=== PATIENT | male | born 1975 | race Caucasian/White ===

== ENCOUNTER → 2019-10-16 05:49 | Outpatient (CLI) | payer OTHER, SELFPAY ==
--- NOTE | 2019-10-16 16:38 | STRESSREP ---
Stress Test Report Date: 10/16/2019 Procedure: Exercise tolerance test/imaging study Indications: [] Chest pain, dyspnea Consent: Per the patient Procedure: The patient exercised on a Germán protocol for 6 minutes and 30 seconds achieving a peak heart rate of 160 bpm (89 % predicted maximal heart rate) with a peak blood pressure 170/70 mmHg and a peak MET capacity of 7.7 METs. The baseline ECG demonstrated normal sinus rhythm. The peak exercise ECG demonstrated no significant ischemic changes. EKG during recovery revealed no significant ischemic changes [There were no cardiac dysrhythmias pretest, during exercise, or recovery]. The functional capacity was considered significantly decreased for age. There was [no complaint of chest discomfort during exercise or recovery]. The examination was discontinued secondary to dyspnea. Impression: 1. Technically adequate (percent predicted maximal heart rate greater than 85%) exercise tolerance test 2. Stress test is negative for exercise-induced EKG changes of ischemia 3. The test test is negative for exercise-induced chest pain 4. Functional capacity is significantly decreased for age 5. Nuclear images pending Myocardial perfusion imaging study: Technique: The patient was injected with 15 mCi of technetium 99m Cardiolite and subsequently rest SPECT Cardiolite nuclear imaging was obtained in the horizontal long, vertical long, and short axis views. The patient exercised on a Germán protocol. Please see above for details. The patient was injected with 45 mCi of technetium 99m Cardiolite and subsequently stress SPECT Cardiolite nuclear imaging was obtained in the horizontal long, vertical long, and short axis views. A gated Cardiolite study at peak stress was obtained. Interpretation: Rest and stress SPECT Cardiolite nuclear imaging status post realignment, normalization, and attenuation correction, demonstrates normal uptake at rest and mildly decreased radioisotope uptake in the apex on stress suggestive of mild apical ischemia. The gated Cardiolite study demonstrates no significant regional wall motion abnormalities. The reported LVEF is 64 %. Impression: 1. There is evidence of mild apical ischemia. 2. The gated Cardiolite study reports an LVEF of 64 %. This note was generated with [employer] software. It may contain incorrect words, spelling, and punctuation that were not noted in checking the note before signing.
== END ==
PROVIDERS: Family Provider Family Medicine; PCP Family Medicine; Referring Provider Family Medicine; Visit Provider Family Medicine
DX: R07.9 Chest pain, unspecified (principal)
CPT/HCPCS: 78452; 93017; A9500; A4216

== ENCOUNTER 2023-01-30 16:11 | Emergency (ER) | payer OTHER, SELFPAY ==
[2023-01-30 16:12] VITALS: BP 134/96; PULSE 97; RESP 18; TEMP 36.7; O2SAT 98; BMI 44.1
--- NOTE | 2023-01-30 16:42 | CT_ITS ---
INDICATION: headaches EXAMINATION: CT BRAIN - CT Head or Brain W/O Contrast Injection TECHNIQUE: Multiple axial images were obtained of the head without intravenous contrast. A radiation dose optimization technique was used for this scan. IV Contrast dosage and agent: None. COMPARISON: None FINDINGS: BRAIN PARENCHYMA: No intra- or extra-axial hemorrhage. No evidence of acute infarct. No intracranial mass or mass effect. There is preservation of the raymundo/white matter interface. Posterior fossa structures are unremarkable. CSF SPACES: Appropriate for age. No hydrocephalus. Basal cisterns are patent. CALVARIUM, SKULL BASE, PARANASAL SINUSES AND MASTOID AIR CELLS: Clear. No discrete lytic or blastic abnormalities. ORBITS: Both globes, extraocular muscles, optic nerves and retrobulbar fat appear unremarkable. ASPECTS Score for Acute Strokes: 10 CT/Brain/Head without Contrast IMPRESSION: Negative Brain CT without contrast. Electronically Signed: Brandin Olmos MD at 17:24 EDT ,
--- NOTE | 2023-01-30 16:44 | EDS_ITS ---
HPI History of Present Illness Chief Complaint: Chest Pain Informant: patient and spouse/S.O. Narrative Narrative: Patient has multiple complaints today. Patient's been having intermittent chest pain for months now. Its not worsening. It primarily occurs when he is stressed or angry. But not always. He points to 1 small area under the left breast. It is sharp. It is sometimes associated with dyspnea but he has dyspnea at other times without chest pain. It is not there currently. It does not radiate. Patient does have a history of blood pressure. But no diabetes, cholesterol, smoking or first-degree relative history of heart disease. Patient also complains of having episodes. He states people talk to him and he will have to shake his head in the to say his name multiple times before he can respond. But he does hear them. These have also been going on for 1 to 3 months. There is no reported actual seizure activity. Patient also complains of intermittent headaches. The headaches do not necessarily align with any of the other specific complaints. Patient also has a history of alcoholism. He drinks a pint of 80 proof liquor a day. He has been doing this for over 10 years. [facility] Medical History GERD (gastroesophageal reflux disease) HTN (hypertension) Home Medications albuterol sulfate 90 mcg/actuation aerosol inhaler (Ventolin HFA) 2 puff inhalation Q4H PRN PRN Wheezing ##1 01/30/23 [Rx Last Taken Unknown] omeprazole 40 mg capsule,delayed release 40 mg PO DAILY 01/30/23 [History Last Taken Unknown] valsartan 320 mg-hydrochlorothiazide 25 mg tablet 1 tab PO DAILY 01/30/23 [History Last Taken Unknown] Allergy/AdvReac Type Severity Reaction Status Date / Time Food Allergies: Uncoded Allergy Anaphylaxis Verified 01/30/23 16:14 cyclobenzaprine AdvReac Other Verified 01/30/23 16:14 [From Flexeril] Social History Smoking Status: Never smoker ROS ROS ED Constitutional Constitutional ED: Denies chills, fever(s) or subjective Eyes Eyes: Denies change in vision ENT ENT ED: Denies rhinorrhea or sore throat Cardiovascular Cardiovascular: Reports chest pain; Denies palpitations Respiratory/Chest Respiratory/Chest: Denies cough Gastrointestinal Gastrointestinal: Denies nausea or vomiting Musculoskeletal Musculoskeletal: Denies myalgias Integumentary Denies rash Neurologic Neurologic: Reports headache(s); Denies paresthesias or weakness Psychiatric Psychiatric: Reports anxiety Endocrine Endocrinology: Denies polydipsia or polyuria Hematologic/Lymphatic Hematologic/Lymphatic: Denies lymphadenopathy Allergic/Immunologic Allergic/Immunologic ED: Denies urticaria EXAM Physical Exam Narrative Exam Narrative: Patient awake alert no acute distress. He evidently had one of his episodes that the nurse witness. She said his name and then he opened his eyes wide. There is no shaking. No postictal or confused episode. This came and went quickly. HEENT: No sign of trauma. Mucous membranes moist Neck is supple Lungs are clear bilaterally and his saturations are normal at 98% on room air. Heart is regular with a rate about 100. No murmur gallop or rub heard. Abdomen is obese but overall soft normal bowel sounds completely nontender Neurologically he is awake alert appropriate with no focal deficit. Extremity shows some large ankles but really not pitting. His states they have been like this for a long time. Const Vital Signs: 01/30/23 16:12 01/30/23 16:36 01/30/23 17:22 Temperature 98.1 F Temperature Source Temporal Pulse Rate 97 Respiratory Rate 18 14 Respiratory Effort Normal Non-Labored Blood Pressure 134/96 H 132/78 H Blood Pressure Mean 108 96 Pulse Ox 98 Oxygen Delivery Method Room Air MDM MDM MDM Narrative Medical decision making narrative: My independent interpretation of the patient's single view AP chest x-ray shows no acute process. Final reading was no radiographic evidence of acute pulmonary disease. My independent interpretation the patient's CT of the head without contrast is also negative as was the final reading. Patient's blood work showed mild anemia which is not the source of his symptomatology. Electrolytes were overall relatively normal other than he did have a mild glucose elevation of 139. Liver function test were normal despite his heavy drinking history. Troponin was negative. Alcohol was elevated at 103. I talk with the . She is heard him wheezing when he gets this. Although he does not smoke now he used to smoke. He quit about 6 years ago. I will write for an albuterol inhaler because if he is getting intermittent wheezing this might be causing some of his symptoms. He evidently has an appointment set with his primary physician coming soon because he was due for refill of his antihypertensives. He still has his valsartan available though. We discussed reasons to return. I think with a negative troponin and negative work-up with months of symptoms he is safe and appropriate for discharge and follow-up. Lab Data Attestation: I reviewed the patient's lab results. Labs: Laboratory Results - last 24 hr 01/30/23 01/30/23 01/30/23 16:46 16:46 16:46 WBC 9.7 RBC 5.24 Hgb 12.1 L Hct 41.3 MCV 78.8 L MCH 23.1 L MCHC 29.3 L RDW Std Deviation 45.7 H RDW Coeff of Zen 16.0 H Plt Count 296 MPV 10.2 Immature Gran % (Auto) 0.300 Neut % (Auto) 57.0 Lymph % (Auto) 30.5 [place] % (Auto) 6.0 Eos % (Auto) 5.7 H Baso % (Auto) 0.5 Absolute Neuts (auto) 5.5 Absolute Lymphs (auto) 2.96 Nucleated RBC % 0 Sodium 140 Potassium 4.2 Chloride 106 Carbon Dioxide 29.0 Anion Gap 5 BUN 14 Creatinine 0.94 Estim Creat Clear Calc 112.15 Est GFR (MDRD) Af Amer 111 Est GFR (MDRD) Non-Af 92 BUN/Creatinine Ratio 14.9 Glucose 139 H Calcium 8.7 Total Bilirubin 0.40 AST 31 ALT 47 Alkaline Phosphatase 97 Troponin I High Sens 5 Total Protein 7.4 Albumin 3.5 Globulin 3.9 Albumin/Globulin Ratio 0.9 Ethyl Alcohol 103.0 Radiography Diagnostic Testing: Clinical Impression(s) from Imaging Studies Brain CT 01/30/23 16:42 IMPRESSION: Negative Brain CT without contrast. Electronically Signed: Brandin Olmos MD at 17:24 EDT , Chest X-Ray 01/30/23 16:55 IMPRESSION: No radiographic evidence of acute cardiopulmonary disease. Electronically Signed: Brandin Olmos MD at 17:12 EDT , EKG Initial EKG: Comments: My independent interpretation of the patient's EKG done for history of chest pain shows a normal sinus rhythm with overall rate of 91. Mild baseline variation. No ventricular ectopy. No acute ST elevation or depression. NV interval, QRS duration and QTc are normal. Discharge Plan Triage Chief Complaint: Chest Pain ED Provider: Christian Lazcano Dx/Rx/DC Orders Clinical Impression: Chest pain, History of acute bronchitis with bronchospasm, Alcohol abuse Instructions: ED Bronchitis with Wheezing (Adult), ED Chest Pain, Uncertain Cause Prescriptions: New albuterol sulfate [Ventolin HFA] 90 mcg/actuation HFA aerosol inhaler 2 puff inhalation Q4H PRN PRN (Reason: Wheezing) Qty: 1 0RF No Action omeprazole 40 mg capsule,delayed release(DR/EC) 40 mg PO DAILY Label Comments: TAKE 1 CAPSULE BY MOUTH EVERY DAY valsartan-hydrochlorothiazide 320-25 mg tablet 1 tab PO DAILY Label Comments: TAKE 1 TABLET BY MOUTH EVERY DAY Primary Care Provider: Mya Sánchez Referrals: Jeferson Reinoso MD [Non-Staff] - As soon as possible Disposition Disposition: Home, Self Care
--- NOTE | 2023-01-30 16:55 | RAD_ITS ---
INDICATION: CP EXAMINATION/TECHNIQUE: X-RAY - XR Chest 1 View COMPARISON: None. FINDINGS: LUNGS: No consolidation, edema or effusion. No pneumothorax. MEDIASTINUM AND CARDIOVASCULAR STRUCTURES: Cardiac silhouette not enlarged. Central airways and mediastinal contour are unremarkable. RAD/Chest 1 View (Portable) IMPRESSION: No radiographic evidence of acute cardiopulmonary disease. Electronically Signed: Brandin Olmos MD at 17:12 EDT ,
[2023-01-30 17:08] LABS: Absolute Lymphocyte Count 2.96 X10^3/uL (0.83-4.51); Absolute Neutrophil Count 5.5 X10^3/uL (2.0-7.7); Basophil# 0.05 X10^3/uL; Basophil% 0.5 % (0-1); Eosinophil# 0.55 X10^3/uL; Eosinophils% 5.7 % (0-5); Hematocrit 41.3 % (40-54); Hemoglobin 12.1 g/dL (13.0-16.5); Lymphocyte # 2.96 X10^3/ul (0.83-4.51); Lymphocyte % 30.5 % (19-41); Mean Corp Hgb Conc 29.3 g/dL (32-36); Mean Corpuscular Hgb 23.1 pg (27.0-32.0); Mean Corpuscular Volume 78.8 fL (80-94); Mean Platelet Vol. 10.2 fl (6.2-12.0); Monocyte# 0.58 X10^3/uL; NRBC Flagged by Analyzer 0 % (0-5); Neutrophil # 5.53 X10^3/uL (2.7-7.7); Platelet Count 296 K/mm3 (150-450); RBC Distribution Width SD 45.7 fl (35.1-43.9); Red Blood Count 5.24 M/mm3 (4.6-6.2); White Blood Count 9.7 K/mm3 (4.4-11.0)
[2023-01-30 17:19] LABS: ALB/GLOB Ratio 0.9 RATIO (0.9-2.4); AST(SGOT) 31 U/L (15-37); Alanine Aminotransfer ALT/SGPT 47 U/L (16-61); Albumin, Serum 3.5 g/dL (3.2-5.0); Alkaline Phosphatase 97 U/L (45-117); Anion Gap 5 (5-15); BUN 14 mg/dL (7-18); BUN/Creat Ratio 14.9 RATIO (10-20); Calcium,Total 8.7 mg/dL (8.5-10.1); Chloride 106 mmol/L (98-107); Creatinine, Serum 0.94 mg/dL (0.70-1.30); EST Glomerular Filtration Rate 92 mL/min (>60); Est Glom Filt Rate - Afr Amer 111 mL/min (>60); Estimated Creatinine Clearance 112.15 ml/min; Globulin 3.9 g/dL (2.2-4.2); Glucose 139 mg/dL (74-106); Potassium 4.2 mmol/L (3.5-5.1); Protein, Total 7.4 g/dL (6.4-8.2); Sodium Level 140 mmol/L (136-145); Troponin-I HS 5 pg/mL (3.0-78.0)
[2023-01-30] MEDS: Acetaminophen 500 MG Tablet 1000 MG PO (17:21)
[2023-01-30 17:22] VITALS: BP 132/78; RESP 14
[2023-01-30] MEDS: Albuterol Sulfate 8 gm Inhaler (60 puffs) 2 PUFF INHALATION (19:15)
[2023-01-30 19:16] VITALS: BP 142/90; RESP 18
[2023-01-30 19:17] VITALS: BP 142/90; RESP 18
== END 2023-01-30 19:21 | disposition home or self-care (01) ==
PROVIDERS: Emergency Provider Emergency Medicine; PCP Family Medicine; Visit Provider Emergency Medicine
DX: R07.9 Chest pain, unspecified (principal); R51.9 Headache, unspecified; Z87.891 Personal history of nicotine dependence; I10 Essential (primary) hypertension; R06.00 Dyspnea, unspecified; K21.9 Gastro-esophageal reflux disease without esophagitis; Z79.899 Other long term (current) drug therapy; F10.10 Alcohol abuse, uncomplicated; Z87.09 Personal history of other diseases of the respiratory system
CPT/HCPCS: 70450; 71045; 80053; 82077; 84484; 85025; 93005; 99284; A4216

== ENCOUNTER → 2023-01-31 | Outpatient (CLI) | payer OTHER, SELFPAY ==
[2023-01-31 16:13] LABS: Vitamin B12 756 pg/mL (211-911)
[2023-01-31 16:15] LABS: Hemoglobin A1c 6.2 % (3.8-5.6)
[2023-01-31 16:22] LABS: BNP,B-Type NATRIURETIC PEPTIDE 8.2 pg/mL (0-100)
[2023-01-31 16:37] LABS: Thyroid Stim Hormone (TSH) 0.96 uIU/mL (0.358-3.74)
== END | disposition home or self-care (01) ==
LOC: BFHLAB 11:27
PROVIDERS: PCP Family Medicine; Referring Provider Family Medicine; Visit Provider Family Medicine
DX: R73.9 Hyperglycemia, unspecified (principal); R07.9 Chest pain, unspecified; R53.83 Other fatigue; F10.90 Alcohol use, unspecified, uncomplicated
CPT/HCPCS: 36415; 82607; 82746; 83036; 83880; 84443

== ENCOUNTER → 2023-02-19 | Outpatient (CLI) | payer OTHER, SELFPAY | END | disposition home or self-care (01) | LOC: SL 19:42 | PROVIDERS: PCP Family Medicine; Visit Provider Family Medicine | DX: G47.10 Hypersomnia, unspecified (principal); E66.01 Morbid (severe) obesity due to excess calories; R06.83 Snoring | CPT/HCPCS: 95811 ==

== ENCOUNTER 2023-07-03 08:22 | Emergency (ER) | payer OTHER, SELFPAY ==
[2023-07-03 08:23] VITALS: BP 186/92; PULSE 95; RESP 18; TEMP 36.1; O2SAT 96; BMI 45.9
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
== END 2023-07-03 09:31 | disposition home or self-care (01) ==
LOC: ED 08:51
PROVIDERS: Emergency Provider Emergency Medicine; PCP Family Medicine; Visit Provider Emergency Medicine
DX: T24.231A Burn of second degree of right lower leg, initial encounter (principal); I10 Essential (primary) hypertension; X19.XXXA Contact with other heat and hot substances, initial encounter
CPT/HCPCS: 99282

== ENCOUNTER → 2023-09-12 | Outpatient (CLI) | payer OTHER, SELFPAY ==
--- NOTE | 2023-09-12 06:35 | MRI_ITS ---
STUDY: MRI ORBITS WITH AND WITHOUT CONTRAST REASON FOR EXAM: Male, 47 years old. VISION LOSS RIGHT EYE,ATTN ORBITS TECHNIQUE: Standardized fat and water weighted pulse sequences were obtained in all 3 orthogonal planes, pre-and post contrast administration. IV 30 Clariscan was administered for the contrast portion of the examination. COMPARISON: None. FINDINGS: Normal bilateral globes. Normal bilateral optic nerve sheath complexes and optic nerves. Normal bilateral intraconal and extraconal spaces. Normal bilateral extraocular muscles. Normal optic chiasm and post-chiasmatic tracts. Normal sella turcica, pituitary gland, infundibular stalk, and hypothalamus. Normal bilateral cavernous sinuses. Normal tectal plate and pineal gland. Normal flow voids within the major intracranial circulation suggesting patency by spin echo criteria. Normal size of the ventricles and extra-axial spaces for the patient''s age. Normal white matter tracts of the supratentorial brain. Normal bilateral basal ganglia. Normal thalami. There is no extra-axial fluid accumulation. Normal midbrain, fahad and medulla. Normal cerebellum. Normal basal cisterns. MRI/Brain W/WO Contrast IMPRESSION: 1. Normal enhanced and unenhanced MRI of the orbits. 2. Mild mucosal edema in the ethmoid sinuses. The right frontal sinus is not pneumatized. Normal remaining paranasal sinuses. Electronically Signed: Aaron Moeller MD at 8:58 EDT ,
[2023-09-12 07:01] LABS: CREATININE FINGERSTICK 1.5 mg/dL (0.70-1.30)
== END | disposition home or self-care (01) ==
LOC: MRI 06:26
PROVIDERS: PCP Family Medicine; Visit Provider Family Medicine
DX: H54.61 Unqualified visual loss, right eye, normal vision left eye (principal); H46.9 Unspecified optic neuritis
CPT/HCPCS: 70553; A9575

== ENCOUNTER 2024-03-25 12:59 | Emergency (ER) | payer OTHER, SELFPAY ==
[2024-03-25 12:59] VITALS: BP 153/94; PULSE 85; RESP 16; TEMP 36.8; O2SAT 95; BMI 46.7
--- NOTE | 2024-03-25 13:24 | RAD_ITS ---
INDICATION: SOB EXAMINATION/TECHNIQUE: X-RAY - XR Chest 1 View COMPARISON: No relevant prior comparison study available FINDINGS: LINES/DEVICES: None. LUNGS: No consolidation, edema or effusion. No pneumothorax. MEDIASTINUM AND CARDIOVASCULAR STRUCTURES: Cardiac silhouette not enlarged. Central airways and mediastinal contour are unremarkable. BONES AND SOFT TISSUES: Unremarkable. RAD/Chest 1 View (Portable) IMPRESSION: No radiographic evidence of acute cardiopulmonary disease. Electronically Signed: Alessandro Reis MD at 14:12 EDT ,
[2024-03-25 13:28] LABS: Absolute Neutrophil Count 4.3 X10^3/uL (2.0-7.7); Basophil# 0.04 X10^3/uL; Basophil% 0.6 % (0-1); Eosinophil# 0.59 X10^3/uL; Eosinophils% 8.2 % (0-5); Hematocrit 35.9 % (40-54); Hemoglobin 10.3 g/dL (13.0-16.5); Lymphocyte % 26.5 % (19-41); Mean Corp Hgb Conc 28.7 g/dL (32-36); Mean Corpuscular Hgb 21.2 pg (27.0-32.0); Mean Platelet Vol. 9.7 fl (6.2-12.0); Monocyte# 0.33 X10^3/uL; Monocyte% 4.6 % (0-10); NRBC Flagged by Analyzer 0 % (0-5); Neutrophil # 4.28 X10^3/uL (2.7-7.7); Neutrophil % 59.7 % (47-70); Platelet Count 258 K/mm3 (150-450); RBC Distribution Width CV 17.2 % (11.6-14.6); RBC Distribution Width SD 45.5 fl (35.1-43.9); Red Blood Count 4.85 M/mm3 (4.6-6.2); White Blood Count 7.2 K/mm3 (4.4-11.0)
[2024-03-25 13:44] LABS: Anion Gap 3 (5-15); BUN 12 mg/dL (7-18); BUN/Creat Ratio 12.7 RATIO (10-20); Calcium,Total 8.5 mg/dL (8.5-10.1); Chloride 109 mmol/L (98-107); Creatinine, Serum 0.94 mg/dL (0.70-1.30); EST Glomerular Filtration Rate 91 mL/min (>60); Est Glom Filt Rate - Afr Amer 110 mL/min (>60); Estimated Creatinine Clearance 155.85 ml/min; Glucose 145 mg/dL (74-106); Potassium 3.9 mmol/L (3.5-5.1); Sodium Level 139 mmol/L (136-145); Troponin-I HS 6 pg/mL (3.0-78.0)
[2024-03-25 14:02] VITALS: O2SAT 99
--- NOTE | 2024-03-25 14:04 | ED.RN ---
I don't want to wait anymore RN explained benefits of staying to be seen but pt still wanted to leave. LWBS [id number]
== END 2024-03-25 14:01 | disposition left against medical advice (07) ==
LOC: ED 14:15
PROVIDERS: PCP Family Medicine
DX: Z53.21 Procedure and treatment not carried out due to patient leaving prior to being seen by health care provider (principal)
CPT/HCPCS: 71045; 80048; 84484; 85025; 93005; 99282

== ENCOUNTER 2024-10-20 15:03 | Inpatient (IN) | payer OTHER, SELFPAY ==
[2024-10-20 15:05] VITALS: BP 146/108; PULSE 122; RESP 18; TEMP 36.6; O2SAT 99; BMI 44.9
--- NOTE | 2024-10-20 15:20 | EDS_ITS ---
HPI History of Present Illness Chief Complaint: Substance Abuse Informant: patient Onset/Context/Timing Onset: Today Timing: Continuous Worsened by: Nothing Relieved by: Nothing Associated Symptoms Associated Symptoms: Positive for diarrhea* and palpatations; Negative for vomiting*, fever*, rash*, seizure, tremor, change in mental status, trauma, suicidal ideation or homicidal ideation Narrative Narrative: Patient presents requesting detox from alcohol. Patient states he drinks 1/5 of vodka per day. Patient states on the weekends he drinks up to a gallon of vodka. Patient states his last drink was approximately 30 minutes prior to arrival. Patient states he has never been to detox in the past. Patient admits to some palpitations where he feels like his heart is racing. Patient admits to some diarrhea. Patient denies any nausea or vomiting. Patient denies any seizures or tremors. Patient denies any suicidal or homicidal ideations. [facility] Medical History HTN (hypertension) GERD (gastroesophageal reflux disease) Home Medications ?Medication ?Instructions ?Recorded ?Last Taken ?Type albuterol sulfate 90 mcg/actuation 2 puff inhalation Q4H PRN PRN 01/30/23 Unknown Rx aerosol inhaler (Ventolin HFA) Wheezing ##1 omeprazole 40 mg capsule,delayed 40 mg PO DAILY 01/30/23 Unknown History release valsartan 320 1 tab PO DAILY 01/30/23 Unknown History mg-hydrochlorothiazide 25 mg tablet hydrocodone-acetaminophen 5-325mg 1 tab PO Q6H PRN PRN Pain 3 days 07/03/23 Unknown Rx 5mg-325mg #10 TABLETS Allergy/AdvReac Type Severity Reaction Status Date / Time shellfish derived (seafood Allergy Anaphylaxis Verified 10/20/24 15:05 - shellfish) Surgical History History of herniorrhaphy History of tonsillectomy and adenoidectomy Hx of hand surgery Social History (Updated 10/20/24 @ 15:36 by Dana Mcgee) household members: spouse and children current occupational status: employed Smoking Status: Never smoker ROS ROS ED Constitutional Constitutional ED: Denies chills or fever(s) Eyes Eyes: Denies blurry vision or change in vision ENT ENT ED: Denies rhinorrhea or sore throat Cardiovascular Cardiovascular: Reports palpitations; Denies chest pain Respiratory/Chest Respiratory/Chest: Denies cough or dyspnea Gastrointestinal Gastrointestinal: Reports diarrhea; Denies nausea or vomiting Genitourinary Genitourinary ED: Denies dysuria or hematuria Musculoskeletal Musculoskeletal: Reports back pain and neck pain Integumentary Denies abscess or rash Neurologic Neurologic: Reports headache(s); Denies weakness Psychiatric Psychiatric: Denies suicidal ideation or suicidal thoughts Allergic/Immunologic Allergic/Immunologic ED: Denies mouth swelling or urticaria EXAM Physical Exam Const Vital Signs: 10/20/24 15:05 Temperature 97.8 F Temperature Source Oral Pulse Rate 122 H Respiratory Rate 18 Blood Pressure 146/108 H Blood Pressure Mean 120 Pulse Ox 99 Oxygen Delivery Method Room Air Positive well nourished and well developed General Appearance ED: well developed and NAD HEENT Reports moist mucous membranes Neck supple and no JVD Resp normal respiratory effort and clear to auscultation bilaterally Cardio regular rhythm Rate: tachycardic GI soft to palpation, non-tender and non-distended Palpation: tender LLQ; Negative for guarding Neuro oriented x3, CN's II-XII intact bilaterally and no sensory deficits noted Gabby Coma Scale: document GCS findings Spontaneous Obeys Commands Oriented 15 Sensorium / Orientation: alert Speech: speech normal Motor Exam: strength 5/5 throughout Psych mental status grossly normal and thought process normal MDM MDM MDM Narrative Medical decision making narrative: Medical screening labs will be obtained. CBC will be obtained to assess for leukocytosis and anemia. Comprehensive metabolic profile will be obtained to assess for hepatic function, renal function, and electrolyte abnormality. Lipase will be obtained to assess for pancreatitis. Urinalysis will be obtained to assess for urinary tract infection and hematuria. Urine tox screen will be obtained to assess for substance abuse. Serum alcohol level will be obtained to assess for alcohol intoxication. Lab Data Attestation: I reviewed the patient's lab results. Lab results narrative: CBC was reviewed and was within normal limits. Comprehensive metabolic profile was reviewed. AST was slightly elevated at 63 and ALT was slightly elevated at 73. The remainder was essentially within normal limits. Lipase was reviewed and was normal at 31. Serum alcohol level was reviewed and was elevated at 116. Urine tox screen was reviewed and was positive for amphetamines, cocaine, and cannabinoids. Labs: Laboratory Results - last 24 hr 10/20/24 15:30 WBC 9.6 RBC 4.90 Hgb 14.3 Hct 44.4 MCV 90.6 MCH 29.2 MCHC 32.2 RDW Std Deviation 44.6 H RDW Coeff of Zen 13.4 Plt Count 246 MPV 10.1 Immature Gran % (Auto) 0.400 Neut % (Auto) 63.1 Lymph % (Auto) 24.2 [place] % (Auto) 5.5 Eos % (Auto) 6.3 H Baso % (Auto) 0.5 Absolute Neuts (auto) 6.0 Absolute Lymphs (auto) 2.31 Nucleated RBC % 0 Sodium 141 Potassium 3.4 L Chloride 107 Carbon Dioxide 28.0 Anion Gap 6 BUN 11 Creatinine 0.92 Estim Creat Clear Calc 153.92 Est GFR (MDRD) Af Amer 114 Est GFR (MDRD) Non-Af 94 BUN/Creatinine Ratio 12.0 Glucose 123 H Calcium 9.3 Total Bilirubin 0.40 AST 63 H ALT 73 H Alkaline Phosphatase 101 Total Protein 7.8 Albumin 3.6 Globulin 4.2 Albumin/Globulin Ratio 0.9 Lipase 31 Urine Opiates Screen NEGATIVE Urine Methadone Screen NEGATIVE Ur Barbiturates Screen NEGATIVE Ur Phencyclidine Scrn NEGATIVE Ur Amphetamines Screen POSITIVE H MDMA (Ecstasy) Screen NEGATIVE U Benzodiazepines Scrn NEGATIVE Urine Cocaine Screen POSITIVE H U Cannabinoids Screen POSITIVE H Ur Drug Screen Comment Ethyl Alcohol 116.0 Treatment and Re-Evaluation Narrative: Patient was given a dose of phenobarbital here. Patient was advised of his findings. Patient is agreeable for admission for detox. Case was discussed with the hospitalist. He will admit the patient to his service. Patient understands and is agreeable with plan. All questions were answered. Discharge Plan Triage Chief Complaint: Substance Abuse ED Provider: Jesus Manuel Jenkins Dx/Rx/DC Orders Clinical Impression: Alcohol withdrawal, Alcohol dependence, Tachycardia Prescriptions: No Action omeprazole 40 mg capsule,delayed release(DR/EC) 40 mg PO DAILY Patient Comments: TAKE 1 CAPSULE BY MOUTH EVERY DAY valsartan-hydrochlorothiazide 320-25 mg tablet 1 tab PO DAILY Patient Comments: TAKE 1 TABLET BY MOUTH EVERY DAY albuterol sulfate [Ventolin HFA] 90 mcg/actuation HFA aerosol inhaler 2 puff inhalation Q4H PRN PRN (Reason: Wheezing) Qty: 1 0RF hydrocodone-acetaminophen 5-325 mg tablet 1 tab PO Q6H PRN PRN (Reason: Pain) 3 Days Qty: 10 0RF Primary Care Provider: Mya Sánchez Referrals: Mya Sánchez MD [Primary Care Provider] - Print Language: Kinyarwanda Disposition Disposition: Acute Care Hospital [facility]
[2024-10-20 15:40] LABS: Absolute Lymphocyte Count 2.31 X10^3/uL (0.83-4.51); Basophil# 0.05 X10^3/uL; Basophil% 0.5 % (0-1); Eosinophils% 6.3 % (0-5); Hematocrit 44.4 % (40-54); Hemoglobin 14.3 g/dL (13.0-16.5); Lymphocyte # 2.31 X10^3/ul (0.83-4.51); Lymphocyte % 24.2 % (19-41); Mean Corp Hgb Conc 32.2 g/dL (32-36); Mean Corpuscular Hgb 29.2 pg (27.0-32.0); Mean Corpuscular Volume 90.6 fL (80-94); Mean Platelet Vol. 10.1 fl (6.2-12.0); Monocyte# 0.53 X10^3/uL; Monocyte% 5.5 % (0-10); NRBC Flagged by Analyzer 0 % (0-5); Neutrophil # 6.02 X10^3/uL (2.7-7.7); Neutrophil % 63.1 % (47-70); Platelet Count 246 K/mm3 (150-450); RBC Distribution Width CV 13.4 % (11.6-14.6); RBC Distribution Width SD 44.6 fl (35.1-43.9); White Blood Count 9.6 K/mm3 (4.4-11.0)
[2024-10-20 15:58] LABS: Amphetamine Urine VISTA POSITIVE (<1000 ng/mL); Barbiturate Urine VISTA NEGATIVE (< 200 ng/mL); Benzodiazepine Urine VISTA NEGATIVE (< 200 ng/mL); Cocaine Urine VISTA POSITIVE (< 300 ng/mL); Ecstacy Urine VISTA NEGATIVE (< 500 ng/mL); Methadone Urine VISTA NEGATIVE (< 300 ng/mL); PCP Urine VISTA NEGATIVE (< 25 ng/mL); THC Urine VISTA POSITIVE (< 50 ng/mL); Vista UDS pH Range 5
[2024-10-20 15:59] LABS: ALB/GLOB Ratio 0.9 RATIO (0.9-2.4); AST(SGOT) 63 U/L (15-37); Alanine Aminotransfer ALT/SGPT 73 U/L (16-61); Albumin, Serum 3.6 g/dL (3.2-5.0); Alkaline Phosphatase 101 U/L (45-117); Anion Gap 6 (5-15); BUN 11 mg/dL (7-18); Calcium,Total 9.3 mg/dL (8.5-10.1); Chloride 107 mmol/L (98-107); Creatinine, Serum 0.92 mg/dL (0.70-1.30); EST Glomerular Filtration Rate 94 mL/min (>60); Est Glom Filt Rate - Afr Amer 114 mL/min (>60); Estimated Creatinine Clearance 153.92 ml/min; Globulin 4.2 g/dL (2.2-4.2); Glucose 123 mg/dL (74-106); Lipase 31 U/L (13-75); Potassium 3.4 mmol/L (3.5-5.1); Protein, Total 7.8 g/dL (6.4-8.2); Sodium Level 141 mmol/L (136-145)
[2024-10-20] MEDS: Phenobarbital 32.4 MG Tablet 64.8 MG PO ×3 (16:16→22:28)
--- NOTE | 2024-10-20 16:18 | HP.PCM.HOS_ITS ---
HPI - General General Date of Admission: 10/20/24 Date of Service: 10/20/24 Chief Complaint: Alcohol detox HPI Narrative SOULEYMANE ESPINOZA, is a 49 M who presented to [facility] ED on 10/20/2024 requesting alcohol detox. Patient has never gone through alcohol detox before. Drinks 1/5 of vodka daily on weekdays and up to a gallon of vodka on weekends. Last drink was about 30 minutes prior to arrival to the ED. Alcohol level 116 in the ED. Vitals on arrival notable for hypertension to the 150s/100s and sinus tachycardia to the low 100s. CBC and BMP fairly benign. LFTs with mildly elevated AST and ALT, otherwise unremarkable. Given request for alcohol detox, hospitalist was contacted for admission. I saw the patient at bedside in the ED. Patient was flushed appearing on exam and appeared anxious. Currently having some withdrawal symptoms including tremors, nausea, anxiety and flushing. Was given a dose of p.o. phenobarbital in the ED about 15 minutes before I saw him, does not feel like this has taken any effect yet. Patient states that he has a steady job and family and is concerned that his worsening drinking habits could put these in serious jeopardy, and this is why he wants to go through detox. Notably his UDS was positive for amphetamines, cocaine and cannabinoids. Patient states that he smokes marijuana on about a daily basis. He will go to parties on the weekends with his brother and take Adderall and use cocaine occasionally, does not do these things on a daily basis. He also chews snuff on a daily basis. Patient otherwise has minimal medical history, takes medication for high blood pressure and acid reflux. Denies any other symptoms currently. Will be admitted for further management. [facility] Medical History (Updated 10/20/24 @ 19:[address] Que Arita, DO) Anxiety Depression Smoker Former smoker CPAP (continuous positive airway pressure) dependence Seizures HTN (hypertension) GERD (gastroesophageal reflux disease) Home Medications ?Medication ?Instructions ?Recorded ?Last Taken ?Type omeprazole 40 mg capsule,delayed 40 mg PO DAILY 01/30/23 10/20/24 History release valsartan 320 1 tab PO DAILY 01/30/23 10/20/24 History mg-hydrochlorothiazide 25 mg tablet aspirin 81 mg PO DAILY 10/20/24 Unknown History folic acid 1 mg tablet 1 mg PO DAILY 10/20/24 Unknown History Allergy/AdvReac Type Severity Reaction Status Date / Time shellfish derived (seafood Allergy Anaphylaxis Verified 10/20/24 15:05 - shellfish) Surgical History History of herniorrhaphy History of tonsillectomy and adenoidectomy Hx of hand surgery Social History (Updated 10/20/24 @ 15:36 by Dana Mcgee) household members: spouse and children current occupational status: employed Smoking Status: Never smoker ROS Constitutional Constitutional: Denies chills, fatigue, fever(s) or weakness Eyes Eyes: Denies change in vision Cardiovascular Cardiovascular: Denies chest pain or palpitations Respiratory/Chest Respiratory/Chest: Denies cough or shortness of breath at rest Gastrointestinal Gastrointestinal: Reports nausea; Denies abdominal pain or vomiting Musculoskeletal Musculoskeletal: Denies arthralgias or myalgias Neurologic Neurologic: Denies dizziness or headache(s) Psychiatric Psychiatric: Reports anxiety Vital Signs Vital Signs Vital Signs: 10/20/24 15:05 Temperature 97.8 F Temperature Source Oral Pulse Rate 122 H Respiratory Rate 18 Blood Pressure 146/108 H Blood Pressure Mean 120 Pulse Ox 99 Oxygen Delivery Method Room Air Weight Weight: 154.221 kg Body Mass Index (BMI) 44.9 Physical Exam Const alert and oriented x3 Constitutional Narrative: Middle-age male, class III obesity, flushed appearing and somewhat anxious, otherwise sitting up in bed and answering questions appropriately. General Appearance: cooperative HEENT normocephalic, head/scalp atraumatic, hearing grossly normal bilaterally, nasal mucous membranes and turbinates normal and moist oral mucous membranes Eyes PERRL, EOMs intact bilaterally and conjunctivae normal Neck full ROM Chest inspection of chest normal Resp normal respiratory effort, normal air movement, no use of accessory muscles and clear to auscultation bilaterally Cardio no murmurs and peripheral pulses 2+ throughout Cardio Narrative: Tachycardic, regular rhythm. GI normal to inspection, nondistended, normoactive bowel sounds, soft to palpation, non-tender and non-distended Back/Spine normal ROM Extremity normal to inspection, full ROM and no pedal edema Skin no rashes or lesions noted Psych mental status grossly normal Mood & Affect: anxious Results Lab / Micro Data 10/20/24 15:30 10/20/24 15:30 Labs: Laboratory Results - last 24 hr 10/20/24 15:30: WBC 9.6, RBC 4.90, Hgb 14.3, Hct 44.4, MCV 90.6, MCH 29.2, MCHC 32.2, RDW Std Deviation 44.6 H, RDW Coeff of Zen 13.4, Plt Count 246, MPV 10.1, Immature Gran % (Auto) 0.400, Neut % (Auto) 63.1, Lymph % (Auto) 24.2, Lane % (Auto) 5.5, Eos % (Auto) 6.3 H, Baso % (Auto) 0.5, Absolute Neuts (auto) 6.0, Absolute Lymphs (auto) 2.31, Nucleated RBC % 0, Sodium 141, Potassium 3.4 L, Chloride 107, Carbon Dioxide 28.0, Anion Gap 6, BUN 11, Creatinine 0.92, Estim Creat Clear Calc 153.92, Est GFR (MDRD) Af Amer 114, Est GFR (MDRD) Non-Af 94, BUN/Creatinine Ratio 12.0, Glucose 123 H, Calcium 9.3, Total Bilirubin 0.40, AST 63 H, ALT 73 H, Alkaline Phosphatase 101, Total Protein 7.8, Albumin 3.6, Globulin 4.2, Albumin/Globulin Ratio 0.9, Lipase 31, Urine Opiates Screen NEGATIVE, Urine Methadone Screen NEGATIVE, Ur Barbiturates Screen NEGATIVE, Ur Phencyclidine Scrn NEGATIVE, Ur Amphetamines Screen POSITIVE H, MDMA (Ecstasy) Screen NEGATIVE, U Benzodiazepines Scrn NEGATIVE, Urine Cocaine Screen POSITIVE H, U Cannabinoids Screen POSITIVE H, Ur Drug Screen Comment , Ethyl Alcohol 116.0 Assessment & Plan Assessment/Plan (1) Alcohol dependence: (2) Desire for detoxification: PLAN: Plan Patient is a 49-year-old male who presented [facility] ED on 10/20/2024 requesting alcohol detox. 1. Alcohol abuse with desire for detoxification ? Admit under inpatient status to [facility]. Case management/addiction medicine consulted. Will treat with phenobarbital taper and other as needed medications per alcohol withdrawal order set. 2. Polysubstance abuse ? UDS positive for amphetamines, cocaine and marijuana. Smokes marijuana on a regular basis. Reports using Adderall and cocaine only occasionally at parties. Addiction medicine consulted as above. 3. Tobacco abuse ? Chews snuff on a daily basis. Nicotine patch and nicotine gum as needed ordered per patient request. 4. Mildly elevated LFTs ? AST 63, ALT 73 on admit. LFTs otherwise benign. Suspect due to fatty liver disease versus mild inflammation from heavy alcohol use. No need for imaging at this time. No need to trend further at this time. 5. Hypertension ? Hypertensive to the 150s to 170s in the ED, suspect mainly due to alcohol withdrawal. Reports compliance with home medication. Continue home ARB and hydrochlorothiazide. 6. Class III obesity ? BMI 46 on admit. Encouraged lifestyle modifications. Complicates hospital course, care and prognosis. 7. GERD ? Continue home PPI. DVT prophylaxis: Lovenox twice daily CODE STATUS: Full code, unverified Expected disposition: Home, TBD Total clinical time spent by myself addressing the patient's medical issues, reviewing all the data, and collaborating with patient's care team: 55 minutes. Charges/Coding Visit Charges Inpatient E&M: 32490 Init Hosp L2
[2024-10-20 16:52] VITALS: BP 187/101; PULSE 90; RESP 16; TEMP 36.7; O2SAT 100
[2024-10-20] MEDS: hydrALAZINE 20 MG/ML Vial 10 MG IV (17:05)
--- NOTE | 2024-10-20 17:08 | ED.RN ---
Per pharmacy, we are currently out of LR. Dr Sidhu aware.
[2024-10-20 17:19] VITALS: RESP 18; BMI 46.8
[2024-10-20 17:32] VITALS: BP 150/106; PULSE 102; RESP 18; TEMP 36.8; O2SAT 98
[2024-10-20 17:35] VITALS: BP 150/102; PULSE 102; RESP 18; TEMP 36.9; O2SAT 96
[2024-10-20] MEDS: 0.9% Normal Saline (1000mL) 1,000 ML 999 ML IV (17:55)
[2024-10-20 18:14] LABS: Magnesium 2.1 mg/dL (1.6-2.6)
[2024-10-20 22:18] VITALS: BP 137/88; PULSE 90; RESP 17; TEMP 36.6; O2SAT 97
[2024-10-20] MEDS: Enoxaparin 40 MG/0.4 ML Syringe SC (22:29)
[2024-10-21] VITALS (7 sets, daily range): BP systolic 145–154; BP diastolic 95–100; PULSE 76–92; RESP 16–20; TEMP 36.6–37.1; O2SAT 95–99
[2024-10-21] MEDS: Phenobarbital 32.4 MG Tablet 64.8 MG PO ×6 (02:13→22:04)
[2024-10-21] MEDS: hydrOXYzine PAM 25 MG Capsule 50 MG PO ×3 (02:17→18:11)
[2024-10-21] MEDS: Dicyclomine 10 MG Capsule 20 MG PO ×2 (02:18→09:48)
[2024-10-21] MEDS: 0.9% Saline Lock 10 ML Syringe IV (06:08)
[2024-10-21 07:32] LABS: Hematocrit 40.8 % (40-54); Mean Corp Hgb Conc 31.9 g/dL (32-36); Mean Corpuscular Hgb 29.2 pg (27.0-32.0); Mean Corpuscular Volume 91.7 fL (80-94); Mean Platelet Vol. 10.7 fl (6.2-12.0); Platelet Count 194 K/mm3 (150-450); RBC Distribution Width CV 13.3 % (11.6-14.6); RBC Distribution Width SD 44.8 fl (35.1-43.9); Red Blood Count 4.45 M/mm3 (4.6-6.2)
[2024-10-21 08:01] LABS: Anion Gap 6 (5-15); BUN 15 mg/dL (7-18); BUN/Creat Ratio 18.2 RATIO (10-20); Calcium,Total 8.8 mg/dL (8.5-10.1); Chloride 107 mmol/L (98-107); Creatinine, Serum 0.82 mg/dL (0.70-1.30); EST Glomerular Filtration Rate 107 mL/min (>60); Est Glom Filt Rate - Afr Amer 129 mL/min (>60); Estimated Creatinine Clearance 182.01 ml/min; Glucose 108 mg/dL (74-106); Potassium 3.7 mmol/L (3.5-5.1); Sodium Level 140 mmol/L (136-145)
--- NOTE | 2024-10-21 09:22 | PN.HOSP_ITS ---
Subjective Subjective No issues overnight, CIWA score of 5 Objective Data Objective Data Vital Signs: Vital Signs Temp Pulse Resp BP Pulse Ox O2 Del Method O2 Flow Rate 98.1 F 82 16 145/97 H 97 Room Air 2 10/21/24 06:04 10/21/24 06:04 10/21/24 06:04 10/21/24 06:04 10/21/24 06:04 10/21/24 06:10 10/21/24 02:29 Oxygen Flow Rate (L/min) 2 Oxygen Delivery Method Room Air Weight: 365 lb Body Mass Index (BMI) 46.8 Intake & Output: Intake and Output for Last 24 Hours 10/20/24 10/21/24 10/22/24 03:59 03:59 03:59 Intake Total 2300 / 2300 400 / 400 Balance 2300 / 2300 400 / 400 Lab / Micro Data 10/21/24 06:28 10/21/24 06:28 Labs: Laboratory Results - last 24 hr 10/20/24 15:30: WBC 9.6, RBC 4.90, Hgb 14.3, Hct 44.4, MCV 90.6, MCH 29.2, MCHC 32.2, RDW Std Deviation 44.6 H, RDW Coeff of Zen 13.4, Plt Count 246, MPV 10.1, Immature Gran % (Auto) 0.400, Neut % (Auto) 63.1, Lymph % (Auto) 24.2, [place] % (Auto) 5.5, Eos % (Auto) 6.3 H, Baso % (Auto) 0.5, Absolute Neuts (auto) 6.0, Absolute Lymphs (auto) 2.31, Nucleated RBC % 0, Sodium 141, Potassium 3.4 L, Chloride 107, Carbon Dioxide 28.0, Anion Gap 6, BUN 11, Creatinine 0.92, Estim Creat Clear Calc 153.92, Est GFR (MDRD) Af Amer 114, Est GFR (MDRD) Non-Af 94, BUN/Creatinine Ratio 12.0, Glucose 123 H, Hemoglobin A1c 6.0 H, Calcium 9.3, Magnesium 2.1, Total Bilirubin 0.40, AST 63 H, ALT 73 H, Alkaline Phosphatase 101, Total Protein 7.8, Albumin 3.6, Globulin 4.2, Albumin/Globulin Ratio 0.9, Lipase 31, Urine Opiates Screen NEGATIVE, Urine Methadone Screen NEGATIVE, Ur Barbiturates Screen NEGATIVE, Ur Phencyclidine Scrn NEGATIVE, Ur Amphetamines Screen POSITIVE H, MDMA (Ecstasy) Screen NEGATIVE, U Benzodiazepines Scrn NEGATIVE, Urine Cocaine Screen POSITIVE H, U Cannabinoids Screen POSITIVE H, Ur Drug Screen Comment , Ethyl Alcohol 116.0 10/21/24 06:28: WBC 8.0, RBC 4.45 L, Hgb 13.0, Hct 40.8, MCV 91.7, MCH 29.2, M CHC 31.9 L, RDW Std Deviation 44.8 H, RDW Coeff of Zen 13.3, Plt Count 194, MPV 10.7, Sodium 140, Potassium 3.7, Chloride 107, Carbon Dioxide 27.0, Anion Gap 6, BUN 15, Creatinine 0.82, Estim Creat Clear Calc 182.01, Est GFR (MDRD) Af Amer 129, Est GFR (MDRD) Non-Af 107, BUN/Creatinine Ratio 18.2, Glucose 108 H, Calcium 8.8 Physical Exam Narrative General: Alert, Oriented x3, Cooperative, No apparent distress, resting comfortably HEENT: Atraumatic, PERRLA, EOMI, Normocephalic Oral: Moist Mucosa Neck: Supple, No JVD Lungs: Clear to auscultation, Normal air movement, No rhonchi, No wheeze, No rales Cardiovascular: Regular rate, Regular Rhythm, Normal S1, Normal S2, No murmurs Abdomen: Soft, Non Tender, Non-Distended, No Hepato-splenomegaly Extremities: No edema, Capillary Refill Less than 3 Seconds Skin: No rashes, No breakdown Musculoskeletal: No Tenderness to Palpation of Joints or Extremities Neurological: No focal neurological deficits, Motor Exam 5/5 strength throughout, Sensory exam intact to light touch and pain Psych/Mental Status: Normal Affect, Appropriate Assessment & Plan Assessment/Plan (1) Alcohol dependence: (2) Desire for detoxification: PLAN: Plan 1. Alcohol abuse with a desire for detox/polysubstance abuse/tobacco abuse/mildly elevated LFTs ? Continue with the alcohol withdrawal protocol ? Will have 180 help set up outpatient follow-up ? Discussed tobacco and polysubstance abuse cessation ? Continue with nicotine patch as needed ? LFTs are likely related to his alcohol, will need outpatient follow-up 2. Essential HTN ? Stable ? Continue with his home blood pressure medications ? Will monitor make adjustments as necessary 3. GERD ? Stable ? Continue with PPI DVT: Karon Charges/Coding Visit Charges Inpatient E&M: 29619 Subs Hosp L2
[2024-10-21] MEDS: Folic Acid 1 MG Tablet PO (09:47)
[2024-10-21] MEDS: Pantoprazole Sodium 40 MG Tablet PO (09:47)
[2024-10-21] MEDS: Thiamine Hydrochloride 100 MG Tablet PO (09:47)
[2024-10-21] MEDS: Aspirin 81 MG TAB.CHEW PO (09:48)
[2024-10-21] MEDS: Enoxaparin 40 MG/0.4 ML Syringe SC (09:48)
[2024-10-21] MEDS: Losartan Potassium 100 MG Tablet PO (09:48)
[2024-10-21] MEDS: Acetaminophen 325 MG Tablet 650 MG PO (09:48)
[2024-10-21] MEDS: hydroCHLOROthiazide 25 MG Tablet PO (09:48)
--- NOTE | 2024-10-21 11:46 | ADDICTION ---
Addendum entered by Marilin Galarza 10/24/24 14:21: Update post D/C: Met with patient prior to discharge. He was not interested in any type of follow up. Spoke with his and she reported she was going to talk with him about IOP at [facility]. Once discharged, client and did follow up with [facility] and scheduled an assessment. Original Note: Met with pt to complete RAMP assessments and discuss d/c panning. Pt had just had a dose of phenobarbital and was reporting he was struggling to stay awake. Will meet with him tomorrow to discuss dc planning.
[2024-10-21] MEDS: Ibuprofen 200 MG Tablet PO (13:43)
[2024-10-21] MEDS: traZODone 100 MG Tablet PO (22:04)
[2024-10-22 03:07] VITALS: BP 138/94; PULSE 70; RESP 18; TEMP 36.3; O2SAT 95
[2024-10-22] MEDS: Phenobarbital 32.4 MG Tablet 64.8 MG PO ×6 (03:09→22:21)
[2024-10-22 09:00] VITALS: BP 172/111; PULSE 86; RESP 18; TEMP 36.4; O2SAT 96
[2024-10-22] MEDS: Folic Acid 1 MG Tablet PO (09:03)
[2024-10-22] MEDS: Pantoprazole Sodium 40 MG Tablet PO (09:03)
[2024-10-22] MEDS: Acetaminophen 325 MG Tablet 650 MG PO ×2 (09:03→22:22)
[2024-10-22] MEDS: Aspirin 81 MG TAB.CHEW PO (09:03)
[2024-10-22] MEDS: Losartan Potassium 100 MG Tablet PO (09:03)
[2024-10-22] MEDS: hydroCHLOROthiazide 25 MG Tablet PO (09:03)
[2024-10-22] MEDS: Thiamine Hydrochloride 100 MG Tablet PO (09:03)
--- NOTE | 2024-10-22 10:08 | PCM.PN.HOSP ---
Subjective Subjective CIWA score of 9 Objective Data Objective Data Vital Signs: Vital Signs Temp Pulse Resp BP Pulse Ox O2 Del Method O2 Flow Rate 97.5 F L 86 18 172/111 H 96 Room Air 2 10/22/24 09:00 10/22/24 09:00 10/22/24 09:00 10/22/24 09:00 10/22/24 09:00 10/22/24 09:00 10/21/24 02:29 Oxygen Flow Rate (L/min) 2 Oxygen Delivery Method Room Air Weight: 365 lb 1.368 oz Body Mass Index (BMI) 46.8 Intake & Output: Intake and Output for Last 24 Hours 10/21/24 10/22/24 10/23/24 03:59 03:59 03:59 Intake Total 2300 / 2300 1040 / 1040 240 / 240 Balance 2300 / 2300 1040 / 1040 240 / 240 Lab / Micro Data 10/21/24 06:28 10/21/24 06:28 Physical Exam Narrative General: Alert, Oriented x3, Cooperative, No apparent distress, resting comfortably HEENT: Atraumatic, PERRLA, EOMI, Normocephalic Oral: Moist Mucosa Neck: Supple, No JVD Lungs: Clear to auscultation, Normal air movement, No rhonchi, No wheeze, No rales Cardiovascular: Regular rate, Regular Rhythm, Normal S1, Normal S2, No murmurs Abdomen: Soft, Non Tender, Non-Distended, No Hepato-splenomegaly Extremities: No edema, Capillary Refill Less than 3 Seconds Skin: No rashes, No breakdown Musculoskeletal: No Tenderness to Palpation of Joints or Extremities Neurological: No focal neurological deficits, Motor Exam 5/5 strength throughout, Sensory exam intact to light touch and pain Psych/Mental Status: Normal Affect, Appropriate Assessment & Plan Assessment/Plan (1) Alcohol dependence: (2) Desire for detoxification: PLAN: Plan 1. Alcohol abuse with a desire for detox/polysubstance abuse/tobacco abuse/mildly elevated LFTs ? Continue with the alcohol withdrawal protocol ? Will have 180 help set up outpatient follow-up ? Discussed tobacco and polysubstance abuse cessation ? Continue with nicotine patch as needed ? LFTs are likely related to his alcohol, will need outpatient follow-up 2. Essential HTN ? Stable ? Continue with his home blood pressure medications ? Will monitor make adjustments as necessary 3. GERD ? Stable ? Continue with PPI DVT: Lovenox Charges/Coding Visit Charges Inpatient E&M: 11090 Subs Hosp L2
[2024-10-22 10:30] VITALS: BP 142/80; PULSE 80; RESP 18; TEMP 36.6; O2SAT 93
[2024-10-22] MEDS: hydrOXYzine PAM 25 MG Capsule 50 MG PO ×2 (13:49→22:22)
[2024-10-22 14:45] VITALS: BP 142/91; PULSE 86; RESP 18; TEMP 36.7; O2SAT 95
[2024-10-22 18:00] VITALS: BP 132/75; PULSE 91; RESP 18; TEMP 36.6; O2SAT 96
[2024-10-22 22:00] VITALS: BP 151/89; PULSE 98; RESP 18; TEMP 36.6; O2SAT 96
[2024-10-22] MEDS: traZODone 100 MG Tablet PO (22:22)
[2024-10-23 02:31] VITALS: BP 150/79; PULSE 88; RESP 18; TEMP 36.7; O2SAT 93
[2024-10-23] MEDS: Phenobarbital 32.4 MG Tablet 64.8 MG PO ×2 (02:34→10:37)
[2024-10-23 06:45] VITALS: O2SAT 94
[2024-10-23 08:30] VITALS: BP 148/93; PULSE 97; RESP 16; TEMP 36.9; O2SAT 98
[2024-10-23] MEDS: Folic Acid 1 MG Tablet PO (09:34)
[2024-10-23] MEDS: Aspirin 81 MG TAB.CHEW PO (09:34)
[2024-10-23] MEDS: Thiamine Hydrochloride 100 MG Tablet PO (09:34)
--- NOTE | 2024-10-23 10:33 | DCINST_ITS ---
Discharge Instructions Diet Discharge Diet: Low fat / Low cholesterol DC O2, CPAP, BIPAP needs Additional Home O2 Discharge instructions: No Dressing / Incision Discharge Activity: Return to Normal Activity Dressing / Incision Call your doctor if you observe: Fever of 101 or Higher, Shortness of breath, Dizziness, Fainting spells, Swelling in the ankles, Chest pain and Increased palpitations (irregular heartbeat) Follow Up Care Test Results: Test results from this visit will be discussed in further detail at your follow- up appointment, if applicable. Discharge Plan Admission Admit Date/Time: 10/20/24 16:31 Attending Provider: Keny Lee Primary Care Provider: Mya Sánchez Consulting Providers: Que Arita Discharge Orders/Prescriptions Prescriptions: Continued omeprazole 40 mg capsule,delayed release(DR/EC) 40 mg PO DAILY Patient Comments: TAKE 1 CAPSULE BY MOUTH EVERY DAY valsartan-hydrochlorothiazide 320-25 mg tablet 1 tab PO DAILY Patient Comments: TAKE 1 TABLET BY MOUTH EVERY DAY folic acid 1 mg tablet 1 mg PO DAILY aspirin 81 mg PO DAILY Referrals / Follow Up: Mya Sánchez MD [Primary Care Provider] - Within 1 Week Disposition Disposition (needs filled in before D/C Order can be placed): Home, Self Care
[2024-10-23] MEDS: Losartan Potassium 100 MG Tablet PO (10:37)
[2024-10-23] MEDS: Pantoprazole Sodium 40 MG Tablet PO (10:37)
[2024-10-23] MEDS: hydroCHLOROthiazide 25 MG Tablet PO (10:37)
--- NOTE | 2024-10-23 14:14 | DS.PCM_ITS ---
Providers Date of Admission: 10/20/24 Primary Care Physician: Dr. Mya Sánchez MD Reason For Visit: ALCOHOL DETOX Diagnosis Discharge Diagnosis (1) Alcohol dependence: Status: Acute Code(s): F10.20 - Alcohol dependence, uncomplicated (2) Desire for detoxification: Status: Acute Medications at Discharge Home Medications omeprazole 40 mg capsule,delayed release 40 mg PO DAILY 01/30/23 valsartan 320 mg-hydrochlorothiazide 25 mg tablet 1 tab PO DAILY 01/30/23 aspirin 81 mg PO DAILY 10/20/24 folic acid 1 mg tablet 1 mg PO DAILY 10/20/24 Hospital Course Operations None Procedures None Summary of Care Provided Minutes Spent on Discharge: 34 Hospital Course: Per HPI: SOULEYMANE ESPINOZA, is a 49 M who presented to [facility] ED on 10/20/2024 requesting alcohol detox. Patient has never gone through alcohol detox before. Drinks 1/5 of vodka daily on weekdays and up to a gallon of vodka on weekends. Last drink was about 30 minutes prior to arrival to the ED. Alcohol level 116 in the ED. Vitals on arrival notable for hypertension to the 150s/100s and sinus tachycardia to the low 100s. CBC and BMP fairly benign. LFTs with mildly elevated AST and ALT, otherwise unremarkable. Given request for alcohol detox, hospitalist was contacted for admission. I saw the patient at bedside in the ED. Patient was flushed appearing on exam and appeared anxious. Currently having some withdrawal symptoms including tremors, nausea, anxiety and flushing. Was given a dose of p.o. phenobarbital in the ED about 15 minutes before I saw him, does not feel like this has taken any effect yet. Patient states that he has a steady job and family and is concerned that his worsening drinking habits could put these in serious jeopardy, and this is why he wants to go through detox. Notably his UDS was positive for amphetamines, cocaine and cannabinoids. Patient states that he smokes marijuana on about a daily basis. He will go to parties on the weekends with his brother and take Adderall and use cocaine occasionally, does not do these things on a daily basis. He also chews snuff on a daily basis. Patient otherwise has minimal medical history, takes medication for high blood pressure and acid reflux. Denies any other symptoms currently. Will be admitted for further management. Hospital Course: 1. Alcohol abuse with desire for detox/polysubstance abuse/tobacco abuse/mildly elevated LFTs?49-year-old male presented to the hospital requesting detox from alcohol. He did not seem very keen to pursue outpatient therapy on discharge that we did continue to provide encouragement to proceed with therapy as an outpatient for his alcoholism. I do recommend a follow-up with his PCP in 3 to 5 days to monitor his elevated LFTs as these are likely due to his drinking. On the day of discharge his CIWA score was 1. I discussed with him the plan for discharge today he expressed understanding there is benefits of going home and would like to go home today. 2. Essential hypertension, GERD are all chronic medical conditions which he does care. His home medications were continued where appropriate Physical Exam Narrative General: Alert, Oriented x3, Cooperative, No apparent distress, resting comfortably HEENT: Atraumatic, PERRLA, EOMI, Normocephalic Oral: Moist Mucosa Neck: Supple, No JVD Lungs: Clear to auscultation, Normal air movement, No rhonchi, No wheeze, No rales Cardiovascular: Regular rate, Regular Rhythm, Normal S1, Normal S2, No murmurs Abdomen: Soft, Non Tender, Non-Distended, No Hepato-splenomegaly Extremities: No edema, Capillary Refill Less than 3 Seconds Skin: No rashes, No breakdown Musculoskeletal: No Tenderness to Palpation of Joints or Extremities Neurological: No focal neurological deficits, Motor Exam 5/5 strength throughout, Sensory exam intact to light touch and pain Psych/Mental Status: Normal Affect, Appropriate Weight / BMI Weight Weight: 365 lb 1.368 oz Body Mass Index (BMI) 46.8 ABG / Lab / Microbiology Data 10/21/24 06:28 10/21/24 06:28 D/C Instructions Discharge Diet: Low fat / Low cholesterol Call your doctor if you observe: Fever of 101 or Higher, Shortness of breath, Dizziness, Fainting spells, Swelling in the ankles, Chest pain and Increased palpitations (irregular heartbeat) DC O2, CPAP, BIPAP Needs Additional Home O2 Discharge instructions: No DC home with Oxygen: No Meaningful Use Info Meaningful Use Meaningful Use Diagnoses (Choose all that apply): None applicable Ischemic Stroke Statin Dosing Therapy Reference: STATIN DOSE THERAPY REFERENCE: * Patients > 75 years receive moderate or high dose statin therapy. * Patients 75 years or YOUNGER should receive HIGH intensity statin dose unless contraindicated. You will be required to document reason for non-treatment if statin daily dose does not meet guidelines. HIGH DOSE STATIN THERAPY DAILY Atorvastatin > than or = to 40 mg Rosuvastatin > than or = to 20 mg Amlodipine + Atorvastatin > than or = to 2.5/40 mg Ezetimibe + Simvastatin 10/80 mg Simvastatin 80mg Discharge Plan Admission Admit Date/Time: 10/20/24 16:31 Attending Provider: Keny Lee Primary Care Provider: Mya Sánchez Consulting Providers: Que Arita Discharge Orders/Prescriptions Prescriptions: Continued omeprazole 40 mg capsule,delayed release(DR/EC) 40 mg PO DAILY Patient Comments: TAKE 1 CAPSULE BY MOUTH EVERY DAY valsartan-hydrochlorothiazide 320-25 mg tablet 1 tab PO DAILY Patient Comments: TAKE 1 TABLET BY MOUTH EVERY DAY folic acid 1 mg tablet 1 mg PO DAILY aspirin 81 mg PO DAILY Referrals / Follow Up: Mya Sánchez MD [Primary Care Provider] - Within 1 Week Disposition Disposition (needs filled in before D/C Order can be placed): Acute Care Hospital Charges/Coding Visit Charges Inpatient E&M: 24100 Disch Hosp >30min
== END 2024-10-23 11:34 | disposition short-term general hospital (02) | DRG 897 ==
LOC: ED 16:22 → MS3 16:40
PROVIDERS: Admitting Provider Hospitalist; Emergency Provider Emergency Medicine; PCP Family Medicine; Visit Provider Family Medicine
DX: F10.239 Alcohol dependence with withdrawal, unspecified (principal); Z68.42 Body mass index [BMI] 45.0-49.9, adult; E66.01 Morbid (severe) obesity due to excess calories; F19.10 Other psychoactive substance abuse, uncomplicated; I10 Essential (primary) hypertension; F17.220 Nicotine dependence, chewing tobacco, uncomplicated; K21.9 Gastro-esophageal reflux disease without esophagitis; Z79.899 Other long term (current) drug therapy; R74.8 Abnormal levels of other serum enzymes; R74.01 Elevation of levels of liver transaminase levels
CPT/HCPCS: 36415; 80048; 80053; 80307; 82077; 83036; 83690; 83735; 85025; 85027; 99284; J7030; A4216

== ENCOUNTER → 2024-10-24 | Outpatient (CLI) | payer OTHER, SELFPAY ==
[2024-10-24 15:14] LABS: Absolute Lymphocyte Count 2.06 X10^3/uL (0.83-4.51); Absolute Neutrophil Count 5.7 X10^3/uL (2.0-7.7); Basophil# 0.07 X10^3/uL; Basophil% 0.8 % (0-1); Eosinophil# 0.71 X10^3/uL; Eosinophils% 7.8 % (0-5); Hematocrit 48.1 % (40-54); Hemoglobin 15.9 g/dL (13.0-16.5); Lymphocyte # 2.06 X10^3/ul (0.83-4.51); Lymphocyte % 22.7 % (19-41); Mean Corp Hgb Conc 33.1 g/dL (32-36); Mean Corpuscular Hgb 29.1 pg (27.0-32.0); Mean Corpuscular Volume 87.9 fL (80-94); Monocyte% 5.5 % (0-10); NRBC Flagged by Analyzer 0 % (0-5); Neutrophil # 5.69 X10^3/uL (2.7-7.7); Neutrophil % 62.8 % (47-70); Platelet Count 254 K/mm3 (150-450); RBC Distribution Width CV 12.9 % (11.6-14.6); RBC Distribution Width SD 41.5 fl (35.1-43.9); Red Blood Count 5.47 M/mm3 (4.6-6.2); White Blood Count 9.1 K/mm3 (4.4-11.0)
[2024-10-24 15:52] LABS: ALB/GLOB Ratio 0.8 RATIO (0.9-2.4); AST(SGOT) 109 U/L (15-37); Alanine Aminotransfer ALT/SGPT 94 U/L (16-61); Albumin, Serum 3.5 g/dL (3.2-5.0); Alkaline Phosphatase 91 U/L (45-117); Anion Gap 6 (5-15); BUN 14 mg/dL (7-18); BUN/Creat Ratio 12.6 RATIO (10-20); Bilirubin, Direct 0.13 mg/dL (0.00-0.30); Calcium,Total 9.1 mg/dL (8.5-10.1); Chloride 102 mmol/L (98-107); Creatinine, Serum 1.11 mg/dL (0.70-1.30); EST Glomerular Filtration Rate 76 mL/min (>60); Est Glom Filt Rate - Afr Amer 91 mL/min (>60); Ferritin 114 ng/mL (26-388); Globulin 4.4 g/dL (2.2-4.2); Glucose 145 mg/dL (74-106); Iron 55 ug/dL (65-175); Potassium 3.7 mmol/L (3.5-5.1); Protein, Total 7.9 g/dL (6.4-8.2); Sodium Level 136 mmol/L (136-145); T4 Free Direct 0.83 ng/dL (0.76-1.46)
[2024-10-27 09:06] LABS: Hemoglobin A1c 5.9 % (3.8-5.6)
[2024-10-27 16:11] LABS: Vitamin B12 671 pg/mL (211-911); Vitamin D,25 Hydroxy 17.5 ng/mL
== END | disposition home or self-care (01) ==
LOC: MTLAB 12:39
PROVIDERS: PCP Family Medicine; Referring Provider Nurse Practitioner Family; Visit Provider Nurse Practitioner Family
DX: R74.8 Abnormal levels of other serum enzymes (principal); R73.01 Impaired fasting glucose
CPT/HCPCS: 36415; 80053; 82248; 82306; 82607; 82728; 83036; 83540; 84439; 84443; 85025

== ENCOUNTER → 2024-11-15 | Outpatient (CLI) | payer OTHER, SELFPAY ==
--- NOTE | 2024-11-15 07:49 | US_ITS ---
INDICATION: ALCOHOL USE/ASSESS FOR ABNORMALITIES EXAMINATION: Ultrasound US Abdomen Limited (quadrant) TECHNIQUE: Morales scale and color doppler imaging was performed of the right upper quadrant. COMPARISON: FINDINGS: LIVER: There is fatty echotexture measuring 24.3 cm. No focal hepatic lesion. There is no free fluid. GALLBLADDER AND BILIARY TREE: No shadowing gallstone, pericholecystic fluid or gallbladder wall thickening is demonstrated. The proximal common bile duct measures 3, which is within normal limits for the patient''s age. Songraphic Casas''s sign: Negative. PANCREAS: No focal abnormality is demonstrated in the pancreas. No pancreatic ductal dilatation. RIGHT KIDNEY: 13.1 x 6.1 x 5.1 cm. The cortex is 17 mm. No hydronephrosis. No calculi. US/Abdomen Limited IMPRESSION: Enlarged fatty liver. Electronically Signed: Flaco Churchill DO at 16:08 EST ,
== END | disposition home or self-care (01) ==
LOC: US 07:48
PROVIDERS: PCP Family Medicine; Referring Provider Nurse Practitioner Family; Visit Provider Nurse Practitioner Family
DX: F10.90 Alcohol use, unspecified, uncomplicated (principal); R79.89 Other specified abnormal findings of blood chemistry
CPT/HCPCS: 76705

== ENCOUNTER 2024-12-08 14:23 | Emergency (ER) | payer OTHER, SELFPAY ==
[2024-12-08 14:24] VITALS: BP 129/99; PULSE 90; RESP 16; TEMP 36.8; O2SAT 99
--- NOTE | 2024-12-08 14:38 | RAD_ITS ---
STUDY: X-RAY - LEFT FOOT CLINICAL: Male, 49 years old. Foot pain. No known injury. TECHNIQUE: 3 view(s) of the foot. COMPARISON: None. FINDINGS: Tiny plantar spur. Normal visualized subtalar, talonavicular, calcaneocuboid, tarsal and tarsometatarsal articulations. Normal metatarsi. There is degenerative arthrosis of the metatarsophalangeal joint of the hallux . Normal tibial and fibular sesamoid bones. Normal interphalangeal joint of the great toe. Normal phalanges of the great toe. Normal second through fifth metatarsophalangeal joints. Normal interphalangeal joints and phalanges of the lesser toes. The soft tissue structures are unremarkable. RAD/Foot min 3 Views IMPRESSION: Degenerative changes at the first metatarsal phalangeal joint. Tiny plantar spur. Electronically Signed: Jesus Dillard MD at 14:56 EST ,
--- NOTE | 2024-12-08 17:05 | EX.ED.DYSGE1 ---
HPI History of Present Illness Chief Complaint: Lower Extremity Injury [facility] Medical History Alcohol dependence Alcohol withdrawal Anxiety Depression Smoker Former smoker CPAP (continuous positive airway pressure) dependence Seizures HTN (hypertension) GERD (gastroesophageal reflux disease) Home Medications ?Medication ?Instructions ?Recorded ?Last Taken ?Type omeprazole 40 mg capsule,delayed 40 mg PO DAILY 01/30/23 10/20/24 History release valsartan 320 1 tab PO DAILY 01/30/23 10/20/24 History mg-hydrochlorothiazide 25 mg tablet aspirin 81 mg PO DAILY 10/20/24 Unknown History folic acid 1 mg tablet 1 mg PO DAILY 10/20/24 Unknown History celecoxib 100 mg capsule (Celebrex) 100 mg PO BID #60 caps 11/24/24 Unknown Rx cholecalciferol (vitamin D3) 25 25 mcg PO QDAY 11/24/24 Unknown History mcg (1,000 unit) capsule ferrous sulfate 325 mg (65 mg 325 mg PO QDAY 11/24/24 Unknown History iron) tablet (Feosol) Allergy/AdvReac Type Severity Reaction Status Date / Time shellfish derived (seafood Allergy Anaphylaxis Verified 12/08/24 14:26 - shellfish) Family History Daughter Asthma Father Asthma Hypertension CAD (coronary artery disease) Ulcer Mother Hypertension Grandfather Heart disease Hypertension Grandmother Diabetes Hypertension Surgical History History of herniorrhaphy History of tonsillectomy and adenoidectomy Hx of hand surgery Social History household members: spouse and children current occupational status: employed Smoking Status: Former smoker Smokeless tobacco user: snuff alcohol intake: former details: quit drinking about a month ago EXAM Physical Exam Const Vital Signs: 12/08/24 14:24 Temperature 98.2 F Temperature Source Oral Pulse Rate 90 Respiratory Rate 16 Blood Pressure 129/99 H Blood Pressure Mean 109 Pulse Ox 99 Oxygen Delivery Method Room Air MDM MDM MDM Narrative Medical decision making narrative: HISTORY OF PRESENT ILLNESS: 49-year-old male presents with left foot pain. He denies injury. He further states he had 1 week of left great toe pain. Endorse severe pain. Worse with touch or put on a sock. Denies fever. Denies history of gouty arthritis. Denies history of diabetes. Denies heavy drinking. Does note he was eating deer this weekend. REVIEW OF SYSTEMS: Pertinent positives: Left toe pain Pertinent negatives: Fever, vomiting PHYSICAL EXAM: Nursing triage notes reviewed, Vital signs reviewed Constitutional: please see mdm Lungs: Clear to auscultation, No wheezing or rales. No increased work of breathing, no conversational dyspnea, no accessory muscle use, no nasal flaring. No respiratory distress noted Heart: Regular rate and rhythm, No murmurs, No rubs and No gallops, 2+ distal pulses (radial, femoral, posterior tibial) in all extremities Extremities: Slight edema noted the patient's toes, compartments are soft Neuro: Intact sensation L1-S1 dermatomal distributions. Intact 5/5 strength in hip flexion (T12-L3). Knee extension (L2-L4). Ankle dorsiflexion (L4-L5). Ankle plantar flexion (S1). Great toe extension (L5). 2+ patellar and Achilles DTRs. Skin: Erythema noted just over the first MTP joint of the left foot MEDICAL DECISION MAKING: Chief Complaint: Left toe pain External records reviewed reviewed prior imaging Factors affecting care: History of alcohol abuse Social determinants of health: Alcohol abuse History obtained from others: none Consults: none [facility] Narrative: The patient was initially hemodynamically stable, afebrile and nontoxic-appearing. Exam without warmth, erythema crepitus or bullae. No sign of obvious trauma. There is overlying erythema surrounding the first MTP joint. I considered the following differential diagnosis: Fracture, dislocation, septic arthritis, gouty arthritis X-rays obtained in triage via protocol orders secondary to poor department of dynamics including high volume and high acuity ALL IMAGES (IF OBTAINED) HAVE BEEN PERSONALLY REVIEWED AND INTERPRETED BY MYSELF. X-ray of the involved extremity showed no obvious bony injury. No obvious osteolysis by my read. Radiologist agreed my interpretation. He also added that there are degenerative changes about the first metatarsal phalangeal joint While I considered obtaining joint fluid via arthrocentesis for definitive diagnosis I thought this was not indicated given overlying erythema and risk of introducing infection do not suspect the patient is having septic arthritis as he has no fever no infection risk factors including diabetes. Clinical exam most consistent with gouty arthritis. Will treat accordingly steroids, anti-inflammatories and short course of narcotic pain medicine The patient and/or family, caregivers express understanding. The patient and/or family, caregivers agrees with the plan. Shared decision making: I will have a discussion with the patient and or visitors regarding risk/benefits of further testing or admission. They will be made aware of of the risk/benefits inherent in this decision they will be given the opportunity to voice understanding. Total critical care time today provided was at least 0 minutes. This excludes separately billable procedures. Critical care time (if documented) is secondary to the patient having high probability of clinically significant/life threatening deterioration in the patient's condition which required my urgent intervention. Impression: 1. Acute left foot pain 2. Gouty arthritis Dispo: Discharge home This note was generated with mLED dictation software. It may contain incorrect words, spelling, and punctuation that were not noted in review of the chart prior to signing. Radiography Diagnostic Testing: Clinical Impression(s) from Imaging Studies Foot X-Ray 12/08/24 14:38 IMPRESSION: Degenerative changes at the first metatarsal phalangeal joint. Tiny plantar spur. Electronically Signed: Jesus Dillard MD at 14:56 EST , Discharge Plan Triage Chief Complaint: Lower Extremity Injury ED Provider: Adam Cantrell Dx/Rx/DC Orders Prescriptions: No Action ferrous sulfate [Feosol] 325 mg (65 mg iron) tablet 325 mg PO QDAY cholecalciferol (vitamin D3) 25 mcg (1,000 unit) capsule 25 mcg PO QDAY celecoxib [Celebrex] 100 mg capsule 100 mg PO BID Qty: 60 0RF omeprazole 40 mg capsule,delayed release(DR/EC) 40 mg PO DAILY Patient Comments: TAKE 1 CAPSULE BY MOUTH EVERY DAY valsartan-hydrochlorothiazide 320-25 mg tablet 1 tab PO DAILY Patient Comments: TAKE 1 TABLET BY MOUTH EVERY DAY folic acid 1 mg tablet 1 mg PO DAILY aspirin 81 mg PO DAILY Primary Care Provider: Mya Sánchez Referrals: Mya Sánchez MD [Primary Care Provider] - Print Language: Guyanese
[2024-12-08] MEDS: oxyCODONE 5 MG Tablet PO (17:27)
[2024-12-08] MEDS: dexAMETHasone 4 MG Tablet 6 MG PO (17:27)
[2024-12-08] MEDS: Ibuprofen 200 MG Tablet 400 MG PO (17:27)
== END 2024-12-08 17:38 | disposition home or self-care (01) ==
PROVIDERS: Emergency Provider Emergency Medicine; PCP Family Medicine; Referring Provider Emergency Medicine; Visit Provider Emergency Medicine
DX: M19.072 Primary osteoarthritis, left ankle and foot (principal); Z87.891 Personal history of nicotine dependence
CPT/HCPCS: 73630; 99283

== ENCOUNTER → 2025-01-14 | Outpatient (CLI) | payer OTHER, SELFPAY ==
[2025-01-14 12:38] LABS: Absolute Lymphocyte Count 2.03 X10^3/uL (0.83-4.51); Absolute Neutrophil Count 5.8 X10^3/uL (2.0-7.7); Basophil# 0.07 X10^3/uL; Basophil% 0.8 % (0-1); Eosinophil# 0.65 X10^3/uL; Eosinophils% 7.1 % (0-5); Hematocrit 48.5 % (40-54); Hemoglobin 16.1 g/dL (13.0-16.5); Lymphocyte # 2.03 X10^3/ul (0.83-4.51); Lymphocyte % 22.3 % (19-41); Mean Corp Hgb Conc 33.2 g/dL (32-36); Mean Corpuscular Hgb 28.5 pg (27.0-32.0); Mean Platelet Vol. 11.2 fl (6.2-12.0); Monocyte# 0.57 X10^3/uL; Monocyte% 6.3 % (0-10); NRBC Flagged by Analyzer 0 % (0-5); Neutrophil # 5.76 X10^3/uL (2.7-7.7); Neutrophil % 63.1 % (47-70); Platelet Count 198 K/mm3 (150-450); RBC Distribution Width CV 12.8 % (11.6-14.6); RBC Distribution Width SD 39.9 fl (35.1-43.9); Red Blood Count 5.64 M/mm3 (4.6-6.2); White Blood Count 9.1 K/mm3 (4.4-11.0)
[2025-01-14 12:58] LABS: Anion Gap 16 (5-15); BUN 14 mg/dL (4-19); BUN/Creat Ratio 14.8 RATIO (10-20); Calcium,Total 9.3 mg/dL (7.6-11.0); Carbon Dioxide 20.6 mmol/L (21.0-32.0); Chloride 100 mmol/L (98-108); Creatinine, Serum 0.94 mg/dL (0.70-1.20); EST Glomerular Filtration Rate 101 (>60); Glucose 129 mg/dL (70-99); Potassium 4.2 mmol/L (3.3-5.1); Sodium Level 137 mmol/L (133-145); Uric Acid 8.4 mg/dL (3.5-7.2)
== END | disposition home or self-care (01) ==
LOC: MTLAB 09:21
PROVIDERS: PCP Family Medicine; Referring Provider Podiatrist; Visit Provider Podiatrist
DX: M79.671 Pain in right foot (principal)
CPT/HCPCS: 36415; 80048; 84550; 85025

== ENCOUNTER 2025-10-06 06:11 | Emergency (ER) | payer MEDICAID, SELFPAY ==
[2025-10-06 06:13] VITALS: BP 155/98; PULSE 83; RESP 16; TEMP 36.4; O2SAT 98; BMI 49.5
--- NOTE | 2025-10-06 06:31 | EDS_ITS ---
HPI History of Present Illness Chief Complaint: Upper Extremity Injury [facility] Medical History Alcohol dependence Alcohol withdrawal Anxiety Depression Smoker Former smoker CPAP (continuous positive airway pressure) dependence Seizures HTN (hypertension) GERD (gastroesophageal reflux disease) Home Medications Medication Instructions Recorded Last Taken Type omeprazole 40 mg capsule,delayed 40 mg PO DAILY 10/20/24 History release valsartan 320 1 tab PO DAILY 01/30/2308/05 History mg-hydrochlorothiazide 25 mg tablet aspirin 81 mg PO DAILY 10/20/24 Unkn own History cholecalciferol (vitamin D3) 25 25 mcg PO QDAY 5 Unknown History mcg (1,000 unit) capsule ferrous sulfate 325 mg (65 mg 325 mg PO QDAY 11/24/24 Unknown History iron) tablet (Feosol) oxycodone-acetaminophen 5 mg-325 1 tab PO Q6H PRN pain 3 days #12 10/06/25 Unknown Rx mg tablet (Percocet) tabs prednisone 10 mg tablet See Rx Instructions .Route 1 12/06/24 Unknown Rx .COMPLEX #28 tabs Allergy/AdvReac Type Severity Reaction Status Date / Time shellfish derived (seafood Allergy Anaphylaxis Verified 10/06/25 06:19 - shellfish) Family History Daughter Asthma Father Asthma Hypertension CAD (coronary artery disease) Ulcer Mother Hypertension Grandfather Heart disease Hypertension Grandmother Diabetes Hypertension Surgical History History of herniorrhaphy History of tonsillectomy and adenoidectomy
--- NOTE | 2025-10-06 06:31 | EX.ED.UPPERE ---
HPI History of Present Illness Chief Complaint: Upper Extremity Injury Informant: patient Narrative Narrative: Patient is a 50-year-old male with past medical history of hypertension gout and GERD. He reports he is [id number]. He states that he noticed he was having some right hand/thumb pain yesterday without trauma or excessive activity. He states today when he awoke he noticed the right thumb was swollen and warm compared to the left. 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 He states this feels similar nature to his previous gout attack. He denies any history of immunosuppression such as lupus MS diabetes or chemotherapy/radiation. He states that he did drink multiple sodas on Sunday which he does not typically do which could have triggered the attack. As he is having increasing pain and swelling he presents for evaluation. [facility] Medical History Alcohol dependence Alcohol withdrawal Anxiety Depression Smoker Former smoker CPAP (continuous positive airway pressure) dependence Seizures HTN (hypertension) GERD (gastroesophageal reflux disease) Home Medications Medication Instructions Recorded Last Taken Type omeprazole 40 mg capsule,delayed 40 mg PO DAILY 01/30/23 10/20/24 History release valsartan 320 1 tab PO DAILY 01/30/23 10/20/24 History mg-hydrochlorothiazide 25 mg tablet aspirin 81 mg PO DAILY 10/20/24 Unknown History cholecalciferol (vitamin D3) 25 25 mcg PO QDAY 11/24/24 Unknown History mcg (1,000 unit) capsule ferrous sulfate 325 mg (65 mg 325 mg PO QDAY 11/24/24 Unknown History iron) tablet (Feosol) oxycodone-acetaminophen 5 mg-325 1 tab PO Q6H PRN pain 3 days #12 10/06/25 Unknown Rx mg tablet (Percocet) tabs prednisone 10 mg tablet See Rx Instructions .Route 10/06/25 Unknown Rx .COMPLEX #28 tabs Allergy/AdvReac Type Severity Reaction Status Date / Time shellfish derived (seafood Allergy Anaphylaxis Verified 10/06/25 06:19 - shellfish) Family History Daughter Asthma Father Asthma Hypertension CAD (coronary artery disease) Ulcer Mother Hypertension Grandfather Heart disease Hypertension Grandmother Diabetes Hypertension Surgical History History of herniorrhaphy History of tonsillectomy and adenoidectomy Hx of hand surgery Social History household members: spouse and children current occupational status: employed Smoking Status: Current some day smoker tobacco type: cigarettes and smokeless tobacco Smokeless tobacco user: snuff alcohol intake: former details: quit drinking about a month ago ROS ROS ED Constitutional Constitutional ED: Denies chills or fever(s) Cardiovascular Cardiovascular: Denies chest pain Respiratory/Chest Respiratory/Chest: Denies cough or dyspnea Gastrointestinal Gastrointestinal: Denies abdominal pain, diarrhea, nausea or vomiting Musculoskeletal Musculoskeletal: Reports other Details: Positive right hand/thumb pain Integumentary Reports other Details: Positive swelling right hand/thumb ; Denies rash Neurologic Neurologic: Denies headache(s) Hematologic/Lymphatic Hematologic/Lymphatic: Denies easy bleeding or easy bruising EXAM Physical Exam Const Vital Signs: 10/06/25 06:13 Temperature 97.6 F L Temperature Source Oral Pulse Rate 83 Respiratory Rate 16 Blood Pressure 155/98 H Blood Pressure Mean 117 Pulse Ox 98 Oxygen Delivery Method Room Air Positive well nourished, well developed and obese General Appearance ED: well developed Nutritional Appearance: obese HEENT HEENT Narrative: Normocephalic atraumatic Eyes PERRL and EOMs intact bilaterally Neck full ROM and supple Resp normal respiratory effort and clear to auscultation bilaterally Cardio regular rate and regular rhythm Extremity Extremity Narrative: Right upper extremity is neurovascularly intact. There is asymmetric swelling with faint erythema and asymmetric warmth located along the first MCP with slight extension into the thenar eminence. There is no lymphangitic streaking. No crepitance. No overlying soft tissue changes to suggest cellulitis or abscess. Active and passive range of motion is limited secondary to pain All compartments are soft and compressible going against compartment syndrome Remainder of the exam is normal Neuro oriented x3 and CN's II-XII intact bilaterally Sensorium / Orientation: alert Psych mental status grossly normal Skin Skin Narrative: Soft tissue swelling of the right hand at the first MCP region as documented above Capillary refill is less than 3 seconds MDM MDM MDM Narrative Medical decision making narrative: Patient arrived to the ER hypertensive but has a past medical history of this and otherwise with stable vitals. He has no history of immunosuppression or trauma and therefore my concern for potential infection such as cellulitis abscess or septic joint as well. Without report or signs of trauma concern for fracture or dislocation is low. There is no sign of ligamentous or tendon injury. He also denies any recent injections or procedures. Therefore at this time with the report of him drinking multiple sodas on Sunday which he does not normally do the gradual onset of symptoms and gradual increasing of symptoms this would correlate with gout at the first MCP region. Therefore he will be treated with prednisone which he states helped him roughly 1 year ago as well as Percocet for pain control. As I have low concern this is septic joint or developing osteomyelitis I do not feel the need for x-rays or laboratory studies. The patient was informed however if he develops a fever or lymphangitic streaking or is not having improvement of symptoms over the next few days that he will need to be reevaluated to ensure there is no source of infection. The patient states he is comfortable with and understands this plan. Therefore as history and exam indicates this is most likely gout flare he will be given symptomatic medication is otherwise safe for discharge History & Record Review Discussion w/independent historian: Patient Discharge Plan Triage Chief Complaint: Upper Extremity Injury ED Provider: Reed Mendoza Dx/Rx/DC Orders Clinical Impression: Gout attack, Hypertension, GERD (gastroesophageal reflux disease) Instructions: ED Gout, ED Gout Diet Prescriptions: New prednisone 10 mg tablet See Rx Instructions .ROUTE .COMPLEX Qty: 28 0RF Rx Instructions: 7 pills p.o. day 1, 6 pills p.o. day 2, 5 pills p.o. day 3, 4 pills p.o. day 4, 3 pills p.o. day 5, 2 pills p.o. day 6, 1 pill p.o. day 7 oxycodone-acetaminophen [Percocet] 5-325 mg tablet 1 tab PO Q6H PRN (Reason: pain) 3 Days Qty: 12 0RF No Action ferrous sulfate [Feosol] 325 mg (65 mg iron) tablet 325 mg PO QDAY cholecalciferol (vitamin D3) 25 mcg (1,000 unit) capsule 25 mcg PO QDAY omeprazole 40 mg capsule,delayed release(DR/EC) 40 mg PO DAILY Patient Comments: TAKE 1 CAPSULE BY MOUTH EVERY DAY valsartan-hydrochlorothiazide 320-25 mg tablet 1 tab PO DAILY Patient Comments: TAKE 1 TABLET BY MOUTH EVERY DAY aspirin 81 mg PO DAILY Primary Care Provider: Mya Sánchez Referrals: Mya Sánchez MD [Primary Care Provider, Family Practice] Activity Restrictions/Additional Instructions: Your history and exam is most consistent with an acute gout flare occurring in your right thumb. Take the prednisone as directed as this will help dissolve the gout crystals and resolve your pain and swelling. This will typically take 2 to 3 days to occur. If you develop a fever of 100.4 or higher or notice a red streaking line up the arm or you are not having any improvement with the provided medication then please return to the ER for repeat evaluation. Print Language: Sinhala Disposition Disposition: Home, Self Care
[2025-10-06 06:43] VITALS: BP 150/98; PULSE 90; RESP 16; TEMP 36.2; O2SAT 98
--- OUTSIDE RECORDS SUMMARY | 2025-10-06 06:55 | XMS RPT_ITS | CCD ---
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 500.2500, L100.0100, L501.1400 #### [facility] [address] [place], [address] RDW SD 39.9 fl Normal 35.1-43.9 [facility] Comment on above: Performed By: #### L 500.2500, L100.0100, L501.1400 #### [facility] [address] [place], [address] WBC (Bld) [#/Vol] 9.1 10*3/uL Normal 4.4-11.0 [facility] Comment on above: Performed By: #### L 500.2500, L100.0100, L501.1400 #### [facility] [address] [place], [address] Carbon dioxide, total [Moles /volume] in Central venous bloodOrdered By: Jaylen Hadley on 01-14-2025 CO2 [Moles/Vol] 20.6 mmol/L Low 21.0-32.0 [facility] Chloride assayOrdered By: Chris Hadley on 01-14-2025 Chloride [Moles/Vol] 100 mmol/L 98-108 [facility] Eosinophil percentageOrdered By: Jaylen Hadley on 01-14-2025 Eosinophils/100 WBC (Bld) 7.1 % High 0-5 [facility] Erythrocyte distribution wid th ratioOrdered By: Jaylen Hadley on 01-14-2025 Erythrocyte distribution width (RBC) [Ratio] 12.8 % 11.6-14.6 [facility] Erythrocyte distribution wid th standard deviationOrdered By: Jaylen Hadley on 01-14-2025 Erythrocyte distribution width (RBC) [Entitic vol] 39.9 fL 35.1-43.9 [facility] GFR/1.73 sq M.predicted jennifer g non-blacks MDRD (S/P/Bld) [Vol rate/Area]Ordered By: Jaylen Hadley on 01-14-2025 Estimated GFR (MDRD) Non-Af Amer 101 >60 [facility] Comment on above: mL/min/1.73m2 CKD-EP I Creatinine Equation (2020) Hematocrit Auto (Bld) [Volum e fraction]Ordered By: Jaylen Hadley on 01-14-2025 Hematocrit (Bld) [Volume fraction] 48.5 % 40-54 [facility] Hemoglobin measurementOrdere d By: Jaylen Hadley on 01-14-2025 Hemoglobin (Bld) [Mass/Vol] 16.1 g/dL 13.0-16.5 [facility] Immature granulocytes/100 WB C Auto (Bld)Ordered By: Jaylen Hadley on 01-14-2025 Immature granulocytes/100 WBC (Bld) 0.400 % 0.0-0.9 [facility] Comment on above: IG% - Immature Granu locytes (promyelocytes, myelocytes and metamyelocytes) > 1% indicates that a LEFT SHIFT is Present. Lymphocytes Auto (Unsp spec) [#/Vol]Ordered By: Jaylen Hadley on 01-14-2025 Lymphocytes (Bld) [#/Vol] 2.03 10*3/uL 0.83-4.5 1 [facility] Lymphocytes/100 WBC Auto (Un sp spec)Ordered By: Jaylen Hadley on 01-14-2025 Lymphocytes/100 WBC (Bld) 22.3 % 19-41 [facility] MCV (mean corpuscular volume ) determinationOrdered By: Jaylen Hadley on 01-14-2025 MCV (RBC) [Entitic vol] 86.0 fL 80-94 [facility] Mean corpuscular hemoglobin (MCH) determinationOrdered By: Jaylen Hadley on 01-14-2025 MCH (RBC) [Entitic mass] 28.5 pg 27.0-32.0 [facility] Mean corpuscular hemoglobin concentration (MCHC) determinationOrdered By: Jaylen Hadley on 01-14-2025 MCHC (RBC) [Mass/Vol] 33.2 g/dL 32-36 [facility] Mean platelet volume determi nationOrdered By: Jaylen Hadley on 01-14-2025 Platelet mean volume (Bld) [Entitic vol] 11.2 fL 6.2-12.0 [facility] Monocyte percentageOrdered B y: Jaylen Hadley on 01-14-2025 Monocytes/100 WBC (Bld) 6.3 % 0-10 [facility] Neutrophil percentageOrdered By: Jaylen Hadley on 01-14-2025 Neutrophils/100 WBC (Bld) 63.1 % 47-70 [facility] Nucleated red blood cell per centageOrdered By: Jaylen Hadley on 01-14-2025 Nucleated RBC/100 WBC (Bld) [Ratio] 0 % 0-5 [facility] Platelet countOrdered By: Chris Hadley on 01-14-2025 Platelets (Bld) [#/Vol] 198 10*3/uL 150-450 [facility] Potassium (Unsp spec) [Mass/ Vol]Ordered By: Jaylen Hadley on 01-14-2025 Potassium [Moles/Vol] 4.2 mmol/L 3.3-5.1 [facility] RBC Auto (Bld) [#/Vol]Ordere d By: Jaylen Hadley on 01-14-2025 RBC (Bld) [#/Vol] 5.64 10*6/uL 4.6-6.2 [facility] Serum creatinine measurement (mass/volume)Ordered By: Jaylen Hadley on 01-14-2025 Creatinine [Mass/Vol] 0.94 mg/dL 0.70-1.20 [facility] Serum glucose measurement (m ass/volume)Ordered By: Jaylen Hadley on 01-14-2025 Glucose [Mass/Vol] 129 mg/dL High 70-99 [facility] Serum or plasma calcium melba urement (mass/volume)Ordered By: Jaylen Hadley on 01-14-2025 Calcium [Mass/Vol] 9.3 mg/dL 7.6-11.0 [facility] Serum or plasma urea nitroge n measurement (mass/volume)Ordered By: Jaylen Hadley on 01-14-2025 Urea nitrogen [Mass/Vol] 14 mg/dL 4-19 [facility] Serum or plasma uric acid me asurement (mass/volume)Ordered By: Jaylen Hadley on 01-14-2025 Urate [Mass/Vol] 8.4 mg/dL High 3.5-7.2 [facility] Comment on above: The drugs N-Acetylcy steine and Metamizole may falsely depress this assay. Sodium levelOrdered By: Rd Hadley on 01-14-2025 Sodium [Moles/Vol] 137 mmol/L 133-145 [facility] Uric Acidon 01-14-2025 URIC 8.4 mg/dL High 3.5-7.2 [facility] Comment on above: Result Comment: The drugs N-Acetylcysteine and Metamizole may falsely depress this assay. Performed By: #### L 500.2500, L100.0100, L501.1400 #### [facility] [address] [place], [address] White blood cell (WBC) count Ordered By: Jaylen Hadley on 01-14-2025 WBC (Bld) [#/Vol] 9.1 10*3/uL 4.4-11.0 [facility] Emergency Department Summary on 12-08-2024 Emergency Department Summary [facility] Medical Records Department [address] [place] [address] Emergency Department Summary 12/08/24 MR#: [id number] Acct: [id number] Name: ARON ESPINOZA Rep #: [id number] : 1975 49 From: Adam Cantrell DO PCP: Dr. Mya Sánchez MD Status:REG ER Location: ED HPI History of Present Illness Chief Complaint: Lower Extremity Injury [facility] Medical History Alcohol dependence Alcohol withdrawal Anxiety Depression Smoker Former smoker CPAP (continuous positive airway pressure) dependence Seizures HTN (hypertension) GERD (gastroesophageal reflux disease) Home Medications ???Medication ???Instructions ???Recorded ???Last Taken ???Type omeprazole 40 mg capsule,delayed 40 mg PO DAILY 01/30/23 10/20/24 History release valsartan 320 1 tab PO DAILY 01/30/23 10/20/24 History mg-hydrochlorothiazide 25 mg tablet aspirin 81 mg PO DAILY 10/20/24 Unknown History folic acid 1 mg tablet 1 mg PO DAILY 10/20/24 Unknown History celecoxib 100 mg capsule (Celebrex) 100 mg PO BID #60 caps 11/24/24 Unknown Rx cholecalciferol (vitamin D3) 25 25 mcg PO QDAY 11/24/24 Unknown History mcg (1,000 unit) capsule ferrous sulfate 325 mg (65 mg 325 mg PO QDAY 11/24/24 Unknown History iron) tablet (Feosol) Allergy/AdvReac Type Severity Reaction Status Date / Time shellfish derived (seafood Allergy Anaphylaxis Verified 12/08/24 14:26 - shellfish) Family History Daughter Asthma Father Asthma Hypertension CAD (coronary artery disease) Ulcer Mother Hypertension Grandfather Heart disease Hypertension Grandmother Diabetes Hypertension Surgical History History of herniorrhaphy History of tonsillectomy and adenoidectomy Hx of hand surgery Social History household members: spouse and children current occupational status: employed Smoking Status: Former smoker Smokeless tobacco user: snuff alcohol intake: former details: quit drinking about a month ago EXAM Physical Exam Const Vital Signs: 12/08/24 14:24 Temperature 98.2 F Temperature Source Oral Pulse Rate 90 Respiratory Rate 16 Blood Pressure 129/99 H Blood Pressure Mean 109 Pulse Ox 99 Oxygen Delivery Method Room Air [facility] Narrative Medical decision making narrative: HISTORY OF PRESENT ILLNESS: 49-year-old male presents with left foot pain. He denies injury. He further states he had 1 week of left great toe pain. Endorse severe pain. Worse with touch or put on a sock. Denies fever. Denies history of gouty arthritis. Denies history of diabetes. Denies heavy drinking. Does note he was eating deer this weekend. REVIEW OF SYSTEMS: Pertinent positives: Left toe pain Pertinent negatives: Fever, vomiting PHYSICAL EXAM: Nursing triage notes reviewed, Vital signs reviewed Constitutional: please see [facility] Lungs: Clear to auscultation, No wheezing or rales. No increased work of breathing, no conversational dyspnea, no accessory muscle use, no nasal flaring. No respiratory distress noted Heart: Regular rate and rhythm, No murmurs, No rubs and No gallops, 2+ distal pulses (radial, femoral, posterior tibial) in all extremities Extremities: Slight edema noted the patient's toes, compartments are soft Neuro: Intact sensation L1-S1 dermatomal distributions. Intact 5/5 strength in hip flexion (T12- L3). Knee extension (L2-L4). Ankle dorsiflexion (L4-L5). Ankle plantar flexion (S1). Great toe extension (L5). 2+ patellar and Achilles DTRs. Skin: Erythema noted just over the first MTP joint of the left foot MEDICAL DECISION MAKING: Chief Complaint: Left toe pain External records reviewed reviewed prior imaging Factors affecting care: History of alcohol abuse Social determinants of health: Alcohol abuse History obtained from others: none Consults: none [facility] Narrative: The patient was initially hemodynamically stable, afebrile and nontoxic-appearing. Exam without warmth, erythema crepitus or bullae. No sign of obvious trauma. There is overlying erythema surrounding the first MTP joint. I considered the following differential diagnosis: Fracture, dislocation, septic arthritis, gouty arthritis X-rays obtained in triage via protocol orders secondary to poor department of dynamics including high volume and high acuity ALL IMAGES (IF OBTAINED) HAVE BEEN PERSONALLY REVIEWED AND INTERPRETED BY MYSELF. X-ray of the involved extremity showed no obvious bony injury. No obvious osteolysis by my read. Radiologist agreed my interpretation. He also added that there are degenerative changes about the first metata (more content not included)... Normal [facility] Foot min 3 Viewson 5 Foot min 3 Views [facility] Imaging Services [address] [place] [address] Foot min 3 Views MR#: [id number] Acct: [id number] Name: ARON ESPINOZA Rep #: [id number] : 1975 M 49 From: Jesus blanc MD PCP: Dr. Mya Sánchez MD Status: PRE ER Study: Foot min 3 Views Date of Exam: 12/08/24 Exam# [id number] Ordering Dr: Danie Cooper [id number] STUDY: X-RAY - LEFT FOOT CLINICAL: Male, 49 years old. Foot pain. No known injury. TECHNIQUE: 3 view(s) of the foot. COMPARISON: None. FINDINGS: Tiny plantar spur. Normal visualized subtalar, talonavicular, calcaneocuboid, tarsal and tarsometatarsal articulations. Normal metatarsi. There is degenerative arthrosis of the metatarsophalangeal joint of the hallux . Normal tibial and fibular sesamoid bones. Normal interphalangeal joint of the great toe. Normal phalanges of the great toe. Normal second through fifth metatarsophalangeal joints. Normal interphalangeal joints and phalanges of the lesser toes. The soft tissue structures are unremarkable. RAD/Foot min 3 Views IMPRESSION: Degenerative changes at the first metatarsal phalangeal joint. Tiny plantar spur. Electronically Signed: Jesus Dillard MD at 14:56 EST Reading Location ID and State: [facility] / [place] , Service support , CC: Dr. Mya Sánchez MD; ED PHYSICIAN PROVIDER Geospatial Developer: Signed Normal [facility] Urgent Care Visit Reporton 0 12-08-2024 Urgent Care Visit Report [facility] [address], [address] [place] [address] OFFICE VISIT Date of Service: 12/08/24 MR#: [id number] Acct: [id number] Name: ARON ESPINOZA Rep #: [id number] : 1975 Provider: VERA Ruiz Age/Sex: 49/M Location: [facility] Status: Signed Intake Vital Signs 11/24/24 14:37 12/08/24 14:24 Height 6 ft 1 in 6 ft 1 in Weight: 355 lb 2 oz BMI 46.8 Intake Visit Reasons: GREAT TOE SWELLING/PAIN/UNK INJURY Chief Complaint: scopes Allergies shellfish derived (seafood - shellfish) Allergy (Verified 12/08/24 14:26) Anaphylaxis PFSH Medical History Alcohol dependence Alcohol withdrawal Anxiety Depression Smoker Former smoker CPAP (continuous positive airway pressure) dependence Seizures HTN (hypertension) GERD (gastroesophageal reflux disease) Surgical History History of herniorrhaphy History of tonsillectomy and adenoidectomy Hx of hand surgery Family History Daughter Asthma Father Asthma Hypertension CAD (coronary artery disease) Ulcer Mother Hypertension Grandfather Heart disease Hypertension Grandmother Diabetes Hypertension Social History household members: spouse and children current occupational status: employed Smoking Status: Former smoker Smokeless tobacco user: snuff alcohol intake: former details: quit drinking about a month ago HPI HPI Chief Complaint: scopes Details: ARON ESPINOZA is a 49 M who presents to the office today for NO SHOW Coding Level of Care Code No Charge 12/08/24 1512 Date Randy Ferrara Signature: Date (if applicable) CC: Normal [facility] HIP, UNI W/ Pelvis 2-3 Views on 11-24-2024 HIP, UNI W/ Pelvis 2-3 Views [facility] [address] [place] [address] HIP, UNI W/ Pelvis 2-3 Views MR#: [id number] Acct: [id number] Name: ARON ESPINOZA Rep #: [id number] : 1975 M 49 From: Nicolas Gardner MD PCP: Dr. Mya Sánchez MD Status: DEP AMB Study: HIP, UNI W/ Pelvis 2-3 Views Date of Exam: Exam# [id number] Ordering Dr: Ervin Domínguez DO [id number] INDICATION: Pain, bilateral hips. EXAMINATION/TECHNIQUE: X-RAY - XR Hips Bilateral with Pelvis when performed; 6 Views COMPARISON: FINDINGS: PELVIC BONES: No displaced fracture, destructive or sclerotic lesions. Note that overlapping bowel shadows may however obscure fine detail. Sacroiliac joints are unremarkable. No widening of the pubic symphysis. HIPS: There is minimal degenerative arthrosis of the hip joints bilaterally. No displaced fracture. SOFT TISSUES: No soft tissue swelling or gas. RAD/HIP, UNI W/ Pelvis 2-3 Views IMPRESSION: Minimal degenerative arthrosis of the hip joints bilaterally. No evidence of displaced pelvic or hip fracture. Electronically Signed: Nicolas Gardner MD at 9:49 EST , CC: Dr. Mya Sánchez MD; Dr. Ervin Domínguez DO Geospatial Developer: Signed Normal [facility] Lumbar Spine 2 or 3 Viewson 11-24-2024 Lumbar Spine 2 or 3 Views [facility] [address] [place] [address] Lumbar Spine 2 or 3 Views MR#: [id number] Acct: [id number] Name: ARON ESPINOZA Rep #: [id number] : 1975 M 49 From: Alli Hsu MD PCP: Dr. Mya Sánchez MD Status: DEP AMB Study: Lumbar Spine 2 or 3 Views Date of Exam: Exam# [id number] Ordering Dr: Ervin Domínguez DO [id number] EXAM: XR LUMBOSACRAL SPINE, 2 OR 3 VIEWS CLINICAL INDICATION: low back/tailbone pain TECHNIQUE: Frontal and lateral views of the lumbar spine and sacrum. COMPARISON: No relevant prior studies available. FINDINGS: VERTEBRAE: Bilateral L5 spondylolysis noted with grade1 spondylolisthesis. DISC SPACES: Narrowing of the L5-S1 disc space. RAD/Lumbar Spine 2 or 3 Views IMPRESSION: 1. Bilateral L5 spondylolysis noted with grade1 spondylolisthesis. 2. Narrowing of the L5-S1 disc space. Electronically Signed: Alli Hsu MD at 16:51 EST , CC: Dr. Mya Sánchez MD; Dr. Ervin Domínguez DO Geospatial Developer: Signed Normal [facility] Orthopedic Visit Reporton Orthopedic Visit Report [facility] [address] [place] [address] [address] [place] [address] OFFICE VISIT Date of Service: 11/24/24 MR#: [id number] Acct: [id number] Name: ARON ESPINOZA Rep #: [id number] : 1975 Provider: Dr. Ervin Cantrell so, DO Age/Sex: 49/M Location: [facility] Status: Signed Intake Vital Signs 11/07/24 08:44 11/24/24 14:37 Height 6 ft 1 in 6 ft 1 in Weight: 355 lb 355 lb 2 oz BMI 46.8 46.8 BP 130/82 H Blood Pressure Location Rt brachial Position Sitting Respiration 16 Intake Visit Reasons: BILATERAL HIPS Allergies shellfish derived (seafood - shellfish) Allergy (Verified 11/24/24 14:38) Anaphylaxis Medications ???Medication ???Instructions ???Recorded ???Confirmed ???Type omeprazole 40 mg capsule,delayed 40 mg PO DAILY 01/30/23 11/24/24 History release valsartan 320 1 tab PO DAILY 01/30/23 11/24/24 History mg-hydrochlorothiazide 25 mg tablet aspirin 81 mg PO DAILY 10/20/24 11/24/24 History folic acid 1 mg tablet 1 mg PO DAILY 10/20/24 11/24/24 History celecoxib 100 mg capsule (Celebrex) 100 mg PO BID #60 caps 11/24/24 11/24/24 Rx cholecalciferol (vitamin D3) 25 25 mcg PO QDAY 11/24/24 11/24/24 History mcg (1,000 unit) capsule ferrous sulfate 325 mg (65 mg 325 mg PO QDAY 11/24/24 11/24/24 History iron) tablet (Feosol) PFSH Medical History Alcohol dependence Alcohol withdrawal Anxiety Depression Smoker Former smoker CPAP (continuous positive airway pressure) dependence Seizures HTN (hypertension) GERD (gastroesophageal reflux disease) Surgical History History of herniorrhaphy History of tonsillectomy and adenoidectomy Hx of hand surgery Family History Daughter Asthma Father Asthma Hypertension CAD (coronary artery disease) Ulcer Mother Hypertension Grandfather Heart disease Hypertension Grandmother Diabetes Hypertension Social History household members: spouse and children current occupational status: employed Smoking Status: Former smoker Smokeless tobacco user: snuff alcohol intake: former details: quit drinking about a month ago HPI BILATERAL HIPS Details: This documentation accurately reflects the service provided and the decisions made by me, Dr. Ervin Domínguez, DO 11/24/24 0904. Part of today???s visit was documented by Jerri JOHNS, acting as scribe. ARON ESPINOZA is a 49 year old M recently admitted for polysubstance abuse 10/20/2024; alcohol, amphetamines, cocaine, marijuana, tobacco morbid obesity. Patient states that this past summer he had a fall and landed on his tailbone after he slipped backwards on a boat. He did have some bruising after the fall he points to more the upper sacrum area. He is having pain over the low back and across the glutes. He was having pain in the hips before the fall. He has been told by previous doctors that it was his hips or low back. He does have low back pain that he thinks is from the way he walks. He does get radiating pain down his right leg that stops at the knee. He has had an injection in his back before by Dr. Pond 2 years ago. He denies injection and PT for the hips. He takes Ibuprofen and Tylenol for pain. He denies any IV drug use history and states he has been clean since his admission in October. Ortho Exam General General: Yes no acute distress Neurologic: Yes alert and Yes oriented x3 Psychologic: Yes reasonable and appropriate Right Hip Skin: No Ecchymosis, No soft tissue swelling and No Erythema internal rotation @90 degree flexion: 15 degrees external rotation @90 degree extension: 65 degrees HIP: No groin pain with hip range of motion although there is some stiffness good hip flexion abduction strength Left Hip Skin/Wound: No Ecchymosis, No soft tissue swelling and No Erythema Hip: Absent eccymosis, soft tissue swelling or erythema internal rotation @90 degree flexion: 15 degrees external rotation @90 degree extension: 65 degrees HIP: No groin pain with hip range of motion although there is some stiffness good hip flexion abduction strength He does have tenderness over the sacrum and right and left sacroiliac joints he is morbidly obese. Supplemental Info 11/24/2024 x-ray lumbar spine grade 1 spondylolisthesis L5 on S1 degenerative disc disease most severe L5-S1 lower lumbar facet arthrosis. 11/24/2024 x-ray of bilateral hips preserved joint space no acute findings; of note there is bilateral sacroiliac joint arthrosis Coding Level of Care Code Off vis,new,level 3 Diagnoses Lumbar spondylolysis M43.06 Degeneration of intervertebral disc of lumbosacr (more content not included)... Normal [facility] Abdomen Limitedon 11-15-2024 Abdomen Limited [facility] Imaging Services [address] [place], [place] [address] Abdomen Limited MR#: [id number] Acct: [id number] Name: ARON ESPINOZA Rep #: [id number] : 1975 M 49 From: Flaco Churchill DO PCP: Dr. Mya Sánchez MD Status: [facility] Study: Abdomen Limited Date of Exam: 11/15/24 Exam# [id number] Ordering Dr: Krissy King SOLID PROPELLANT PROCESSOR-C [id number] INDICATION: ALCOHOL USE/ASSESS FOR ABNORMALITIES EXAMINATION: Ultrasound US Abdomen Limited (quadrant) TECHNIQUE: Morales scale and color doppler imaging was performed of the right upper quadrant. COMPARISON: FINDINGS: LIVER: There is fatty echotexture measuring 24.3 cm. No focal hepatic lesion. There is no free fluid. GALLBLADDER AND BILIARY TREE: No shadowing gallstone, pericholecystic fluid or gallbladder wall thickening is demonstrated. The proximal common bile duct measures 3, which is within normal limits for the patient''s age. Songraphic Casas''s sign: Negative. PANCREAS: No focal abnormality is demonstrated in the pancreas. No pancreatic ductal dilatation. RIGHT KIDNEY: 13.1 x 6.1 x 5.1 cm. The cortex is 17 mm. No hydronephrosis. No calculi. US/Abdomen Limited IMPRESSION: Enlarged fatty liver. Electronically Signed: Flaco Churchill DO at 16:08 EST , CC: JEANIE King; Dr. Mya Sánchez MD Geospatial Developer: Signed Normal [facility] Surgery Visit Reporton 11-07 Surgery Visit Report [facility] [address] [place] [address] OFFICE VISIT Date of Service: 11/07/24 MR#: [id number] Acct: [id number] Name: ARON ESPINOZA Rep #: [id number] : 1975 Provider: Dr. Juan frances MD Age/Sex: 49/M Location: [facility] Status: Signed Intake Vital Signs 10/21/24 14:10 11/07/24 08:44 Height 6 ft 2 in 6 ft 1 in Weight: 355 lb BMI 46.8 BP 130/82 H Blood Pressure Location Rt brachial Position Sitting Respiration 16 Intake Visit Reasons: EGD, COLONOSCOPY Chief Complaint: scopes Tamping Machine Operator Required: No Is patient in pain?: No Allergies shellfish derived (seafood - shellfish) Allergy (Verified 11/07/24 08:44) Anaphylaxis Medications ???Medication ???Instructions ???Recorded ???Confirmed ???Type omeprazole 40 mg capsule,delayed 40 mg PO DAILY 01/30/23 11/07/24 History release valsartan 320 1 tab PO DAILY 01/30/23 11/07/24 History mg-hydrochlorothiazide 25 mg tablet aspirin 81 mg PO DAILY 10/20/24 11/07/24 History folic acid 1 mg tablet 1 mg PO DAILY 10/20/24 11/07/24 History Have you fallen in the past year?: No PFSH Medical History Alcohol dependence Alcohol withdrawal Anxiety Depression Smoker Former smoker CPAP (continuous positive airway pressure) dependence Seizures HTN (hypertension) GERD (gastroesophageal reflux disease) Surgical History History of herniorrhaphy History of tonsillectomy and adenoidectomy Hx of hand surgery Family History (Updated 11/07/24 @ 08:43 by Natalie King) Daughter Asthma Father Asthma Hypertension CAD (coronary artery disease) Ulcer Mother Hypertension Grandfather Heart disease Hypertension Grandmother Diabetes Hypertension Social History (Updated 11/07/24 @ 08:43 by Natalie King) household members: spouse and children current occupational status: employed Smoking Status: Former smoker Smokeless tobacco user: snuff alcohol intake: former details: quit drinking about a month ago HPI HPI HPI: Patient is a 49-year-old male who presents for consideration of EGD and colonoscopy. They are referred for surgical consultation from Dr. Zambrano. Patient is the of a past patient, Ro Espinoza. She accompanies him to today's visit. He shares he is recently quit very heavy drinking (he estimates that he has been 3 weeks sober). He has multiple complaints today including upper abdominal pain, throat pain, and reports of bright red blood per rectum. Concerning patient's complaint of upper abdominal pain. He notes that it occurs first thing in the morning. He confirms to that there is some associated nausea and previously had been some vomiting but nothing of late. He specifically denies any experience of hematemesis. He also denies any associated bloating. Mrs. Espinoza reports that a ultrasound is pending for workup of this abdominal discomfort. Describing his throat pain complaints he shares that it simply "hurts" in his neck when swallowing but he insist that it is not a matter of difficulty swallowing. He finds that this pain arises with ingestion of food only and drinks go down uneventfully. Mr. Espinoza does have a history of gastroesophageal reflux disease and regularly takes omeprazole. He shares that with the use of this PPI medication (which he confirms he takes faithfully) he does not have any symptoms of reflux or heartburn). Concerning Mr. Espinoza's reports of bright red blood with bowel movements; he characterizes the frequency of these bloody bowel movements occurring approximately 3 times per week. He estimates his overall bowel movement frequency at 2 times per day. He does experience some straining but comments that at least one of his 2 bowel movements a day is actually diarrhea which he seems to experience as a response to taking his omeprazole. He denies any fiber supplementation. Mr. Bradshaw has a history of prior colonoscopy she estimates took place in [address] Mayfield. At that time he does recall a finding of hemorrhoids. Presently he denies any sensation of tissue protruding. He does confirm some itching of that area but denies any pain.. Patient has no family history of colon cancer, inflammatory bowel disease, or diverticulitis. The patient's weight is stable. The patient is not prescribed anticoagulants/blood thinners. Relevant prior abdominal surgical history includes: Umbilical hernia repair In addition to a history of alcohol abuse, Mr. Espinoza had a recent UDS that showed positivity with amphetamines (which she states today and previously stated was due to his use of Adderall), cocaine, and cannabis. There is a history of seizures per EMR, however, M (more content not included)... Normal [facility] Hemoglobin A1con 10-27-2024 HbA1c (Bld) [Mass fraction] 5.9 % High 3.8-5.6 [facility] Comment on above: Result Comment: Norm al < 5.7 % Prediabetic 5.7 - 6.4 % Diabetic >or= 6.5 % Please note range changes. Performed By: #### L 501.9921 ####[facility] [address] [facility] [place], [address] Vitamin B12on 10-27-2024 Cobalamin (Vitamin B12) [Mass/Vol] 671 pg/mL Normal 211-911 [facility] Comment on above: Performed By: #### L 506.0400, L503.6550, L503.6150, L501.9520, L500.4050, L506.1000, L501.4700, L100.0100, L503.0105 ####[facility] [address] [facility] [place], [address] Vitamin D,25 Hydroxyon 10-27 Vitamin D 25-OH 17.5 ng/mL Normal [facility] Comment on above: Result Comment: [place] min D 25(OH) Status Range Deficiency <20 ng/mL (50nmol/L) Insufficiency 20 - 30 ng/mL (50 - 75 nmol/L) Sufficiency 30 - 100 ng/mL (75 - 250 nmol/L) Toxicity >100 ng/mL (>250 nmol/L) Performed By: #### L 506.0400, L503.6550, L503.6150, L501.9520, L500.4050, L506.1000, L501.4700, L100.0100, L503.0105 ####[facility] [address] [place], [address] 34-YO-Umy[place]de DOrdered By: Lynn King on 10-24-2024 Vitamin D 25-Hydroxy 17.5 ng/mL [facility] Comment on above: Vitamin D 25(OH) Sta tus Range Deficiency <20 ng/mL (50nmol/L) Insufficiency 20 - 30 ng/mL (50 - 75 nmol/L) Sufficiency 30 - 100 ng/mL (75 - 250 nmol/L) Toxicity >100 ng/mL (>250 nmol/L) Absolute neutrophil countOrd ered By: Krissy King on 10-24-2024 Neutrophils (Bld) [#/Vol] 5.7 10*3/uL 2.0-7.7 [facility] Albumin to globulin ratioOrd ered By: Krissyryan King on 10-24-2024 Albumin/Globulin [Mass ratio] 0.8 {ratio} Low 0.9-2.4 [facility] Basophil percentageOrdered B y: Krissy King on 10-24-2024 Basophils/100 WBC (Bld) 0.8 % 0-1 [facility] Bilirubin directOrdered By: Krissy King on 10-24-2024 Bilirubin.direct [Mass/Vol] 0.13 mg/dL 0.00-0.30 [facility] Bilirubin, Directon 10-24-20 24 Bilirubin.direct [Mass/Vol] 0.13 mg/dL Normal 0.00-0.30 [facility] Comment on above: Performed By: #### L 506.0400, L503.6550, L503.6150, L501.9520, L500.4050, L506.1000, L501.4700, L100.0100, L503.0105 ####[facility] [address] [place], [address] Bilirubin, totalOrdered By: Krissy King on 10-24-2024 Bilirubin [Mass/Vol] 0.40 mg/dL 0.20-1.00 [facility] Comment on above: For patients on eltr ombopag therapy, use of Dimension [place] TBIL is not recommended. Blood urea nitrogen (BUN)/cr eatinine ratioOrdered By: Krissy King on 10-24-2024 Urea nitrogen/Creatinine [Mass ratio] 12.6 mg/mg 10- [facility] CBC W/Diff, Automatedon 10-12 Absolute Lymph 2.06 X10 3/uL Normal 0.83-4.51 [facility] Comment on above: Performed By: #### L 506.0400, L503.6550, L503.6150, L501.9520, L500.4050, L506.1000, L501.4700, L100.0100, L503.0105 ####[facility] [address] [place], [address] Absolute Neut 5.7 X10 3/uL Normal 2.0-7.7 [facility] Comment on above: Performed By: #### L 506.0400, L503.6550, L503.6150, L501.9520, L500.4050, L506.1000, L501.4700, L100.0100, L503.0105 ####[facility] [address] [place], [address] Basophils/100 WBC (Bld) 0.8 % Normal 0-1 [facility] Comment on above: Performed By: #### L 506.0400, L503.6550, L503.6150, L501.9520, L500.4050, L506.1000, L501.4700, L100.0100, L503.0105 ####[facility] [address] [place], [address] Eosinophils/100 WBC (Bld) 7.8 % High 0-5 [facility] Comment on above: Performed By: #### L 506.0400, L503.6550, L503.6150, L501.9520, L500.4050, L506.1000, L501.4700, L100.0100, L503.0105 ####[facility] [address] [place], [address] Erythrocyte distribution width (RBC) [Ratio] 12.9 % Normal 11.6-14.6 [facility] Comment on above: Performed By: #### L 506.0400, L503.6550, L503.6150, L501.9520, L500.4050, L506.1000, L501.4700, L100.0100, L503.0105 ####[facility] [address] [facility] [place], [address] Hematocrit (Bld) [Volume fraction] 48.1 % Normal 40-54 [facility] Comment on above: Performed By: #### L 506.0400, L503.6550, L503.6150, L501.9520, L500.4050, L506.1000, L501.4700, L100.0100, L503.0105 ####[facility] [address] [facility] [place], [address] Hemoglobin (Bld) [Mass/Vol] 15.9 g/dL Normal 13.0-16.5 [facility] Comment on above: Performed By: #### L 506.0400, L503.6550, L503.6150, L501.9520, L500.4050, L506.1000, L501.4700, L100.0100, L503.0105 ####[facility] [address] [facility] [place], [address] IG% 0.400 Normal 0.0-0.9 [facility] Comment on above: Result Comment: IG% - Immature Granulocytes (promyelocytes, myelocytes and metamyelocytes) > 1% indicates that a LEFT SHIFT is Present. Performed By: #### L 506.0400, L503.6550, L503.6150, L501.9520, L500.4050, L506.1000, L501.4700, L100.0100, L503.0105 ####[facility] [address] [place], [address] Lymphocytes/100 WBC (Bld) 22.7 % Normal 19-41 [facility] Comment on above: Performed By: #### L 506.0400, L503.6550, L503.6150, L501.9520, L500.4050, L506.1000, L501.4700, L100.0100, L503.0105 ####[facility] [address] [place], [address] MCH (RBC) [Entitic mass] 29.1 pg Normal 27.0-32.0 [facility] Comment on above: Performed By: #### L 506.0400, L503.6550, L503.6150, L501.9520, L500.4050, L506.1000, L501.4700, L100.0100, L503.0105 ####[facility] [address] [place], [address] MCHC (RBC) [Mass/Vol] 33.1 g/dL Normal 32-36 [facility] Comment on above: Performed By: #### L 506.0400, L503.6550, L503.6150, L501.9520, L500.4050, L506.1000, L501.4700, L100.0100, L503.0105 ####[facility] [address] [place], [address] MCV (RBC) [Entitic vol] 87.9 fL Normal 80-94 [facility] Comment on above: Performed By: #### L 506.0400, L503.6550, L503.6150, L501.9520, L500.4050, L506.1000, L501.4700, L100.0100, L503.0105 ####[facility] [address] [place], [address] Monocytes/100 WBC (Bld) 5.5 % Normal 0-10 [facility] Comment on above: Performed By: #### L 506.0400, L503.6550, L503.6150, L501.9520, L500.4050, L506.1000, L501.4700, L100.0100, L503.0105 ####[facility] [address] [place], [address] Neutrophils/100 WBC (Bld) 62.8 % Normal 47-70 [facility] Comment on above: Performed By: #### L 506.0400, L503.6550, L503.6150, L501.9520, L500.4050, L506.1000, L501.4700, L100.0100, L503.0105 ####[facility] [address] [place], [address] Nucleated RBC (Bld) [#/Vol] 0 10*3/uL Normal 0-5 [facility] Comment on above: Performed By: #### L 506.0400, L503.6550, L503.6150, L501.9520, L500.4050, L506.1000, L501.4700, L100.0100, L503.0105 ####[facility] [address] [place], [address] Platelet mean volume (Bld) [Entitic vol] 11.0 fL Normal 6.2-12.0 [facility] Comment on above: Performed By: #### L 506.0400, L503.6550, L503.6150, L501.9520, L500.4050, L506.1000, L501.4700, L100.0100, L503.0105 ####[facility] [address] [place], [address] Platelets (Bld) [#/Vol] 254 10*3/uL Normal 150-450 [facility] Comment on above: Performed By: #### L 506.0400, L503.6550, L503.6150, L501.9520, L500.4050, L506.1000, L501.4700, L100.0100, L503.0105 ####[facility] [address] [place], [address] RBC (Bld) [#/Vol] 5.47 10*6/uL Normal 4.6-6.2 [facility] Comment on above: Performed By: #### L 506.0400, L503.6550, L503.6150, L501.9520, L500.4050, L506.1000, L501.4700, L100.0100, L503.0105 ####[facility] [address] [place], [address] RDW SD 41.5 fl Normal 35.1-43.9 [facility] Comment on above: Performed By: #### L 506.0400, L503.6550, L503.6150, L501.9520, L500.4050, L506.1000, L501.4700, L100.0100, L503.0105 ####[facility] [address] [place], [address] WBC (Bld) [#/Vol] 9.1 10*3/uL Normal 4.4-11.0 [facility] Comment on above: Performed By: #### L 506.0400, L503.6550, L503.6150, L501.9520, L500.4050, L506.1000, L501.4700, L100.0100, L503.0105 ####[facility] [address] [place], [address] Carbon dioxide measurementOr dered By: Krissy King on 10-24-2024 CO2 [Moles/Vol] 27.0 mmol/L 21.0-32.0 [facility] Chloride measurementOrdered By: Krissy King on 10-24-2024 Chloride [Moles/Vol] 102 mmol/L 98-107 [facility] Comprehensive Metabolic Prof ilon 10-24-2024 Albumin [Mass/Vol] 3.5 g/dL Normal 3.2-5.0 [facility] Comment on above: Performed By: #### L 506.0400, L503.6550, L503.6150, L501.9520, L500.4050, L506.1000, L501.4700, L100.0100, L503.0105 ####[facility] [address] [place], [address] Albumin/Globulin [Mass ratio] 0.8 {ratio} Low 0.9-2.4 [facility] Comment on above: Performed By: #### L 506.0400, L503.6550, L503.6150, L501.9520, L500.4050, L506.1000, L501.4700, L100.0100, L503.0105 ####[facility] [address] [place], [address] ALK P 91 U/L Normal 45-117 [facility] Comment on above: Performed By: #### L 506.0400, L503.6550, L503.6150, L501.9520, L500.4050, L506.1000, L501.4700, L100.0100, L503.0105 ####[facility] [address] [place], [address] ALT [Catalytic activity/Vol] 94 U/L High 16-61 [facility] Comment on above: Performed By: #### L 506.0400, L503.6550, L503.6150, L501.9520, L500.4050, L506.1000, L501.4700, L100.0100, L503.0105 ####[facility] [address] [place], [address] AST [Catalytic activity/Vol] 109 U/L High 15-37 [facility] Comment on above: Performed By: #### L 506.0400, L503.6550, L503.6150, L501.9520, L500.4050, L506.1000, L501.4700, L100.0100, L503.0105 ####[facility] [address] [place], [address] Bilirubin [Mass/Vol] 0.40 mg/dL Normal 0.20-1.00 [facility] Comment on above: Result Comment: For patients on eltrombopag therapy, use of Dimension [place] TBIL is not recommended. Performed By: #### L 506.0400, L503.6550, L503.6150, L501.9520, L500.4050, L506.1000, L501.4700, L100.0100, L503.0105 ####[facility] [address] [place], [address] BUN/CRE 12.6 RATIO Normal 10-20 [facility] Comment on above: Performed By: #### L 506.0400, L503.6550, L503.6150, L501.9520, L500.4050, L506.1000, L501.4700, L100.0100, L503.0105 ####[facility] [address] [place], [address] CA,Total 9.1 mg/dL Normal 8.5-10.1 [facility] Comment on above: Performed By: #### L 506.0400, L503.6550, L503.6150, L501.9520, L500.4050, L506.1000, L501.4700, L100.0100, L503.0105 ####[facility] [address] [place], [address] Chloride [Moles/Vol] 102 mmol/L Normal 98-107 [facility] Comment on above: Performed By: #### L 506.0400, L503.6550, L503.6150, L501.9520, L500.4050, L506.1000, L501.4700, L100.0100, L503.0105 ####[facility] [address] [place], [address] CO2 [Moles/Vol] 27.0 mmol/L Normal 21.0-32.0 [facility] Comment on above: Performed By: #### L 506.0400, L503.6550, L503.6150, L501.9520, L500.4050, L506.1000, L501.4700, L100.0100, L503.0105 ####[facility] [address] [place], [address] Creatinine [Mass/Vol] 1.11 mg/dL Normal 0.70-1.30 [facility] Comment on above: Result Comment: The validity of the calculated GFR GFRAA in patients over 70 years has not been determined. Clinical correlation is essential. Performed By: #### L 506.0400, L503.6550, L503.6150, L501.9520, L500.4050, L506.1000, L501.4700, L100.0100, L503.0105 ####[facility] [address] [place], [address] EST GFR - AA 91 mL/min Normal >60 [facility] Comment on above: Result Comment: Afri can Mal[place]ian GFR Calc Performed By: #### L 506.0400, L503.6550, L503.6150, L501.9520, L500.4050, L506.1000, L501.4700, L100.0100, L503.0105 ####[facility] [address] [place], [address] GAP 6 Normal 5-15 [facility] Comment on above: Performed By: #### L 506.0400, L503.6550, L503.6150, L501.9520, L500.4050, L506.1000, L501.4700, L100.0100, L503.0105 ####[facility] [address] [place], [address] GFR/1.73 sq M.predicted among non-blacks MDRD (S/P/Bld) [Vol rate/Area] 76 mL/min/{1.73_m2} Normal >60 [facility] Comment on above: Result Comment: Non- GFR Calc Performed By: #### L 506.0400, L503.6550, L503.6150, L501.9520, L500.4050, L506.1000, L501.4700, L100.0100, L503.0105 ####[facility] [address] [place], [address] Globulin (S) [Mass/Vol] 4.4 g/dL High 2.2-4.2 [facility] Comment on above: Performed By: #### L 506.0400, L503.6550, L503.6150, L501.9520, L500.4050, L506.1000, L501.4700, L100.0100, L503.0105 ####[facility] [address] [place], [address] Glucose [Mass/Vol] 145 mg/dL High 74-106 [facility] Comment on above: Result Comment: Fast ing Glucose result greater than or equal to 126 mg/dL suggests DIABETES MELLITUS per A.D.A. criteria. Performed By: #### L 506.0400, L503.6550, L503.6150, L501.9520, L500.4050, L506.1000, L501.4700, L100.0100, L503.0105 ####[facility] [address] [place], [address] Potassium [Moles/Vol] 3.7 mmol/L Normal 3.5-5.1 [facility] Comment on above: Performed By: #### L 506.0400, L503.6550, L503.6150, L501.9520, L500.4050, L506.1000, L501.4700, L100.0100, L503.0105 ####[facility] [address] [place], [address] Sodium [Moles/Vol] 136 mmol/L Normal 136-145 [facility] Comment on above: Performed By: #### L 506.0400, L503.6550, L503.6150, L501.9520, L500.4050, L506.1000, L501.4700, L100.0100, L503.0105 ####[facility] [address] [place], [address] T PROT 7.9 g/dL Normal 6.4-8.2 [facility] Comment on above: Performed By: #### L 506.0400, L503.6550, L503.6150, L501.9520, L500.4050, L506.1000, L501.4700, L100.0100, L503.0105 ####[facility] [address] [place], [address] Urea nitrogen [Mass/Vol] 14 mg/dL Normal 7-18 [facility] Comment on above: Performed By: #### L 506.0400, L503.6550, L503.6150, L501.9520, L500.4050, L506.1000, L501.4700, L100.0100, L503.0105 ####[facility] [address] [place], [address] Direct serum free thyroxine (FT4) measurementOrdered By: Krissyryan King on 10-24-2024 Free T4 [Mass/Vol] 0.83 ng/dL 0.76-1.46 [facility] Eosinophil percentageOrdered By: Krissyryan King on 10-24-2024 Eosinophils/100 WBC (Bld) 7.8 % High 0-5 [facility] Erythrocyte distribution wid th ratioOrdered By: Krissy Fernando on 10-24-2024 Erythrocyte distribution width (RBC) [Ratio] 12.9 % 11.6-14.6 [facility] Erythrocyte distribution wid th standard deviationOrdered By: [facility] on 10-24-2024 Erythrocyte distribution width (RBC) [Entitic vol] 41.5 fL 35.1-43.9 [facility] Estimated glomerular filtrat ion rate (GFR) AmericanOrdered By: Krissyryan King on 10-24-2024 Estimated GFR (MDRD) Amer 91 mL/min >60 [facility] Comment on above: GFR Calc Ferritinon 10-24-2024 Ferritin [Mass/Vol] 114 ng/mL Normal 26-388 [facility] Comment on above: Performed By: #### L 506.0400, L503.6550, L503.6150, L501.9520, L500.4050, L506.1000, L501.4700, L100.0100, L503.0105 ####[facility] [address] [place], [address] Ferritin measurementOrdered By: Krissyryan King on 10-24-2024 Ferritin [Mass/Vol] 114 ng/mL 26-388 [facility] Glomerular filtration rate ( GFR) estimationOrdered By: Krissyryan King on 10-24-2024 Estimated GFR (MDRD) Non-Af Amer 76 mL/min >60 [facility] Comment on above: Non- GFR Calc Glucose measurementOrdered B y: Krissy King on 10-24-2024 Glucose [Mass/Vol] 145 mg/dL High 74-106 [facility] Comment on above: Fasting Glucose resu lt greater than or equal to 126 mg/dL suggests DIABETES MELLITUS per A.D.A. criteria. Hematocrit Auto (Bld) [Volum e fraction]Ordered By: Krissy King on 10-24-2024 Hematocrit (Bld) [Volume fraction] 48.1 % 40-54 [facility] Hemoglobin A1c percentageOrd ered By: Krissy King on 10-24-2024 HbA1c (Bld) [Mass fraction] 5.9 % High 3.8-5.6 [facility] Comment on above: Normal < 5.7 % Predi abetic 5.7 - 6.4 % Diabetic >or= 6.5 % Please note range changes. Hemoglobin measurementOrdere d By: Krissy King on 10-24-2024 Hemoglobin (Bld) [Mass/Vol] 15.9 g/dL 13.0-16.5 [facility] Immature granulocytes/100 WB C Auto (Bld)Ordered By: Krissy King on 10-24-2024 Immature granulocytes/100 WBC (Bld) 0.400 % 0.0-0.9 [facility] Comment on above: IG% - Immature Granu locytes (promyelocytes, myelocytes and metamyelocytes) > 1% indicates that a LEFT SHIFT is Present. Ironon 10-24-2024 Iron [Mass/Vol] 55 ug/dL Low 65-175 [facility] Comment on above: Performed By: #### L 506.0400, L503.6550, L503.6150, L501.9520, L500.4050, L506.1000, L501.4700, L100.0100, L503.0105 ####[facility] [address] [place], [place], [address] Iron (Unsp spec) [Mass/Mass] Ordered By: Krissyryan King on 10-24-2024 Iron [Mass/Vol] 55 ug/dL Low 65-175 [facility] Laboratory - Chemistry and C hemistry - challengeOrdered By: Krissy King on 10-24-2024 AST [Catalytic activity/Vol] 109 U/L High 15-37 [facility] Lymphocytes Auto (Unsp spec) [#/Vol]Ordered By: Krissy King on 10-24-2024 Lymphocytes (Bld) [#/Vol] 2.06 10*3/uL 0.83-4.5 1 [facility] Lymphocytes/100 WBC Auto (Un sp spec)Ordered By: Krissy King on 10-24-2024 Lymphocytes/100 WBC (Bld) 22.7 % 19-41 [facility] MCV (mean corpuscular volume ) determinationOrdered By: Krissy King on 10-24-2024 MCV (RBC) [Entitic vol] 87.9 fL 80-94 [facility] Mean corpuscular hemoglobin (MCH) determinationOrdered By: Krissy King on 10-24-2024 MCH (RBC) [Entitic mass] 29.1 pg 27.0-32.0 [facility] Mean corpuscular hemoglobin concentration (MCHC) determinationOrdered By: Krissy King on 10-24-2024 MCHC (RBC) [Mass/Vol] 33.1 g/dL 32-36 [facility] Mean platelet volume determi nationOrdered By: Krissy King on 10-24-2024 Platelet mean volume (Bld) [Entitic vol] 11.0 fL 6.2-12.0 [facility] Monocyte percentageOrdered B y: Krissy King on 10-24-2024 Monocytes/100 WBC (Bld) 5.5 % 0-10 [facility] Neutrophil percentageOrdered By: Krissy King on 10-24-2024 Neutrophils/100 WBC (Bld) 62.8 % 47-70 [facility] Nucleated red blood cell per centageOrdered By: Krissy King on 10-24-2024 Nucleated RBC/100 WBC (Bld) [Ratio] 0 % 0-5 [facility] Platelet countOrdered By: Ra puma King on 10-24-2024 Platelets (Bld) [#/Vol] 254 10*3/uL 150-450 [facility] Potassium measurementOrdered By: Krissy King on 10-24-2024 Potassium [Moles/Vol] 3.7 mmol/L 3.5-5.1 [facility] RBC Auto (Bld) [#/Vol]Ordere d By: Krissy King on 10-24-2024 RBC (Bld) [#/Vol] 5.47 10*6/uL 4.6-6.2 [facility] Serum anion gap measurementO rdered By: Krissy King on 10-24-2024 Anion gap [Moles/Vol] 6 mmol/L 5-15 [facility] Serum globulin measurementOr dered By: Krissy King on 10-24-2024 Globulin (S) [Mass/Vol] 4.4 g/dL High 2.2-4.2 [facility] Serum or plasma alanine armendariz otransferase (ALT) measurementOrdered By: Krissy King on 10-24-2024 ALT [Catalytic activity/Vol] 94 U/L High 16-61 [facility] Serum or plasma albumin melba urement (mass/volume)Ordered By: Krissy King on 10-24-2024 Albumin [Mass/Vol] 3.5 g/dL 3.2-5.0 [facility] Serum or plasma alkaline trevor sphatase measurementOrdered By: Krissy King on 10-24-2024 ALP [Catalytic activity/Vol] 91 U/L 45-117 [facility] Serum or plasma calcium melba urement (mass/volume)Ordered By: Krissy King on 10-24-2024 Calcium [Mass/Vol] 9.1 mg/dL 8.5-10.1 [facility] Serum or plasma creatinine m easurement (mass/volume)Ordered By: Krissy King on 10-24-2024 Creatinine [Mass/Vol] 1.11 mg/dL 0.70-1.30 [facility] Comment on above: The validity of the calculated GFR & GFRAA in patients over 70 years has not been determined. Clinical correlation is essential. Serum or plasma urea nitroge n measurement (mass/volume)Ordered By: Krissy King on 10-24-2024 Urea nitrogen [Mass/Vol] 14 mg/dL 7-18 [facility] Sodium levelOrdered By: Sinai King on 10-24-2024 Sodium [Moles/Vol] 136 mmol/L 136-145 [facility] T4 Free Directon 10-24-2024 T4 FREE DIRECT 0.83 ng/dL Normal 0.76-1.46 [facility] Comment on above: Performed By: #### L 506.0400, L503.6550, L503.6150, L501.9520, L500.4050, L506.1000, L501.4700, L100.0100, L503.0105 ####[facility] [address] [facility] [place], [address] TSH QnOrdered By: Krissy Roldan ar on 10-24-2024 Thyroid Stimulating Hormone (TSH) 2.080 uIU/mL 0.358-3.74 0 [facility] Thyroid Stim Hormone (TSH)on 10-24-2024 TSH 2.080 uIU/mL Normal 0.358-3.74 0 [facility] Comment on above: Performed By: #### L 506.0400, L503.6550, L503.6150, L501.9520, L500.4050, L506.1000, L501.4700, L100.0100, L503.0105 ####[facility] [address] [place], [address] Total proteinOrdered By: Amisha King on 10-24-2024 Protein [Mass/Vol] 7.9 g/dL 6.4-8.2 [facility] Vitamin B12 measurementOrder ed By: Krissy King on 10-24-2024 Cobalamin (Vitamin B12) [Mass/Vol] 671 pg/mL 211-911 [facility] White blood cell (WBC) count Ordered By: Krissy King on 10-24-2024 WBC (Bld) [#/Vol] 9.1 10*3/uL 4.4-11.0 [facility] Discharge Instructionon 10-12 Discharge Instruction [facility] Medical Records Department [address] [place] [address] Instructions for Home/Discharge Instructions 10/23/24 1033 MR#: [id number] Acct: [id number] Name: ARON ESPINOZA Rep #: [id number] : 1975 49 From: Keny Lee MD PCP: Dr. Mya Sánchez MD Status:ADM IN Discharge Instructions Diet Discharge Diet: Low fat / Low cholesterol DC O2, CPAP, BIPAP needs Additional Home O2 Discharge instructions: No Dressing / Incision Discharge Activity: Return to Normal Activity Dressing / Incision Call your doctor if you observe: Fever of 101 or Higher, Shortness of breath, Dizziness, Fainting spells, Swelling in the ankles, Chest pain and Increased palpitations (irregular heartbeat) Follow Up Care Test Results: Test results from this visit will be discussed in further detail at your follow-up appointment, if applicable. Discharge Plan Admission Admit Date/Time: 10/20/24 16:31 Attending Provider: Keny Lee Primary Care Provider: Mya Sánchez Consulting Providers: Que Arita Discharge Orders/Prescriptions Prescriptions: Continued omeprazole 40 mg capsule,delayed release(DR/EC) 40 mg PO DAILY Patient Comments: TAKE 1 CAPSULE BY MOUTH EVERY DAY valsartan-hydrochlorot hiazide 320-25 mg tablet 1 tab PO DAILY Patient Comments: TAKE 1 TABLET BY MOUTH EVERY DAY folic acid 1 mg tablet 1 mg PO DAILY aspirin 81 mg PO DAILY Referrals / Follow Up: Mya Sánchez MD [Primary Care Provider] - Within 1 Week Disposition Disposition (needs filled in before D/C Order can be placed): Home, Self Care 10/23/24 1035 Keny Lee MD CC: Dr. Que Arita, DO; Dr. Mya Sánchez MD Signed Normal [facility] Basic Metabolic Profile (BMP )on 10-21-2024 BUN/CRE 18.2 RATIO Normal - [facility] Comment on above: Performed By: #### L 100.0500, L500.2500 ####[facility] [address] [place], [address] CA,Total 8.8 mg/dL Normal 8.5-10.1 [facility] Comment on above: Performed By: #### L 100.0500, L500.2500 ####[facility] [address] [place], [address] Chloride [Moles/Vol] 107 mmol/L Normal 98-107 [facility] Comment on above: Performed By: #### L 100.0500, L500.2500 ####[facility] [address] [place], [address] CO2 [Moles/Vol] 27.0 mmol/L Normal 21.0-32.0 [facility] Comment on above: Performed By: #### L 100.0500, L500.2500 ####[facility] [address] [place], [address] Creatinine [Mass/Vol] 0.82 mg/dL Normal 0.70-1.30 [facility] Comment on above: Result Comment: The validity of the calculated GFR GFRAA in patients over 70 years has not been determined. Clinical correlation is essential. Performed By: #### L 100.0500, L500.2500 ####[facility] [address] [place], [address] ECRCL 182.01 ml/min Normal [facility] Comment on above: Performed By: #### L 100.0500, L500.2500 ####[facility] [address] [place], [address] EST GFR - AA 129 mL/min Normal >60 [facility] Comment on above: Result Comment: Afri can Maldivian GFR Calc Performed By: #### L 100.0500, L500.2500 ####[facility] [address] [place], [address] GAP 6 Normal 5-15 [facility] Comment on above: Performed By: #### L 100.0500, L500.2500 ####[facility] [address] [place], [address] GFR/1.73 sq M.predicted among non-blacks MDRD (S/P/Bld) [Vol rate/Area] 107 mL/min/{1.73_m2} Normal >60 [facility] Comment on above: Result Comment: Non- GFR Calc Performed By: #### L 100.0500, L500.2500 ####[facility] [address] [place], [address] Glucose [Mass/Vol] 108 mg/dL High 74-106 [facility] Comment on above: Result Comment: Fast ing Glucose result from 100 to 125 mg/dL suggests IMPAIRED HOMEOSTASIS per A.D.A. criteria. Performed By: #### L 100.0500, L500.2500 ####[facility] [address] [place], [address] Potassium [Moles/Vol] 3.7 mmol/L Normal 3.5-5.1 [facility] Comment on above: Performed By: #### L 100.0500, L500.2500 ####[facility] [address] [place], [address] Sodium [Moles/Vol] 140 mmol/L Normal 136-145 [facility] Comment on above: Performed By: #### L 100.0500, L500.2500 ####[facility] [address] [place], [address] Urea nitrogen [Mass/Vol] 15 mg/dL Normal 7-18 [facility] Comment on above: Performed By: #### L 100.0500, L500.2500 ####[facility] [address] [place], [address] Blood urea nitrogen (BUN)/cr eatinine ratioOrdered By: Que Arita on 10-21-2024 Urea nitrogen/Creatinine [Mass ratio] 18.2 mg/mg 10-20 [facility] CBC-Complete Blood Cnt No Di ffon 10-21-2024 Erythrocyte distribution width (RBC) [Ratio] 13.3 % Normal 11.6-14.6 [facility] Comment on above: Performed By: #### L 100.0500, L500.2500 ####[facility] [address] [place], [address] Hematocrit (Bld) [Volume fraction] 40.8 % Normal 40-54 [facility] Comment on above: Performed By: #### L 100.0500, L500.2500 ####[facility] [address] [place], [address] Hemoglobin (Bld) [Mass/Vol] 13.0 g/dL Normal 13.0-16.5 [facility] Comment on above: Performed By: #### L 100.0500, L500.2500 ####[facility] [address] [place], [address] MCH (RBC) [Entitic mass] 29.2 pg Normal 27.0-32.0 [facility] Comment on above: Performed By: #### L 100.0500, L500.2500 ####[facility] [address] [place], [address] MCHC (RBC) [Mass/Vol] 31.9 g/dL Low 32-36 [facility] Comment on above: Performed By: #### L 100.0500, L500.2500 ####[facility] [address] [place], [address] MCV (RBC) [Entitic vol] 91.7 fL Normal 80-94 [facility] Comment on above: Performed By: #### L 100.0500, L500.2500 ####[facility] [address] [place], [address] Platelet mean volume (Bld) [Entitic vol] 10.7 fL Normal 6.2-12.0 [facility] Comment on above: Performed By: #### L 100.0500, L500.2500 ####[facility] [address] [place], [address] Platelets (Bld) [#/Vol] 194 10*3/uL Normal 150-450 [facility] Comment on above: Performed By: #### L 100.0500, L500.2500 ####[facility] [address] [place], [address] RBC (Bld) [#/Vol] 4.45 10*6/uL Low 4.6-6.2 [facility] Comment on above: Performed By: #### L 100.0500, L500.2500 ####[facility] [address] [place], [address] RDW SD 44.8 fl High 35.1-43.9 [facility] Comment on above: Performed By: #### L 100.0500, L500.2500 ####[facility] [address] [place], [address] WBC (Bld) [#/Vol] 8.0 10*3/uL Normal 4.4-11.0 [facility] Comment on above: Performed By: #### L 100.0500, L500.2500 ####[facility] [address] [place], [address] Carbon dioxide measurementOr dered By: Que Arita on 10-21-2024 CO2 [Moles/Vol] 27.0 mmol/L 21.0-32.0 [facility] Chloride measurementOrdered By: Que Arita on 10-21-2024 Chloride [Moles/Vol] 107 mmol/L 98-107 [facility] Erythrocyte distribution wid th ratioOrdered By: Que Arita on 10-21-2024 Erythrocyte distribution width (RBC) [Ratio] 13.3 % 11.6-14.6 [facility] Erythrocyte distribution wid th standard deviationOrdered By: Que Arita on 10-21-2024 Erythrocyte distribution width (RBC) [Entitic vol] 44.8 fL High 35.1-43.9 [facility] Estimated glomerular filtrat ion rate (GFR) AmericanOrdered By: Que Arita on 10-21-2024 Estimated GFR (MDRD) Amer 129 mL/min >60 [facility] Comment on above: GFR Calc Estimation of creatinine kalin aranceOrdered By: Que Arita on 10-21-2024 Estimated Creatinine Clearance Calc 182.01 ml/min [facility] Glomerular filtration rate ( GFR) estimationOrdered By: Que Arita on 10-21-2024 Estimated GFR (MDRD) Non-Af Amer 107 mL/min >60 [facility] Comment on above: Non- GFR Calc Glucose measurementOrdered B y: Que Arita on 10-21-2024 Glucose [Mass/Vol] 108 mg/dL High 74-106 [facility] Comment on above: Fasting Glucose resu lt from 100 to 125 mg/dL suggests IMPAIRED HOMEOSTASIS per A.D.A. criteria. Hematocrit Auto (Bld) [Volum e fraction]Ordered By: Que Arita on 10-21-2024 Hematocrit (Bld) [Volume fraction] 40.8 % 40-54 [facility] Hemoglobin measurementOrdere d By: Que Arita on 10-21-2024 Hemoglobin (Bld) [Mass/Vol] 13.0 g/dL 13.0-16.5 [facility] MCV (mean corpuscular volume ) determinationOrdered By: Que Arita on 10-21-2024 MCV (RBC) [Entitic vol] 91.7 fL 80-94 [facility] Mean corpuscular hemoglobin (MCH) determinationOrdered By: Que Arita on 10-21-2024 MCH (RBC) [Entitic mass] 29.2 pg 27.0-32.0 [facility] Mean corpuscular hemoglobin concentration (MCHC) determinationOrdered By: Que Arita on 10-21-2024 MCHC (RBC) [Mass/Vol] 31.9 g/dL Low 32-36 [facility] Mean platelet volume determi nationOrdered By: Que Arita on 10-21-2024 Platelet mean volume (Bld) [Entitic vol] 10.7 fL 6.2-12.0 [facility] Platelet countOrdered By: Davon Arita on 10-21-2024 Platelets (Bld) [#/Vol] 194 10*3/uL 150-450 [facility] Potassium measurementOrdered By: uQe Arita on 10-21-2024 Potassium [Moles/Vol] 3.7 mmol/L 3.5-5.1 [facility] RBC Auto (Bld) [#/Vol]Ordere d By: Que Arita on 10-21-2024 RBC (Bld) [#/Vol] 4.45 10*6/uL Low 4.6-6.2 [facility] Serum anion gap measurementO rdered By: Que Arita on 10-21-2024 Anion gap [Moles/Vol] 6 mmol/L 5-15 [facility] Serum or plasma calcium melba urement (mass/volume)Ordered By: Que Arita on 10-21-2024 Calcium [Mass/Vol] 8.8 mg/dL 8.5-10.1 [facility] Serum or plasma creatinine m easurement (mass/volume)Ordered By: Que Arita on 10-21-2024 Creatinine [Mass/Vol] 0.82 mg/dL 0.70-1.30 [facility] Comment on above: The validity of the calculated GFR & GFRAA in patients over 70 years has not been determined. Clinical correlation is essential. Serum or plasma urea nitroge n measurement (mass/volume)Ordered By: Que Arita on 10-21-2024 Urea nitrogen [Mass/Vol] 15 mg/dL 7-18 [facility] Sodium levelOrdered By: Aaron Arita on 10-21-2024 Sodium [Moles/Vol] 140 mmol/L 136-145 [facility] White blood cell (WBC) count Ordered By: Que Arita on 10-21-2024 WBC (Bld) [#/Vol] 8.0 10*3/uL 4.4-11.0 [facility] Absolute neutrophil countOrd ered By: Jesus Manuel Jenkins on 10-20-2024 Neutrophils (Bld) [#/Vol] 6.0 10*3/uL 2.0-7.7 [facility] Albumin to globulin ratioOrd ered By: Jesus Manuel Jenkins on 10-20-2024 Albumin/Globulin [Mass ratio] 0.9 {ratio} 0.9-2.4 [facility] Alcohol, Blood (Medical)-Ser umon 10-20-2024 SERUM ETOH 116.0 mg/dL Normal [facility] Comment on above: Result Comment: The serum:whole blood ethanol ratio is approximately 1.14 and varies slightly with hematocrit. Medical Alcohol reference interval and critical value in non-tolerant individuals; 50 - 100 Impairment 100 Intoxication 100 - 250 Severe Poisoning 250 - 400 Deep/possible fatal coma Performed By: #### L 500.4050, L100.0100, L501.9100, L501.2450 ####[facility] [address] [place], [address] Basophil percentageOrdered B y: Jesus Manuel Jenkins on 10-20-2024 Basophils/100 WBC (Bld) 0.5 % 0-1 [facility] Bilirubin, totalOrdered By: Jesus Manuel Jenkins on 10-20-2024 Bilirubin [Mass/Vol] 0.40 mg/dL 0.20-1.00 [facility] Comment on above: For patients on eltr ombopag therapy, use of Dimension [place] TBIL is not recommended. CBC W/Diff, Automatedon 12-0 Absolute Lymph 2.31 X10 3/uL Normal 0.83-4.51 [facility] Comment on above: Performed By: #### L 500.4050, L100.0100, L501.9100, L501.2450 ####[facility] [address] [place], [address] Absolute Neut 6.0 X10 3/uL Normal 2.0-7.7 [facility] Comment on above: Performed By: #### L 500.4050, L100.0100, L501.9100, L501.2450 ####[facility] [address] [place], [address] Basophils/100 WBC (Bld) 0.5 % Normal 0-1 [facility] Comment on above: Performed By: #### L 500.4050, L100.0100, L501.9100, L501.2450 ####[facility] [address] [place], [address] Eosinophils/100 WBC (Bld) 6.3 % High 0-5 [facility] Comment on above: Performed By: #### L 500.4050, L100.0100, L501.9100, L501.2450 ####[facility] [address] [place], [address] Erythrocyte distribution width (RBC) [Ratio] 13.4 % Normal 11.6-14.6 [facility] Comment on above: Performed By: #### L 500.4050, L100.0100, L501.9100, L501.2450 ####[facility] [address] [place], [address] Hematocrit (Bld) [Volume fraction] 44.4 % Normal 40-54 [facility] Comment on above: Performed By: #### L 500.4050, L100.0100, L501.9100, L501.2450 ####[facility] [address] [place], [address] Hemoglobin (Bld) [Mass/Vol] 14.3 g/dL Normal 13.0-16.5 [facility] Comment on above: Performed By: #### L 500.4050, L100.0100, L501.9100, L501.2450 ####[facility] [address] [place], [address] IG% 0.400 Normal 0.0-0.9 [facility] Comment on above: Result Comment: IG% - Immature Granulocytes (promyelocytes, myelocytes and metamyelocytes) > 1% indicates that a LEFT SHIFT is Present. Performed By: #### L 500.4050, L100.0100, L501.9100, L501.2450 ####[facility] [address] [place], [address] Lymphocytes/100 WBC (Bld) 24.2 % Normal 19-41 [facility] Comment on above: Performed By: #### L 500.4050, L100.0100, L501.9100, L501.2450 ####[facility] [address] [place], [address] MCH (RBC) [Entitic mass] 29.2 pg Normal 27.0-32.0 [facility] Comment on above: Performed By: #### L 500.4050, L100.0100, L501.9100, L501.2450 ####[facility] [address] [place], [address] MCHC (RBC) [Mass/Vol] 32.2 g/dL Normal 32-36 [facility] Comment on above: Performed By: #### L 500.4050, L100.0100, L501.9100, L501.2450 ####[facility] [address] [place], [address] MCV (RBC) [Entitic vol] 90.6 fL Normal 80-94 [facility] Comment on above: Performed By: #### L 500.4050, L100.0100, L501.9100, L501.2450 ####[facility] [address] [place], [address] Monocytes/100 WBC (Bld) 5.5 % Normal 0-10 [facility] Comment on above: Performed By: #### L 500.4050, L100.0100, L501.9100, L501.2450 ####[facility] [address] [place], [address] Neutrophils/100 WBC (Bld) 63.1 % Normal 47-70 [facility] Comment on above: Performed By: #### L 500.4050, L100.0100, L501.9100, L501.2450 ####[facility] [address] [place], [address] Nucleated RBC (Bld) [#/Vol] 0 10*3/uL Normal 0-5 [facility] Comment on above: Performed By: #### L 500.4050, L100.0100, L501.9100, L501.2450 ####[facility] [address] [place], [address] Platelet mean volume (Bld) [Entitic vol] 10.1 fL Normal 6.2-12.0 [facility] Comment on above: Performed By: #### L 500.4050, L100.0100, L501.9100, L501.2450 ####[facility] [address] [place], [address] Platelets (Bld) [#/Vol] 246 10*3/uL Normal 150-450 [facility] Comment on above: Performed By: #### L 500.4050, L100.0100, L501.9100, L501.2450 ####[facility] [address] [place], [address] RBC (Bld) [#/Vol] 4.90 10*6/uL Normal 4.6-6.2 [facility] Comment on above: Performed By: #### L 500.4050, L100.0100, L501.9100, L501.2450 ####[facility] [address] [place], [address] RDW SD 44.6 fl High 35.1-43.9 [facility] Comment on above: Performed By: #### L 500.4050, L100.0100, L501.9100, L501.2450 ####[facility] [address] [place], [address] WBC (Bld) [#/Vol] 9.6 10*3/uL Normal 4.4-11.0 [facility] Comment on above: Performed By: #### L 500.4050, L100.0100, L501.9100, L501.2450 ####[facility] [address] [place], [address] Comprehensive Metabolic Prof ilon 10-20-2024 Albumin [Mass/Vol] 3.6 g/dL Normal 3.2-5.0 [facility] Comment on above: Performed By: #### L 500.4050, L100.0100, L501.9100, L501.2450 ####[facility] [address] [place], [address] Albumin/Globulin [Mass ratio] 0.9 {ratio} Normal 0.9-2.4 [facility] Comment on above: Performed By: #### L 500.4050, L100.0100, L501.9100, L501.2450 ####[facility] [address] [place], [address] ALK P 101 U/L Normal 45-117 [facility] Comment on above: Performed By: #### L 500.4050, L100.0100, L501.9100, L501.2450 ####[facility] [address] [place], [address] ALT [Catalytic activity/Vol] 73 U/L High 16-61 [facility] Comment on above: Performed By: #### L 500.4050, L100.0100, L501.9100, L501.2450 ####[facility] [address] [place], [address] AST [Catalytic activity/Vol] 63 U/L High 15-37 [facility] Comment on above: Performed By: #### L 500.4050, L100.0100, L501.9100, L501.2450 ####[facility] [address] [place], [address] Bilirubin [Mass/Vol] 0.40 mg/dL Normal 0.20-1.00 [facility] Comment on above: Result Comment: For patients on eltrombopag therapy, use of Dimension [place] TBIL is not recommended. Performed By: #### L 500.4050, L100.0100, L501.9100, L501.2450 ####[facility] [address] [place], [address] BUN/CRE 12.0 RATIO Normal 10-20 [facility] Comment on above: Performed By: #### L 500.4050, L100.0100, L501.9100, L501.2450 ####[facility] [address] [place], [address] CA,Total 9.3 mg/dL Normal 8.5-10.1 [facility] Comment on above: Performed By: #### L 500.4050, L100.0100, L501.9100, L501.2450 ####[facility] [address] [place], [address] Chloride [Moles/Vol] 107 mmol/L Normal 98-107 [facility] Comment on above: Performed By: #### L 500.4050, L100.0100, L501.9100, L501.2450 ####[facility] [address] [place], [address] CO2 [Moles/Vol] 28.0 mmol/L Normal 21.0-32.0 [facility] Comment on above: Performed By: #### L 500.4050, L100.0100, L501.9100, L501.2450 ####[facility] [address] [place], [address] Creatinine [Mass/Vol] 0.92 mg/dL Normal 0.70-1.30 [facility] Comment on above: Result Comment: The validity of the calculated GFR GFRAA in patients over 70 years has not been determined. Clinical correlation is essential. Performed By: #### L 500.4050, L100.0100, L501.9100, L501.2450 ####[facility] [address] [place], [address] ECRCL 153.92 ml/min Normal [facility] Comment on above: Performed By: #### L 500.4050, L100.0100, L501.9100, L501.2450 ####[facility] [address] [place], [address] EST GFR - AA 114 mL/min Normal >60 [facility] Comment on above: Result Comment: Afri can Maldivian GFR Calc Performed By: #### L 500.4050, L100.0100, L501.9100, L501.2450 ####[facility] [address] [place], [address] GAP 6 Normal 5-15 [facility] Comment on above: Performed By: #### L 500.4050, L100.0100, L501.9100, L501.2450 ####[facility] [address] [place], [address] GFR/1.73 sq M.predicted among non-blacks MDRD (S/P/Bld) [Vol rate/Area] 94 mL/min/{1.73_m2} Normal >60 [facility] Comment on above: Result Comment: Non- GFR Calc Performed By: #### L 500.4050, L100.0100, L501.9100, L501.2450 ####[facility] [address] [place], [address] Globulin (S) [Mass/Vol] 4.2 g/dL Normal 2.2-4.2 [facility] Comment on above: Performed By: #### L 500.4050, L100.0100, L501.9100, L501.2450 ####[facility] [address] [place], [address] Glucose [Mass/Vol] 123 mg/dL High 74-106 [facility] Comment on above: Result Comment: Fast ing Glucose result from 100 to 125 mg/dL suggests IMPAIRED HOMEOSTASIS per A.D.A. criteria. Performed By: #### L 500.4050, L100.0100, L501.9100, L501.2450 ####[facility] [address] [place], [address] Potassium [Moles/Vol] 3.4 mmol/L Low 3.5-5.1 [facility] Comment on above: Performed By: #### L 500.4050, L100.0100, L501.9100, L501.2450 ####[facility] [address] [place], [address] Sodium [Moles/Vol] 141 mmol/L Normal 136-145 [facility] Comment on above: Performed By: #### L 500.4050, L100.0100, L501.9100, L501.2450 ####[facility] [address] [place], [address] T PROT 7.8 g/dL Normal 6.4-8.2 [facility] Comment on above: Performed By: #### L 500.4050, L100.0100, L501.9100, L501.2450 ####[facility] [address] [place], [address] Urea nitrogen [Mass/Vol] 11 mg/dL Normal 7-18 [facility] Comment on above: Performed By: #### L 500.4050, L100.0100, L501.9100, L501.2450 ####[facility] [address] [place], [address] Emergency Department Summary on 10-20-2024 Emergency Department Summary [facility] Medical Records Department [address] [place] [address] Emergency Department Summary 10/20/24 MR#: [id number] Acct: [id number] Name: ARON ESPINOZA #: [id number] : 1975 49 From: Jesus Manuel Jenkins DO PCP: Dr. Mya Sánchez MD Status:ADM IN [facility] History of Present Illness Chief Complaint: Substance Abuse Informant: patient Onset/Context/Timing Onset: Today Timing: Continuous Worsened by: Nothing Relieved by: Nothing Associated Symptoms Associated Symptoms: Positive for diarrhea* and palpatations; Negative for vomiting*, fever*, rash*, seizure, tremor, change in mental status, trauma, suicidal ideation or homicidal ideation Narrative Narrative: Patient presents requesting detox from alcohol. Patient states he drinks 1/5 of vodka per day. Patient states on the weekends he drinks up to a gallon of vodka. Patient states his last drink was approximately 30 minutes prior to arrival. Patient states he has never been to detox in the past. Patient admits to some palpitations where he feels like his heart is racing. Patient admits to some diarrhea. Patient denies any nausea or vomiting. Patient denies any seizures or tremors. Patient denies any suicidal or homicidal ideations. [facility] Medical History HTN (hypertension) GERD (gastroesophageal reflux disease) Home Medications ???Medication ???Instructions ???Recorded ???Last Taken ???Type albuterol sulfate 90 mcg/actuation 2 puff inhalation Q4H PRN PRN 01/30/23 Unknown Rx aerosol inhaler (Ventolin HFA) Wheezing ##1 omeprazole 40 mg capsule,delayed 40 mg PO DAILY 01/30/23 Unknown History release valsartan 320 1 tab PO DAILY 01/30/23 Unknown History mg-hydrochlorothiazide 25 mg tablet hydrocodone-acetaminop hen 5-325mg 1 tab PO Q6H PRN PRN Pain 3 days 07/03/23 Unknown Rx 5mg-325mg #10 TABLETS Allergy/AdvReac Type Severity Reaction Status Date / Time shellfish derived (seafood Allergy Anaphylaxis Verified 10/20/24 15:05 - shellfish) Surgical History History of herniorrhaphy History of tonsillectomy and adenoidectomy Hx of hand surgery Social History (Updated 10/20/24 @ 15:36 by Dana Mcgee) household members: spouse and children current occupational status: employed Smoking Status: Never smoker ROS ROS ED Constitutional Constitutional ED: Denies chills or fever(s) Eyes Eyes: Denies blurry vision or change in vision ENT ENT ED: Denies rhinorrhea or sore throat Cardiovascular Cardiovascular: Reports palpitations; Denies chest pain Respiratory/Chest Respiratory/Chest: Denies cough or dyspnea Gastrointestinal Gastrointestinal: Reports diarrhea; Denies nausea or vomiting Genitourinary Genitourinary ED: Denies dysuria or hematuria Musculoskeletal Musculoskeletal: Reports back pain and neck pain Integumentary Denies abscess or rash Neurologic Neurologic: Reports headache(s); Denies weakness Psychiatric Psychiatric: Denies suicidal ideation or suicidal thoughts Allergic/Immunologic Allergic/Immunologic ED: Denies mouth swelling or urticaria EXAM Physical Exam Const Vital Signs: 10/20/24 15:05 Temperature 97.8 F Temperature Source Oral Pulse Rate 122 H Respiratory Rate 18 Blood Pressure 146/108 H Blood Pressure Mean 120 Pulse Ox 99 Oxygen Delivery Method Room Air Positive well nourished and well developed General Appearance ED: well developed and NAD HEENT Reports moist mucous membranes Neck supple and no JVD Resp normal respiratory effort and clear to auscultation bilaterally Cardio regular rhythm Rate: tachycardic GI soft to palpation, non-tender and non-distended Palpation: tender LLQ; Negative for guarding Neuro oriented x3, CN's II-XII intact bilaterally and no sensory deficits noted [place] Coma Scale: document GCS findings Spontaneous Obeys Commands Oriented 15 Sensorium / Orientation: alert Speech: speech normal Motor Exam: strength 5/5 throughout Psych mental status grossly normal and thought process normal MDM MDM MDM Narrative Medical decision making narrative: Medical screening labs will be obtained. CBC will be obtained to assess for leukocytosis and anemia. Comprehensive metabolic profile will be obtained to assess for hepatic function, renal function, and electrolyte abnormality. Lipase will be obtained to assess for pancreatitis. Urinalysis will be obtained to assess for urinary tract infection and hematuria. Urine tox screen will be obtained to assess for substance abuse. Serum alcohol level will be obtained to assess for alcohol intoxication. Lab Data Attestation: I reviewed the patient's lab results. Lab results narrative: (more content not included)... Normal [facility] Eosinophil percentageOrdered By: Jesus Manuel Jenkins on 10-20-2024 Eosinophils/100 WBC (Bld) 6.3 % High 0-5 [facility] H AND P Exam - [facility] 10-20-2024 H&P Exam - Hospitalist [facility] Medical Records Department [address] [place] [address] H P Exam - Hospitalist 10/20/24 1618 MR#: [id number] Acct: [id number] Name: ARON ESPINOZA Rep #: [id number] : 1975 49 From: Que Arita DO PCP: Dr. Mya Sánchez MD Status:ADM IN Location: [facility] VA965-5 HPI - General General Date of Admission: 10/20/24 Date of Service: 10/20/24 Chief Complaint: Alcohol detox HPI Narrative ARON ESPINOZA, is a 49 M who presented to [facility] ED on 10/20/2024 requesting alcohol detox. Patient has never gone through alcohol detox before. Drinks 1/5 of vodka daily on weekdays and up to a gallon of vodka on weekends. Last drink was about 30 minutes prior to arrival to the ED. Alcohol level 116 in the ED. Vitals on arrival notable for hypertension to the 150s/100s and sinus tachycardia to the low 100s. CBC and BMP fairly benign. LFTs with mildly elevated AST and ALT, otherwise unremarkable. Given request for alcohol detox, hospitalist was contacted for admission. I saw the patient at bedside in the ED. Patient was flushed appearing on exam and appeared anxious. Currently having some withdrawal symptoms including tremors, nausea, anxiety and flushing. Was given a dose of p.o. phenobarbital in the ED about 15 minutes before I saw him, does not feel like this has taken any effect yet. Patient states that he has a steady job and family and is concerned that his worsening drinking habits could put these in serious jeopardy, and this is why he wants to go through detox. Notably his UDS was positive for amphetamines, cocaine and cannabinoids. Patient states that he smokes marijuana on about a daily basis. He will go to parties on the weekends with his brother and take Adderall and use cocaine occasionally, does not do these things on a daily basis. He also chews snuff on a daily basis. Patient otherwise has minimal medical history, takes medication for high blood pressure and acid reflux. Denies any other symptoms currently. Will be admitted for further management. [facility] Medical History (Updated 10/20/24 @ 19:[address] Que Arita, ) Anxiety Depression Smoker Former smoker CPAP (continuous positive airway pressure) dependence Seizures HTN (hypertension) GERD (gastroesophageal reflux disease) Home Medications ???Medication ???Instructions ???Recorded ???Last Taken ???Type omeprazole 40 mg capsule,delayed 40 mg PO DAILY 01/30/23 10/20/24 History release valsartan 320 1 tab PO DAILY 01/30/23 10/20/24 History mg-hydrochlorothiazide 25 mg tablet aspirin 81 mg PO DAILY 10/20/24 Unknown History folic acid 1 mg tablet 1 mg PO DAILY 10/20/24 Unknown History Allergy/AdvReac Type Severity Reaction Status Date / Time shellfish derived (seafood Allergy Anaphylaxis Verified 10/20/24 15:05 - shellfish) Surgical History History of herniorrhaphy History of tonsillectomy and adenoidectomy Hx of hand surgery Social History (Updated 10/20/24 @ 15:36 by Dana Mcgee) household members: spouse and children current occupational status: employed Smoking Status: Never smoker ROS Constitutional Constitutional: Denies chills, fatigue, fever(s) or weakness Eyes Eyes: Denies change in vision Cardiovascular Cardiovascular: Denies chest pain or palpitations Respiratory/Chest Respiratory/Chest: Denies cough or shortness of breath at rest Gastrointestinal Gastrointestinal: Reports nausea; Denies abdominal pain or vomiting Musculoskeletal Musculoskeletal: Denies arthralgias or myalgias Neurologic Neurologic: Denies dizziness or headache(s) Psychiatric Psychiatric: Reports anxiety Vital Signs Vital Signs Vital Signs: 10/20/24 15:05 Temperature 97.8 F Temperature Source Oral Pulse Rate 122 H Respiratory Rate 18 Blood Pressure 146/108 H Blood Pressure Mean 120 Pulse Ox 99 Oxygen Delivery Method Room Air Weight Weight: 154.221 kg Body Mass Index (BMI) 44.9 Physical Exam Const alert and oriented x3 Constitutional Narrative: Middle-age male, class III obesity, flushed appearing and somewhat anxious, otherwise sitting up in bed and answering questions appropriately. General Appearance: cooperative HEENT normocephalic, head/scalp atraumatic, hearing grossly normal bilaterally, nasal mucous membranes and turbinates normal and moist oral mucous membranes Eyes PERRL, EOMs intact bilaterally and conjunctivae normal Neck full ROM Chest inspection of chest normal Resp normal respiratory effort, normal air movement, no use of accessory muscles and clear to auscultation bilaterally Cardio no murmurs and peripheral pulses 2+ throughout Cardio Narrative: Tachycardic, regular rhythm. GI adam (more content not included)... Normal [facility] Hemoglobin A1con 10-20-2024 HbA1c (Bld) [Mass fraction] 6.0 % High 3.8-5.6 [facility] Comment on above: Result Comment: Norm al < 5.7 % Prediabetic 5.7 - 6.4 % Diabetic >or= 6.5 % Please note range changes. Performed By: #### L 501.5200, L501.9985 ####[facility] [address] [place], [address] Hemoglobin A1c percentageOrd ered By: Que Arita on 10-20-2024 HbA1c (Bld) [Mass fraction] 6.0 % High 3.8-5.6 [facility] Comment on above: Normal < 5.7 % Predi abetic 5.7 - 6.4 % Diabetic >or= 6.5 % Please note range changes. Immature granulocytes/100 WB C Auto (Bld)Ordered By: Jesus Manuel Jenkins on 10-20-2024 Immature granulocytes/100 WBC (Bld) 0.400 % 0.0-0.9 [facility] Comment on above: IG% - Immature Granu locytes (promyelocytes, myelocytes and metamyelocytes) > 1% indicates that a LEFT SHIFT is Present. Laboratory - Chemistry and C hemistry - challengeOrdered By: Jesus Manuel Jenkins on 10-20-2024 AST [Catalytic activity/Vol] 63 U/L High 15-37 [facility] Lipaseon 10-20-2024 Lipase [Catalytic activity/Vol] 31 U/L Normal 13-75 [facility] Comment on above: Result Comment: Plea note: LIPASE revised reference range effective 23. New Lipase methodology. Expected to produce lower values than the previous assay method. NEW Reference Range: 13 - 75 U/L Performed By: #### L 500.4050, L100.0100, L501.9100, L501.2450 ####[facility] [address] [place], [place], [id number] Lipase measurementOrdered By : Jesus Manuel Jenkins on 10-20-2024 Lipase [Catalytic activity/Vol] 31 U/L 13-75 [facility] Comment on above: Please note:LIPASE r evised reference range effective 23. New Lipase methodology. Expected to produce lower values than the previous assay method. NEW Reference Range: 13 - 75 U/L Lymphocytes Auto (Unsp spec) [#/Vol]Ordered By: Jesus Manuel Jenkins on 10-20-2024 Lymphocytes (Bld) [#/Vol] 2.31 10*3/uL 0.83-4.5 1 [facility] Lymphocytes/100 WBC Auto (Un sp spec)Ordered By: Jesus Manuel Jenkins on 10-20-2024 Lymphocytes/100 WBC (Bld) 24.2 % 19-41 [facility] Magnesiumon 10-20-2024 Magnesium [Mass/Vol] 2.1 mg/dL Normal 1.6-2.6 [facility] Comment on above: Performed By: #### L 501.5200, L501.9985 ####[facility] [address] [facility] [place], [place], [id number] Magnesium measurementOrdered By: Que Arita on 10-20-2024 Magnesium [Mass/Vol] 2.1 mg/dL 1.6-2.6 [facility] Methadone, urineOrdered By: Jesus Manuel Jenkins on 10-20-2024 Urine Methadone Screen Negative < 300 ng/mL [facility] Monocyte percentageOrdered B y: Jesus Manuel Jenkins on 10-20-2024 Monocytes/100 WBC (Bld) 5.5 % 0-10 [facility] Neutrophil percentageOrdered By: Jesus Manuel Jenkins on 10-20-2024 Neutrophils/100 WBC (Bld) 63.1 % 47-70 [facility] No Panel InformationOrdered By: Jesus Manuel Jenkins on 10-20-2024 Urine Drug Screen Comment [facility] Comment on above: CONFIRMATORY TESTING FOR ALL POSITIVE URINE DRUG SCREENRESULTS WILL ONLY BE SENT OUT UPON PHYSICIAN ORDER. VISTA Urine Drug Screen methods provide only preliminaryanalytical test results. A more specific alternate chemicalmethod must be used in order to obtain a confirmedanalytical result. Gas chromatography/mass spectrometery(GC/MS) is the preferred confirmatory method. Clinicalconsideration and professional judgement should be appliedto any drug of abuse test result, particularly whenpreliminary positive results are used. URINE TCA TESTING MUST BE ORDERED SEPARATELY. USE TESTMNEMONIC: [facility]CA Nucleated red blood cell per centageOrdered By: Jesus Manuel Jenkins on 10-20-2024 Nucleated RBC/100 WBC (Bld) [Ratio] 0 % 0-5 [facility] Quantitative urine opiates m easurementOrdered By: Jesus Manuel Jenkins on 10-20-2024 Opiates Ql (U) Negative < 300 ng/mL [facility] Serum ethanol measurementOrd ered By: Jesus Manuel Jenkins on 10-20-2024 Ethyl Alcohol Level 116.0 mg/dL [facility] Comment on above: The serum:whole bloo d ethanol ratio is approximately 1.14and varies slightly with hematocrit. Medical Alcohol reference interval and critical value innon-tolerant individuals; 50 - 100 Impairment 100 Intoxication 100 - 250 Severe Poisoning 250 - 400 Deep/possible fatal coma Serum globulin measurementOr dered By: Jesus Manuel Jenkins on 10-20-2024 Globulin (S) [Mass/Vol] 4.2 g/dL 2.2-4.2 [facility] Serum or plasma alanine armendariz otransferase (ALT) measurementOrdered By: Jesus Manuel Jenkins on 10-20-2024 ALT [Catalytic activity/Vol] 73 U/L High 16-61 [facility] Serum or plasma albumin melba urement (mass/volume)Ordered By: Jesus Manuel Jenkins on 10-20-2024 Albumin [Mass/Vol] 3.6 g/dL 3.2-5.0 [facility] Serum or plasma alkaline trevor sphatase measurementOrdered By: Jesus Manuel Jenkins on 10-20-2024 ALP [Catalytic activity/Vol] 101 U/L 45-117 [facility] Total proteinOrdered By: Yessica Jenkins on 10-20-2024 Protein [Mass/Vol] 7.8 g/dL 6.4-8.2 [facility] Urine Drug Screen (VISTA)on 10-20-2024 AMPHETAMINES Positive Abnormal <1000 ng/mL [facility] Comment on above: Performed By: #### L 505.5000 ####[facility] [address] [place] [id number] BARBITIURATES Negative Normal < 200 ng/mL [facility] Comment on above: Performed By: #### L 505.5000 ####[facility] [address] [facility] [address] BENZODIAZIPINE Negative Normal < 200 ng/mL [facility] Comment on above: Performed By: #### L 505.5000 ####[facility] [address] [place] [address] COCAINE Positive Abnormal < 300 ng/mL [facility] Comment on above: Performed By: #### L 505.5000 ####[facility] [address] [facility] [address] ECSTACY Negative Normal < 500 ng/mL [facility] Comment on above: Performed By: #### L 505.5000 ####[facility] [address] [facility] [address] METHADONE Negative Normal < 300 ng/mL [facility] Comment on above: Performed By: #### L 505.5000 ####[facility] [address] [place] [id number] OPIATES Negative Normal < 300 ng/mL [facility] Comment on above: Performed By: #### L 505.5000 ####[facility] [address] [facility] [address] PCP Negative Normal < 25 ng/mL [facility] Comment on above: Performed By: #### L 505.5000 ####[facility] [address] [place], [place], [id number] THC Positive Abnormal < 50 ng/mL [facility] Comment on above: Performed By: #### L 505.5000 ####[facility] [address] [place], [place], [id number] VISTA UDS PH 5 Normal [facility] Comment on above: Performed By: #### L 505.5000 ####[facility] [address] [place], [place], [id number] Urine amphetamine measuremen tOrdered By: Jesus Manuel Jenkins on 10-20-2024 Amphetamines Ql (U) Positive High <1000 ng/mL [facility] Urine barbiturates measureme ntOrdered By: Jesus Manuel Jenkins on 10-20-2024 Urine Barbiturates Screen Negative < 200 ng/mL [facility] Urine benzodiazepine levelOr dered By: Jesus Manuel Jenkins on 10-20-2024 Benzodiazepines Ql (U) Negative < 200 ng/mL [facility] Urine cocaine levelOrdered B y: Jesus Manuel Jenkins on 10-20-2024 Cocaine Ql (U) Positive High < 300 ng/mL [facility] Urine etaxl-2-mfbcarkhrmbjyr abinol (THC) measurementOrdered By: Jesus Manuel Jenkins on 10-20-2024 Cannabinoids Screen Ql (U) Positive High < 50 ng/m L [facility] Urine methylenedioxymethamph etamine (MDMA) measurementOrdered By: Jesus Manuel Jenkins on 10-20-2024 MDMA (Ecstasy) Screen Negative < 500 ng/mL [facility] Urine phencyclidine (PCP) de tectionOrdered By: Jesus Manuel Jenkins on 10-20-2024 Phencyclidine Ql (U) Negative < 25 ng/mL [facility] CNOVon 09-09-2024 CNOV Office Visit (UCWSTR ) ARON ESPINOZA ([id number]) 1975 M Date Time Provider Department 09/09/24 11:30 AM ALEXA GOVEA [facility] During your visit today, we recorded the following information about you: Temperature Pulse Respiration Blood pressure 97.6 degrees 96/minute 18/minute 164/94 Weight 167 kg Alexa Govea APRN.CNP 09/09/2024 12:01 PM Signed This note was created using NoteWriter. Subjective Aron Espinoza is a 48 year old male. 48 year old male with no PMH presents for illness. Acute onset of symptoms was 4 days ago +cough +congestion +sinus pressure +head pressure +headache Denies CP Denies SOB Denies dyspnea The history is provided by the patient. No language arts teacher was used. URI He complains of cough and sputum production. There is no chest tightness, difficulty breathing, frequent throat clearing, hemoptysis, hoarse voice, shortness of breath or wheezing. This is a new problem. The current episode started in the past 7 days. The problem occurs constantly. The problem has been gradually worsening. Cough characteristics: goes between productive and non productive. Associated symptoms include headaches, nasal congestion, rhinorrhea and sneezing. Pertinent negatives include no appetite change, chest pain, dyspnea on exertion, ear congestion, ear pain, fever, heartburn, malaise/fatigue, myalgias, orthopnea, PND, postnasal drip, sore throat, sweats, trouble swallowing or weight loss. His symptoms are aggravated by nothing. He reports no improvement on treatment. There are no known risk factors for lung disease. There is no history of asthma, bronchiectasis, bronchitis, COPD, emphysema or pneumonia. PAST MEDICAL HISTORY Diagnosis Date NONE PAST SURGICAL HISTORY Procedure Laterality Date RCNSTJ TENDON KAYA EACH W/LOCAL TISSUES SPX RECONSTRUCTIVE HAND SURGERY RIGHT HAND RPR UMBILICAL HERNIA < 5 YRS REDUCIBLE Hernia repair, umbilical ALLERGIES Shellfish Containing Products, Codeine, Hydrocodone-Acetaminop hen, and Cyclobenzaprine MEDICATIONS folic acid 1 mg tablet Take 1 tablet by mouth every afternoon. Valsartan-hydroCHLOROt hiazide 320-25 mg per tablet Take 1 tablet by mouth once daily. omeprazole (PRILOSEC) 20 mg capsule Take 20 mg by mouth twice daily. IBUPROFEN 800 MG TAB Take one(1) tablet daily. predniSONE (DELTASONE) 10 mg tablet Take 4 tabs daily for 3 days, then 2 tabs daily for 3 days, then 1 tab daily for 3 days with food. benzonatate (TESSALON PERLES) 100 mg capsule Take 1 capsule by mouth three times daily as needed for cough. (Patient not taking: Reported on 07/01/2023) naproxen (NAPROSYN) 500 mg tablet Take 500 mg by mouth twice daily with meals. ZANTAC 150 MG TAB Take one(1) tablet two(2) times daily. (Patient not taking: Reported on 12/19/2022) DIFLUCAN 200 MG TAB 2 at once (Patient not taking: No sig reported) NEXIUM 40 MG CAP Take one(1) tablet daily. (Patient not taking: No sig reported) DICLOFENAC 75 MG TAB, DELAYED RELEASE Take one(1) tablet two(2) times daily. (Patient not taking: No sig reported) No family history on file. Social History Tobacco Use Smoking status: Former Current packs/day: 0.00 Types: Cigarettes Start date: 2009 Quit date: 2017 Years since quittin.8 Smokeless tobacco: Former Types: Snuff Quit date: 06/12/2018 Substance Use Topics Alcohol use: Yes Alcohol/week: 3.0 standard drinks of alcohol Types: 3 Shots of liquor per week Comment: daily Drug use: No Review of Systems Constitutional: Negative for appetite change, fever, malaise/fatigue and weight loss. HENT: Positive for congestion, rhinorrhea and sneezing. Negative for ear pain, hoarse voice, postnasal drip, sore throat and trouble swallowing. Eyes: Negative for pain, discharge and itching. Respiratory: Positive for cough and sputum production. Negative for apnea, hemoptysis, shortness of breath and wheezing. Cardiovascular: Negative for chest pain, dyspnea on exertion and PND. Gastrointestinal: Negative for abdominal pain, diarrhea, heartburn, nausea and vomiting. Musculoskeletal: Negative for myalgias. Skin: Negative for color change, pallor, rash and wound. Allergic/Immunologic: Positive for immunocompromised state. Negative for environmental allergies and food allergies. Neurological: Positive for headaches. Negative for dizziness, facial asymmetry, light-headedness and numbness. Hematological: Negative for adenopathy. Does not bruise/bleed easily. Psychiatric/Behavioral : Negative for agitation and behavioral problems. Objective BP 164/94 Pulse 96 Temp 36.4 ?C (97.6 ?F) Resp 18 Wt (!) 167 kg (368 lb 2.7 oz) SpO2 95% Physical Exam Vitals and nursing note reviewed. Constitutional: General: He is not in acute distress. Appearance: Normal appearance. He is not ill-appearing, toxic-appearing or (more content not included)... Normal [facility] 07-02-[address] [facility] Telephone (UCTR) ARON ESPINOZA ([id number]) 1975 M Date Time Provider Department 07/02/24 LÓPEZ VILLATORO [facility] During your visit today, we recorded the following information about you: López Villatoro APRN.CNP 07/02/2024 7:27 AM Signed Please inform patient that COVID-19 test was negative. Follow-up with PCP if symptoms or not improving. KELLY Osman Sandra, LPN 07/02/2024 9:37 AM Signed Patient notified.Kimmie Gonzalez LPN Allergies As of Date: 07/02/2024 Noted Allergy Reaction SHELLFISH CONTAINING PRODUCTS 07/23/2019 10 - Anaphylaxis CODEINE 07/01/2024 16 - Unknown HYDROCODONE-ACETAMINOP HEN 07/01/2024 16 - Unknown CYCLOBENZAPRINE 01/30/2023 14 - Other: See Comments Date Reviewed: 07/01/2024 Reviewed by: Nissa Painting MA - Fully Assessed Reason for Visit: Results [95] Prescriptions as of 07/02/2024 - folic acid 1 mg tablet Take 1 tablet by mouth every afternoon. - benzonatate (TESSALON PERLES) 100 mg capsule Take 1 capsule by mouth three times daily as needed for cough. - Valsartan-hydroCHLOROt hiazide 320-25 mg per tablet Take 1 tablet by mouth once daily. - omeprazole (PRILOSEC) 20 mg capsule Take 20 mg by mouth twice daily. - naproxen (NAPROSYN) 500 mg tablet Take 500 mg by mouth twice daily with meals. - ZANTAC 150 MG TAB Take one(1) tablet two(2) times daily. - IBUPROFEN 800 MG TAB Take one(1) tablet daily. - DIFLUCAN 200 MG TAB 2 at once - NEXIUM 40 MG CAP Take one(1) tablet daily. - DICLOFENAC 75 MG TAB, DELAYED RELEASE Take one(1) tablet two(2) times daily. Problem List As Of Date: 07/02/2024 (None) Encounter Status:Closed by KIMMIE GONZALEZ on 07/02/24 [facility] KELSIOVmaribeth 07-01-2024 CNOV Office Visit (UCWSTR ) GEETHA ESPINOZANT Reba ([id number]) 1975 M Date Time Provider Department 07/01/24 2:30 PM STEVE MANJARREZ [facility] During your visit today, we recorded the following information about you: Temperature Pulse Respiration Blood pressure 97.5 degrees 73/minute 20/minute 169/105 Weight 164.8 kg Steve Manjarrez PA 07/01/2024 2:27 PM Signed This note was created using [employer]. Subjective Aron Espinoza is a 48 year old male. HPI 48-year-old male presents for fatigue, sore throat, headache, body aches starting early this morning. Patient states he went to work this morning started feeling sick around 4 AM. He has had sore throat, body aches, headaches, chills and fatigue. No nasal congestion or cough. No fevers, but has felt achy. He has been able to drink fluids, has not had much of an appetite today. No vomiting or diarrhea. No abdominal pain. No chest pain or shortness of breath. He denies any sick contacts or exposure to COVID or strep. Patient's blood pressure is elevated today. States he has not taken his medications today as he is just been sleeping. Normally blood pressure under control with medication per patient. PAST MEDICAL HISTORY No date: NONE PAST SURGICAL HISTORY No date: RCNSTJ TENDON KAYA EACH W/LOCAL TISSUES SPX Comment: RECONSTRUCTIVE HAND SURGERY RIGHT HAND No date: RPR UMBILICAL HERNIA < 5 YRS REDUCIBLE Comment: Hernia repair, umbilical ALLERGIES Shellfish Containing Products, Codeine, Hydrocodone-Acetaminop hen, and Cyclobenzaprine MEDICATIONS folic acid 1 mg tablet Take 1 tablet by mouth every afternoon. Valsartan-hydroCHLOROt hiazide 320-25 mg per tablet Take 1 tablet by mouth once daily. omeprazole (PRILOSEC) 20 mg capsule Take 20 mg by mouth twice daily. IBUPROFEN 800 MG TAB Take one(1) tablet daily. benzonatate (TESSALON PERLES) 100 mg capsule Take 1 capsule by mouth three times daily as needed for cough. (Patient not taking: Reported on 07/01/2023) naproxen (NAPROSYN) 500 mg tablet Take 500 mg by mouth twice daily with meals. ZANTAC 150 MG TAB Take one(1) tablet two(2) times daily. (Patient not taking: Reported on 12/19/2022) DIFLUCAN 200 MG TAB 2 at once (Patient not taking: No sig reported) NEXIUM 40 MG CAP Take one(1) tablet daily. (Patient not taking: No sig reported) DICLOFENAC 75 MG TAB, DELAYED RELEASE Take one(1) tablet two(2) times daily. (Patient not taking: No sig reported) No family history on file. Social History Tobacco Use Smoking status: Former Current packs/day: 0.00 Types: Cigarettes Start date: 2009 Quit date: 2018 Years since quittin.6 Smokeless tobacco: Former Types: Snuff Quit date: 06/12/2018 Substance Use Topics Alcohol use: Yes Alcohol/week: 3.0 standard drinks of alcohol Types: 3 Shots of liquor per week Comment: daily Drug use: No Review of Systems Constitutional: Positive for chills and fatigue. Negative for fever. HENT: Positive for sore throat. Negative for congestion. Respiratory: Negative for cough and shortness of breath. Gastrointestinal: Negative for diarrhea and vomiting. Musculoskeletal: Positive for myalgias. Objective BP 169/105 Pulse 73 Temp 36.4 ?C (97.5 ?F) Resp 20 Wt (!) 164.8 kg (363 lb 5.1 oz) SpO2 95% Physical Exam Vitals and nursing note reviewed. Constitutional: General: He is not in acute distress. Appearance: Normal appearance. He is not toxic-appearing. HENT: Right Ear: Tympanic membrane and ear canal normal. Left Ear: Tympanic membrane and ear canal normal. Nose: Nose normal. Mouth/Throat: Mouth: Mucous membranes are moist. Pharynx: Uvula midline. Posterior oropharyngeal erythema present. Tonsils: No tonsillar exudate or tonsillar abscesses. 1+ on the right. 1+ on the left. Eyes: Conjunctiva/sclera: Conjunctivae normal. Cardiovascular: Rate and Rhythm: Normal rate and regular rhythm. Pulmonary: Effort: Pulmonary effort is normal. Breath sounds: Normal breath sounds. No wheezing, rhonchi or rales. Skin: General: Skin is warm and dry. Neurological: Mental Status: He is alert. Assessment and Plan ASSESSMENT/PLAN: 1. Sore throat - ICD9: 462, ICD10: J02.9 (primary diagnosis) - suspect viral - Group A strep molecular testing negative - Discussed supportive care treatment with fluids, rest and analgesia. - The patient may also use warm salt water gargles, throat lozenges and/or OTC throat spray as needed. - STREP A MOLECULAR (POC) - COVID NAAT, UPPER RESPIRATORY, ROUTINE 2. URI, acute - ICD9: 465.9, ICD10: J06.9 - Discussed viral etiology and rationale for treatment. - Symptomatic treatment with prn analgesia - Supportive care with fluids and rest - COVID NAAT, UPPER RESPIRATORY, ROUTINE - No recent lab testing on patient. Advised patient if COVID-positive and interested in antiviral medication, needs (more content not included)... Normal [facility] SARS-CoV-2 RNA Resp Ql YVONNE+p cyn 07-01-2024 SARS-CoV-2 (COVID-19) RNA YVONNE+probe Ql (Resp) COVID 19 RESULT: Not detected The method used is RT-PCR or an equivalent NAAT method. Reference Range (the expected result in uninfected individuals): Not detected Normal [facility] Comment on above: Performed By: #### [id number] #### [facility] CLIA [id number] [address] [place] [address] [place] STREP A MOLECULAR (POC)on Procedural Control Valid [facility] Strep A (POCT) Negative Negative [facility] Basic Metabolic Profile (BMP )on 03-25-2024 BUN/CRE 12.7 RATIO Normal 08-31 [facility] Comment on above: Order Comment: 'TROP ' Serial specimen #1, #2 or #3: 1 Performed By: #### L 501.4020, L500.2500, L100.0100 #### [facility] [address] [place], [address] CA,Total 8.5 mg/dL Normal 8.5-10.1 [facility] Comment on above: Order Comment: 'TROP ' Serial specimen #1, #2 or #3: 1 Performed By: #### L 501.4020, L500.2500, L100.0100 #### [facility] [address] [place], [address] Chloride [Moles/Vol] 109 mmol/L High 98-107 [facility] Comment on above: Order Comment: 'TROP ' Serial specimen #1, #2 or #3: 1 Performed By: #### L 501.4020, L500.2500, L100.0100 #### [facility] [address] [place], [address] CO2 [Moles/Vol] 27.0 mmol/L Normal 21.0-32.0 [facility] Comment on above: Order Comment: 'TROP ' Serial specimen #1, #2 or #3: 1 Performed By: #### L 501.4020, L500.2500, L100.0100 #### [facility] [address] [place], [address] Creatinine [Mass/Vol] 0.94 mg/dL Normal 0.70-1.30 [facility] Comment on above: Order Comment: 'TROP ' Serial specimen #1, #2 or #3: 1 Result Comment: The validity of the calculated GFR GFRAA in patients over 70 years has not been determined. Clinical correlation is essential. Performed By: #### L 501.4020, L500.2500, L100.0100 #### [facility] [address] [place], [address] ECRCL 155.85 ml/min Normal [facility] Comment on above: Order Comment: 'TROP ' Serial specimen #1, #2 or #3: 1 Performed By: #### L 501.4020, L500.2500, L100.0100 #### [facility] [address] [place], [address] EST GFR - AA 110 mL/min Normal >60 [facility] Comment on above: Order Comment: 'TROP ' Serial specimen #1, #2 or #3: 1 Result Comment: Afri can Mal[place]ian GFR Calc Performed By: #### L 501.4020, L500.2500, L100.0100 #### [facility] [address] [place], [address] GAP 3 Low 5-15 [facility] Comment on above: Order Comment: 'TROP ' Serial specimen #1, #2 or #3: 1 Performed By: #### L 501.4020, L500.2500, L100.0100 #### [facility] [address] [place], [address] GFR/1.73 sq M.predicted among non-blacks MDRD (S/P/Bld) [Vol rate/Area] 91 mL/min/{1.73_m2} Normal >60 [facility] Comment on above: Order Comment: 'TROP ' Serial specimen #1, #2 or #3: 1 Result Comment: Non- GFR Calc Performed By: #### L 501.4020, L500.2500, L100.0100 #### [facility] [address] [place], [address] Glucose [Mass/Vol] 145 mg/dL High 74-106 [facility] Comment on above: Order Comment: 'TROP ' Serial specimen #1, #2 or #3: 1 Result Comment: Fast ing Glucose result greater than or equal to 126 mg/dL suggests DIABETES MELLITUS per A.D.A. criteria. Performed By: #### L 501.4020, L500.2500, L100.0100 #### [facility] [address] [place], [address] Potassium [Moles/Vol] 3.9 mmol/L Normal 3.5-5.1 [facility] Comment on above: Order Comment: 'TROP ' Serial specimen #1, #2 or #3: 1 Performed By: #### L 501.4020, L500.2500, L100.0100 #### [facility] [address] [place], [address] Sodium [Moles/Vol] 139 mmol/L Normal 136-145 [facility] Comment on above: Order Comment: 'TROP ' Serial specimen #1, #2 or #3: 1 Performed By: #### L 501.4020, L500.2500, L100.0100 #### [facility] [address] [place], [address] Urea nitrogen [Mass/Vol] 12 mg/dL Normal 7-18 [facility] Comment on above: Order Comment: 'TROP ' Serial specimen #1, #2 or #3: 1 Performed By: #### L 501.4020, L500.2500, L100.0100 #### [facility] [address] [place], [address] CBC W/Diff, Automatedon 05-1 Absolute Lymph 1.90 X10 3/uL Normal 0.83-4.51 [facility] Comment on above: Performed By: #### L 501.4020, L500.2500, L100.0100 #### [facility] [address] [place], [address] Absolute Neut 4.3 X10 3/uL Normal 2.0-7.7 [facility] Comment on above: Performed By: #### L 501.4020, L500.2500, L100.0100 #### [facility] [address] [place], [address] Basophils/100 WBC (Bld) 0.6 % Normal 0-1 [facility] Comment on above: Performed By: #### L 501.4020, L500.2500, L100.0100 #### [facility] [address] [place], [address] Eosinophils/100 WBC (Bld) 8.2 % High 0-5 [facility] Comment on above: Performed By: #### L 501.4020, L500.2500, L100.0100 #### [facility] [address] [place], [address] Erythrocyte distribution width (RBC) [Ratio] 17.2 % High 11.6-14.6 [facility] Comment on above: Performed By: #### L 501.4020, L500.2500, L100.0100 #### [facility] [address] [place], [address] Hematocrit (Bld) [Volume fraction] 35.9 % Low 40-54 [facility] Comment on above: Performed By: #### L 501.4020, L500.2500, L100.0100 #### [facility] [address] [place], [address] Hemoglobin (Bld) [Mass/Vol] 10.3 g/dL Low 13.0-16.5 [facility] Comment on above: Performed By: #### L 501.4020, L500.2500, L100.0100 #### [facility] [address] [place], [address] IG% 0.400 Normal 0.0-0.9 [facility] Comment on above: Result Comment: IG% - Immature Granulocytes (promyelocytes, myelocytes and metamyelocytes) > 1% indicates that a LEFT SHIFT is Present. Performed By: #### L 501.4020, L500.2500, L100.0100 #### [facility] [address] [place], [address] Lymphocytes/100 WBC (Bld) 26.5 % Normal 19-41 [facility] Comment on above: Performed By: #### L 501.4020, L500.2500, L100.0100 #### [facility] [address] [place], [address] MCH (RBC) [Entitic mass] 21.2 pg Low 27.0-32.0 [facility] Comment on above: Performed By: #### L 501.4020, L500.2500, L100.0100 #### [facility] [address] [place], [address] MCHC (RBC) [Mass/Vol] 28.7 g/dL Low 32-36 [facility] Comment on above: Performed By: #### L 501.4020, L500.2500, L100.0100 #### [facility] [address] [place], [address] MCV (RBC) [Entitic vol] 74.0 fL Low 80-94 [facility] Comment on above: Performed By: #### L 501.4020, L500.2500, L100.0100 #### [facility] [address] [place], [address] Monocytes/100 WBC (Bld) 4.6 % Normal 0-10 [facility] Comment on above: Performed By: #### L 501.4020, L500.2500, L100.0100 #### [facility] [address] [place], [address] Neutrophils/100 WBC (Bld) 59.7 % Normal 47-70 [facility] Comment on above: Performed By: #### L 501.4020, L500.2500, L100.0100 #### [facility] [address] [place], [address] Nucleated RBC (Bld) [#/Vol] 0 10*3/uL Normal 0-5 [facility] Comment on above: Performed By: #### L 501.4020, L500.2500, L100.0100 #### [facility] [address] [place], [address] Platelet mean volume (Bld) [Entitic vol] 9.7 fL Normal 6.2-12.0 [facility] Comment on above: Performed By: #### L 501.4020, L500.2500, L100.0100 #### [facility] [address] [place], [address] Platelets (Bld) [#/Vol] 258 10*3/uL Normal 150-450 [facility] Comment on above: Performed By: #### L 501.4020, L500.2500, L100.0100 #### [facility] [address] [place], [address] RBC (Bld) [#/Vol] 4.85 10*6/uL Normal 4.6-6.2 [facility] Comment on above: Performed By: #### L 501.4020, L500.2500, L100.0100 #### [facility] [address] [place], [address] RDW SD 45.5 fl High 35.1-43.9 [facility] Comment on above: Performed By: #### L 501.4020, L500.2500, L100.0100 #### [facility] [address] [place], [address] WBC (Bld) [#/Vol] 7.2 10*3/uL Normal 4.4-11.0 [facility] Comment on above: Performed By: #### L 501.4020, L500.2500, L100.0100 #### [facility] [address] [place], [address] Chest 1 View (Portable)on Chest 1 View (Portable) [facility] [address] [place] [address] Chest 1 View (Portable) MR#: [id number] Acct: [id number] Name: ARON ESPINOZA Rep #: [id number] : 1975 M 48 From: Alessandro Verdugo PCP: Dr. Mya Sánchez MD Status: PRE ER Study: Chest 1 View (Portable) Date of Exam: 03/25/24 Exam# [id number] Ordering Dr: Danie Cooper [id number] INDICATION: SOB EXAMINATION/TECHNIQUE: X-RAY - XR Chest 1 View COMPARISON: No relevant prior comparison study available FINDINGS: LINES/DEVICES: None. LUNGS: No consolidation, edema or effusion. No pneumothorax. MEDIASTINUM AND CARDIOVASCULAR STRUCTURES: Cardiac silhouette not enlarged. Central airways and mediastinal contour are unremarkable. BONES AND SOFT TISSUES: Unremarkable. RAD/Chest 1 View (Portable) IMPRESSION: No radiographic evidence of acute cardiopulmonary disease. Electronically Signed: Alessandro Reis MD at 14:12 EDT , CC: Dr. Mya Sánchez MD; ED PHYSICIAN PROVIDER Geospatial Developer: Signed Normal [facility] L501.4020on 03-25-2024 TROPONIN-I HS 6 pg/mL Normal 3.0-78.0 [facility] Comment on above: Order Comment: 'TROP ' Serial specimen #1, #2 or #3: 1 Result Comment: Michael barclay Note: New Test Units and Gender Specific Reference Ranges. For more information see Policy Stat Procedure [place] High Sensitivity Troponin (TNIH) and attachments. Performed By: #### L 501.4020, L500.2500, L100.0100 #### [facility] [address] [place], [address] Basophil percentageOrdered B y: Mya Sánchez on 09-12-2023 Creatinine [Mass/Vol] 1.5 mg/dL 0.70-1.30 [facility] - Chemistry and C hemistry - challengeOrdered By: Mya Sánchez on 09-12-2023 GFR/1.73 sq M.predicted among non-blacks MDRD (S/P/Bld) [Vol rate/Area] 55.0000 mL/min/{1.73_m2} >60 [facility] EMERGENCY REPORTon 3 EMERGENCY REPORT [facility] EMERGENCY ROOM REPORT NAME ACCOUNT SEX AGE ADMIT DISCHARGE PT MED. RECORD# NUMBER DATE DATE TYPE ARON ESPINOZA [id number] M 47 02/07/23 2 S 61651 ROOM: 311MO DATE OF : 1975 DICTATING PHYSICIAN: Peirce Martinez CHIEF COMPLAINT: Chest pain. HISTORY OF PRESENT ILLNESS: The patient about two weeks ago had an episode where he passed out and has apparently had several episodes since then. He will have episodes of syncope often when he stands up, but has also had these at other times. He will suddenly fall to the floor, and has no recollection of what happens. He will come to later and have a very bad headache. His states that he seems to be out for a minute or two and does seem to have some twitching-like movements when that happens. He often develops chest pain associated with these episodes. He notices them more afterwards than before, but sometimes has them before. He was seen at [facility] about a week ago and had a workup in the ER there, which was generally unremarkable. He was discharged to get further outpatient testing. He saw a primary care provider, and they ordered a stress test, which he is actually scheduled to get here tomorrow. He worked today and got home at 3. He states that he got home and grabbed a beer to drink, but then suddenly developed chest pain and had another episode where he passed out. These were similar to his previous episodes. He continues to have chest pain and is complaining of a headache and so presents here for evaluation. Pain is much improved at this time. PAST MEDICAL HISTORY: Significant for hypertension. He is on medication for that. He has been told that he is borderline diabetic, has a history of reflux. PAST SURGICAL HISTORY: He has had previous orthopedic surgery, previous tonsillectomy and hernia surgery. SOCIAL HISTORY: He has smoked in the past. He uses oral tobacco. He does drink alcohol regularly and frequently, drinking a pint of whiskey a day with some additional beer occasionally. He does use marijuana daily to treat bipolar disorder. REVIEW OF SYSTEMS: He is obese. His states that he snores loudly at night. No bowel problems, no bleeding disorders. PHYSICAL EXAMINATION: A 47-year-old big built obese male who does appear moderately anxious, at times nearly tearful. Skin: [place], warm, and dry. HEENT: All within normal limits. Neck: Supple without any noticeable masses or JVD. Lungs: Clear bilaterally. Cardiac: Regular, slightly tachy rate without ectopy or murmurs. Abdomen: Page 1 of 2 ARON ESPINOZA Emergency Room Report ARON ESPINOZA : 1975 Obese, but soft, nontender. He moves extremities appropriately, has good peripheral pulses, good capillary refill, no focal weaknesses. Vital signs: Temperature 98.1, pulse 101, respirations 16, blood pressure 131/86. DIAGNOSTIC DATA: EKG showed basically sinus rhythm without any acute findings. Laboratory studies showed a CBC with a white count of 8500, unremarkable differential, H&H 12.8 and 40.6. PT, PT-INR were normal. Sodium 140, potassium 3.3, chloride 102, CO2 of 26.2, BUN and creatinine 14 and 0.94. Glucose is 140. He has minimally elevated AST and ALT of 43 and 65, normal alk-phos and bilirubin. Initial troponin is 8.7. BNP is less than 5. Chest x-ray obtained showed no acute abnormalities. I did get a urinalysis, which was negative. Blood alcohol level was 0.136. Urine drug screen was negative, somewhat surprisingly with his daily cannabis use history. EMERGENCY DEPARTMENT COURSE AND TREATMENT: His oxygen saturation was 93% to 94%. The patient presents with some episodes of chest pain of uncertain cause. He certainly does have some coronary risk factors and as mentioned is scheduled for a stress test tomorrow. Echocardiogram and other testing may be indicated as well. He has a long history of alcohol abuse and obesity, so highly suspect that he has probable sleep apnea as well. He has recently developed syncopal episodes. The cause of these is unclear. They almost sound like they may be seizure activity. Alcohol use may be related, as he as mentioned has a history of fairly heavy regular alcohol use. DIAGNOSIS: Chest pain of uncertain cause. PLAN/DISPOSITION: I discussed management with him and feel that admission is warranted. I mentioned that he will definitely need to pursue lifestyle changes such as weight loss and alcohol and tobacco discontinuation. I discussed with Dr. Munoz, who will admit for further management. Dictated By: Pierce Martinez MD 02/07/23 20:17 JOB #: [id number] Transcribed By: huy 02/07/23 22:54 Electronically signed by: AICHA Martinez M.D. 02/14/23 07:03 Page 2 of 2 ARON ESPINOZA S Emergency Room Report Normal [facility] CORONAVIRUS PCR - [facility] 02-08-2023 SARS-CoV-2 (COVID-19) RNA YVONNE+probe Ql (Unsp spec) Negative Normal NORMAL: NEGATIVE [facility] Comment on above: Performed By: #### 2 [id number] #### [facility],[address] [place] [address] SEND TO IC? NO Normal [facility] Comment on above: Result Comment: RESU LTS FAXED TO INFECTION CONTROL. SARS-CoV-2 THIS TEST IS BEING USED UNDER THE FDA EUA PROCEDURE. THIS ASSAY HAS BEEN VALIDATED IN THE [facility] FOR USE WITH NASOPHARYNGEAL SPECIMENS IN VTM. INTERPRETIVE DATA LABORATORY TEST RESULTS SHOULD ALWAYS BE CONSIDERED IN THE CONTEXT OF CLINICAL OBSERVATIONS AND EPIDEMIOLOGICAL DATA IN MAKING FINAL DIAGNOSIS AND PATIENT MANAGEMENT DECISIONS. PATIENT MANAGEMENT SHOULD FOLLOW CURRENT CDC GUIDELINES. A POSITIVE TEST RESULT FOR COVID-19 INDICATES THAT RNA FROM SARS-CoV-2 WAS DETECTED, AND THE PATIENT IS INFECTED WITH THE VIRUS AND PRESUMED TO BE CONTAGIOUS. A NEGATIVE TEST RESULT FOR THIS TEST MEANS THAT SARS-CoV-2 RNA WAS NOT PRESENT IN THE SPECIMEN ABOVE THE LIMIT OF DETECTION. HOWEVER, A NEGATVIE RESULT DOES NOT RULE OUT COVID-19 AND SHOULD NOT BE USED THE SOLE BASIS FOR TREATMENT OR PATIENT MANAGEMENT DECISIONS. A NEGATIVE RESULT DOES NOT EXCLUDE THE POSSIBILITY OF COVID-19. WHEN DIAGNOSTIC TESTING IS NEGATIVE, THE POSSIBLILTY OF A FALSE NEGATIVE RESULT SHOULD BE CONSIDERED IN THE CONTEXT OF A PATIENT'S RECENT EXPOSURES AND THE PRESENCE OF CLINICAL SIGNS AND SYMPTOMS CONSISTENT WITH COVID-19. THE POSSIBILITY OF A FALSE NEGATIVE RESULT SHOULD ESPECIALLY BE CONSIDERED IF THE PATIENT'S RECENT EXPOSURES OR CLINICAL PRESENTATION INDICATE THAT COVID-19 IS LIKELY, AND DIAGNOSTIC TESTS FOR OTHER CAUSES OF ILLNESS (e.g., OTHER RESPIRATORY ILLNESS) ARE NEGATIVE. IF COVID-19 IS STILL SUSPECTED BASED ON EXPOSURE HISTORY TOGETHER WITH OTHER CLINICAL FINDINGS, RE-TESTED SHOULD BE CONSIDERED BY HEALTHCARE PROVIDERS IN CONSULTATION WITH PUBLIC HEALTH AUTHORITIES. Performed By: #### 2 [id number] #### [facility],[address] [place] [address] CV ECHO COMPLETE W/CONTRAST PER PROTOCOLon 02-08-2023 CV ECHO COMPLETE W/CONTRAST PER PROTOCOL [place] [address] Patient: ARON ESPINOZA Phone#: : 1975 Age: 47 Gender: M Pt. Type: Out Account: [id number] Location: [facility] Ordering: DR. SHANT MUNOZ Exam Date: 02/08/2023/10:03 Family Phys: Charge Code: [id number] Physician: Hinds Order #: [id number] Dose#: PROCEDURE: ECHO COMPLETE WITH CONTRAST HISTORY: Patient is a 47-year-old male with presyncope INDICATIONS: Chest pain COMPARISON: None. TECHNIQUE: A 2-D ultrasound, color spectral Doppler and M-mode evaluation of the heart and great vessels. PATIENT MEASUREMENTS: Height (in.): 73 BSA: 2.7 Weight (lbs.): 330 BP: 138/79 Mortar Man: ASHLEY Contrast study performed using Definity injected by slow I.V. push per protocol. M MODE 2D MEASUREMENTS AND CALCULATIONS: LVIDd: 4.09 cm LVIDs: 2.73 cm IVSd: 1.28 cm LVPWd: 1.59 cm LVOT diam: 1.8 cm FS: 33.35 % Ao Root diam: 3.24 cm LA Volume Index: 17 ml/m2 LA A4 Area: 18.74 cm2 RA A4 Area: 15.8 cm2 RVDd: 3.18 cm TAPSE: 20 mm DOPPLER MEASUREMENTS AND CALCULATIONS MITRAL MV E MAX catrina: 0.69 m/s MV A MAX catrina: 0.69 m/s MV E-A ratio: 0.99 Lat Peak E' Catrina 9 cm/sec Septal Peak E' CATRINA 8 cm/sec E/E' lateral 8 E/E' medial 8 Continued Report - Page 2 of 3 Patient: ARON ESPINOZA Phone#: : 1975 Age: 47 Gender: M Pt. Type: Out Account: [id number] Location: 010 Ordering: DR. SHANT MUNOZ Exam Date: 02/08/2023/10:03 Family Phys: Charge Code: [id number] Physician: Hinds Order #: [id number] Dose#: AORTIC Ao V2 max: 1.39 m/s Ao max P.77 mm[Hg] LV V1 Max 1.09 m/s LV V1 Max PG 4.72 mm[Hg] PULMONIC PA V2 Max 1.02 m/s PA Max PG 4.15 mm[Hg] TRICUSPID TR Max Catrina 1.65 m/s TR max PG 10.86 mm[Hg] RVSP 2D/M-MODE AND COLOR FLOW LEFT VENTRICLE: Left ventricle is normal in size and thickness. Systolic ejection fraction is 55-60%. There are no regional wall motion abnormality seen. WALL MOTION: 1 - Basal anterior: Normal. 7 - Mid anterior: Normal. 13 - Apical anterior: Normal. 2 - Basal anteroseptal: Normal. 8 - Mid anteroseptal: Normal. 14 - Apical septal: Normal. 3 - Basal inferoseptal: Normal. 9 - Mid inferoseptal: Normal. 15 - Apical inferior: Normal. 4 - Basal inferior: Normal. 10-Mid inferior: Normal. 16 - Apical lateral: Normal. 5 - Basal inferolateral: Normal. 11-Mid inferolateral: Normal. 6 - Basal anterolateral: Normal. 12-Mid anterolateral: Normal. RIGHT VENTRICLE: Inadequately visualized LEFT ATRIUM: Left atrium is normal in size RIGHT ATRIUM: Inadequately visualized ATRIAL SEPTUM: Inadequately visualized MITRAL VALVE: Mitral valve is inadequately visualized. Doppler shows no significant regurgitation or stenosis TRICUSPID VALVE: Tricuspid valve is inadequately visualized. Doppler shows no significant regurgitation or stenosis AORTIC VALVE: Aortic valve is probably trileaflet. There is no significant regurgitation or stenosis seen PULMONIC VALVE: Inadequately visualized AORTIC ROOT: Inadequately visualized AORTIC ARCH: Aortic arch is normal in size DESC THORACIC AORTA: Descending aorta is normal in size. Doppler shows normal systolic and diastolic flow IVC/SVC: Inadequately visualized PERICARDIUM: There is no pericardial effusion seen. CONCLUSION: Continued Report - Page 3 of 3 Patient: ARON ESPINOZA Phone#: : 1975 Age: 47 Gender: M Pt. Type: Out Account: [id number] Location: [facility] Ordering: DR. SHANT MUNOZ Exam Date: 02/08/2023/10:03 Family Phys: Charge Code: [id number] Physician: Hinds Order #: [id number] Dose#: 1. Study is limited but adequate given poor acoustic windows. Echo enhancing agent was utilized to assess for endocardial hawkins. 2. Left ventricle is normal in size and thickness. Systolic ejection fraction is 55-60% with normal wall motion. 3. There are no significant valvular dysfunction seen 4. Right ventricle is inadequately visualized 5. TR velocity is inadequate to calculate for right ventricular systolic pressure. Dictated by: MARIANGEL BAUER MD on 02/08/2023 at 11:35 Approved by: MARIANGEL BAUER MD on 02/08/2023 at 12:11 Normal [facility] LIPID PROFILEon 02-08-2023 Cholesterol [Mass/Vol] 213 mg/dL Normal 0 - 240 [facility] Comment on above: Performed By: #### 2 16854 #### [facility],[address] [place] [address] 14592 Cholesterol in HDL [Mass/Vol] 35 mg/dL Low 40 - 60 [facility] Comment on above: Performed By: #### 2 00626 #### [facility],[address] [place] [address] 58377 Cholesterol in LDL [Mass/Vol] 129 mg/dL Normal 0 - 129 [facility] Comment on above: Performed By: #### 2 41128 #### [facility],[address] [place] [address] 99424 Cholesterol.total/Choleste rol in HDL [Mass ratio] 6.1 {ratio} High 0.0 - 5.0 [facility] Comment on above: Performed By: #### 2 70482 #### [facility],[address] [place] [address] 55467 Lipid 1996 panel Normal [facility] Comment on above: Result Comment: LIPI D PROFILE Performed By: #### 2 54258 #### [facility],[address] [place] [address] 44270 Triglyceride [Mass/Vol] 243 mg/dL High 0 - 150 [facility] Comment on above: Performed By: #### 2 53463 #### [facility],[address] [place] [address] 16932 NM CARDIAC STRESS (SPECT) W/ [facility] 02-08-2023 NM CARDIAC STRESS (SPECT) W/[address] [address] Patient: ARON ESPINOZA Phone#: : 1975 Age: 47 Gender: M Pt. Type: Out Account: [id number] Location: [facility] Ordering: DR. SHANT MUNOZ Exam Date: 02/08/2023/6:45 Family Phys: Charge Code: [id number] Physician: Hinds Order #: [id number] Dose#: PROCEDURE: CARDIAC STRESS SPECT WITH LEXISCAN HISTORY: Patient is a 47-year-old male with chest pain COMPARISON: None. INDICATIONS: Chest pain TECHNIQUE: Resting and post Lexiscan stress SPECT images acquired in the horizontal long, vertical long and short axis views. Protocol: Lexiscan Duration: 0.4mg over 10 seconds Peak Heart Rate: 134 bpm, which is 76% of maximum predicted heart rate. Workload: not applicable REST DOSE: 14.6 mCi Sestamibi. STRESS DOSE: 44.8 mCi Sestamibi. INTERPRETATION: Resting Images: Resting images showed perfusion defect in the inferior wall. There is subdiaphragmatic and diaphragmatic attenuation artifact seen Post Lexiscan stress Images: Stress images showed mild perfusion defect in the inferior wall improved from resting images. There are no associated wall motion abnormality to suggest infarct. Perfusion defect likely from diaphragmatic attenuation artifact. There rest of the left ventricle have normal perfusion Gated SPECT/wall motion: Calculated ejection fraction is 59%. There are no regional wall motion abnormality seen. TID ratio is 0.91 CONCLUSION: 1. Stress test showed no conclusive evidence of reversible ischemia. 2. There is diaphragmatic attenuation artifact seen which can affect the specificity of this study. 3. Calculated ejection fraction is 59% with normal wall motion 4. TID ratio is normal Continued Report - Page 2 of 2 Patient: ARON ESPINOZA Phone#: : 1975 Age: 47 Gender: M Pt. Type: Out Account: [id number] Location: [facility] Ordering: DR. SHANT MUNOZ Exam Date: 02/08/2023/6:45 Family Phys: Charge Code: [id number] Physician: Hinds Order #: [id number] Dose#: Dictated by: MARIANGEL BAUER MD on 02/08/2023 at 9:46 Approved by: MARIANGEL BAUER MD on 02/08/2023 at 9:51 Normal [facility] NM EXERCISE STRESS TEST (W/C ARDIAC STUDYon 02-08-2023 NM EXERCISE STRESS TEST (W/CARDIAC STUDY [place] [address] Patient: ARON ESPINOZA Phone#: : 1975 Age: 47 Gender: M Pt. Type: Out Account: [id number] Location: 010 Ordering: DR. SHANT MUNOZ Exam Date: 02/08/2023/7:39 Family Phys: Charge Code: [id number] Physician: Hinds Order #: [id number] Dose#: PROCEDURE: ELECTROCARDIOGRAM STRESS TEST HISTORY: Patient is a 47-year-old male with hypertension COMPARISON: None. INDICATIONS: Near syncope TECHNIQUE: Electrocardiogram stress test was performed using the protocol listed below. STRESS RESULTS: Protocol: Lexiscan Duration: 0.4mg over 10 seconds Reason for termination: infusion complete. Resting Heart Rate: 78 bpm. Resting Blood Pressure: 160/88 mmHg Peak Heart Rate: 134 which is 76% of maximum predicted heart rate Blood pressure with Lexiscan With Lexiscan infusion blood pressure decreased to129/73 Workload: 1.7 METs. Symptoms with stress: Patient did not complain of any chest pain with stress. He had nausea with regadenoson which improved during recovery EKG Data EKG at Baseline: EKG at baseline showed sinus rhythm at 77 BPM EKG with Stress: EKG with stress showed sinus tachycardia at 134 BPM. There are no ST or T- wave changes from baseline to suggest inducible ischemia CONCLUSION: 1. Patient did not complain of chest pain with stress. He had nausea with regadenoson which improved during recovery 2. Patient had normal physiologic response with stress 3. Stress EKG is negative for inducible ischemia 4. Nuclear images are read and reported separately Continued Report - Page 2 of 2 Patient: ARON ESPINOZA Phone#: : 1975 Age: 47 Gender: M Pt. Type: Out Account: [id number] Location: 010 Ordering: DR. SHANT MUNOZ Exam Date: 02/08/2023/7:39 Family Phys: Charge Code: [id number] Physician: Hinds Order #: [id number] Dose#: Dictated by: MARIANGEL BAUER MD on 02/08/2023 at 9:51 Approved by: MARIANGEL BAUER MD on 02/08/2023 at 9:53 Normal [facility] TROPONIN I, HIGH SENSITIVITY on 02-08-2023 HS TROPONIN 6.4 pg/mL Normal 0.0 - 76.2 [facility] Comment on above: Performed By: #### 2 35676 #### [facility],[address] [place] [address] HS TROPONIN 6.8 pg/mL Normal 0.0 - 76.2 [facility] Comment on above: Performed By: #### 2 52658 #### [facility],[address] [place] [address] ALCOHOL-BLOOD MEDICALon 01-11 Ethanol [Mass/Vol] 136 mg/dL High 0 - 50 [facility] Comment on above: Performed By: #### 2 36048 #### [facility],[address] [place] [address] APTTon 02-07-2023 aPTT Coag (Bld) [Time] 25.8 s Normal 25.4 - 38.4 [facility] Comment on above: Performed By: #### 2 92484 #### [facility],[address] [place], [place] [address] CBC + DIFFon 02-07-2023 Baso # 0.10 x10EE3/UL Normal 0.00 - 0.10 [facility] Comment on above: Performed By: #### 2 00853 #### [facility],[address] [place], [place] [address] Basophils/100 WBC (Bld) 0.7 % Normal 0.0 - 2.0 [facility] Comment on above: Performed By: #### 2 11901 #### [facility],[address] [place] [address] CBC + DIFF Normal [facility] Comment on above: Result Comment: CBC- COMPLETE BLOOD COUNT Performed By: #### 2 34890 #### [facility],[address] [place] [address] 30176 EO # 0.60 x10EE3/UL High 0.00 - 0.50 [facility] Comment on above: Performed By: #### 2 39737 #### [facility],[address] [place] [address] 74573 Eosinophils/100 WBC (Bld) 6.9 % Normal 0.0 - 7.0 [facility] Comment on above: Performed By: #### 2 03338 #### [facility],[address] [place] [address] Erythrocyte distribution width (RBC) [Ratio] 16.8 % High 12.0 - 15.6 [facility] Comment on above: Performed By: #### 2 08549 #### [facility],[address] [place] [address] Hematocrit (Bld) [Volume fraction] 40.6 % Normal 40.0 - 52.0 [facility] Comment on above: Performed By: #### 2 53133 #### [facility],[address] [place] [address] Hemoglobin (Bld) [Mass/Vol] 12.8 g/dL Low 13.0 - 17.5 [facility] Comment on above: Performed By: #### 2 81103 #### [facility],[address] [place] [address] 52515 Lymph # 2.60 x10EE3/UL Normal 0.80 - 2.80 [facility] Comment on above: Performed By: #### 2 12376 #### [facility],[address] [place] [address] 98978 Lymphocytes/100 WBC (Bld) 30.6 % Normal 20 .0 - 45.0 [facility] Comment on above: Performed By: #### 2 52962 #### [facility],[address] [place], [place] [address] MANUAL DIFF N/A Normal [facility] Comment on above: Performed By: #### 2 78447 #### [facility],[address] [place] [address] MCH (RBC) [Entitic mass] 23 pg Low 27 - 33 [facility] Comment on above: Performed By: #### 2 56812 #### [facility],[address] [place] [address] MCHC 32 X10 3 Normal 32 - 36 [facility] Comment on above: Performed By: #### 2 32304 #### [facility],[address] [place] [address] MCV (RBC) [Entitic vol] 74 fL Low 81 - 98 [facility] Comment on above: Performed By: #### 2 58815 #### [facility],[address] [place] [address] [place] # 0.50 x10EE3/UL Normal 0.20 - 1.00 [facility] Comment on above: Performed By: #### 2 48604 #### [facility],[address] [place] [address] MONOS % 6.1 % Normal 0.0 - 10.0 [facility] Comment on above: Performed By: #### 2 32214 #### [facility],[address] [place] [address] Morphology Marc (Bld) [Interp] N/A Normal [facility] Comment on above: Performed By: #### 2 15673 #### [facility],[address] [place] [address] Neut # 4.70 x10EE3/UL Normal 1.50 - 7.10 [facility] Comment on above: Performed By: #### 2 82437 #### [facility],[address] [place] [address] Neutrophils/100 WBC (Bld) 55.7 % Normal 46 .0 - 76.0 [facility] Comment on above: Performed By: #### 2 97495 #### [facility],[address] [place] [address] 88729 PLATELET 239 x10EE3/UL Normal 150 - 450 [facility] Comment on above: Performed By: #### 2 14542 #### [facility],[address] [place] [address] 48361 Platelet mean volume (Bld) [Entitic vol] 8.4 fL Normal 6.4 - 10.5 [facility] Comment on above: Result Comment: AUTO MATED DIFFERENTIAL Performed By: #### 2 29342 #### [facility],[address] [place] [address] 61634 RBC 5.50 x 10EE6/UL Normal 4.50 - 6.00 [facility] Comment on above: Performed By: #### 2 57542 #### [facility],[address] [place] [address] 77466 WBC 8.5 x 10EE3/UL Normal 4.5 - 10.8 [facility] Comment on above: Performed By: #### 2 86752 #### [facility],[address] [place] [address] 65125 CHEST 1 VIEWon 02-07-2023 CHEST 1 VIEW [place] [address] Patient: ARON ESPINOZA Phone#: : 1975 Age: 47 Gender: M Pt. Type: ER Account: [id number] Location: [facility] Ordering: PIERCE MARTINEZ Exam Date: 02/07/2023/16:39 Family Phys: Charge Code: [id number] Physician: Hinds Order #: [id number] Dose#: PROCEDURE: X-RAY CHEST 1 VIEW COMPARISON: [facility], XR, CHEST PA/LAT, 05/30/2016, 17:19. INDICATIONS: Chst pain. FINDINGS: LUNGS: Study limited by positioning. No appreciable focal abnormality. VASCULATURE: Normal. Unremarkable pulmonary vasculature. CARDIAC: Normal. No cardiac silhouette abnormality or cardiomegaly. MEDIASTINUM: Normal. No visible mass or adenopathy. PLEURA: Normal. No effusion or pleural thickening. BONES: Degenerative changes of the spine OTHER: Radiopaque density projects over the right scapula, presumably external to the patient. CONCLUSION: No acute disease. No significant change has occurred. Dictated by: Sydney Phillips MD on 02/07/2023 at 16:52 Approved by: Sydney Phillips MD on 02/07/2023 at 16:57 Normal [facility] CMP with eGFRon 02-07-2023 AGE 47 years Normal [facility] Comment on above: Performed By: #### 2 59034 #### [facility],[address] [place] [address] 55316 Albumin [Mass/Vol] 3.7 g/dL Normal 3.4 - 5.0 [facility] Comment on above: Performed By: #### 2 07571 #### [facility],[address] [place] [address] 83561 Albumin/Globulin [Mass ratio] 0.9 {ratio} Normal 0.9 - 1.6 [facility] Comment on above: Performed By: #### 2 85257 #### [facility],[address] [place] [address] 68860 ALK PHOS 86 U/L Normal 46 - 116 [facility] Comment on above: Performed By: #### 2 65262 #### [facility],[address] [place] [address] 95003 ALT [Catalytic activity/Vol] 65 U/L High 16 - 63 [facility] Comment on above: Performed By: #### 2 59417 #### [facility],[address] [place] [address] 22453 Anion gap [Moles/Vol] 15 mmol/L Normal 10 - 20 [facility] Comment on above: Performed By: #### 2 36338 #### [facility],[address] [place] [address] 66445 AST [Catalytic activity/Vol] 43 U/L High 15 - 37 [facility] Comment on above: Performed By: #### 2 11351 #### [facility],[address] [place] [address] 69463 B/C RATIO 15 ratio Normal 0 - 30 [facility] Comment on above: Performed By: #### 2 08757 #### [facility],[address] [place] [address] 25394 Bilirubin [Mass/Vol] 0.4 mg/dL Normal 0.2 - 1.0 [facility] Comment on above: Performed By: #### 2 83521 #### [facility],[address] [place] [address] 61764 Calcium [Mass/Vol] 8.8 mg/dL Normal 8.5 - 10.1 [facility] Comment on above: Performed By: #### 2 78565 #### [facility],[address] [place], [place] [address] Chloride [Moles/Vol] 102 mmol/L Normal 98 - 107 [facility] Comment on above: Performed By: #### 2 62524 #### [facility],[address] [place] [address] CMP with eGFR Normal [facility] Comment on above: Result Comment: COMP REHENSIVE METABOLIC PANEL Performed By: #### 2 54539 #### [facility],[address] [place] [address] 05686 CO2 [Moles/Vol] 26.2 mmol/L Normal 21.0 - 32.0 [facility] Comment on above: Performed By: #### 2 99505 #### [facility],[address] [place] [address] 91190 Creatinine [Mass/Vol] 0.94 mg/dL Normal 0.70 - 1.30 [facility] Comment on above: Performed By: #### 2 26506 #### [facility],[address] [place] [address] 61840 GFR/1.73 sq M.predicted among non-blacks MDRD (S/P/Bld) [Vol rate/Area] mL/min/{1.73_m2} Normal 60 - 999 [facility] Comment on above: Performed By: #### 2 00722 #### [facility],[address] [place] [address] Result Comment: ACCO RDING TO THE NATIONAL KIDNEY DISEASE EDUCATION PROGRAM(NKDE), A NORMAL eGFR IS A VALUE GREATER THAN OR EQUAL TO 60 ML/MIN/1.73 SQ METERS. CHRONIC KIDNEY DISEASE: <60mL/MIN/1.73 SQ METERS KIDNEY FAILURE: <15mL/MIN/1.73 SQ METERS THIS TEST SHOULD ONLY BE USED FOR PATIENTS 18 YEARS OF AGE AND OLDER. Globulin (S) [Mass/Vol] 3.9 g/dL High 1.5 - 3.8 [facility] Comment on above: Performed By: #### 2 22625 #### [place] [address] Glucose [Mass/Vol] 140 mg/dL High 74 - 106 [facility] Comment on above: Performed By: #### 2 21400 #### [place] [address] Potassium [Moles/Vol] 3.3 mmol/L Low 3.5 - 5.1 [facility] Comment on above: Performed By: #### 2 36146 #### [facility],[address] [place], [place] [address] Protein [Mass/Vol] 7.6 g/dL Normal 6.4 - 8.2 [facility] Comment on above: Performed By: #### 2 09734 #### [place] [id number] Sodium [Moles/Vol] 140 mmol/L Normal 136 - 145 [facility] Comment on above: Performed By: #### 2 46521 #### [address] [address] Urea nitrogen [Mass/Vol] 14 mg/dL Normal 7 - 18 [facility] Comment on above: Performed By: #### 2 61267 #### [facility],[address] [place] [address] 56088 DRUG SCREEN URINE MEDICon AMPHETAMINES Negative Normal [facility] Comment on above: Performed By: #### 2 59070 #### [facility],[address] [place] [address] 93282 B-DIAZEPINES Negative Normal [facility] Comment on above: Performed By: #### 2 76084 #### [facility],[address] [place], [place] [address] BARBITURATES Negative [facility] Comment on above: Performed By: #### 2 25282 #### [facility],[address] [place] [address] COCAINE Negative [facility] Comment on above: Performed By: #### 2 79740 #### [facility],[address] [place] [address] 84894 DRUG SCREEN URINE MEDIC Normal [facility] Comment on above: Result Comment: DRUG SCREEN - URINE Performed By: #### 2 97852 #### [facility],[address] [place] [address] 63997 METHADONE Negative Normal [facility] Comment on above: Performed By: #### 2 03493 #### [facility],[address] [place] [address] 96668 OPIATES Negative [facility] Comment on above: Performed By: #### 2 57778 #### [facility],[address] [place] [address] 51955 PCP Negative [facility] Comment on above: Performed By: #### 2 68826 #### [facility],[address] [place] [address] 12961 THC Negative [facility] Comment on above: Result Comment: GABY ENTS RECEIVING PROTON PUMP INHIBITORS MAY DEMONSTRATE FALSE POSITIVE THC/CANNABINOID RESULTS. AN ALTERNATIVE CONFIRMATORY METHOD SHOULD BE CONSIDERED TO VERIFY POSITIVE RESULTS. Performed By: #### 2 64978 #### [facility],[address] [place], [place] [address] NT-proBNPon 02-07-2023 NT PRO-BNP <5 Normal 0 - 125 [facility] Comment on above: Performed By: #### 2 75937 #### [facility],[address] [place], [place] [address] PROTHROMBIN TIME AND INRon 0 02-07-2023 INR Coag (PPP) [Relative time] 1.1 {INR} Normal 0.8 - 1.2 [facility] Comment on above: Result Comment: T HE HEMOSIL THROMBOPLASTIN REAGENT USED IN THE PROTHROMBIN TIME TEST INTERACTS WITH THE DRUG CUBICIN (DAPTOMYCIN) AND WILL RESULT IN FALSELY ELEVATED PT / INR RESULTS INR INTERPRETATION INR INDICATION PREVENTION AND TREATMENT OF THROMBOEMBOLISM ASSOCIATED WITH: 2.0 - 3.0 ATRIAL FIBRILLATION, BIOPROSTHETIC HEART VALVES, PULMONARY EMBOLISM, VENOUS THROMBOSIS, SYSTEMIC EMBOLISM POST MYOCARDIAL INFARCTION 2.5 - 3.5 MECHANICAL HEART VALVES Performed By: #### 2 97398 #### [facility],[address] [place], [place] [address] PROTHROMBIN TIME AND INR Normal [facility] Comment on above: Result Comment: PROT HROMBIN TIME AND INR Performed By: #### 2 56676 #### [facility],[address] [place], [place] [address] PT-COUMADIN 12.6 sec Normal 9.3 - 14.1 [facility] Comment on above: Performed By: #### 2 47485 #### [facility],[address] [place], [place] [address] TROPONIN I, HIGH SENSITIVITY on 02-07-2023 HS TROPONIN 7.0 pg/mL Normal 0.0 - 76.2 [facility] Comment on above: Performed By: #### 2 02362 #### [facility],[address] [place], [place] [address] HS TROPONIN 8.7 pg/mL Normal 0.0 - 76.2 [facility] Comment on above: Performed By: #### 2 12988 #### [facility],[address] [place], [place] [address] URINALYSISon 02-07-2023 Bilirubin Ql (U) Negative Normal NORMAL: NEGATIVE [facility] Comment on above: Performed By: #### 2 48907 #### [facility],[address] [place], [place] [address] Clarity (U) clear Normal NORMAL: CLEAR [facility] Comment on above: Performed By: #### 2 52576 #### [facility],[address] [place] [address] Color (U) p.yel Normal NORMAL: YELLOW [facility] Comment on above: Performed By: #### 2 48296 #### [facility],[address] [place], [place] [address] Glucose Ql (U) NORM Normal NORMAL: NORMAL [facility] Comment on above: Performed By: #### 2 67769 #### [facility],[address] [place] [address] 63898 Hemoglobin Ql (U) Negative Normal NORMAL: NEGATIVE [facility] Comment on above: Performed By: #### 2 72372 #### [facility],[address] [place] [address] 62928 Ketone Negative Normal NORMAL: NEGATIVE [facility] Comment on above: Performed By: #### 2 28697 #### [facility],[address] [place] [address] 05975 Leukocytes Negative Normal NORMAL: NEGATIVE [facility] Comment on above: Performed By: #### 2 73049 #### [facility],[address] [place] [address] 97574 Nitrite Ql (U) Negative Normal NORMAL: NEGATIVE [facility] Comment on above: Performed By: #### 2 98790 #### [facility],[address] [place] [address] pH (U) 6.5 [pH] Normal NORMAL: 5.0-8.0 [facility] Comment on above: Performed By: #### 2 12521 #### [facility],[address] [place] [address] Protein Ql (U) Negative Normal NORMAL: NEGATIVE [facility] Comment on above: Performed By: #### 2 25627 #### [facility],[address] [place] [address] Sp Russell 1.010 Normal NORMAL: 1.010-1.03 0 [facility] Comment on above: Performed By: #### 2 39929 #### [facility],[address] [place] [address] Specimen Type UNSPECIFIED Normal [facility] Comment on above: Performed By: #### 2 74943 #### [facility],[address] [place] [address] Urinalysis dipstick W Reflex Microscopic panel (U) NOT INDICATED Normal [facility] Comment on above: Performed By: #### 2 00843 #### [facility],[address] [place] [address] Urobilinog NORM Normal NORMAL: NORMAL [facility] Comment on above: Performed By: #### 2 14930 #### [facility],[address] [place] [address] Laboratory - Chemistry and C hemistry - challengeOrdered By: Dr. Londono on 01-31-2023 Cobalamin (Vitamin B12) [Mass/Vol] 756 pg/mL 211-911 [facility] Natriuretic peptide B (Bld) [Mass/Vol] 8.2 pg/mL 0-100 [facility] No Panel InformationOrdered By: Dr. Londono on 01-31-2023 Thyroid Stimulating Hormone (TSH) 0.96 uIU/mL 0.358-3.74 [facility] Serum or plasma folate measu rement (mass/volume)Ordered By: Dr. Londono on 01-31-2023 Folate [Mass/Vol] 4.40 ng/mL 3.1-55.4 [facility] Comment on above: Slight Hemolysis, Re sult may be falsely increased. Whole blood hemoglobin A1c/t otal hemoglobin ratio (mass fraction)Ordered By: Dr. Londono on 01-31-2023 HbA1c (Bld) [Mass fraction] 6.2 % 3.8-5.6 [facility] Comment on above: Normal < 5.7 % Predi abetic 5.7 - 6.4 % Diabetic >or= 6.5 % Please note range changes. Absolute lymphocyte countOrd ered By: Dr. Lazcano on 01-30-2023 Lymphocytes Auto (Unsp spec) [#/Vol] 2.96 10*3/uL 0.83-4.51 [facility] Basophil percentageOrdered B y: Dr. Lazcano on 01-30-2023 Basophils/100 WBC (Bld) 0.5 % 0-1 [facility] Bilirubin [Mass/Vol] 0.40 mg/dL 0.20-1.00 [facility] Comment on above: For patients on eltr ombopag therapy, use of Dimension [place] TBIL is not recommended. Chloride [Moles/Vol] 106 mmol/L 98-107 [facility] Eosinophils/100 WBC (Bld) 5.7 % 0-5 [facility] Glucose [Mass/Vol] 139 mg/dL 74-106 [facility] Comment on above: Fasting Glucose resu lt greater than or equal to 126 mg/dL suggests DIABETES MELLITUS per A.D.A. criteria. Neutrophils (Bld) [#/Vol] 5.5 10*3/uL 2.0-7.7 [facility] Neutrophils/100 WBC (Bld) 57.0 % 47-70 [facility] Potassium [Moles/Vol] 4.2 mmol/L 3.5-5.1 [facility] Protein [Mass/Vol] 7.4 g/dL 6.4-8.2 [facility] Sodium [Moles/Vol] 140 mmol/L 136-145 [facility] WBC (Bld) [#/Vol] 9.7 10*3/uL 4.4-11.0 [facility] Blood erythrocytes count (nu mber/volume)Ordered By: Dr. Lazcano on 01-30-2023 RBC (Bld) [#/Vol] 5.24 10*6/uL 4.6-6.2 [facility] Blood hemoglobin measurement (mass/volume)Ordered By: Dr. Lazcano on 01-30-2023 Hemoglobin (Bld) [Mass/Vol] 12.1 g/dL 13.0-16.5 [facility] Blood lymphocytes/100 leukoc ytesOrdered By: Dr. Lazcano on 01-30-2023 Lymphocytes/100 WBC (Bld) 30.5 % 19-41 [facility] Blood monocytes/100 leukocyt esOrdered By: Dr. Lazcano on 01-30-2023 Monocytes/100 WBC (Bld) 6.0 % 0-10 [facility] Blood platelet mean volumeOr dered By: Dr. Lazcano on 01-30-2023 Platelet mean volume (Bld) [Entitic vol] 10.2 fL 6.2-12.0 [facility] Determination of erythrocyte mean corpuscular volume (MCV)Ordered By: Dr. Lazcano on 01-30-2023 MCV (RBC) [Entitic vol] 78.8 fL 80-94 [facility] Hematocrit Auto (Bld) [Volum e fraction]Ordered By: Dr. Lazcano on 01-30-2023 Hematocrit (Bld) [Volume fraction] 41.3 % 40-54 [facility] Laboratory - Chemistry and C hemistry - challengeOrdered By: Dr. Lazcano on 01-30-2023 ALP [Catalytic activity/Vol] 97 U/L 45-117 [facility] ALT [Catalytic activity/Vol] 47 U/L 16-61 [facility] CO2 [Moles/Vol] 29.0 mmol/L 21.0-32.0 [facility] Globulin (S) [Mass/Vol] 3.9 g/dL 2.2-4.2 [facility] Urea nitrogen/Creatinine [Mass ratio] 14.9 mg/mg 10-20 [facility] Laboratory - Hematology and Cell countsOrdered By: Dr. Lazcano on 01-30-2023 Erythrocyte distribution width (RBC) [Entitic vol] 45.7 fL 35.1-43.9 [facility] Erythrocyte distribution width (RBC) [Ratio] 16.0 % 11.6-14.6 [facility] Immature granulocytes/100 WBC (Bld) 0.300 % 0.0-0.9 [facility] Comment on above: IG% - Immature Granu locytes (promyelocytes, myelocytes and metamyelocytes) > 1% indicates that a LEFT SHIFT is Present. MCH (RBC) [Entitic mass] 23.1 pg 27.0-32.0 [facility] Nucleated RBC/100 WBC (Bld) [Ratio] 0 % 0-5 [facility] MCHC Auto (RBC) [Mass/Vol]Or dered By: Dr. Lazcano on 01-30-2023 MCHC (RBC) [Mass/Vol] 29.3 g/dL 32-36 [facility] No Panel InformationOrdered By: Dr. Lazcano on 01-30-2023 Estimated Creatinine Clearance Calc 112.15 ml/min [facility] Estimated GFR (MDRD) Amer 111 mL/min >60 [facility] Comment on above: GFR Calc Estimated GFR (MDRD) Non-Af Amer 92 mL/min >60 [facility] Comment on above: Non- GFR Calc Ethyl Alcohol Level 103.0 mg/dL [facility] Comment on above: The serum:whole bloo d ethanol ratio is approximately 1.14and varies slightly with hematocrit. Medical Alcohol reference interval and critical value innon-tolerant individuals; 50 - 100 Impairment 100 Intoxication 100 - 250 Severe Poisoning 250 - 400 Deep/possible fatal coma Troponin I High Sensitivity 5 pg/mL 3.0-78.0 [facility] Comment on above: Please Note: New Era t Units and Gender Specific Reference Ranges. For more information see Policy Stat Procedure [place] High Sensitivity Troponin (TNIH) and attachments. Platelets bldOrdered By: Dr. Lazcano on 01-30-2023 Platelets (Bld) [#/Vol] 296 10*3/uL 150-450 [facility] Serum or plasma albumin melba urement (mass/volume)Ordered By: Dr. Lazcano on 01-30-2023 Albumin [Mass/Vol] 3.5 g/dL 3.2-5.0 [facility] Serum or plasma albumin/glob ulin mass ratioOrdered By: Dr. Lazcano on 01-30-2023 Albumin/Globulin [Mass ratio] 0.9 {ratio} 0.9-2.4 [facility] Serum or plasma calcium melba urement (mass/volume)Ordered By: Dr. Lazcano on 01-30-2023 Calcium [Mass/Vol] 8.7 mg/dL 8.5-10.1 [facility] Serum or plasma creatinine m easurement (mass/volume)Ordered By: Dr. Lazcano on 01-30-2023 Creatinine [Mass/Vol] 0.94 mg/dL 0.70-1.30 [facility] Comment on above: The validity of the calculated GFR & GFRAA in patients over 70 years has not been determined. Clinical correlation is essential. Serum or plasma urea nitroge n measurement (mass/volume)Ordered By: Dr. Lazcano on 01-30-2023 Urea nitrogen [Mass/Vol] 14 mg/dL 7-18 [facility] Thin prep Papanicolaou smear with manual screeningOrdered By: Dr. Lazcano on 01-30-2023 Thin prep Papanicolaou smear with manual screening 31 U/L 15-37 [facility] Thin prep Papanicolaou smear with manual screening 5 5-15 [facility] XR FOOT GENERAL 3V AP/LAT/OB L RIGHTon 12-19-2022 [facility] C-REACTIVE PROTEINon 021 CRP [Mass/Vol] 3.6 mg/L Normal <8.0 [facility] Comment on above: Performed By: #### 4 420, 1314, 809, 58000 #### [facility] [address], [address] [place] [id number] Tunnel Drier Operator: Christophe Og MD CBC (INCLUDES DIFF/PLT)on Basophils (Bld) [#/Vol] 0.06 10*3/uL Normal 0-200 [facility] Comment on above: Performed By: #### 4 420, 6399, 809, 61174 #### [facility] [address] [facility], [address] [place] [address] Tunnel Drier Operator: Christophe Og MD Basophils/100 WBC (Bld) 0.8 % Normal [facility] Comment on above: Performed By: #### 4 420, 6399, 809, 53517 #### [facility] of [address], [address] [place] [address] Tunnel Drier Operator: Christophe Og MD Eosinophils (Bld) [#/Vol] 0.495 10*3/uL Normal 15-500 [facility] Comment on above: Performed By: #### 4 420, 6399, 809, 56678 #### [facility] of [address], [address] [place] [address] Tunnel Drier Operator: Christophe Og MD Eosinophils/100 WBC (Bld) 6.6 % Normal [facility] Comment on above: Performed By: #### 4 420, 6399, 809, 42273 #### [facility] of [place] [address] Tunnel Drier Operator: Christophe Og MD Erythrocyte distribution width (RBC) [Ratio] 18.8 % High 11.0-15.0 [facility] Comment on above: Performed By: #### 4 420, 6399, 809, 55903 #### [facility] of [place] [address] Tunnel Drier Operator: Christophe Og MD Hematocrit (Bld) [Volume fraction] 38.2 % Low 38.5-50.0 [facility] Comment on above: Performed By: #### 4 420, 6399, 809, 37435 #### [facility] of [place] [address] Tunnel Drier Operator: Christophe Og MD Hemoglobin (Bld) [Mass/Vol] 11.0 g/dL Low 13.2-17.1 [facility] Comment on above: Performed By: #### 4 420, 6399, 809, 47019 #### [facility] of [place] [address] Tunnel Drier Operator: Christophe Og MD Lymphocytes (Bld) [#/Vol] 1.943 10*3/uL Normal 850-390 0 [facility] Comment on above: Performed By: #### 4 420, 6399, 809, 02163 #### [facility] of [place] [address] Tunnel Drier Operator: Christophe Og MD Lymphocytes/100 WBC (Bld) 25.9 % Normal [facility] Comment on above: Performed By: #### 4 420, 6399, 809, 70823 #### [facility] of [place] [address] Tunnel Drier Operator: Christophe Og MD MCH (RBC) [Entitic mass] 19.7 pg Low 27.0-33.0 [facility] Comment on above: Performed By: #### 4 420, 6399, 809, 28282 #### [facility] of [place] [address] Tunnel Drier Operator: Christophe Og MD MCHC (RBC) [Mass/Vol] 28.8 g/dL Low 32.0-36.[address] [facility] Comment on above: Performed By: #### 4 420, 6399, 809, 33147 #### [facility] of [place] [address] Tunnel Drier Operator: Christophe Og MD MCV (RBC) [Entitic vol] 68.6 fL Low 80.0-100.0 [facility] Comment on above: Performed By: #### 4 420, 6399, 809, 26631 #### [facility] of [place] [address] Tunnel Drier Operator: Christophe Og MD Monocytes (Bld) [#/Vol] 0.51 10*3/uL Normal 200-950 [facility] Comment on above: Performed By: #### 4 420, 6399, 809, 26596 #### [facility] of [place] [address] Tunnel Drier Operator: Christophe Og MD Monocytes/100 WBC (Bld) 6.8 % Normal [facility] Comment on above: Performed By: #### 4 420, 6399, 809, 27026 #### [facility] of [place] [address] Tunnel Drier Operator: Christophe Og MD Neutrophils (Bld) [#/Vol] 4.493 10*3/uL Normal 1500-78 00 [facility] Comment on above: Performed By: #### 4 420, 6399, 809, 89011 #### [facility] of [place] [address] Tunnel Drier Operator: Christophe Og MD Neutrophils/100 WBC (Bld) 59.9 % Normal [facility] Comment on above: Performed By: #### 4 420, 6399, 809, 72875 #### [facility] of [place] [address] Tunnel Drier Operator: Christophe Og MD Platelet mean volume (Bld) [Entitic vol] 10.1 fL Normal 7.5-12.5 [facility] Comment on above: Performed By: #### 4 420, 6399, 809, 96158 #### [facility] of [place] [address] Tunnel Drier Operator: Christophe Og MD Platelets (Bld) [#/Vol] 304 10*3/uL Normal 140-400 [facility] Comment on above: Performed By: #### 4 420, 6399, 809, 52811 #### [facility] of [place] [address] Tunnel Drier Operator: Christophe Og MD RBC (Bld) [#/Vol] 5.57 10*6/uL Normal 4.20-5.80 [facility] Comment on above: Performed By: #### 4 420, 6399, 809, 01972 #### [facility] of [place] [address] Tunnel Drier Operator: Christophe Og MD WBC (Bld) [#/Vol] 7.5 10*3/uL Normal 3.8-10.8 [facility] Comment on above: Performed By: #### 4 420, 6399, 809, 81950 #### [facility] of [place] [address] Tunnel Drier Operator: Christophe Og MD CBC MORPHOLOGYon 06-10-2021 CBC MORPHOLOGY Normal NORMAL [facility] Comment on above: Result Comment: Micr ocytosis 2 + Hypochromasia 1 + Performed By: #### 4 420, 6399, 809, 25608 #### [facility] of [address], [address] [place] [address] Tunnel Drier Operator: Christophe Og MD COMPREHENSIVE METABOLIC PANE [facility] 06-10-2021 Albumin [Mass/Vol] 4.2 g/dL Normal 3.6-5.1 [facility] Comment on above: Performed By: #### 4 420, 6399, 809, 29207 #### [facility] of [address], [address] [place] [address] Tunnel Drier Operator: Christophe Og MD Albumin/Globulin [Mass ratio] 1.4 {ratio} Normal 1.0-2.5 [facility] Comment on above: Performed By: #### 4 420, 6399, 809, 77882 #### [facility] of [place] [address] Tunnel Drier Operator: Christophe Og MD ALP [Catalytic activity/Vol] 87 U/L Normal 36-130 [facility] Comment on above: Performed By: #### 4 420, 6399, 809, 70994 #### [facility] of [place] [address] Tunnel Drier Operator: Christophe Og MD ALT [Catalytic activity/Vol] 29 U/L Normal 9-46 [facility] Comment on above: Performed By: #### 4 420, 6399, 809, 20127 #### [facility] of [place] [address] Tunnel Drier Operator: Christophe Og MD AST [Catalytic activity/Vol] 19 U/L Normal 10-40 [facility] Comment on above: Performed By: #### 4 420, 6399, 809, 90950 #### [facility] of [place] [address] Tunnel Drier Operator: Christophe Og MD Bilirubin [Mass/Vol] 0.4 mg/dL Normal 0.2-1.2 [facility] Comment on above: Performed By: #### 4 420, 6399, 809, 61829 #### [facility] of [place] [address] Tunnel Drier Operator: Christophe Og MD BUN/CREATININE RATIO NOT APPLICABLE Normal 6-22 [facility] Comment on above: Performed By: #### 4 420, 6399, 809, 56021 #### [facility] of [place] [address] Tunnel Drier Operator: Christophe Og MD Calcium [Mass/Vol] 9.2 mg/dL Normal 8.6-10.3 [facility] Comment on above: Performed By: #### 4 420, 6399, 809, 66247 #### [facility] [place] [address] Tunnel Drier Operator: Christophe Og MD Chloride [Moles/Vol] 103 mmol/L Normal 98-110 [facility] Comment on above: Performed By: #### 4 420, 6399, 809, 85200 #### [facility] of [place] [address] Tunnel Drier Operator: Christophe Og MD CO2 [Moles/Vol] 31 mmol/L Normal 20-32 [facility] Comment on above: Performed By: #### 4 420, 6399, 809, 06615 #### [facility] of [place] [address] Tunnel Drier Operator: Christophe Og MD Creatinine [Mass/Vol] 0.97 mg/dL Normal 0.60-1.[address] [facility] [address] [facility] Comment on above: Performed By: #### 4 420, 6399, 809, 63307 #### [facility] [place] [address] Tunnel Drier Operator: Christophe Og MD eGFR NON-AFR. ENGLISH 95 mL/min/1.73m2 Normal > OR = 60 [facility] Comment on above: Performed By: #### 4 420, 6399, 809, 58935 #### [facility] of [place] [address] Tunnel Drier Operator: Christophe Og MD GFR/1.73 sq M.predicted among blacks MDRD (S/P/Bld) [Vol rate/Area] 110 mL/min/{1.73_m2} Normal > OR = 60 [facility] Comment on above: Performed By: #### 4 420, 6399, 809, 32392 #### [facility] [place] [address] Tunnel Drier Operator: Christophe Og MD Globulin (S) [Mass/Vol] 3.1 g/dL Normal 1.9-3.7 [facility] Comment on above: Performed By: #### 4 420, 6399, 809, 73632 #### [facility] [place] [address] Tunnel Drier Operator: Christophe Og MD Glucose [Mass/Vol] 94 mg/dL Normal 65-99 [facility] Comment on above: Result Comment: Fasting reference interval Performed By: #### 4 420, 6399, 809, 16488 #### [facility] of [place] [address] Tunnel Drier Operator: Christophe Og MD Potassium [Moles/Vol] 4.3 mmol/L Normal 3.5-5.[address] [facility] Comment on above: Performed By: #### 4 420, 6399, 809, 33268 #### [facility] of [place] [address] Tunnel Drier Operator: Christophe Og MD Protein [Mass/Vol] 7.3 g/dL Normal 6.1-8.1 [facility] Comment on above: Performed By: #### 4 420, 6399, 809, 47687 #### [facility] [place] [address] Tunnel Drier Operator: Christophe Og MD Sodium [Moles/Vol] 139 mmol/L Normal 135-146 [facility] Comment on above: Performed By: #### 4 420, 6399, 809, 82453 #### [facility] [place] [address] Tunnel Drier Operator: Christophe Og MD Urea nitrogen [Mass/Vol] 15 mg/dL Normal 7-25 [facility] Comment on above: Performed By: #### 4 420, 6399, 809, 82532 #### [facility] [place] [address] Tunnel Drier Operator: Christophe Og MD SED RATE BY MODIFIED WESTERG RENon 06-10-2021 SED RATE BY MODIFIED WESTERGREN 11 mm/h Normal < OR = 15 [facility] Comment on above: Performed By: #### 4 420, 6399, 809, 86840 #### [facility] [place] [address] Tunnel Drier Operator: Christophe Og MD Vital Signs Date Time Vital Sign Value Performing Clinician Facility 12-08-2024 14:24-0500 Body height 185.[address] Mya Sánchez MD Work Phone: [facility] 12-08-2024 14:24-0500 Body temperature 98.2 [degF] Dr. Mya Sánchez MD Work Phone: [facility] 12-08-2024 14:24-0500 Diastolic blood pressure 99 mm[Hg] Dr. Mya Sánchez MD Work Phone: [facility] 12-08-2024 14:24-0500 Heart rate 90 /min Dr. Mya Sánchez MD Work Phone: [facility] 12-08-2024 14:24-0500 Respiratory rate 16 /min Dr. Mya Sánchez MD Work Phone: [facility] 12-08-2024 14:24-0500 SaO2% (BldA) [Mass fraction] 99 % Dr. Mya Sánchez MD Work Phone: [facility] 12-08-2024 14:24-0500 Systolic blood pressure 129 mm[Hg] Dr. Mya Sánchez MD Work Phone: [facility] 11-24-2024 14:37-0500 Body mass index (BMI) [Ratio] 46.8 kg/m2 Dr. Mya Sánchez MD Work Phone: [facility] 11-24-2024 14:37-0500 Body weight 161.[address] Mya Sánchez MD Work Phone: [facility] 11-07-2024 08:44-0500 Body mass index (BMI) [Ratio] 46.8 kg/m2 Dr. Mya Sánchez MD Work Phone: [facility] 11-07-2024 08:44-0500 Body weight 161.[address] Mya Sánchez MD Work Phone: [facility] 11-07-2024 08:44-0500 Diastolic blood pressure 82 mm[Hg] Dr. Mya Sánchez MD Work Phone: [facility] 11-07-2024 08:44-0500 Respiratory rate 16 /min Dr. Mya Sánchez MD Work Phone: [facility] 11-07-2024 08:44-0500 Systolic blood pressure 130 mm[Hg] Dr. Mya Sánchez MD Work Phone: [facility] 10-23-2024 08:30-0500 Body temperature 98.5 [degF] Dr. Mya Sánchez MD Work Phone: [facility] 10-23-2024 08:30-0500 Diastolic blood pressure 93 mm[Hg] Dr. Mya Sánchez MD Work Phone: [facility] 10-23-2024 08:30-0500 Heart rate 97 /min Dr. Mya Sánchez MD Work Phone: [facility] 10-23-2024 08:30-0500 Respiratory rate 16 /min Dr. Mya Sánchez MD Work Phone: [facility] 10-23-2024 08:30-0500 SaO2% (BldA) [Mass fraction] 98 % Dr. Mya Sánchez MD Work Phone: [facility] 10-23-2024 08:30-0500 Systolic blood pressure 148 mm[Hg] Dr. Mya Sánchez MD Work Phone: [facility] 10-21-2024 14:10-0500 Body weight 165.[address] Mya Sánchez MD Work Phone: [facility] 10-21-2024 02:29-0500 Inhaled oxygen flow rate 2 L/min Dr. Mya Sánchez MD Work Phone: [facility] 10-20-2024 17:19-0500 Body mass index (BMI) [Ratio] 46.8 kg/m2 Dr. Mya Sánchez MD Work Phone: [facility] 09-09-2024 11:42-0400 Body temperature 97.59 [degF] Alexa Govea COMMISSIONER OF OFFICIALS.THERMOFORMING MACHINE OPERATOR Work Phone: [facility] 09-09-2024 11:42-0400 Body weight 167 kg Alexa Govea COMMISSIONER OF OFFICIALS.THERMOFORMING MACHINE OPERATOR Work Phone: [facility] 09-09-2024 11:42-0400 Diastolic blood pressure 94 mm[Hg] Alexa Govea COMMISSIONER OF OFFICIALS.THERMOFORMING MACHINE OPERATOR Work Phone: [facility] 09-09-2024 11:42-0400 Heart rate 96 /min Alexa Govea COMMISSIONER OF OFFICIALS.THERMOFORMING MACHINE OPERATOR Work Phone: [facility] 09-09-2024 11:42-0400 Respiratory rate 18 /min Alexa Govea COMMISSIONER OF OFFICIALS.THERMOFORMING MACHINE OPERATOR Work Phone: [facility] 09-09-2024 11:42-0400 SaO2% (BldA) [Mass fraction] 95 % Alexa Govea COMMISSIONER OF OFFICIALS.THERMOFORMING MACHINE OPERATOR Work Phone: [facility] 09-09-2024 11:42-0400 Systolic blood pressure 164 mm[Hg] Alexa Govea COMMISSIONER OF OFFICIALS.THERMOFORMING MACHINE OPERATOR Work Phone: [facility] 07-01-2024 14:08-0400 Body temperature 97.5 [degF] Krislyn Aberegg PA Work Phone: [facility] 07-01-2024 14:08-0400 Body weight 164.8 kg Krislyn Aberegg PA Work Phone: [facility] 07-01-2024 14:08-0400 Diastolic blood pressure 105 mm[Hg] Krislyn Aberegg PA Work Phone: [facility] 07-01-2024 14:08-0400 Heart rate 73 /min Krislyn Aberegg PA Work Phone: [facility] 07-01-2024 14:08-0400 Respiratory rate 20 /min Krislyn Aberegg PA Work Phone: [facility] 07-01-2024 14:08-0400 SaO2% (BldA) [Mass fraction] 95 % Krislyn Aberegg PA Work Phone: [facility] 07-01-2024 14:08-0400 Systolic blood pressure 169 mm[Hg] Krislyn Aberegg PA Work Phone: [facility] 07-03-2023 08:23-0400 Body height 185.42 cm [facility] 07-03-2023 08:23-0400 Body mass index (BMI) [Ratio] 45.9 kg/m2 [facility] 07-03-2023 08:23-0400 Body temperature 96.9 [degF] [facility] 07-03-2023 08:23-0400 Body weight 157.85 kg [facility] 07-03-2023 08:23-0400 Diastolic blood pressure 92 mm[Hg] [facility] 07-03-2023 08:23-0400 Heart rate 95 /min [facility] 07-03-2023 08:23-0400 Respiratory rate 18 /min [facility] 07-03-2023 08:23-0400 SaO2% (BldA) [Mass fraction] 96 % [facility] 07-03-2023 08:23-0400 Systolic blood pressure 186 mm[Hg] [facility] 01-30-2023 19:17-0400 Diastolic blood pressure 90 mm[Hg] [facility] 01-30-2023 19:17-0400 Respiratory rate 18 /min [facility] 01-30-2023 19:17-0400 Systolic blood pressure 142 mm[Hg] [facility] 01-30-2023 16:12-0400 Body height 185.42 cm [facility] 01-30-2023 16:12-0400 Body mass index (BMI) [Ratio] 44.1 kg/m2 [facility] 01-30-2023 16:12-0400 Body temperature 98.1 [degF] [facility] 01-30-2023 16:12-0400 Body weight 151.95 kg [facility] 01-30-2023 16:12-0400 Heart rate 97 /min [facility] 01-30-2023 16:12-0400 SaO2% (BldA) [Mass fraction] 98 % [facility] 01-23-2023 07:23-0400 Body temperature 97.81 [degF] Steve GAMEZ Work Phone: [facility] 01-23-2023 07:23-0400 Body weight 151.96 kg Steve GAMEZ Work Phone: [facility] 01-23-2023 07:23-0400 Diastolic blood pressure 98 mm[Hg] Krislyn Aberegg PA Work Phone: [facility] 01-23-2023 07:23-0400 Heart rate 98 /min Krislyn Aberegg PA Work Phone: [facility] 01-23-2023 07:23-0400 Respiratory rate 18 /min Krislyn Aberegg PA Work Phone: [facility] 01-23-2023 07:23-0400 SaO2% (BldA) [Mass fraction] 95 % Krislyn Aberegg PA Work Phone: [facility] 01-23-2023 07:23-0400 Systolic blood pressure 142 mm[Hg] Krislyn Aberegg PA Work Phone: [facility] Encounters Encounter Date Encounter Type Care Provider Facility Start: 01-14-2025 End: 01-14-[address] Mya Sánchez MD Work Phone: [facility] Work Phone: Start: 01-14-2025 End: 01-14-[address] [facility] Start: 01-14-2025 End: 01-14-2025 ambulatory Mya Sánchez Facility:[facility] Start: 12-17-2024 ambulatory Juan Moore Facility: [facility] Start: 12-08-2024 End: 12-08-2024 Patient encounter procedure Randy Morse [place] [facility] Work Phone: Start: 12-08-2024 End: 12-08-2024 ambulatory Mya Sánchez Facility:[facility] Start: 12-08-2024 End: 12-08-2024 Emergency department patient visit Adam Cantrell Facility:[facility] Start: 11-24-2024 End: 11-24-[address] Ervin Domínguez DO -[facility] Work Phone: Start: 11-24-2024 End: 11-24-2024 ambulatory Mya Midanie Facility:[facility] Start: 11-15-2024 End: 11-15-2024 Patient encounter procedure Krissy Fernando [employer]LL[employer] PROCESSOR-C -Ultrasound, [facility] Work Phone: Start: 11-15-2024 End: 11-15-2024 ambulatory Krissy Fernando Facility:[facility] Start: 11-07-2024 End: 11-07-[address] Juan Moore MD -[facility] Work Phone: Start: 11-07-2024 End: 11-07-2024 ambulatory Juan Moore Facility:[facility] Start: 10-24-2024 End: 10-24-2024 Patient encounter procedure Krissy Fernando [employer]ID [employer]OPELLANT PROCESSOR-C -Laboratory, [place] Work Phone: Start: 10-24-2024 End: 10-24-2024 ambulatory Krissy Fernando Facility:[facility] Start: 10-23-2024 Non-patient / Non-visit Dr. Ai Lee MD -[facility] Work Phone: Start: 10-22-2024 Non-patient / Non-visit Dr. Ai Lee MD -[facility] [facility] Work Phone: Start: 10-21-2024 Non-patient / Non-visit Dr. Ai Lee MD -[facility] Work Phone: Start: 10-20-2024 ambulatory Mya Mccann Facility: [facility] Start: 10-20-2024 End: 10-23-2024 [facility] Start: 09-09-2024 End: 09-09-2024 ambulatory [facility] Facility:[facility] Start: 09-09-2024 End: 09-09-2024 Patient encounter procedure Alexa Govea APRN.THERMOFORMING MACHINE OPERATOR Work Phone: [facility] Comment on above: Sinusitis, unspecifi ed chronicity, unspecified location (Primary Dx) Start: 07-02-2024 End: 07-02-2024 Telephone encounter López Villatoro APRN.THERMOFORMING MACHINE OPERATOR Work Phone: [facility] Comment on above: Results Start: 07-01-2024 End: 07-01-2024 Patient encounter procedure Steve Manjarrez PA Work Phone: [facility] Comment on above: Sore throat (Primary Dx); URI, acute; Hypertension, unspecified type Start: 07-01-2024 End: 07-01-2024 ambulatory [facility] Facility:[facility] Start: 03-25-2024 End: 03-25-2024 Emergency department patient visit Ed Physician Provider Facility:[facility] Start: 03-12-2024 ambulatory MYA MIEDEL Facility: B Start: 03-10-2024 ambulatory [facility] Facilit y:[facility] Start: 02-06-2024 ambulatory [facility] Facility: [facility] Start: 09-12-2023 End: 09-12-2023 ambulatory [facility] Work Phone: Start: 09-12-2023 End: 09-12-2023 Patient encounter procedure [facility] Work Phone: Start: 07-03-2023 End: 07-03-2023 Emergency department patient visit [facility]Emergency Department Work Phone: Start: 07-02-2023 Telephone encounter Najma Raymond APRN.THERMOFORMING MACHINE OPERATOR Work Phone: [facility] Comment on above: Medication Request Start: 02-19-2023 End: 02-19-2023 ambulatory [facility] Work Phone: Start: 02-19-2023 End: 02-19-2023 Patient encounter procedure [facility] Start: 02-08-2023 End: 02-08-2023 ambulatory [facility] Start: 02-07-2023 End: 02-08-2023 ambulatory [facility] Start: 01-31-2023 End: 01-31-2023 ambulatory [facility] Work Phone: Start: 01-31-2023 End: 01-31-2023 Patient encounter procedure [facility]ari[facility], Jaret Gandhi [facility] Start: 01-30-2023 End: 01-30-2023 Emergency department patient visit [facility]Emergency Department Start: 01-23-2023 End: 01-23-2023 Patient encounter procedure Steve GAMEZ Work Phone: [facility] Comment on above: Sinobronchitis (Prim jaquelin Dx); Hypertension, unspecified type Start: 12-19-2022 End: 12-19-2022 Subsequent hospital visit by physician [facility] Work Phone: Radiology Comment on above: Pain in right foot [ M79.671] Procedures Date Procedure Procedure Detail Performing Clinician Start: 12-08-2024 X-ray of foot, three or more views Dr. Mya Sánchez MD Work Phone: Start: 11-24-2024 Plain x-ray of pelvi s and lower extremity Dr. Mya Sánchez MD Work Phone: Start: 11-24-2024 X-ray of lumbar spin e, two or three views Dr. Mya Sánchez MD Work Phone: Start: 11-15-[address] Mya Sánchez MD Work Phone: Start: 07-01-2024 STREP A MOLECULAR (POC) Steve GAMEZ Work Phone: Start: 09-12-2023 MRI of brain with contrast Start: 02-07-2023 Urinalysis LEA CUATE MONCADA Comment on above: Result Comment: URIN ALYSIS Performed By: #### 2 [id number] #### [facility] [id number] Start: 01-30-2023 Plain chest X-ray Start: 01-30-2023 CT of head without contrast Start: 12-19-2022 Radex foot complete minimum 3 views Akira Magaña Work Phone: Plan of Treatment Date Care Activity Detail Author Start: 12-08-2024 [facility] Start: 11-24-2024 Patient referral [facility] Work Phone: Start: 10-23-2024 Patient discharge [facility] Start: 10-20-2024 Ambulation without limitation [facility] Start: 10-20-2024 Assessment of risk of venous thromboembolism [facility] Start: 10-20-2024 Insertion of catheter into peripheral vein [facility] Start: 10-20-2024 Oxygen therapy [facility] Start: 10-20-2024 Providing care according to standard [facility] Start: 10-20-2024 Referral to service [facility] Start: 10-20-2024 [facility] Start: 10-20-2024 Following clinical pathway protocol [facility] Start: 10-20-2024 Admission procedure [facility] Start: 10-20-2024 Hospital admission, emergency, from emergency room, medical nature [facility] Start: 10-20-2024 [facility] Start: 07-13-2024 Covid-19 Vaccine ( season) Covid-19 Vaccine ( season) [facility] Start: 07-13-2024 Influenza vaccination Influenza Vaccine (#1) [facility] Start: 07-13-2023 Covid-19 Vaccine ( season) Covid-19 Vaccine ( season) [facility] Start: 07-13-2023 Influenza vaccination [facility] Start: 11-12-2022 DEPRESSION ASSESSMENT DEPRESSION ASSESSMENT [facility] Start: 2022 COLOGUARD (FIT-DNA) COLOGUARD (FIT-DNA) [facility] Start: 2022 Colonoscopy COLONOSCOPY [facility] Start: 2022 COLORECTAL CANCER SCREENING COLORECTAL CANCER SCREENING [facility] Start: [address] COLONOGRAPHY [facility] Start: 2022 DIABETES SCREEN DIABETES SCREEN [facility] Start: 2022 Diabetes Screening Diabetes Screening [facility] Start: 2022 FECAL OCCULT BLOOD FECAL OCCULT BLOOD [facility] Start: 2022 Screening for malignant neoplasm of colon [facility] Start: 2022 SIGMOIDOSCOPY SIGMOIDOSCOPY [facility] Start: 07-13-2022 Influenza vaccination INFLUENZA (#1) [facility] Start: 2012 Lipid 1996 panel - Serum or Plasma Lipid Screening [facility] Start: 2012 Lipid panel Lipid Screening [facility] Start: 2012 LIPID SCREEN LIPID SCREEN [facility] Start: 1996 Hepatitis B Vaccine (1 of 3 - 19+ 3-dose series) Hepatitis B Vaccine (1 of 3 - 19+ 3-dose series) [facility] Start: 1996 Urine microalbumin profile [facility] Start: 1995 Annual PCP Team Chronic Disease Visit Annual PCP Team Chronic Disease Visit [facility] Start: 1995 Anxiety Screening Anxiety Screening [facility] Start: 1995 BP Controlled (<130/80) BP Controlled (<130/80) [facility] Start: 1995 Depression Screening Depression Screening [facility] Start: 1995 HEPATITIS C SCREENING HEPATITIS C SCREENING [facility] Start: 1995 Hepatitis C screening Hepatitis C Screening [facility] Start: 1995 HIV SCREENING HIV SCREENING [facility] Start: 1995 HIV screening HIV Screening [facility] Start: 04-02-1978 COVID-19 VACCINE (#1) COVID-19 VACCINE (#1) [facility] Start: 1977 HEPATITIS B (1 of 3 - 3-dose series) HEPATITIS B (1 of 3 - 3-dose series) [facility] Start: 1977 Hepatitis B Vaccine (1 of 3 - 3-dose series) Hepatitis B Vaccine (1 of 3 - 3-dose series) [facility] Patient Education [facility] Work Phone: Patient referral [facility] Work Phone: SARS-CoV-2 (COVID-19 ) RNA [Presence] in Respiratory specimen by YVONNE with probe detection COVID NAAT, UPPER RESPIRATORY, ROUTINE Microbiology Routine Sore throat URI, acute 07/01/2024 2:24 PM EDT [facility] Work Phone: Immunizations Immunization Date Immunization Notes Care Provider Fa neisha 08-07-2009 influenza virus vaccine, unspecified formulation Steve GAMEZ Work Phone: [facility] Work Phone: Payers Date Payer Category Payer Self-pay [id number] 2024 Private Health Insurance [facility] [id number] 2023 Private Health Insurance [id number] 2023 Private Health Insurance [id number] 2022 Unknown [id number] 1977 Unknown [id number] [id number]1 1977 Unknown [id number] 2.16.840.1.284040.3.579.2.651 1977 Unknown [id number] 2.16.840.1.567967.3.579.2.627 Unknown [employer] [id number] Unknown [id number] Unknown MED COUNTYLINE TPA [id number] Unknown [place] [id number] Unknown [id number] Unknown [id number] 2.16.840.1.281750.3.579.2.462 Unknown [id number] 2.16.840.1.437461.3.579.2.462 Unknown [id number] 2.16.840.1.012407.3.579.2.462 Unknown [id number] 2.16.840.1.413095.3.579.2.462 Unknown [id number] 2.16.840.1.870520.3.579.2.462 Unknown [id number] 2.16.840.1.183634.3.579.2.462 Unknown [id number] 2.16.840.1.669779.3.579.2.462 Unknown [id number] 2.16.840.1.131822.3.579.2.462 Unknown [id number] 2.16.840.1.728163.3.579.2.462 Unknown [id number] 2.16.840.1.383888.3.579.2.462 Unknown [id number] 2.16.840.1.827100.3.579.2.462 Unknown [id number] 2.16.840.1.732210.3.579.2.462 Unknown [id number] 2.16.840.1.803166.3.579.2.462 Unknown [id number] 2.16.840.1.251468.3.579.2.462 Unknown [id number] 2.16.840.1.730801.3.579.2.462 Unknown [id number] 2.16.840.1.528092.3.579.2.462 Social History Date Type Detail Facility Start: 12-19-2022 End: 07-01-2024 Tobacco smoking status NHIS Ex-smoker [facility] Work Phone: Start: 11-12-2009 End: 11-12-2017 History of tobacco use Current smoker [facility] Work Phone: Start: 11-12-2009 End: 11-12-2017 History of tobacco use Cigarette Smoker [facility] Work Phone: Start: 12-19-2022 End: 07-01-2024 Tobacco use and exposure Former smokeless tobacco user [facility] Work Phone: End: 06-12-2018 History of tobacco use Snuff User [facility] Work Phone: Start: 01-23-2023 End: 07-01-2024 Alcohol intake Current drinker of alcohol (finding) [facility] Start: 01-23-2023 End: 04-11-2024 Alcohol intake [facility] Start: 12-19-2022 Alcohol Comment daily [facility] Start: 1975 Sex Assigned At Not on file [facility] Start: 01-30-2023 End: 07-03-2023 Tobacco smoking status NHIS Unknown if ever smoked [facility] Start: 1975 Sex Assigned At Male [facility] Start: 07-01-2023 End: 04-11-2024 Tobacco use panel [facility] National Score (1-100), lower number is lower risk 48 [facility] Start: 12-08-2024 Tobacco smoking stat us NHIS Current some day smoker [facility] Start: 01-26-2025 Sex Male (finding) [facility] Goals Date Patient Goal Desired Activity /State Functional Status Date Assessment Result Facility 10-23-2024 Functional status Ambulates;Up ad mary [facility] Work Phone: Mental Status Date Assessment Result Facility 10-22-2024 Cognitive function Voice/Name [facility] Work Phone: 01-30-2023 Cognitive function Awake;Alert;Appropriat e [facility] Work Phone: Clinical Notes 12-19-2022 to 10-23-2024 Note Date & Type Note Facility 10-23-2024 Note [facility] Medical Records Department [address] [place] [address] Discharge Summary 10/23/24 1414 MR#: [id number] Acct: [id number] Name: ARON ESPINOZA Rep #: [id number] : 1975 49 From: Keny Lee MD PCP: Dr. Mya Sánchez MD Status:DIS IN Location: AK3 [id number] Providers Date of Admission: 10/20/24 Primary Care Physician: Dr. Mya Sánchez MD Reason For Visit: ALCOHOL DETOX Diagnosis Discharge Diagnosis (1) Alcohol dependence: Status: Acute Code(s): F10.20 - Alcohol dependence, uncomplicated (2) Desire for detoxification: Status: Acute Medications at Discharge Home Medications omeprazole 40 mg capsule,delayed release 40 mg PO DAILY 01/30/23 valsartan 320 mg-hydrochlorothiazide 25 mg tablet 1 tab PO DAILY 01/30/23 aspirin 81 mg PO DAILY 10/20/24 folic acid 1 mg tablet 1 mg PO DAILY 10/20/24 Hospital Course Operations None Procedures None Summary of Care Provided Minutes Spent on Discharge: 34 Hospital Course: Per HPI: ARON ESPINOZA, is a 49 M who presented to [facility] ED on 10/20/2024 requesting alcohol detox. Patient has never gone through alcohol detox before. Drinks 1/5 of vodka daily on weekdays and up to a gallon of vodka on weekends. Last drink was about 30 minutes prior to arrival to the ED. Alcohol level 116 in the ED. Vitals on arrival notable for hypertension to the 150s/100s and sinus tachycardia to the low 100s. CBC and BMP fairly benign. LFTs with mildly elevated AST and ALT, otherwise unremarkable. Given request for alcohol detox, hospitalist was contacted for admission. I saw the patient at bedside in the ED. Patient was flushed appearing on exam and appeared anxious. Currently having some withdrawal symptoms including tremors, nausea, anxiety and flushing. Was given a dose of p.o. phenobarbital in the ED about 15 minutes before I saw him, does not feel like this has taken any effect yet. Patient states that he has a steady job and family and is concerned that his worsening drinking habits could put these in serious jeopardy, and this is why he wants to go through detox. Notably his UDS was positive for amphetamines, cocaine and cannabinoids. Patient states that he smokes marijuana on about a daily basis. He will go to parties on the weekends with his brother and take Adderall and use cocaine occasionally, does not do these things on a daily basis. He also chews snuff on a daily basis. Patient otherwise has minimal medical history, takes medication for high blood pressure and acid reflux. Denies any other symptoms currently. Will be admitted for further management. Hospital Course: 1. Alcohol abuse with desire for detox/polysubstance abuse/tobacco abuse/mildly elevated LFTs???[age]-year-old male presented to the hospital requesting detox from alcohol. He did not seem very keen to pursue outpatient therapy on discharge that we did continue to provide encouragement to proceed with therapy as an outpatient for his alcoholism. I do recommend a follow-up with his PCP in 3 to 5 days to monitor his elevated LFTs as these are likely due to his drinking. On the day of discharge his CIWA score was 1. I discussed with him the plan for discharge today he expressed understanding there is benefits of going home and would like to go home today. 2. Essential hypertension, GERD are all chronic medical conditions which he does care. His home medications were continued where appropriate Physical Exam Narrative General: Alert, Oriented x3, Cooperative, No apparent distress, resting comfortably HEENT: Atraumatic, PERRLA, EOMI, Normocephalic Oral: Moist Mucosa Neck: Supple, No JVD Lungs: Clear to auscultation, Normal air movement, No rhonchi, No wheeze, No rales Cardiovascular: Regular rate, Regular Rhythm, Normal S1, Normal S2, No murmurs Abdomen: Soft, Non Tender, Non-Distended, No Hepato-splenomegaly Extremities: No edema, Capillary Refill Less than 3 Seconds Skin: No rashes, No breakdown Musculoskeletal: No Tenderness to Palpation of Joints or Extremities Neurological: No focal neurological deficits, Motor Exam 5/5 strength throughout, Sensory exam intact to light touch and pain Psych/Mental Status: Normal Affect, Appropriate Weight / BMI Weight Weight: 365 lb 1.368 oz Body Mass Index (BMI) 46.8 ABG / Lab / Microbiology Data 10/21/24 06:28 10/21/24 06:28 D/C Instructions Discharge Diet: Low fat / Low cholesterol Call your doctor if you observe: Fever of 101 or Higher, Shortness of breath, Dizziness, Fainting spells, Swelling in the ankles, Chest pain and Increased palpitations (irregular heartbeat) DC O2, CPAP, BIPAP Needs Additional Home O2 Discharge instructions: No DC home with Oxygen: No Meaningful Use Info Meaningful Use Meaningful Use Diagnoses (Choose all that apply): None appl (more content not included)... [facility] 10-20-2024 Evaluation note Diagnosis Onset Date Resolution Tachycardia acute October 20, 2024 4:31pm Desire for detoxification resolved October 20, 2024 4:31pm Alcohol dependence inactive [facility] 2023 4:31pm Alcohol withdrawal inactive [facility] er 2023 4:31pm Bright red blood per rectum acute November 07, 2 024 8:19am History of ETOH abuse acute Dec emb2023 8:19am Pain with swallowing acute [facility] 2023 8:19am Upper abdominal pain acute [facility] 2023 8:19am History of hemorrhoids chronic De cem2023 8:19am Hx of gastroesophageal reflux (GERD) chronic November 07 024 8:19am Disc disease, degenerative, lumbar or lumbosacral acute November 24 2:14pm Lumbar spondylolysis acute 2024 2:14pm Obesity acute November 24, 2024 2:14pm [facility] Work Phone: [phone] 168-146210-29-2024 NoteHNO ID: [id number] Author: LAEXA GOVEA APRN.THERMOFORMING MACHINE OPERATOR Service: ? Author Type: Nurse Practitioner Type: Progress Notes Filed: 09/09/2024 12:01 Note Text: This note was created using NoteWriter. Subjective Aron Espinoza is a 48 year old male. 48 year old male with no PMH presents for illness. Acute onset of symptoms was 4 days ago +cough +congestion +sinus pressure +head pressure +headache Denies CP Denies SOB Denies dyspnea The history is provided by the patient. No language arts teacher was used. URI He complains of cough and sputum production. There is no chest tightness, difficulty breathing, frequent throat clearing, hemoptysis, hoarse voice, shortness of breath or wheezing. This is a new problem. The current episode started in the past 7 days. The problem occurs constantly. The problem has been gradually worsening. Cough characteristics: goes between productive and non productive. Associated symptoms include headaches, nasal congestion, rhinorrhea and sneezing. Pertinent negatives include no appetite change, chest pain, dyspnea on exertion, ear congestion, ear pain, fever, heartburn, malaise/fatigue, myalgias, orthopnea, PND, postnasal drip, sore throat, sweats, trouble swallowing or weight loss. His symptoms are aggravated by nothing. He reports no improvement on treatment. There are no known risk factors for lung disease. There is no history of asthma, bronchiectasis, bronchitis, COPD, emphysema or pneumonia. PAST MEDICAL HISTORY Diagnosis Date NONE PAST SURGICAL HISTORY Procedure Laterality Date RCNSTJ TENDON KAYA EACH W/LOCAL TISSUES SPX RECONSTRUCTIVE HAND SURGERY RIGHT HAND RPR UMBILICAL HERNIA < 5 YRS REDUCIBLE Hernia repair, umbilical ALLERGIES Shellfish Containing Products, Codeine, Hydrocodone-Acetaminophen, and Cyclobenzaprine MEDICATIONS folic acid 1 mg tablet Take 1 tablet by mouth every afternoon. Valsartan-hydroCHLOROthiazide 320-25 mg per tablet Take 1 tablet by mouth once daily. omeprazole (PRILOSEC) 20 mg capsule Take 20 mg by mouth twice daily. IBUPROFEN 800 MG TAB Take one(1) tablet daily. predniSONE (DELTASONE) 10 mg tablet Take 4 tabs daily for 3 days, then 2 tabs daily for 3 days, then 1 tab daily for 3 days with food. benzonatate (TESSALON PERLES) 100 mg capsule Take 1 capsule by mouth three times daily as needed for cough. (Patient not taking: Reported on 07/01/2023) naproxen (NAPROSYN) 500 mg tablet Take 500 mg by mouth twice daily with meals. ZANTAC 150 MG TAB Take one(1) tablet two(2) times daily. (Patient not taking: Reported on 12/19/2022) DIFLUCAN 200 MG TAB 2 at once (Patient not taking: No sig reported) NEXIUM 40 MG CAP Take one(1) tablet daily. (Patient not taking: No sig reported) DICLOFENAC 75 MG TAB, DELAYED RELEASE Take one(1) tablet two(2) times daily. (Patient not taking: No sig reported) No family history on file. Social History Tobacco Use Smoking status: Former Current packs/day: 0.00 Types: Cigarettes Start date: 2009 Quit date: 2018 Years since quittin.8 Smokeless tobacco: Former Types: Snuff Quit date: 06/12/2018 Substance Use Topics Alcohol use: Yes Alcohol/week: 3.0 standard drinks of alcohol Types: 3 Shots of liquor per week Comment: daily Drug use: No Review of Systems Constitutional: Negative for appetite change, fever, malaise/fatigue and weight loss. HENT: Positive for congestion, rhinorrhea and sneezing. Negative for ear pain, hoarse voice, postnasal drip, sore throat and trouble swallowing. Eyes: Negative for pain, discharge and itching. Respiratory: Positive for cough and sputum production. Negative for apnea, hemoptysis, shortness of breath and wheezing. Cardiovascular: Negative for chest pain, dyspnea on exertion and PND. Gastrointestinal: Negative for abdominal pain, diarrhea, heartburn, nausea and vomiting. Musculoskeletal: Negative for myalgias. Skin: Negative for color change, pallor, rash and wound. Allergic/Immunologic: Positive for immunocompromised state. Negative for environmental allergies and food allergies. Neurological: Positive for headaches. Negative for dizziness, facial asymmetry, light-headedness and numbness. Hematological: Negative for adenopathy. Does not bruise/bleed easily. Psychiatric/Behavioral: Negative for agitation and behavioral problems. Objective BP 164/94 Pulse 96 Temp 36.4 ?C (97.6 ?F) Resp 18 Wt (!) 167 kg (368 lb 2.7 oz) SpO2 95% Physical Exam Vitals and nursing note reviewed. Constitutional: General: He is not in acute distress. Appearance: Normal appearance. He is not ill-appearing, toxic-appearing or diaphoretic. HENT: Head: Normocephalic and atraumatic. Comments: +frontal sinus pressure Right Ear: External ear normal. Left Ear: External ear normal. Nose: Congestion present. No rhinorrhea. Mouth/Throat: Mouth: Mucous membranes are moist. Pharynx: Oropharynx is clear. (more content not included)...[facility]10-29-2024 History of Present illness Narrative* Alexa Govea APRN.[facility] - 09/09/2024 11:53 AM EDT This note was created using [employer]. Subjective Aron Espinoza is a 48 year old male. 48 year old male with no PMH presents for illness. Acute onset of symptoms was 4 days ago +cough +congestion +sinus pressure +head pressure +headache Denies CP Denies SOB Denies dyspnea The history is provided by the patient. No language arts teacher was used. URI He complains of cough and sputum production. There is no chest tightness, difficulty breathing, frequent throat clearing, hemoptysis, hoarse voice, shortness of breath or wheezing. This is a new problem. The current episode started in the past 7 days. The problem occurs constantly. The problem has been gradually worsening. Cough characteristics: goes between productive and non productive. Associated symptoms include headaches, nasal congestion, rhinorrhea and sneezing. Pertinent negatives include no appetite change, chest pain, dyspnea on exertion, ear congestion, ear pain, fever, heartburn, m alaise/fatigue, myalgias, orthopnea, PND, postnasal drip, sore throat, sweats, trouble swallowing or weight loss. His symptoms are aggravated by nothing. He reports no improvement on treatment. Thereare no known risk factors for lung disease. There is no history of asthma, bronchiectasis, bronchitis, COPD, emphysema or pneumonia. PAST MEDICAL HISTORY Diagnosis Date NONE PAST SURGICAL HISTORY Procedure Laterality Date RCNSTJ TENDON KAYA EACH W/LOCAL TISSUES SPX RECONSTRUCTIVE HAND SURGERY RIGHT HAND RPR UMBILICAL HERNIA < 5 YRS REDUCIBLE Hernia repair, umbilical ALLERGIES Shellfish Containing Products, Codeine, Hydrocodone-Acetaminophen, and Cyclobenzaprine MEDICATIONS folic acid 1 mg tablet Take 1 tablet by mouth every afternoon. Valsartan-hydroCHLOROthiazide 320-25 mg per tablet Take 1 tablet by mouth once daily. omeprazole (PRILOSEC) 20 mg capsule Take 20 mg by mouth twice daily. IBUPROFEN 800 MG TAB Take one(1) tablet daily. predniSONE (DELTASONE) 10 mg tablet Take 4 tabs daily for 3 days, then 2 tabs daily for 3 days, then 1 tab daily for 3 days with food. benzonatate (TESSALON PERLES) 100 mg capsule Take 1 capsule by mouth three times daily as needed for cough. (Patient not taking: Reported on 07/01/2023) naproxen (NAPROSYN) 500 mg tablet Take 500 mg by mouth twice daily with meals. ZANTAC 150 MG TAB Take one(1) tablet two(2) times daily. (Patient not taking: Reported on 12/19/2022) DIFLUCAN 200 MG TAB 2 at once (Patient not taking: No sig reported) NEXIUM 40 MG CAP Take one(1) tablet daily. (Patient not taking: No sig reported) DICLOFENAC 75 MG TAB, DELAYED RELEASE Take one(1) tablet two(2) times daily. (Patient not taking: No sig reported) No family history on file. Social History Tobacco Use Smoking status: Former Current packs/day: 0.00 Types: Cigarettes Start date: 2009 Quit date: 2017 Years since quittin.8 Smokeless tobacco: Former Types: Snuff Quit date: 06/12/2018 Substance Use Topics Alcohol use: Yes Alcohol/week: 3.0 standard drinks of alcohol Types: 3 Shots of liquor per week Comment: daily Drug use: No Review of Systems Constitutional: Negative for appetite change, fever, malaise/fatigue and weight loss. HENT: Positive for congestion, rhinorrhea and sneezing. Negative for ear pain, hoarse voice, postnasal drip, sore throat and trouble swallowing. Eyes: Negative for pain, discharge and itching. Respiratory: Positive for cough and sputum production. Negative for apnea, hemoptysis, shortness ofbreath and wheezing. Cardiovascular: Negative for chest pain, dyspnea on exertion and PND. Gastrointestinal: Negative for abdominal pain, diarrhea, heartburn, nausea and vomiting. Musculoskeletal: Negative for myalgias. Skin: Negative for color change, pallor, rash and wound. Allergic/Immunologic: Positive for immunocompromised state. Negative for environmental allergies and food allergies. Neurological: Positive for headaches. Negative for dizziness, facial asymmetry, light-headedness and numbness. Hematological: Negative for adenopathy. Does not bruise/bleed easily. Psychiatric/Behavioral: Negative for agitation and behavioral problems. Objective BP 164/94 Pulse 96 Temp 36.4 C (97.6 F) Resp 18 Wt (!) 167 kg (368 lb 2.7 oz) SpO2 95% Physical Exam Vitals and nursing note reviewed. Constitutional: General: He is not in acute distress. Appearance: Normal appearance. He is not ill-appearing, toxic-appearing or diaphoretic. HENT: Head: Normocephalic and atraumatic. Comments: +frontal sinus pressure Right Ear: External ear normal. Left Ear: External ear normal. Nose: Congestion present. No rhinorrhea. Mouth/Throat: Mouth: Mucous membranes are moist. Pharynx: Oropharynx is clear. Posterior oropharyngeal erythema present. No oropharyngeal exudate. Eyes: General: Right eye: No discharge. Left eye: No discharge. Extraocular Movements: Extraocular movements intact. Conjunctiva/sclera: Conjunctivae normal. Pupils: Pupils are equal, round, and reactive to light. Cardiovascular: Rate and Rhythm: Normal rate and regular rhythm. Pulses: Normal pulses. Heart sounds: Normal heart sounds. No murmur heard. No friction rub. No gallop. Pulmonary: Effort: Pulmonary effort is normal. No respiratory distress. Breath sounds: Normal breath sounds. No stridor. No wheezing, rhonchi or rales. Comments: +harsh cough noted No flail chest Chest: Chest wall: No tenderness. Abdominal: General: Abdomen is flat. There is no distension. Palpations: Abdomen is soft. There is no mass. Tenderness: There is no abdominal tenderness. There is no guarding or rebound. Hernia: No hernia is present. Musculoskeletal: General: No swelling, tenderness, deformity or signs of injury. Normal range of motion. Cervical back: Normal range of motion and neck supple. No rigidity or tenderness. Right lower leg: No edema. Left lower leg: No edema. Lymphadenopathy: Cervical: Cervical adenopathy present. Skin: General: Skin is warm and dry. Capillary Refill: Capillary refill takes less than 2 seconds. Coloration: Skin is not jaundiced or pale. Findings: No bruising, lesion or rash. Neurological: General: No focal deficit present. Mental Status: He is alert and oriented to person, place, and time. Cranial Nerves: No cranial nerve deficit. Sensory: No sensory deficit. Motor: No weakness. Coordination: Coordination normal. Gait: Gait normal. Deep Tendon Reflexes: Reflexes normal. Psychiatric: Mood and Affect: Mood normal. Behavior: Behavior normal. Thought Content: Thought content normal. Assessment and Plan ASSESSMENT/PLAN: 1. Sinusitis, unspecified chronicity, unspecified location - ICD9: 473.9, ICD10: J32.9 X 4 day - Will begin treatment with as per antibiotic as written, see orders - The patient should also be given OTC cough and cold meds as needed, warm salt water gargles, throat lozenges and/or OTC throat spray as needed, and nasal saline gtts and suction prn for the first 5-7 days of treatment. - Supportive care with plenty of fluids, rest, and analgesia prn. - Follow up in 3-5 days if symptoms persist or worsen. Declines COVID 2. Cough X 4 days No red flags Requesting Prednisone Chest xray deferred and COVID testing by patient Alexa Govea APRN.EVELYN documented in this encounterOhiohealth08-21-2024 Telephone encounter Note * Telephone Encounter - Kimmie Gonzalez LPN - 07/02/2024 9:36 AM EDT Patient notified.Kimmie Gonzalez LPN [facility]08-21-2024 Miscellaneous Notes* Telephone Encounter - Kimmie Gonzalez LPN - 07/02/2024 9:36 AM EDT Patient notified.Kimmie Gonzalez LPN * Telephone Encounter - López Villatoro APRN.CNP - 07/02/2024 7:26 AM EDT Please inform patient that COVID-19 test was negative. Follow-up with PCP if symptoms or not improving. López Villatoro APRN.EVELYN documented in this encounterOhiohealth08-21-2024 Telephone encounter Note * Telephone Encounter - López Villatoro APRN.CNP - 07/02/2024 7:26 AM EDT Please inform patient that COVID-19 test was negative. Follow-up with PCP if symptoms or not improving. óLpez Villatoro APRN.EVELYN [facility] Work Phone: 1(876) 330-119108-20-2024 Instructions* Patient Instructions* Steve Manjarrez PA - 07/01/2024 2:20 PM EDT How to Manage Common Symptoms Associated with COVID for Adults Fever- Fever is a temperature over 100.4 F and can occur when the body is fighting an infection. Tohelp treat a fever: Drink plenty of fluids and stay well hydrated. Eat small amounts of easy to digest food. Rest. Your body needs rest to recover, but getting up and moving around the house frequently is a good idea. You should try to continue doing your normal daily activities (bathing, toileting, grooming, cooking), though you will probably feel tired, and need to rest often. Avoid any heavy activity or exercise, as this will increase your body temperature. Dress in light clothing and stay covered in a light sheet. Keep the room temperature cool. Take a slightly warm (not cold or cool) bath, or apply damp washcloths to the forehead and wrists. Cough- Cough is a common symptom associated with COVID and can be bothersome. To help treat a cough: Stay well hydrated. Try warm water or tea with lemon and/or honey to help soothe the cough. Use a humidifier to add moisture to the air. Try a product with menthol, like a cough drop or a rub for your chest such as Vicks, which can helpreduce cough. Try cough drops. Avoid smoking and other strong odors or perfumes. Try breathing exercises to keep your lungs open and clear. Take a big deep breath through your noseand hold for 5 seconds before slowly releasing. Repeat frequently, while you are awake. Congestion- Runny nose or nasal congestion can occur with COVID. Treatment can help relieve symptoms: Try OTC nasal saline spray, or nasal saline rinse to relieve mucus congestion. Nasal strips can help keep nasal passages open, to increase airflow. Elevating your head with an extra pillow in bed can help reduce congestion. Using a humidifier can increase moisture in the air, and make breathing easier. Sore Throat- Another common symptom with COVID, can be managed at home by: Stay well hydrated. Gargle with salt water - mix teaspoon salt with 1 cup of warm water and gargle. This helps to loosen mucus in the back of the throat and may reduce discomfort. Try ice chips, popsicles or lozenges to soothe the throat. Nausea/Vomiting/Diarrhea- These are common symptoms, and staying hydrated is most important. If you are nauseous or vomiting, start with small sips of water every 10-15 minutes and increase astolerated. You can try sucking an ice cube too. If tolerating, you can try pedialyte or Gatorade, or flat sprite or katharine-satnam. Start slowly and increase as you are able to. Instead of meals, try smaller, more frequent snacks. Try eating bland foods like crackers, toast, rice, and applesauce. Avoid spicy, greasy or fried foods and dairy containing foods. Even if you aren't feeling hungry due to lack of smell or taste, it is important to try to take in some food when you are able. After drinking and eating, rest in an upright position for up to two hours as needed to help decrease nauseous feelings. Try closing your eyes, avoid moving and watching TV. Avoid strong odors that can make you feel more nauseated. When to seek emergency medical attention Look for emergency warning signs for COVID-19. If having any of these symptoms, seek emergency medical care immediately: Trouble breathing Persistent pain or pressure in the chest New confusion Inability to wake or stay awake Bluish lips or face *This list is not all possible symptoms. Please call your medical provider for any other symptoms that are severe or concerning to you. documented in this encounterOhiohealth08-20-2024 NoteHNO ID: [id number] Author: STEVE MANJARREZ PA Service: ? Author Type: Physician Java Web Developer Type: Progress Notes Filed: 07/01/2024 14:27 Note Text: This note was created using [employer]. Octavio Espinoza is a 48 year old male. HPI 48-year-old male presents for fatigue, sore throat, headache, body aches starting early this morning. Patient states he went to work this morning started feeling sick around 4 AM. He has had sore throat, body aches, headaches, chills and fatigue. No nasal congestion or cough. No fevers, but has felt achy. He has been able to drink fluids, has not had much of an appetite today. No vomiting or diarrhea. No abdominal pain. No chest pain or shortness of breath. He denies any sick contacts or exposure to COVID or strep. Patient's blood pressure is elevated today. States he has not taken his medications today as he is just been sleeping. Normally blood pressure under control with medication per patient. PAST MEDICAL HISTORY No date: NONE PAST SURGICAL HISTORY No date: RCNSTJ TENDON KAYA EACH W/LOCAL TISSUES SPX Comment: RECONSTRUCTIVE HAND SURGERY RIGHT HAND No date: RPR UMBILICAL HERNIA < 5 YRS REDUCIBLE Comment: Hernia repair, umbilical ALLERGIES Shellfish Containing Products, Codeine, Hydrocodone-Acetaminophen, and Cyclobenzaprine MEDICATIONS folic acid 1 mg tablet Take 1 tablet by mouth every afternoon. Valsartan-hydroCHLOROthiazide 320-25 mg per tablet Take 1 tablet by mouth once daily. omeprazole (PRILOSEC) 20 mg capsule Take 20 mg by mouth twice daily. IBUPROFEN 800 MG TAB Take one(1) tablet daily. benzonatate (TESSALON PERLES) 100 mg capsule Take 1 capsule by mouth three times daily as needed for cough. (Patient not taking: Reported on 07/01/2023) naproxen (NAPROSYN) 500 mg tablet Take 500 mg by mouth twice daily with meals. ZANTAC 150 MG TAB Take one(1) tablet two(2) times daily. (Patient not taking: Reported on 12/19/2022) DIFLUCAN 200 MG TAB 2 at once (Patient not taking: No sig reported) NEXIUM 40 MG CAP Take one(1) tablet daily. (Patient not taking: No sig reported) DICLOFENAC 75 MG TAB, DELAYED RELEASE Take one(1) tablet two(2) times daily. (Patient not taking: No sig reported) No family history on file. Social History Tobacco Use Smoking status: Former Current packs/day: 0.00 Types: Cigarettes Start date: 2009 Quit date: 2017 Years since quittin.6 Smokeless tobacco: Former Types: Snuff Quit date: 06/12/2018 Substance Use Topics Alcohol use: Yes Alcohol/week: 3.0 standard drinks of alcohol Types: 3 Shots of liquor per week Comment: daily Drug use: No Review of Systems Constitutional: Positive for chills and fatigue. Negative for fever. HENT: Positive for sore throat. Negative for congestion. Respiratory: Negative for cough and shortness of breath. Gastrointestinal: Negative for diarrhea and vomiting. Musculoskeletal: Positive for myalgias. Objective BP 169/105 Pulse 73 Temp 36.4 ?C (97.5 ?F) Resp 20 Wt (!) 164.8 kg (363 lb 5.1 oz) SpO2 95% Physical Exam Vitals and nursing note reviewed. Constitutional: General: He is not in acute distress. Appearance: Normal appearance. He is not toxic-appearing. HENT: Right Ear: Tympanic membrane and ear canal normal. Left Ear: Tympanic membrane and ear canal normal. Nose: Nose normal. Mouth/Throat: Mouth: Mucous membranes are moist. Pharynx: Uvula midline. Posterior oropharyngeal erythema present. Tonsils: No tonsillar exudate or tonsillar abscesses. 1+ on the right. 1+ on the left. Eyes: Conjunctiva/sclera: Conjunctivae normal. Cardiovascular: Rate and Rhythm: Normal rate and regular rhythm. Pulmonary: Effort: Pulmonary effort is normal. Breath sounds: Normal breath sounds. No wheezing, rhonchi or rales. Skin: General: Skin is warm and dry. Neurological: Mental Status: He is alert. Assessment and Plan ASSESSMENT/PLAN: 1. Sore throat - ICD9: 462, ICD10: J02.9 (primary diagnosis) - suspect viral - Group A strep molecular testing negative - Discussed supportive care treatment with fluids, rest and analgesia. - The patient may also use warm salt water gargles, throat lozenges and/or OTC throat spray as needed. - STREP A MOLECULAR (POC) - COVID NAAT, UPPER RESPIRATORY, ROUTINE 2. URI, acute - ICD9: 465.9, ICD10: J06.9 - Discussed viral etiology and rationale for treatment. - Symptomatic treatment with prn analgesia - Supportive care with fluids and rest - COVID NAAT, UPPER RESPIRATORY, ROUTINE - No recent lab testing on patient. Advised patient if COVID-positive and interested in antiviral medication, needs to contact his PCP. Patient agreeable. 3. Hypertension, unspecified type - ICD9: 401.9, ICD10: I10 - Home blood pressure readings controlled -Did not take medication today. Advised to take it when he gets home. Keep blood pressure log. If continued to be elevated, needs follow-up with (more content not included)...[facility]08-20-2024 History of Present illness Narrative* Steve Manjarrez PA - 07/01/2024 2:13 PM EDT This note was created using [employer]. Subjective Aron Espinoza is a 48 year old male. HPI 48-year-old male presents for fatigue, sore throat, headache, body aches starting early this morning. Patient states he went to work this morning started feeling sick around 4 AM. He has had sorethroat, body aches, headaches, chills and fatigue. No nasal congestion or cough. No fevers, but hasfelt achy. He has been able to drink fluids, has not had much of an appetite today. No vomiting or diarrhea. No abdominal pain. No chest pain or shortness of breath. He denies any sick contacts or exposure to COVID or strep. Patient's blood pressure is elevated today. States he has not taken his medications today as he is just been sleeping. Normally blood pressure under control with medication per patient. PAST MEDICAL HISTORY No date: NONE PAST SURGICAL HISTORY No date: RCNSTJ TENDON KAYA EACH W/LOCAL TISSUES SPX Comment: RECONSTRUCTIVE HAND SURGERY RIGHT HAND No date: RPR UMBILICAL HERNIA < 5 YRS REDUCIBLE Comment: Hernia repair, umbilical ALLERGIES Shellfish Containing Products, Codeine, Hydrocodone-Acetaminophen, and Cyclobenzaprine MEDICATIONS folic acid 1 mg tablet Take 1 tablet by mouth every afternoon. Valsartan-hydroCHLOROthiazide 320-25 mg per tablet Take 1 tablet by mouth once daily. omeprazole (PRILOSEC) 20 mg capsule Take 20 mg by mouth twice daily. IBUPROFEN 800 MG TAB Take one(1) tablet daily. benzonatate (TESSALON PERLES) 100 mg capsule Take 1 capsule by mouth three times daily as needed for cough. (Patient not taking: Reported on 07/01/2023) naproxen (NAPROSYN) 500 mg tablet Take 500 mg by mouth twice daily with meals. ZANTAC 150 MG TAB Take one(1) tablet two(2) times daily. (Patient not taking: Reported on 12/19/2022) DIFLUCAN 200 MG TAB 2 at once (Patient not taking: No sig reported) NEXIUM 40 MG CAP Take one(1) tablet daily. (Patient not taking: No sig reported) DICLOFENAC 75 MG TAB, DELAYED RELEASE Take one(1) tablet two(2) times daily. (Patient not taking: No sig reported) No family history on file. Social History Tobacco Use Smoking status: Former Current packs/day: 0.00 Types: Cigarettes Start date: 2009 Quit date: 2017 Years since quittin.6 Smokeless tobacco: Former Types: Snuff Quit date: 06/12/2018 Substance Use Topics Alcohol use: Yes Alcohol/week: 3.0 standard drinks of alcohol Types: 3 Shots of liquor per week Comment: daily Drug use: No Review of Systems Constitutional: Positive for chills and fatigue. Negative for fever. HENT: Positive for sore throat. Negative for congestion. Respiratory: Negative for cough and shortness of breath. Gastrointestinal: Negative for diarrhea and vomiting. Musculoskeletal: Positive for myalgias. Objective BP 169/105 Pulse 73 Temp 36.4 C (97.5 F) Resp 20 Wt (!) 164.8 kg (363 lb 5.1 oz) SpO2 95% Physical Exam Vitals and nursing note reviewed. Constitutional: General: He is not in acute distress. Appearance: Normal appearance. He is not toxic-appearing. HENT: Right Ear: Tympanic membrane and ear canal normal. Left Ear: Tympanic membrane and ear canal normal. Nose: Nose normal. Mouth/Throat: Mouth: Mucous membranes are moist. Pharynx: Uvula midline. Posterior oropharyngeal erythema present. Tonsils: No tonsillar exudate or tonsillar abscesses. 1+ on the right. 1+ on the left. Eyes: Conjunctiva/sclera: Conjunctivae normal. Cardiovascular: Rate and Rhythm: Normal rate and regular rhythm. Pulmonary: Effort: Pulmonary effort is normal. Breath sounds: Normal breath sounds. No wheezing, rhonchi or rales. Skin: General: Skin is warm and dry. Neurological: Mental Status: He is alert. Assessment and Plan ASSESSMENT/PLAN: 1. Sore throat - ICD9: 462, ICD10: J02.9 (primary diagnosis) - suspect viral - Group A strep molecular testing negative - Discussed supportive care treatment with fluids, rest and analgesia. - The patient may also use warm salt water gargles, throat lozenges and/or OTC throat spray as needed. - STREP A MOLECULAR (POC) - COVID NAAT, UPPER RESPIRATORY, ROUTINE 2. URI, acute - ICD9: 465.9, ICD10: J06.9 - Discussed viral etiology and rationale for treatment. - Symptomatic treatment with prn analgesia - Supportive care with fluids and rest - COVID NAAT, UPPER RESPIRATORY, ROUTINE - No recent lab testing on patient. Advised patient if COVID-positive and interested in antiviral medication, needs to contact his PCP. Patient agreeable. 3. Hypertension, unspecified type - ICD9: 401.9, ICD10: I10 - Home blood pressure readings controlled -Did not take medication today. Advised to take it when he gets home.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 November 07 8:19am Pain with swallowing November 07, 2024 8:19am Upper abdominal pain November 07, 2024 8:19am History of hemorrhoids November 07 8:19am Hx of gastroesophageal reflux (GERD) Oct 8:19am Disc disease, degenerative, lumbar or michaela mbosacral November 24, 2024 2:14pm Lumbar spondylolysis November 24, 2024 2:14pm Obesity November 24, 2024 2 :14pm Additional Source Comments (unrecognized sect ion and content) No Status Records FoundNo Status Records FoundNo Status Records FoundNo Status Records FoundNo Status Records Found INFORMATION SOURCE (unrecogn ized section and content) DATE CREATED AUTHOR 09/11/2021 [facility] DATE CREATED AUTHOR AUTHOR'S ORGANIZ ATION 02/16/2023 [facility] DATE CREATED AUTHOR AUTHOR'S ORGANIZ ATION 03/12/2024 [facility] DATE CREATED AUTHOR AUTHOR'S ORGANIZ ATION 09/10/2024 [facility] DATE CREATED AUTHOR AUTHOR'S ORGANIZ ATION 01/29/2025 [facility] Source Comments (unrecognize d section and content) In the event this informatio n is protected by the Federal Confidentiality of Alcohol and Drug Abuse Patient Records regulations: The Federal rules restrict any use of the information to criminally investigate or prosecute any alcohol or drug abuse patient.OhiohealthIn the event this information is protected by the Federal Confidentiality of Alcohol and Drug Abuse Patient Records regulations: The Federal rules restrict any use of the information to criminally investigate or prosecute any alcohol or drug abuse patient.OhiohealthIn the event this information is protected by the Federal Confidentiality of Alcohol and Drug Abuse Patient Records regulations: The Federal rules restrict any use of the information to criminally investigate or prosecute any alcohol or drug abuse patient.OhiohealthIn the event this information is protected by the Federal Confidentiality of Alcohol and Drug Abuse Patient Records regulations: The Federal rules restrict any use of the information to criminally investigate or prosecute any alcohol or drug abuse patient.OhiohealthIn the event this information is protected by the Federal Confidentiality of Alcohol and Drug Abuse Patient Records regulations: The Federal rules restrict any use of the information to criminally investigate or prosecute any alcohol or drug abuse patient.OhiohealthIn the event this information is protected by the Federal Confidentiality of Alcohol and Drug Abuse Patient Records regulations: The Federal rules restrict any use of the information to criminally investigate or prosecute any alcohol or drug abuse patient.[facility] Reason for Visit (unrecogniz ed section and content) Reason Comments Chest Congestion cough, sore throat f rom cough x 3 weeks Reason Comments Medication Request Reason Comments Sore Throat ALONZO, fatigue, bodyach es x this AM Reason Comments Results Reason Comments Head Congestion drainage, cough, hea dache x 4 days Care Teams (unrecognized sec tion and content) Vocational Aide Relationship Specialty Start Date End Date Mya Sánchez MD [address] [place], [place] [id number] PCP - General Family Medicine 01/23/23 Team Status: Active Member Role Status Dates Dr. Jeferson Reinoso MD Family Provider Active Dr. Mya Sánchez MD Primary Care Provider Active Team Status: Inactive Member Role Status Dates Dr. Christian Lazcano MD Emergency Provider Active Dr. Mya Sánchez MD Primary Care Provider Active Team Status: Inactive Member Role Status Dates Dr. Christian Lazcano MD Attending Provider, Emergency Provider Active Dr. Mya Sánchez MD Primary Care Provider Active Team Status: Inactive Member Role Status Dates Dr. Mya Sánchez MD Primary Care Provider Active Dr. Laura Londono DO Attending Provider, Referring Rere [email or web address] Active Team Status: Inactive Member Role Status Dates Dr. Mya Sánchez MD Primary Care Provider Active Dr. Laura Londono DO Attending Provider Active Vocational Aide Relationship Specialty Start Date End Date Mya Sánchez MD [address] [place], [place] [id number] PCP - General Family Medicine 01/23/23 Team Status: Inactive Member Role Status Dates Dr. Mya Sánchez MD Primary Care Provider Active Aaron Langston MD Emergency Provider Active Vocational Aide Relationship Specialty Start Date End Date Lea Atkins CNP PCP - General C APPLICATION DEVELOPER 06/02/16 01/22/23 Team Status: Inactive Member Role Status Dates Dr. Mya Sánchez MD Primary Care Provider, Attendin g Provider Active Team Status: Inactive Member Role Status Dates Dr. Mya Sánchez MD Primary Care Provider Active Aaron Langston MD Attending Provider, Emergency Provid er Active Vocational Aide Relationship Specialty Start Date End Date Mya Sánchez MD [address] [place] [address] PCP - General Family Medicine 01/23/23 Vocational Aide Relationship Specialty Start Date End Date Mya Sánchez MD [address] [place], [place] [id number] PCP - General Family Medicine 01/23/23 Vocational Aide Relationship Specialty Start Date End Date Mya Sánchez MD [address] [place], [place] [address] PCP - General Family Medicine 01/23/23 Team Status: Active Member Role Status Dates Dr. Mya Sánchez MD Primary Care Provider Active Team Status: Inactive Member Role Status Dates Dr. Mya Sánchez MD Primary Care Provider Active Start: October 20, 2024 End: October 23, 2024 Dr. Jesus Manuel Jenkins DO Emergency Provider Active Start: October 20, 2024 End: October 23, 2024 Dr. Que Arita DO Admit Provider Active Start: October 20, 2024 End: October 23, 2024 Dr. Que Arita DO Other Provider Active Start: October 20, 2024 End: October 23, 2024 Dr. Keny Lee MD Attending Provider Active Start: October 20, 2024 End: October 23, 2024 Team Status: Active Member Role Status Dates Dr. Mya Sánchez MD Primary Care Provider Active Start: October 21, 2024 Dr. Jesus Manuel Jenkins DO Emergency Provider Active Start: October 21, 2024 Dr. Que Arita DO Admit Provider Active Start: October 21, 2024 Dr. Que Arita DO Other Provider Active Start: October 21, 2024 Dr. Keny Lee MD Attending Provider Active Start: October 21, 2024 Dr. Keny Lee MD Other Provider Active Start: October 21, 2024 Team Status: Active Member Role Status Dates Dr. Mya Sánchez MD Primary Care Provider Active Start: October 22, 2024 Dr. Jesus Manuel Jenkins DO Emergency Provider Active Start: October 22, 2024 Dr. Que Arita DO Admit Provider Active Start: October 22, 2024 Dr. Que Arita DO Other Provider Active Start: October 22, 2024 Dr. Keny Lee MD Attending Provider Active Start: October 22, 2024 Dr. Keny Lee MD Other Provider Active Start: October 22, 2024 Team Status: Active Member Role Status Dates Dr. Mya Sánchez MD Primary Care Provider Active Start: October 23, 2024 Dr. Jesus Manuel Jenkins DO Emergency Provider Active Start: October 23, 2024 Dr. Que Arita DO Admit Provider Active Start: October 23, 2024 Dr. Que Arita DO Other Provider Active Start: October 23, 2024 Dr. Keny Lee MD Attending Provider Active Start: October 23, 2024 Dr. Keny Lee MD Other Provider Active Start: October 23, 2024 Team Status: Inactive Member Role Status Dates Dr. Mya Sánchez MD Primary Care Provider Active Start: October 24, 2024 End: October 24, 2024 JEANIE Ponce Attending Provider Active St art: October 24, 2024 End: October 24, 2024 JEANIE Ponce Referring Provider Active St art: October 24, 2024 End: October 24, 2024 Team Status: Inactive Member Role Status Dates Dr. Mya Sánchez MD Primary Care Provider Active Start: November 07, 2024 End: November 07, 2024 Dr. Mya Sánchez MD Referring Provider Active Start: November 07, 2024 End: November 07, 2024 Dr. Juan Moore MD Attending Provider Active Start: November 07, 2024 End: November 07, 2024 Team Status: Inactive Member Role Status Dates Dr. Mya Sánchez MD Primary Care Provider Active Start: November 15, 2024 End: November 15, 2024 JEANIE Ponce Attending Provider Active St art: November 15, 2024 End: November 15, 2024 Krissy King NP-Gómez Referring Provider Active St art: November 15, 2024 End: November 15, 2024 Team Status: Inactive Member Role Status Dates Dr. Mya Sánchez MD Primary Care Provider Active Start: November 24, 2024 End: November 24, 2024 Dr. Mya Sánchez MD Referring Provider Active Start: November 24, 2024 End: November 24, 2024 Dr. Ervin Domínguez DO Attending Provider Active Start: November 24, 2024 End: November 24, 2024 Team Status: Inactive Member Role Status Dates Dr. May Sánchez MD Primary Care Provider Active Start: November 24, 2024 End: November 24, 2024 Dr. Gonzalez Ann MD Attending Provider Active S tart: November 24, 2024 End: November 24, 2024 Team Status: Inactive Member Role Status Dates Dr. Mya Sánchez MD Primary Care Provider Active Start: December 08, 2024 End: December 08, 2024 Dr. Adam Cantrell DO Attending Provider Active Start: December 08, 2024 End: December 08, 2024 Dr. Adam Cantrell DO Referring Provider Active Start: December 08, 2024 End: December 08, 2024 Dr. Adam Cantrell DO Emergency Provider Active Start: December 08, 2024 End: December 08, 2024 Team Status: Inactive Member Role Status Dates Dr. Mya Sánchez MD Primary Care Provider Active Start: December 08, 2024 End: December 08, 2024 Dr. Mya Sánchez MD Referring Provider Active Start: December 08, 2024 End: December 08, 2024 Randy Morse PA, PA Attending Provider Active Start: December 08, 2024 End: December 08, 2024 Team Status: Inactive Member Role Status Dates Dr. Mya Sánchez MD Primary Care Provider Active Start: January 14, 2025 End: January 14, 2025 Dr. Jaylen Hadley DPM Attending Provider Active Start: January 14, 2025 End: January 14, 2025 Dr. Jaylen Hadley DPM Referring Provider Active Start: January 14, 2025 End: January 14, 2025 Goals (unrecognized section and content) Goals may be documented in a n alternate sectionGoals may be documented in an alternate sectionGoals may be documented in an alternate sectionGoals may be documented in an alternate sectionGoals may be documented in an alternate section FOR RECORDS PERTAINING TO PATIENTS WHO ARE OR HAVE BEEN ENROLLED IN A CHEMICAL DEPENDENCY/SUBSTANCEABUSE PROGRAM, SOME INFORMATION MAY BE OMITTED. This clinical summary was aggregated from multiple sources. Caution should be exercised in using it in the provision of clinical care. This summary normalizes information from multiple sources, and as a consequence, information in this document may materially change the coding, format and clinical context of patient data. In addition, data may be omitted in some cases. CLINICAL DECISIONS SHOULD BE BASED ON THE PRIMARY CLINICAL RECORDS. [facility]. provides no warranty or guarantee of the accuracy or completeness of information in this document.
== END 2025-10-06 06:54 | disposition home or self-care (01) ==
PROVIDERS: Emergency Provider Emergency Medicine; PCP Family Medicine; Visit Provider Emergency Medicine
DX: M10.9 Gout, unspecified (principal); I10 Essential (primary) hypertension; E66.9 Obesity, unspecified; K21.9 Gastro-esophageal reflux disease without esophagitis; F17.210 Nicotine dependence, cigarettes, uncomplicated; F17.220 Nicotine dependence, chewing tobacco, uncomplicated; Z79.82 Long term (current) use of aspirin; Z79.899 Other long term (current) drug therapy
CPT/HCPCS: 96372; 99283

== ENCOUNTER → 2025-10-20 | Outpatient (CLI) | payer MEDICAID, SELFPAY ==
[2025-10-20 15:06] LABS: Hematocrit 39.4 % (40-54); Hemoglobin 12.4 g/dL (13.0-16.5); Immature Granulocytes Count 0.020 X10^3/uL (0.0-0.0); Mean Corp Hgb Conc 31.5 g/dL (32-36); Mean Corpuscular Volume 82.4 fL (80-94); Mean Platelet Vol. 11.7 fl (6.2-12.0); NRBC Flagged by Analyzer 0 % (0-5); Platelet Count 204 K/mm3 (150-450); RBC Distribution Width CV 13.9 % (11.6-14.6); RBC Distribution Width SD 41.8 fl (35.1-43.9); Red Blood Count 4.78 M/mm3 (4.6-6.2); White Blood Count 8.6 K/mm3 (4.4-11.0)
[2025-10-20 16:14] LABS: AST(SGOT) 26 U/L (<=37); Alanine Aminotransfer ALT/SGPT 34 U/L (<=46); Albumin, Serum 3.7 g/dL (3.5-5.0); Alkaline Phosphatase 82 U/L (40-129); Anion Gap 9 (5-15); BUN 14 mg/dL (4-19); BUN/Creat Ratio 16.2 RATIO (10-20); Calcium,Total 9.1 mg/dL (7.6-11.0); Carbon Dioxide 26.9 mmol/L (21.0-32.0); Chloride 104 mmol/L (98-108); Cholesterol 150 mg/dL (<=200); Globulin 2.9 g/dL (2.2-4.2); Glucose 130 mg/dL (70-99); Low Density Lipoprotein Calc. 79 mg/dL; Potassium 4.1 mmol/L (3.3-5.1); Triglycerides 278 mg/dL; Very Low Density Lipoprotein 56 mg/dL (5-40); Vitamin D,25 Hydroxy 28.0 ng/mL (30-100); cholesterol:hdl ratio screen 5.88
== END | disposition home or self-care (01) ==
LOC: BFHLAB 12:03
PROVIDERS: PCP Family Medicine; Visit Provider Family Medicine
DX: I10 Essential (primary) hypertension (principal); E78.1 Pure hyperglyceridemia; K70.0 Alcoholic fatty liver; E55.9 Vitamin D deficiency, unspecified
CPT/HCPCS: 36415; 80053; 80061; 82306; 85025

== ENCOUNTER → 2025-11-10 | Outpatient (CLI) | payer MEDICAID, SELFPAY ==
--- NOTE | 2025-11-10 07:28 | US_ITS ---
PROCEDURE: ABD LIMITED W/ ELASTOGRAPHY, 11/10/2025 REASON FOR EXAM: FATTY LIVER COMPARISON: None TECHNIQUE: Grayscale and color Doppler imaging of the right upper quadrant was performed. Elastography was performed for non-invasive assessment of liver tissue stiffness utilizing a Reniac S-shear wave imaging unit. FINDINGS: Exam limited by soft tissue attenuation and shadowing bowel gas. Liver: Echogenic. 23.5 cm in length. Gallbladder: Unremarkable. Reportedly, sonographic Casas's was negative. Biliary tree: Unremarkable. CBD measures 4 mm. Pancreas: Partially obscured by shadowing bowel gas, grossly unremarkable as visualized. Right kidney: Unremarkable. 11.8 cm in length. Other: No visualized free fluid. Hepatic elastography: Number of measurements: 6. US probe: CA1-7A. EQI median: 4.3 kPa EQI median velocity: 1.17 m/s IQR/Med: 18.0% (kPa) and 8.3% (m/s). If the IQR/Med is IQR/median >30% (for kPa) or >15% in m/s, the variance in the measurements is a large and the accuracy of the measurement may be in question. US/ABD Limited w/ Elastography IMPRESSION: 1. Hepatomegaly and apperance of the hepatic parenchyma which is most frequentl y suggestive of hepatocellular disease such as steatosis. Correlate for clinical and laboratory evidence of chronic liver dise ase.. 2. Liver stiffness is 4.3 kPa. Per the below 2020 SRU criteria, this indicates a high probability of being normal. 3. Additional description as above. Assessment is per the Update to the SRU Liver Elastography Consensus Statement (2020) Note that the above assessment of liver fibrosis is vendor-neutral and intended for use in fibrosis related to viral etiologies and non-alcoholic fatty-liver disease (NAFLD); in causes other than viral hepat itis and NAFLD, the cutoff values are currently not well established. In some patients with NAFLD, the cutoff values for cACLD may be lower (7-9 kPa). Note also that in the setting of elevated LFTs, nonfasting or vascular congestion, the stage of lifer fibrosis may be overestimated. Previous SRU reference values: <1.37 m/s (5.7kPa): No to mild fibrosis 1.37 m/s - 2.2 m/s: Moderate to severe fibrosis >2.2 m/s (15kPa): Significant fibrosis / cirrhosis Reading Location: [id number]
--- OUTSIDE RECORDS SUMMARY | 2025-11-10 07:30 | XMS RPT_ITS | CCD ---
Author Organization [facility] CliniSyky Care Team Providers Care Claims Sorter Name Role Phone Mya Sánchez MD Primary Care Provider LEA ATKINS Consulting Unavailable SHANT MUNOZ MD Admitting Unavailable SHANT MUNOZ MD Primary Care Unavailable SHANT MUNOZ MD Attending Unavailable PROVIDER, UNKNOWN Consulting Unavailable LAURA LONDONO Referring Unavailable SHANT MUNOZ MD Admitting Unavailable SHANT MUNOZ MD Primary Care Unavailable SHANT MUNOZ MD Attending Unavailable Lea Atkins CNP Primary Care Provider MYA SÁNCHEZ Attending Unavailable [facility], MYA Primary Care Unavailable Mya Sánchez MD Primary Care Provider MYA SÁNCHEZ Primary Care Unavailable INMYA MOLINA E Primary Care Unavailable [facility], Mya Primary Care Unavailable Jaylen Hadley Referring Unavailable Jaylen Hadley Attending Unavailable Adam Cantrell Referring Unavailable Adam Cantrell Attending Unavailable [facility], Mya Primary Care Unavailable Juan Moore Attending Unavailable [facility], Mya Primary Care Unavailable Nmedel, Mya Primary Care Unavailable Lyla Que Consulting Unavailable Lyla Que Admitting Unavailable Keny Lee Attending [facility] Unavailable Mostjennifer, Que Admitting Unavailable Mostjennifer, Que Consulting Unavailable Keny Lee Attending Unavailable Keny Lee Consulting Unavailable [facility], Mya Primary Care Unavailable Gonzalez Ann Attending Unavailable [facility], Mya Primary Care Unavailable Randy Barbour Attending Unavailable [facility], Mya Referring Unavailable Juan Moore Attending Unavailable [facility], Mya Primary Care Unavailable Miedel, [...] Dr. Keny Lee MD Other Provider Fernando STENCIL CUTTER MACHINE-C, Krissy Attending Provider Fernando STENCIL CUTTER MACHINE-C, Krissy Referring Provider Dr. Mya Sánchez MD Referring Provider Dr. Juan Moore MD Attending Provider Dr. Ervin Domínguez DO Attending Provider Dr. Gonzalez Ann MD Attending Provider Dr. Adam Cantrell DO Attending Provider Dr. Adam Cantrell DO Referring Provider Dr. Adam Cantrell DO Emergency Provider Randy Barbour Attending Provider [phone] Jomar DICKEY, Dr. York Attending Provider Dr. Jaylen Hadley DPM Referring Provider [phone] Allergies Allergy Classification Reported Allergen(s) Allergy Type Date of Onset Reaction(s) Facility (7 sources) Shellfish; Translations: [SHELLFISH CONTAINING PRODUCTS] Drug Allergy 9 Anaphylaxis [facility] Work Phone: (7 sources) cyclobenzaprine; Translations: [CYCLOBENZAPRINE] Drug Allergy 3 Other: See Comments [facility] (3 sources) Food Allergies: Uncoded Allergy to substance 3 Anaphylaxis [facility] (1 source) Acetaminophen / HYDROcodone Drug Allergy [facility] (2 sources) Codeine; Translations: [CODEINE] Drug Allergy 4 [facility] (1 source) Seafood; Translations: [SEAFOOD] Food allergy (disorder) [facility] (4 sources) Acetaminophen / HYDROcodone; Translations: [HYDROCODONE-ACET AMINOPHEN] Drug Allergy 4 Unknown [facility] (3 sources) Codeine Drug Allergy 4 Unknown [facility] (1 source) Shellfish Drug allergy (disorder) 5 [facility] (1 source) Shellfish; Translations: [SHELLFISH] Propensity to adverse reactions (disorder) 3 [facility] Repository Medications Current Medications Medication Drug Class(es) [...] on above: Take [address] [facility] four times daily for 5 days. cholecalciferol [...] Comment on above: [facility] hydroCHLOROthiazide 25 mg / valsartan [...] 6 HOURS NEEDED 10 July 03, 2023 [id number] 200 actuat albuterol 0.09 mg/actuat metered dose [...] on above: Take [address] [facility] three times daily as needed for cough. [...] 01-14-2025 Neutrophils (Bld) [#/Vol] 5.8 10*3/uL 2.0-7.7 [facility] Anion gap in Serum or Plasma Ordered By: Jaylen Hadley on 01-14-2025 Anion gap [Moles/Vol] 16 mmol/L High 03-26 [facility] BUN/creatinine ratioOrdered By: Jaylen Hadley on 01-14-2025 Urea nitrogen/Creatinine [Mass ratio] 14.8 mg/mg 08-31 [facility] Basic Metabolic Profile (BMP )on 01-14-2025 BUN/CRE 14.8 RATIO Normal 08-31 [facility] Comment on above: Performed By: #### L 500.2500, L100.0100, L501.1400 #### [facility] [address] [place], [place], [id number] Calcium [Mass/Vol] 9.3 mg/dL Normal 7.6-11.0 [facility] Comment on above: Performed By: #### L 500.2500, L100.0100, L501.1400 #### [facility] [address] [place], [address] Chloride [Moles/Vol] 100 mmol/L Normal 98-108 [facility] Comment on above: Performed By: #### L 500.2500, L100.0100, L501.1400 #### [facility] [address] [place], [address] CO2 [Moles/Vol] 20.6 mmol/L Low 21.0-32.0 [facility] Comment on above: Performed By: #### L 500.2500, L100.0100, L501.1400 #### [facility] [address] [place], [address] Creatinine [Mass/Vol] 0.94 mg/dL Normal 0.70-1.20 [facility] Comment on above: Performed By: #### L 500.2500, L100.0100, L501.1400 #### [facility] [address] [place], [address] GAP 16 High 5-15 [facility] Comment on above: Performed By: #### L 500.2500, L100.0100, L501.1400 #### [facility] [address] [place], [address] GFR/1.73 sq M.predicted among non-blacks MDRD (S/P/Bld) [Vol rate/Area] 101 mL/min/{1.73_m2} Normal >60 [facility] Comment on above: Result Comment: mL/m in/1.73m2 CKD-EPI Creatinine Equation (2020) Performed By: #### L 500.2500, L100.0100, L501.1400 #### [facility] [address] [place], [address] Glucose [Mass/Vol] 129 mg/dL High 70-99 [facility] Comment on above: Performed By: #### L 500.2500, L100.0100, L501.1400 #### [facility] [address] [place], [address] Potassium [Moles/Vol] 4.2 mmol/L Normal 3.3-5.1 [facility] Comment on above: Performed By: #### L 500.2500, L100.0100, L501.1400 #### [facility] [address] [place], [address] Sodium [Moles/Vol] 137 mmol/L Normal 133-145 [facility] Comment on above: Performed By: #### L 500.2500, L100.0100, L501.1400 #### [facility] [address] [place], [address] Urea nitrogen [Mass/Vol] 14 mg/dL Normal 4-19 [facility] Comment on above: Performed By: #### L 500.2500, L100.0100, L501.1400 #### [facility] [address] [place], [address] Basophil percentageOrdered B y: Jaylen Hadley on 01-14-2025 Basophils/100 WBC (Bld) 0.8 % 0-1 [facility] CBC W/Diff, Automatedon Absolute Lymph 2.03 X10 3/uL Normal 0.83-4.51 [facility] Comment on above: Performed By: #### L 500.2500, L100.0100, L501.1400 #### [facility] [address] [place], [address] Absolute Neut 5.8 X10 3/uL Normal 2.0-7.7 [facility] Comment on above: Performed By: #### L 500.2500, L100.0100, L501.1400 #### [facility] [address] [place], [address] Basophils/100 WBC (Bld) 0.8 % Normal 0-1 [facility] Comment on above: Performed By: #### L 500.2500, L100.0100, L501.1400 #### [facility] [address] [place], [address] Eosinophils/100 WBC (Bld) 7.1 % High 0-5 [facility] Comment on above: Performed By: #### L 500.2500, L100.0100, L501.1400 #### [facility] [address] [place], [address] Erythrocyte distribution width (RBC) [Ratio] 12.8 % Normal 11.6-14.6 [facility] Comment on above: Performed By: #### L 500.2500, L100.0100, L501.1400 #### [facility] [address] [place], [address] Hematocrit (Bld) [Volume fraction] 48.5 % Normal 40-54 [facility] Comment on above: Performed By: #### L 500.2500, L100.0100, L501.1400 #### [facility] [address] [place], [address] Hemoglobin (Bld) [Mass/Vol] 16.1 g/dL Normal 13.0-16.5 [facility] Comment on above: Performed By: #### L 500.2500, L100.0100, L501.1400 #### [facility] [address] [place], [address] IG% 0.400 Normal 0.0-0.9 [facility] Comment on above: Result Comment: IG% - Immature Granulocytes (promyelocytes, myelocytes and metamyelocytes) > 1% indicates that a LEFT SHIFT is Present. Performed By: #### L 500.2500, L100.0100, L501.1400 #### [facility] [address] [place], [address] Lymphocytes/100 WBC (Bld) 22.3 % Normal 19-41 [facility] Comment on above: Performed By: #### L 500.2500, L100.0100, L501.1400 #### [facility] [address] [place], [address] MCH (RBC) [Entitic mass] 28.5 pg Normal 27.0-32.0 [facility] Comment on above: Performed By: #### L 500.2500, L100.0100, L501.1400 #### [facility] [address] [place], [address] MCHC (RBC) [Mass/Vol] 33.2 g/dL Normal 32-36 [facility] Comment on above: Performed By: #### L 500.2500, L100.0100, L501.1400 #### [facility] [address] [place], [address] MCV (RBC) [Entitic vol] 86.0 fL Normal 80-94 [facility] Comment on above: Performed By: #### L 500.2500, L100.0100, L501.1400 #### [facility] [address] [place], [address] Monocytes/100 WBC (Bld) 6.3 % Normal 0-10 [facility] Comment on above: Performed By: #### L 500.2500, L100.0100, L501.1400 #### [facility] [address] [place], [address] Neutrophils/100 WBC (Bld) 63.1 % Normal 47-70 [facility] Comment on above: Performed By: #### L 500.2500, L100.0100, L501.1400 #### [facility] [address] [place], [address] Nucleated RBC (Bld) [#/Vol] 0 10*3/uL Normal 0-5 [facility] Comment on above: Performed By: #### L 500.2500, L100.0100, L501.1400 #### [facility] [address] [place], [address] Platelet mean volume (Bld) [Entitic vol] 11.2 fL Normal 6.2-12.0 [facility] Comment on above: Performed By: #### L 500.2500, L100.0100, L501.1400 #### [facility] [address] [place], [address] Platelets (Bld) [#/Vol] 198 10*3/uL Normal 150-450 [facility] Comment on above: Performed By: #### L 500.2500, L100.0100, L501.1400 #### [facility] [address] [place], [address] RBC (Bld) [#/Vol] 5.64 10*6/uL Normal 4.6-6.2 [facility] Comment on above: Performed By: #### L 500.2500, L100.0100, L501.1400 #### [facility] [address] [place], [address] RDW SD 39.9 fl Normal 35.1-43.9 [facility] Comment on above: Performed By: #### L 500.2500, L100.0100, L501.1400 #### [facility] [address] [place], [address] WBC (Bld) [#/Vol] 9.1 10*3/uL Normal 4.4-11.0 [facility] Comment on above: Performed By: #### L 500.2500, L100.0100, L501.1400 #### [facility] [address] [place], [address] Carbon dioxide, total [Moles /volume] in Central venous bloodOrdered By: Jaylen Hadley on 01-14-2025 CO2 [Moles/Vol] 20.6 mmol/L Low 21.0-32.0 [facility] Chloride assayOrdered By: Chris Hadley on 01-14-2025 Chloride [Moles/Vol] 100 mmol/L 98-108 [facility] Eosinophil percentageOrdered By: Jaylen Hadley on 01-14-2025 Eosinophils/100 WBC (Bld) 7.1 % High 0-5 [facility] Erythrocyte distribution wid th ratioOrdered By: Jaylen Hadley on 01-14-2025 Erythrocyte distribution width (RBC) [Ratio] 12.8 % 11.6-14.6 [facility] Erythrocyte distribution wid th standard deviationOrdered By: Jaylen Hadley on 01-14-2025 Erythrocyte distribution width (RBC) [Entitic vol] 39.9 fL 35.1-43.9 [facility] GFR/1.73 sq M.predicted jennifer g non-blacks MDRD (S/P/Bld) [Vol rate/Area]Ordered By: Jaylen Hadley on 01-14-2025 Estimated GFR (MDRD) Non-Af Amer 101 >60 [facility] Comment on above: mL/min/1.73m2 CKD-EP I Creatinine Equation (2020) Hematocrit Auto (Bld) [Volum e fraction]Ordered By: Jaylen Hadley on 01-14-2025 Hematocrit (Bld) [Volume fraction] 48.5 % 40-54 [facility] Hemoglobin measurementOrdere d By: Jaylen Hadley on 01-14-2025 Hemoglobin (Bld) [Mass/Vol] 16.1 g/dL 13.0-16.5 [facility] Immature granulocytes/100 WB C Auto (Bld)Ordered By: Jaylen Hadley on 01-14-2025 Immature granulocytes/100 WBC (Bld) 0.400 % 0.0-0.9 [facility] Comment on above: IG% - Immature Granu locytes (promyelocytes, myelocytes and metamyelocytes) > 1% indicates that a LEFT SHIFT is Present. Lymphocytes Auto (Unsp spec) [#/Vol]Ordered By: Jaylen Hadley on 01-14-2025 Lymphocytes (Bld) [#/Vol] 2.03 10*3/uL 0.83-4.5 1 [facility] Lymphocytes/100 WBC Auto (Un sp spec)Ordered By: Jaylen Hadley on 01-14-2025 Lymphocytes/100 WBC (Bld) 22.3 % 19-41 [facility] MCV (mean corpuscular volume ) determinationOrdered By: Jaylen Hadley on 01-14-2025 MCV (RBC) [Entitic vol] 86.0 fL 80-94 [facility] Mean corpuscular hemoglobin (MCH) determinationOrdered By: Jaylen Hadley on 01-14-2025 MCH (RBC) [Entitic mass] 28.5 pg 27.0-32.0 [facility] Mean corpuscular hemoglobin concentration (MCHC) determinationOrdered By: Jaylen Hadley on 01-14-2025 MCHC (RBC) [Mass/Vol] 33.2 g/dL 32-36 [facility] Mean platelet volume determi nationOrdered By: Jaylen Hadley on 01-14-2025 Platelet mean volume (Bld) [Entitic vol] 11.2 fL 6.2-12.0 [facility] Monocyte percentageOrdered B y: Jaylen Hadley on 01-14-2025 Monocytes/100 WBC (Bld) 6.3 % 0-10 [facility] Neutrophil percentageOrdered By: Jaylen Hadley on 01-14-2025 Neutrophils/100 WBC (Bld) 63.1 % 47-70 [facility] Nucleated red blood cell per centageOrdered By: Jaylen Hadley on 01-14-2025 Nucleated RBC/100 WBC (Bld) [Ratio] 0 % 0-5 [facility] Platelet countOrdered By: Chris Hadley on 01-14-2025 Platelets (Bld) [#/Vol] 198 10*3/uL 150-450 [facility] Potassium (Unsp spec) [Mass/ Vol]Ordered By: Jaylen Hadley on 01-14-2025 Potassium [Moles/Vol] 4.2 mmol/L 3.3-5.1 [facility] RBC Auto (Bld) [#/Vol]Ordere d By: Jaylen Hadley on 01-14-2025 RBC (Bld) [#/Vol] 5.64 10*6/uL 4.6-6.2 [facility] Serum creatinine measurement (mass/volume)Ordered By: Jaylen Hadley on 01-14-2025 Creatinine [Mass/Vol] 0.94 mg/dL 0.70-1.20 [facility] Serum glucose measurement (m ass/volume)Ordered By: Jaylen Hadley on 01-14-2025 Glucose [Mass/Vol] 129 mg/dL High 70-99 [facility] Serum or plasma calcium melba urement (mass/volume)Ordered By: Jaylen Hadley on 01-14-2025 Calcium [Mass/Vol] 9.3 mg/dL 7.6-11.0 [facility] Serum or plasma urea nitroge n measurement (mass/volume)Ordered By: Jaylen Hadley on 01-14-2025 Urea nitrogen [Mass/Vol] 14 mg/dL 4-19 [facility] Serum or plasma uric acid me asurement (mass/volume)Ordered By: Jaylen Hadley on 01-14-2025 Urate [Mass/Vol] 8.4 mg/dL High 3.5-7.2 [facility] Comment on above: The drugs N-Acetylcy steine and Metamizole may falsely depress this assay. Sodium levelOrdered By: Rd Hadley on 01-14-2025 Sodium [Moles/Vol] 137 mmol/L 133-145 [facility] Uric Acidon 01-14-2025 URIC 8.4 mg/dL High 3.5-7.2 [facility] Comment on above: Result Comment: The drugs N-Acetylcysteine and Metamizole may falsely depress this assay. Performed By: #### L 500.2500, L100.0100, L501.1400 #### [facility] [address] [place], [address] White blood cell (WBC) count Ordered By: Jaylen Hadley on 01-14-2025 WBC (Bld) [#/Vol] 9.1 10*3/uL 4.4-11.0 [facility] Emergency Department Summary on 12-08-2024 Emergency Department Summary [facility] Medical Records Department [address] [place] [address] Emergency Department Summary 12/08/24 MR#: [id number] Acct: [id number] Name: ARON ESPINOZA Rep #: [id number] : 1975 49 From: Adam Cantrell DO PCP: Dr. Mya Sánchez MD Status:REG ER Location: ED HPI History of Present Illness Chief Complaint: Lower Extremity Injury [facility] Medical History Alcohol dependence Alcohol withdrawal Anxiety [...] Ox 99 Oxygen Delivery Method Room Air [facility] Narrative Medical decision making narrative: HISTORY OF [...] reviewed, Vital signs reviewed Constitutional: please see [facility] Lungs: Clear to auscultation, No wheezing or [...] History obtained from others: none Consults: none [facility] Narrative: The patient was initially hemodynamically stable, [...] first metata (more content not included)... Normal [facility] Foot min 3 Viewson 5 Foot min 3 Views [facility] Imaging Services [address] [place] [address] Foot min 3 Views MR#: [id number] Acct: [id number] Name: ARON ESPINOZA Rep #: [id number] : 1975 M 49 From: Jesus blanc MD PCP: Dr. Mya Sánchez MD Status: PRE ER Study: Foot min 3 Views Date of Exam: 12/08/24 Exam# [id number] Ordering Dr: Danie Cooper [id number] STUDY: X-RAY - LEFT FOOT CLINICAL: Male, [...] 14:56 EST Reading Location ID and State: [facility] / [place] , Service support , CC: Dr. Mya Sánchez MD; ED PHYSICIAN PROVIDER Segmental Paving Supervisor: Signed Normal [facility] Urgent Care Visit Reporton 0 12-08-2024 Urgent Care Visit Report [facility] [address], [address] [place] [address] OFFICE VISIT Date of Service: 12/08/24 MR#: [id number] Acct: [id number] Name: ARON ESPINOZA Rep #: [id number] : 1975 Provider: VERA Ruiz Age/Sex: 49/M Location: [facility] Status: Signed Intake Vital Signs 11/24/24 14:37 [...] Ferrara Signature: Date (if applicable) CC: Normal [facility] HIP, UNI W/ Pelvis 2-3 Views on 11-24-2024 HIP, UNI W/ Pelvis 2-3 Views [facility] [address] [place] [address] HIP, UNI W/ Pelvis 2-3 Views MR#: [id number] Acct: [id number] Name: ARON ESPINOZA Rep #: [id number] : 1975 M 49 From: Nicolas Gardner MD PCP: Dr. Mya Sánchez MD Status: DEP AMB Study: HIP, UNI W/ Pelvis 2-3 Views Date of Exam: Exam# [id number] Ordering Dr: Ervin Domínguez DO [id number] INDICATION: Pain, bilateral hips. EXAMINATION/TECHNIQUE: X-RAY - [...] Mya Sánchez MD; Dr. Ervin Domínguez DO Segmental Paving Supervisor: Signed Normal [facility] Lumbar Spine 2 or 3 Viewson 11-24-2024 Lumbar Spine 2 or 3 Views [facility] [address] [place] [address] Lumbar Spine 2 or 3 Views MR#: [id number] Acct: [id number] Name: ARON ESPINOZA Rep #: [id number] : 1975 M 49 From: Alli Hsu MD PCP: Dr. Mya Sánchez MD Status: DEP AMB Study: Lumbar Spine 2 or 3 Views Date of Exam: Exam# [id number] Ordering Dr: Ervin Domínguez DO [id number] EXAM: XR LUMBOSACRAL SPINE, 2 OR 3 [...] Mya Sánchez MD; Dr. Ervin Domínguez DO Segmental Paving Supervisor: Signed Normal [facility] Orthopedic Visit Reporton Orthopedic Visit Report [facility] [address] [place] [address] [address] [place] [address] OFFICE VISIT Date of Service: 11/24/24 MR#: [id number] Acct: [id number] Name: ARON ESPINOZA Rep #: [id number] : 1975 Provider: Dr. Ervin Cantrell so, DO Age/Sex: 49/M Location: [facility] Status: Signed Intake Vital Signs 11/07/24 08:44 [...] of lumbosacr (more content not included)... Normal [facility] Abdomen Limitedon 11-15-2024 Abdomen Limited [facility] Imaging Services [address] [place], [place] [address] Abdomen Limited MR#: [id number] Acct: [id number] Name: ARON ESPINOZA Rep #: [id number] : 1975 M 49 From: Flaco Churchill DO PCP: Dr. Mya Sánchez MD Status: [facility] Study: Abdomen Limited Date of Exam: 11/15/24 Exam# [id number] Ordering Dr: Krissy King STENCIL CUTTER MACHINE-C [id number] INDICATION: ALCOHOL USE/ASSESS FOR ABNORMALITIES EXAMINATION: Ultrasound [...] CC: JEANIE King; Dr. Mya Sánchez MD Segmental Paving Supervisor: Signed Normal [facility] Surgery Visit Reporton 11-07 Surgery Visit Report [facility] [address] [place] [address] OFFICE VISIT Date of Service: 11/07/24 MR#: [id number] Acct: [id number] Name: ARON ESPINOZA Rep #: [id number] : 1975 Provider: Dr. 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 Normal [facility] Hemoglobin A1con 10-27-2024 HbA1c (Bld) [Mass fraction] 5.9 % High 3.8-5.6 [facility] Comment on above: Result Comment: Norm al < 5.7 % Prediabetic 5.7 - 6.4 % Diabetic >or= 6.5 % Please note range changes. Performed By: #### L 501.9977 ####[facility] [id number] [facility] [place], [address] Vitamin B12on 10-27-2024 Cobalamin (Vitamin B12) [Mass/Vol] 671 pg/mL Normal 211-911 [facility] Comment on above: Performed By: #### L 506.0400, L503.6550, L503.6150, L501.9520, L500.4050, L506.1000, L501.4700, L100.0100, L503.0105 ####[facility] [id number] [facility] [place], [address] Vitamin D,25 Hydroxyon 10-27 Vitamin D 25-OH 17.5 ng/mL Normal [facility] Comment on above: Result Comment: [place] min D 25(OH) Status Range Deficiency <20 ng/mL (50nmol/L) Insufficiency 20 - 30 ng/mL (50 - 75 nmol/L) Sufficiency 30 - 100 ng/mL (75 - 250 nmol/L) Toxicity >100 ng/mL (>250 nmol/L) Performed By: #### L 506.0400, L503.6550, L503.6150, L501.9520, L500.4050, L506.1000, L501.4700, L100.0100, L503.0105 ####[facility] [id number] [place], [address] 15-MO-Qcajbrz DOrdered By: Lynn King on 10-24-2024 Vitamin D 25-Hydroxy 17.5 ng/mL [facility] Comment on above: Vitamin D 25(OH) Sta tus Range Deficiency <20 ng/mL (50nmol/L) Insufficiency 20 - 30 ng/mL (50 - 75 nmol/L) Sufficiency 30 - 100 ng/mL (75 - 250 nmol/L) Toxicity >100 ng/mL (>250 nmol/L) Absolute neutrophil countOrd ered By: Krissy King on 10-24-2024 Neutrophils (Bld) [#/Vol] 5.7 10*3/uL 2.0-7.7 [facility] Albumin to globulin ratioOrd ered By: Krissyryan King on 10-24-2024 Albumin/Globulin [Mass ratio] 0.8 {ratio} Low 0.9-2.4 [facility] Basophil percentageOrdered B y: Krissy King on 10-24-2024 Basophils/100 WBC (Bld) 0.8 % 0-1 [facility] Bilirubin directOrdered By: Krissy King on 10-24-2024 Bilirubin.direct [Mass/Vol] 0.13 mg/dL 0.00-0.30 [facility] Bilirubin, Directon 10-24-20 24 Bilirubin.direct [Mass/Vol] 0.13 mg/dL Normal 0.00-0.30 [facility] Comment on above: Performed By: #### L 506.0400, L503.6550, L503.6150, L501.9520, L500.4050, L506.1000, L501.4700, L100.0100, L503.0105 ####[facility] [address] [place], [address] Bilirubin, totalOrdered By: Krissy King on 10-24-2024 Bilirubin [Mass/Vol] 0.40 mg/dL 0.20-1.00 [facility] Comment on above: For patients on eltr ombopag therapy, use of Dimension [place] TBIL is not recommended. Blood urea nitrogen (BUN)/cr eatinine ratioOrdered By: Krissy Robgar on 10-24-2024 Urea nitrogen/Creatinine [Mass ratio] 12.6 mg/mg 10-20 [facility] CBC W/Diff, Automatedon 10-12 Absolute Lymph 2.06 X10 3/uL Normal 0.83-4.51 [facility] Comment on above: Performed By: #### L 506.0400, L503.6550, L503.6150, L501.9520, L500.4050, L506.1000, L501.4700, L100.0100, L503.0105 ####[facility] [address] [place], [address] Absolute Neut 5.7 X10 3/uL Normal 2.0-7.7 [facility] Comment on above: Performed By: #### L 506.0400, L503.6550, L503.6150, L501.9520, L500.4050, L506.1000, L501.4700, L100.0100, L503.0105 ####[facility] [address] [place], [address] Basophils/100 WBC (Bld) 0.8 % Normal 0-1 [facility] Comment on above: Performed By: #### L 506.0400, L503.6550, L503.6150, L501.9520, L500.4050, L506.1000, L501.4700, L100.0100, L503.0105 ####[facility] [address] [place], [address] Eosinophils/100 WBC (Bld) 7.8 % High 0-5 [facility] Comment on above: Performed By: #### L 506.0400, L503.6550, L503.6150, L501.9520, L500.4050, L506.1000, L501.4700, L100.0100, L503.0105 ####[facility] [address] [place], [address] Erythrocyte distribution width (RBC) [Ratio] 12.9 % Normal 11.6-14.6 [facility] Comment on above: Performed By: #### L 506.0400, L503.6550, L503.6150, L501.9520, L500.4050, L506.1000, L501.4700, L100.0100, L503.0105 ####[facility] [address] [facility] [place], [address]( Hematocrit (Bld) [Volume fraction] 48.1 % Normal 40-54 [facility] Comment on above: Performed By: #### L 506.0400, L503.6550, L503.6150, L501.9520, L500.4050, L506.1000, L501.4700, L100.0100, L503.0105 ####[facility] [address] [facility] [place], [address] Hemoglobin (Bld) [Mass/Vol] 15.9 g/dL Normal 13.0-16.5 [facility] Comment on above: Performed By: #### L 506.0400, L503.6550, L503.6150, L501.9520, L500.4050, L506.1000, L501.4700, L100.0100, L503.0105 ####[facility] [address] [facility] [place], [address] IG% 0.400 Normal 0.0-0.9 [facility] Comment on above: Result Comment: IG% - Immature Granulocytes (promyelocytes, myelocytes and metamyelocytes) > 1% indicates that a LEFT SHIFT is Present. Performed By: #### L 506.0400, L503.6550, L503.6150, L501.9520, L500.4050, L506.1000, L501.4700, L100.0100, L503.0105 ####[facility] [address] [place], [address] Lymphocytes/100 WBC (Bld) 22.7 % Normal 19-41 [facility] Comment on above: Performed By: #### L 506.0400, L503.6550, L503.6150, L501.9520, L500.4050, L506.1000, L501.4700, L100.0100, L503.0105 ####[facility] [address] [place], [address] MCH (RBC) [Entitic mass] 29.1 pg Normal 27.0-32.0 [facility] Comment on above: Performed By: #### L 506.0400, L503.6550, L503.6150, L501.9520, L500.4050, L506.1000, L501.4700, L100.0100, L503.0105 ####[facility] [address] [place], [address] MCHC (RBC) [Mass/Vol] 33.1 g/dL Normal 32-36 [facility] Comment on above: Performed By: #### L 506.0400, L503.6550, L503.6150, L501.9520, L500.4050, L506.1000, L501.4700, L100.0100, L503.0105 ####[facility] [address] [place], [address] MCV (RBC) [Entitic vol] 87.9 fL Normal 80-94 [facility] Comment on above: Performed By: #### L 506.0400, L503.6550, L503.6150, L501.9520, L500.4050, L506.1000, L501.4700, L100.0100, L503.0105 ####[facility] [address] [place], [address] Monocytes/100 WBC (Bld) 5.5 % Normal 0-10 [facility] Comment on above: Performed By: #### L 506.0400, L503.6550, L503.6150, L501.9520, L500.4050, L506.1000, L501.4700, L100.0100, L503.0105 ####[facility] [address] [place], [address] Neutrophils/100 WBC (Bld) 62.8 % Normal 47-70 [facility] Comment on above: Performed By: #### L 506.0400, L503.6550, L503.6150, L501.9520, L500.4050, L506.1000, L501.4700, L100.0100, L503.0105 ####[facility] [address] [place], [address] Nucleated RBC (Bld) [#/Vol] 0 10*3/uL Normal 0-5 [facility] Comment on above: Performed By: #### L 506.0400, L503.6550, L503.6150, L501.9520, L500.4050, L506.1000, L501.4700, L100.0100, L503.0105 ####[facility] [address] [place], [address] Platelet mean volume (Bld) [Entitic vol] 11.0 fL Normal 6.2-12.0 [facility] Comment on above: Performed By: #### L 506.0400, L503.6550, L503.6150, L501.9520, L500.4050, L506.1000, L501.4700, L100.0100, L503.0105 ####[facility] [address] [place], [address] Platelets (Bld) [#/Vol] 254 10*3/uL Normal 150-450 [facility] Comment on above: Performed By: #### L 506.0400, L503.6550, L503.6150, L501.9520, L500.4050, L506.1000, L501.4700, L100.0100, L503.0105 ####[facility] [address] [place], [address] RBC (Bld) [#/Vol] 5.47 10*6/uL Normal 4.6-6.2 [facility] Comment on above: Performed By: #### L 506.0400, L503.6550, L503.6150, L501.9520, L500.4050, L506.1000, L501.4700, L100.0100, L503.0105 ####[facility] [address] [place], [address] RDW SD 41.5 fl Normal 35.1-43.9 [facility] Comment on above: Performed By: #### L 506.0400, L503.6550, L503.6150, L501.9520, L500.4050, L506.1000, L501.4700, L100.0100, L503.0105 ####[facility] [address] [place], [address] WBC (Bld) [#/Vol] 9.1 10*3/uL Normal 4.4-11.0 [facility] Comment on above: Performed By: #### L 506.0400, L503.6550, L503.6150, L501.9520, L500.4050, L506.1000, L501.4700, L100.0100, L503.0105 ####[facility] [address] [place], [address] Carbon dioxide measurementOr dered By: Krissy King on 10-24-2024 CO2 [Moles/Vol] 27.0 mmol/L 21.0-32.0 [facility] Chloride measurementOrdered By: Krissy King on 10-24-2024 Chloride [Moles/Vol] 102 mmol/L 98-107 [facility] Comprehensive Metabolic Prof ilon 10-24-2024 Albumin [Mass/Vol] 3.5 g/dL Normal 3.2-5.0 [facility] Comment on above: Performed By: #### L 506.0400, L503.6550, L503.6150, L501.9520, L500.4050, L506.1000, L501.4700, L100.0100, L503.0105 ####[facility] [address] [place], [address] Albumin/Globulin [Mass ratio] 0.8 {ratio} Low 0.9-2.4 [facility] Comment on above: Performed By: #### L 506.0400, L503.6550, L503.6150, L501.9520, L500.4050, L506.1000, L501.4700, L100.0100, L503.0105 ####[facility] [address] [place], [address] ALK P 91 U/L Normal 45-117 [facility] Comment on above: Performed By: #### L 506.0400, L503.6550, L503.6150, L501.9520, L500.4050, L506.1000, L501.4700, L100.0100, L503.0105 ####[facility] [address] [place], [address] ALT [Catalytic activity/Vol] 94 U/L High 16-61 [facility] Comment on above: Performed By: #### L 506.0400, L503.6550, L503.6150, L501.9520, L500.4050, L506.1000, L501.4700, L100.0100, L503.0105 ####[facility] [address] [place], [address] AST [Catalytic activity/Vol] 109 U/L High 15-37 [facility] Comment on above: Performed By: #### L 506.0400, L503.6550, L503.6150, L501.9520, L500.4050, L506.1000, L501.4700, L100.0100, L503.0105 ####[facility] [address] [place], [address] Bilirubin [Mass/Vol] 0.40 mg/dL Normal 0.20-1.00 [facility] Comment on above: Result Comment: For patients on eltrombopag therapy, use of Dimension [place] TBIL is not recommended. Performed By: #### L 506.0400, L503.6550, L503.6150, L501.9520, L500.4050, L506.1000, L501.4700, L100.0100, L503.0105 ####[facility] [address] [place], [address] BUN/CRE 12.6 RATIO Normal 10-20 [facility] Comment on above: Performed By: #### L 506.0400, L503.6550, L503.6150, L501.9520, L500.4050, L506.1000, L501.4700, L100.0100, L503.0105 ####[facility] [address] [place], [address] CA,Total 9.1 mg/dL Normal 8.5-10.1 [facility] Comment on above: Performed By: #### L 506.0400, L503.6550, L503.6150, L501.9520, L500.4050, L506.1000, L501.4700, L100.0100, L503.0105 ####[facility] [address] [place], [address] Chloride [Moles/Vol] 102 mmol/L Normal 98-107 [facility] Comment on above: Performed By: #### L 506.0400, L503.6550, L503.6150, L501.9520, L500.4050, L506.1000, L501.4700, L100.0100, L503.0105 ####[facility] [address] [place], [address] CO2 [Moles/Vol] 27.0 mmol/L Normal 21.0-32.0 [facility] Comment on above: Performed By: #### L 506.0400, L503.6550, L503.6150, L501.9520, L500.4050, L506.1000, L501.4700, L100.0100, L503.0105 ####[facility] [address] [place], [address] Creatinine [Mass/Vol] 1.11 mg/dL Normal 0.70-1.30 [facility] Comment on above: Result Comment: The validity of the calculated GFR GFRAA in patients over 70 years has not been determined. Clinical correlation is essential. Performed By: #### L 506.0400, L503.6550, L503.6150, L501.9520, L500.4050, L506.1000, L501.4700, L100.0100, L503.0105 ####[facility] [address] [place], [address] EST GFR - AA 91 mL/min Normal >60 [facility] Comment on above: Result Comment: Afri can Argentine GFR Calc Performed By: #### L 506.0400, L503.6550, L503.6150, L501.9520, L500.4050, L506.1000, L501.4700, L100.0100, L503.0105 ####[facility] [address] [place], [address] GAP 6 Normal 5-15 [facility] Comment on above: Performed By: #### L 506.0400, L503.6550, L503.6150, L501.9520, L500.4050, L506.1000, L501.4700, L100.0100, L503.0105 ####[facility] [address] [place], [address] GFR/1.73 sq M.predicted among non-blacks MDRD (S/P/Bld) [Vol rate/Area] 76 mL/min/{1.73_m2} Normal >[address] [facility] Comment on above: Result Comment: Non- GFR Calc Performed By: #### L 506.0400, L503.6550, L503.6150, L501.9520, L500.4050, L506.1000, L501.4700, L100.0100, L503.0105 ####[facility] [address] [place], [place], [id number] Globulin (S) [Mass/Vol] 4.4 g/dL High 2.2-4.2 [facility] Comment on above: Performed By: #### L 506.0400, L503.6550, L503.6150, L501.9520, L500.4050, L506.1000, L501.4700, L100.0100, L503.0105 ####[facility] [address] [place], [address] Glucose [Mass/Vol] 145 mg/dL High 74-106 [facility] Comment on above: Result Comment: Fast ing Glucose result greater than or equal to 126 mg/dL suggests DIABETES MELLITUS per A.D.A. criteria. Performed By: #### L 506.0400, L503.6550, L503.6150, L501.9520, L500.4050, L506.1000, L501.4700, L100.0100, L503.0105 ####[facility] [address] [place], [address] Potassium [Moles/Vol] 3.7 mmol/L Normal 3.5-5.1 [facility] Comment on above: Performed By: #### L 506.0400, L503.6550, L503.6150, L501.9520, L500.4050, L506.1000, L501.4700, L100.0100, L503.0105 ####[facility] [address] [place], [address] Sodium [Moles/Vol] 136 mmol/L Normal 136-145 [facility] Comment on above: Performed By: #### L 506.0400, L503.6550, L503.6150, L501.9520, L500.4050, L506.1000, L501.4700, L100.0100, L503.0105 ####[facility] [address] [place], [address] T PROT 7.9 g/dL Normal 6.4-8.2 [facility] Comment on above: Performed By: #### L 506.0400, L503.6550, L503.6150, L501.9520, L500.4050, L506.1000, L501.4700, L100.0100, L503.0105 ####[facility] [address] [place], [address] Urea nitrogen [Mass/Vol] 14 mg/dL Normal 7-18 [facility] Comment on above: Performed By: #### L 506.0400, L503.6550, L503.6150, L501.9520, L500.4050, L506.1000, L501.4700, L100.0100, L503.0105 ####[facility] [address] [place], [address] Direct serum free thyroxine (FT4) measurementOrdered By: Krissyryan King on 10-24-2024 Free T4 [Mass/Vol] 0.83 ng/dL 0.76-1.46 [facility] Eosinophil percentageOrdered By: Krissyryan King on 10-24-2024 Eosinophils/100 WBC (Bld) 7.8 % High 0-5 [facility] Erythrocyte distribution wid th ratioOrdered By: [facility] on 10-24-2024 Erythrocyte distribution width (RBC) [Ratio] 12.9 % 11.6-14.6 [facility] Erythrocyte distribution wid th standard deviationOrdered By: [facility] on 10-24-2024 Erythrocyte distribution width (RBC) [Entitic vol] 41.5 fL 35.1-43.9 [facility] Estimated glomerular filtrat ion rate (GFR) AmericanOrdered By: Krissyryan King on 10-24-2024 Estimated GFR (MDRD) Amer 91 mL/min >60 [facility] Comment on above: GFR Calc Ferritinon 10-24-2024 Ferritin [Mass/Vol] 114 ng/mL Normal 26-388 [facility] Comment on above: Performed By: #### L 506.0400, L503.6550, L503.6150, L501.9520, L500.4050, L506.1000, L501.4700, L100.0100, L503.0105 ####[facility] [address] [place], [address] Ferritin measurementOrdered By: Krissyryan King on 10-24-2024 Ferritin [Mass/Vol] 114 ng/mL 26-388 [facility] Glomerular filtration rate ( GFR) estimationOrdered By: Krissyryan King on 10-24-2024 Estimated GFR (MDRD) Non-Af Amer 76 mL/min >60 [facility] Comment on above: Non- GFR Calc Glucose measurementOrdered B y: Krissy King on 10-24-2024 Glucose [Mass/Vol] 145 mg/dL High 74-106 [facility] Comment on above: Fasting Glucose resu lt greater than or equal to 126 mg/dL suggests DIABETES MELLITUS per A.D.A. criteria. Hematocrit Auto (Bld) [Volum e fraction]Ordered By: Krissy King on 10-24-2024 Hematocrit (Bld) [Volume fraction] 48.1 % 40-54 [facility] Hemoglobin A1c percentageOrd ered By: Krissy King on 10-24-2024 HbA1c (Bld) [Mass fraction] 5.9 % High 3.8-5.6 [facility] Comment on above: Normal < 5.7 % Predi abetic 5.7 - 6.4 % Diabetic >or= 6.5 % Please note range changes. Hemoglobin measurementOrdere d By: Krissy King on 10-24-2024 Hemoglobin (Bld) [Mass/Vol] 15.9 g/dL 13.0-16.5 [facility] Immature granulocytes/100 WB C Auto (Bld)Ordered By: Krissy King on 10-24-2024 Immature granulocytes/100 WBC (Bld) 0.400 % 0.0-0.9 [facility] Comment on above: IG% - Immature Granu locytes (promyelocytes, myelocytes and metamyelocytes) > 1% indicates that a LEFT SHIFT is Present. Ironon 10-24-2024 Iron [Mass/Vol] 55 ug/dL Low 65-175 [facility] Comment on above: Performed By: #### L 506.0400, L503.6550, L503.6150, L501.9520, L500.4050, L506.1000, L501.4700, L100.0100, L503.0105 ####[facility] [address] [place], [address] Iron (Unsp spec) [Mass/Mass] Ordered By: Ridgeland Fernando on 10-24-2024 Iron [Mass/Vol] 55 ug/dL Low 65-175 [facility] Laboratory - Chemistry and C hemistry - challengeOrdered By: Krissy King on 10-24-2024 AST [Catalytic activity/Vol] 109 U/L High 15-37 [facility] Lymphocytes Auto (Unsp spec) [#/Vol]Ordered By: Krissy King on 10-24-2024 Lymphocytes (Bld) [#/Vol] 2.06 10*3/uL 0.83-4.5 1 [facility] Lymphocytes/100 WBC Auto (Un sp spec)Ordered By: Krissy King on 10-24-2024 Lymphocytes/100 WBC (Bld) 22.7 % 19-41 [facility] MCV (mean corpuscular volume ) determinationOrdered By: Krissy King on 10-24-2024 MCV (RBC) [Entitic vol] 87.9 fL 80-94 [facility] Mean corpuscular hemoglobin (MCH) determinationOrdered By: Krissy King on 10-24-2024 MCH (RBC) [Entitic mass] 29.1 pg 27.0-32.0 [facility] Mean corpuscular hemoglobin concentration (MCHC) determinationOrdered By: Krissy King on 10-24-2024 MCHC (RBC) [Mass/Vol] 33.1 g/dL 32-36 [facility] Mean platelet volume determi nationOrdered By: Krissy King on 10-24-2024 Platelet mean volume (Bld) [Entitic vol] 11.0 fL 6.2-12.0 [facility] Monocyte percentageOrdered B y: Krissy King on 10-24-2024 Monocytes/100 WBC (Bld) 5.5 % 0-10 [facility] Neutrophil percentageOrdered By: Krissy King on 10-24-2024 Neutrophils/100 WBC (Bld) 62.8 % 47-70 [facility] Nucleated red blood cell per centageOrdered By: Krissy King on 10-24-2024 Nucleated RBC/100 WBC (Bld) [Ratio] 0 % 0-5 [facility] Platelet countOrdered By: Ra puma King on 10-24-2024 Platelets (Bld) [#/Vol] 254 10*3/uL 150-450 [facility] Potassium measurementOrdered By: Krissy King on 10-24-2024 Potassium [Moles/Vol] 3.7 mmol/L 3.5-5.1 [facility] RBC Auto (Bld) [#/Vol]Ordere d By: Krissy King on 10-24-2024 RBC (Bld) [#/Vol] 5.47 10*6/uL 4.6-6.2 [facility] Serum anion gap measurementO rdered By: Krissy King on 10-24-2024 Anion gap [Moles/Vol] 6 mmol/L 5-15 [facility] Serum globulin measurementOr dered By: Krissy King on 10-24-2024 Globulin (S) [Mass/Vol] 4.4 g/dL High 2.2-4.2 [facility] Serum or plasma alanine armendariz otransferase (ALT) measurementOrdered By: Krissy King on 10-24-2024 ALT [Catalytic activity/Vol] 94 U/L High 16-61 [facility] Serum or plasma albumin melba urement (mass/volume)Ordered By: Krissy Kign on 10-24-2024 Albumin [Mass/Vol] 3.5 g/dL 3.2-5.0 [facility] Serum or plasma alkaline trevor sphatase measurementOrdered By: Krissy King on 10-24-2024 ALP [Catalytic activity/Vol] 91 U/L 45-117 [facility] Serum or plasma calcium melba urement (mass/volume)Ordered By: Krissy King on 10-24-2024 Calcium [Mass/Vol] 9.1 mg/dL 8.5-10.1 [facility] Serum or plasma creatinine m easurement (mass/volume)Ordered By: Krissy King on 10-24-2024 Creatinine [Mass/Vol] 1.11 mg/dL 0.70-1.30 [facility] Comment on above: The validity of the calculated GFR & GFRAA in patients over 70 years has not been determined. Clinical correlation is essential. Serum or plasma urea nitroge n measurement (mass/volume)Ordered By: Krissy King on 10-24-2024 Urea nitrogen [Mass/Vol] 14 mg/dL 7-18 [facility] Sodium levelOrdered By: Sinai King on 10-24-2024 Sodium [Moles/Vol] 136 mmol/L 136-145 [facility] T4 Free Directon 10-24-2024 T4 FREE DIRECT 0.83 ng/dL Normal 0.76-1.46 [facility] Comment on above: Performed By: #### L 506.0400, L503.6550, L503.6150, L501.9520, L500.4050, L506.1000, L501.4700, L100.0100, L503.0105 ####[facility] [address] [place], [place], [address] TSH QnOrdered By: Krissy humphries on 10-24-2024 Thyroid Stimulating Hormone (TSH) 2.080 uIU/mL 0.358-3.74 0 [facility] Thyroid Stim Hormone (TSH)on 10-24-2024 TSH 2.080 uIU/mL Normal 0.358-3.74 0 [facility] Comment on above: Performed By: #### L 506.0400, L503.6550, L503.6150, L501.9520, L500.4050, L506.1000, L501.4700, L100.0100, L503.0105 ####[facility] [address] [place], [place], [address] Total proteinOrdered By: Amisha King on 10-24-2024 Protein [Mass/Vol] 7.9 g/dL 6.4-8.2 [facility] Vitamin B12 measurementOrder ed By: Krissy King on 10-24-2024 Cobalamin (Vitamin B12) [Mass/Vol] 671 pg/mL 211-911 [facility] White blood cell (WBC) count Ordered By: Krissy King on 10-24-2024 WBC (Bld) [#/Vol] 9.1 10*3/uL 4.4-11.0 [facility] Discharge Instructionon 10-12 Discharge Instruction [facility] Medical Records Department [address] [place] [address] Instructions for Home/Discharge Instructions 10/23/24 1033 MR#: [id number] Acct: [id number] Name: ARON ESPINOZA Rep #: [id number] : 1975 49 From: Keny Lee MD [...] DO; Dr. Mya Sánchez MD Signed Normal [facility] Basic Metabolic Profile (BMP )on 10-21-2024 BUN/CRE 18.2 RATIO Normal - [facility] Comment on above: Performed By: #### L 100.0500, L500.2500 ####[facility] [address] [place], [address] CA,Total 8.8 mg/dL Normal 8.5-10.1 [facility] Comment on above: Performed By: #### L 100.0500, L500.2500 ####[facility] [address] [place], [address] Chloride [Moles/Vol] 107 mmol/L Normal 98-107 [facility] Comment on above: Performed By: #### L 100.0500, L500.2500 ####[facility] [address] [place], [address] CO2 [Moles/Vol] 27.0 mmol/L Normal 21.0-32.0 [facility] Comment on above: Performed By: #### L 100.0500, L500.2500 ####[facility] [address] [place], [address] Creatinine [Mass/Vol] 0.82 mg/dL Normal 0.70-1.30 [facility] Comment on above: Result Comment: The validity of the calculated GFR GFRAA in patients over 70 years has not been determined. Clinical correlation is essential. Performed By: #### L 100.0500, L500.2500 ####[facility] [address] [place], [address] ECRCL 182.01 ml/min Normal [facility] Comment on above: Performed By: #### L 100.0500, L500.2500 ####[facility] [address] [place], [address] EST GFR - AA 129 mL/min Normal >60 [facility] Comment on above: Result Comment: Afri can Argentine GFR Calc Performed By: #### L 100.0500, L500.2500 ####[facility] [address] [place], [address] GAP 6 Normal 5-15 [facility] Comment on above: Performed By: #### L 100.0500, L500.2500 ####[facility] [address] [place], [address] GFR/1.73 sq M.predicted among non-blacks MDRD (S/P/Bld) [Vol rate/Area] 107 mL/min/{1.73_m2} Normal >60 [facility] Comment on above: Result Comment: Non- GFR Calc Performed By: #### L 100.0500, L500.2500 ####[facility] [id number] [place], [address] Glucose [Mass/Vol] 108 mg/dL High 74-106 [facility] Comment on above: Result Comment: Fast ing Glucose result from 100 to 125 mg/dL suggests IMPAIRED HOMEOSTASIS per A.D.A. criteria. Performed By: #### L 100.0500, L500.2500 ####[facility] [id number] [place], [address] Potassium [Moles/Vol] 3.7 mmol/L Normal 3.5-5.1 [facility] Comment on above: Performed By: #### L 100.0500, L500.2500 ####[facility] [id number] [place], [address] Sodium [Moles/Vol] 140 mmol/L Normal 136-145 [facility] Comment on above: Performed By: #### L 100.0500, L500.2500 ####[facility] [id number] [place], [address] Urea nitrogen [Mass/Vol] 15 mg/dL Normal 7-18 [facility] Comment on above: Performed By: #### L 100.0500, L500.2500 ####[facility] [id number] [place], [address] Blood urea nitrogen (BUN)/cr eatinine ratioOrdered By: Que Arita on 10-21-2024 Urea nitrogen/Creatinine [Mass ratio] 18.2 mg/mg 10-20 [facility] CBC-Complete Blood Cnt No Di ffon 10-21-2024 Erythrocyte distribution width (RBC) [Ratio] 13.3 % Normal 11.6-14.6 [facility] Comment on above: Performed By: #### L 100.0500, L500.2500 ####[facility] [id number] [place], [address] Hematocrit (Bld) [Volume fraction] 40.8 % Normal 40-54 [facility] Comment on above: Performed By: #### L 100.0500, L500.2500 ####[facility] [address] [place], [address] Hemoglobin (Bld) [Mass/Vol] 13.0 g/dL Normal 13.0-16.5 [facility] Comment on above: Performed By: #### L 100.0500, L500.2500 ####[facility] [address] [place], [address] MCH (RBC) [Entitic mass] 29.2 pg Normal 27.0-32.0 [facility] Comment on above: Performed By: #### L 100.0500, L500.2500 ####[facility] [address] [place], [address] MCHC (RBC) [Mass/Vol] 31.9 g/dL Low 32-36 [facility] Comment on above: Performed By: #### L 100.0500, L500.2500 ####[facility] [address] [place], [address] MCV (RBC) [Entitic vol] 91.7 fL Normal 80-94 [facility] Comment on above: Performed By: #### L 100.0500, L500.2500 ####[facility] [address] [place], [address] Platelet mean volume (Bld) [Entitic vol] 10.7 fL Normal 6.2-12.0 [facility] Comment on above: Performed By: #### L 100.0500, L500.2500 ####[facility] [address] [place], [address] Platelets (Bld) [#/Vol] 194 10*3/uL Normal 150-450 [facility] Comment on above: Performed By: #### L 100.0500, L500.2500 ####[facility] [address] [place], [address] RBC (Bld) [#/Vol] 4.45 10*6/uL Low 4.6-6.2 [facility] Comment on above: Performed By: #### L 100.0500, L500.2500 ####[facility] [address] [place], [address] RDW SD 44.8 fl High 35.1-43.9 [facility] Comment on above: Performed By: #### L 100.0500, L500.2500 ####[facility] [address] [place], [address] WBC (Bld) [#/Vol] 8.0 10*3/uL Normal 4.4-11.0 [facility] Comment on above: Performed By: #### L 100.0500, L500.2500 ####[facility] [address] [place], [address] Carbon dioxide measurementOr dered By: Que Arita on 10-21-2024 CO2 [Moles/Vol] 27.0 mmol/L 21.0-32.0 [facility] Chloride measurementOrdered By: Que Arita on 10-21-2024 Chloride [Moles/Vol] 107 mmol/L 98-107 [facility] Erythrocyte distribution wid th ratioOrdered By: Que Arita on 10-21-2024 Erythrocyte distribution width (RBC) [Ratio] 13.3 % 11.6-14.6 [facility] Erythrocyte distribution wid th standard deviationOrdered By: Que Arita on 10-21-2024 Erythrocyte distribution width (RBC) [Entitic vol] 44.8 fL High 35.1-43.9 [facility] Estimated glomerular filtrat ion rate (GFR) AmericanOrdered By: Que Arita on 10-21-2024 Estimated GFR (MDRD) Amer 129 mL/min >60 [facility] Comment on above: GFR Calc Estimation of creatinine kalin aranceOrdered By: Que Arita on 10-21-2024 Estimated Creatinine Clearance Calc 182.01 ml/min [facility] Glomerular filtration rate ( GFR) estimationOrdered By: Que Arita on 10-21-2024 Estimated GFR (MDRD) Non-Af Amer 107 mL/min >60 [facility] Comment on above: Non- GFR Calc Glucose measurementOrdered B y: Que Arita on 10-21-2024 Glucose [Mass/Vol] 108 mg/dL High 74-106 [facility] Comment on above: Fasting Glucose resu lt from 100 to 125 mg/dL suggests IMPAIRED HOMEOSTASIS per A.D.A. criteria. Hematocrit Auto (Bld) [Volum e fraction]Ordered By: Que Arita on 10-21-2024 Hematocrit (Bld) [Volume fraction] 40.8 % 40-54 [facility] Hemoglobin measurementOrdere d By: Que Arita on 10-21-2024 Hemoglobin (Bld) [Mass/Vol] 13.0 g/dL 13.0-16.5 [facility] MCV (mean corpuscular volume ) determinationOrdered By: Que Arita on 10-21-2024 MCV (RBC) [Entitic vol] 91.7 fL 80-94 [facility] Mean corpuscular hemoglobin (MCH) determinationOrdered By: Que Arita on 10-21-2024 MCH (RBC) [Entitic mass] 29.2 pg 27.0-32.0 [facility] Mean corpuscular hemoglobin concentration (MCHC) determinationOrdered By: Que Arita on 10-21-2024 MCHC (RBC) [Mass/Vol] 31.9 g/dL Low 32-36 [facility] Mean platelet volume determi nationOrdered By: Que Arita on 10-21-2024 Platelet mean volume (Bld) [Entitic vol] 10.7 fL 6.2-12.0 [facility] Platelet countOrdered By: Davon Arita on 10-21-2024 Platelets (Bld) [#/Vol] 194 10*3/uL 150-450 [facility] Potassium measurementOrdered By: Que Arita on 10-21-2024 Potassium [Moles/Vol] 3.7 mmol/L 3.5-5.1 [facility] RBC Auto (Bld) [#/Vol]Ordere d By: Que Arita on 10-21-2024 RBC (Bld) [#/Vol] 4.45 10*6/uL Low 4.6-6.2 [facility] Serum anion gap measurementO rdered By: Que Arita on 10-21-2024 Anion gap [Moles/Vol] 6 mmol/L 5-15 [facility] Serum or plasma calcium melba urement (mass/volume)Ordered By: Que Arita on 10-21-2024 Calcium [Mass/Vol] 8.8 mg/dL 8.5-10.1 [facility] Serum or plasma creatinine m easurement (mass/volume)Ordered By: Que Arita on 10-21-2024 Creatinine [Mass/Vol] 0.82 mg/dL 0.70-1.30 [facility] Comment on above: The validity of the calculated GFR & GFRAA in patients over 70 years has not been determined. Clinical correlation is essential. Serum or plasma urea nitroge n measurement (mass/volume)Ordered By: Que Arita on 10-21-2024 Urea nitrogen [Mass/Vol] 15 mg/dL 7-18 [facility] Sodium levelOrdered By: Aaron Arita on 10-21-2024 Sodium [Moles/Vol] 140 mmol/L 136-145 [facility] White blood cell (WBC) count Ordered By: Que Arita on 10-21-2024 WBC (Bld) [#/Vol] 8.0 10*3/uL 4.4-11.0 [facility] Absolute neutrophil countOrd ered By: Jesus Manuel Jenkins on 10-20-2024 Neutrophils (Bld) [#/Vol] 6.0 10*3/uL 2.0-7.7 [facility] Albumin to globulin ratioOrd ered By: Jesus Manuel Jenkins on 10-20-2024 Albumin/Globulin [Mass ratio] 0.9 {ratio} 0.9-2.4 [facility] Alcohol, Blood (Medical)-Ser umon 10-20-2024 SERUM ETOH 116.0 mg/dL Normal [facility] Comment on above: Result Comment: The serum:whole blood ethanol ratio is approximately 1.14 and varies slightly with hematocrit. Medical Alcohol reference interval and critical value in non-tolerant individuals; 50 - 100 Impairment 100 Intoxication 100 - 250 Severe Poisoning 250 - 400 Deep/possible fatal coma Performed By: #### L 500.4050, L100.0100, L501.9100, L501.2450 ####[facility] [address] [place], [address] Basophil percentageOrdered B y: Jesus Manuel Jenkins on 10-20-2024 Basophils/100 WBC (Bld) 0.5 % 0-1 [facility] Bilirubin, totalOrdered By: Jesus Manuel Jenkins on 10-20-2024 Bilirubin [Mass/Vol] 0.40 mg/dL 0.20-1.00 [facility] Comment on above: For patients on eltr ombopag therapy, use of Dimension [place] TBIL is not recommended. CBC W/Diff, Automatedon 12 Absolute Lymph 2.31 X10 3/uL Normal 0.83-4.51 [facility] Comment on above: Performed By: #### L 500.4050, L100.0100, L501.9100, L501.2450 ####[facility] [address] [place], [address] Absolute Neut 6.0 X10 3/uL Normal 2.0-7.7 [facility] Comment on above: Performed By: #### L 500.4050, L100.0100, L501.9100, L501.2450 ####[facility] [address] [place], [address] Basophils/100 WBC (Bld) 0.5 % Normal 0-1 [facility] Comment on above: Performed By: #### L 500.4050, L100.0100, L501.9100, L501.2450 ####[facility] [address] [place], [address] Eosinophils/100 WBC (Bld) 6.3 % High 0-5 [facility] Comment on above: Performed By: #### L 500.4050, L100.0100, L501.9100, L501.2450 ####[facility] [address] [place], [address] Erythrocyte distribution width (RBC) [Ratio] 13.4 % Normal 11.6-14.6 [facility] Comment on above: Performed By: #### L 500.4050, L100.0100, L501.9100, L501.2450 ####[facility] [address] [place], [address] Hematocrit (Bld) [Volume fraction] 44.4 % Normal 40-54 [facility] Comment on above: Performed By: #### L 500.4050, L100.0100, L501.9100, L501.2450 ####[facility] [address] [place], [address] Hemoglobin (Bld) [Mass/Vol] 14.3 g/dL Normal 13.0-16.5 [facility] Comment on above: Performed By: #### L 500.4050, L100.0100, L501.9100, L501.2450 ####[facility] [address] [place], [address] IG% 0.400 Normal 0.0-0.9 [facility] Comment on above: Result Comment: IG% - Immature Granulocytes (promyelocytes, myelocytes and metamyelocytes) > 1% indicates that a LEFT SHIFT is Present. Performed By: #### L 500.4050, L100.0100, L501.9100, L501.2450 ####[facility] [address] [place], [address] Lymphocytes/100 WBC (Bld) 24.2 % Normal 19-41 [facility] Comment on above: Performed By: #### L 500.4050, L100.0100, L501.9100, L501.2450 ####[facility] [address] [place], [address] MCH (RBC) [Entitic mass] 29.2 pg Normal 27.0-32.0 [facility] Comment on above: Performed By: #### L 500.4050, L100.0100, L501.9100, L501.2450 ####[facility] [address] [place], [address] MCHC (RBC) [Mass/Vol] 32.2 g/dL Normal 32-36 [facility] Comment on above: Performed By: #### L 500.4050, L100.0100, L501.9100, L501.2450 ####[facility] [address] [place], [address] MCV (RBC) [Entitic vol] 90.6 fL Normal 80-94 [facility] Comment on above: Performed By: #### L 500.4050, L100.0100, L501.9100, L501.2450 ####[facility] [address] [place], [address] Monocytes/100 WBC (Bld) 5.5 % Normal 0-10 [facility] Comment on above: Performed By: #### L 500.4050, L100.0100, L501.9100, L501.2450 ####[facility] [address] [place], [address] Neutrophils/100 WBC (Bld) 63.1 % Normal 47-70 [facility] Comment on above: Performed By: #### L 500.4050, L100.0100, L501.9100, L501.2450 ####[facility] [address] [place], [address] Nucleated RBC (Bld) [#/Vol] 0 10*3/uL Normal 0-5 [facility] Comment on above: Performed By: #### L 500.4050, L100.0100, L501.9100, L501.2450 ####[facility] [address] [place], [address] Platelet mean volume (Bld) [Entitic vol] 10.1 fL Normal 6.2-12.0 [facility] Comment on above: Performed By: #### L 500.4050, L100.0100, L501.9100, L501.2450 ####[facility] [address] [place], [address] Platelets (Bld) [#/Vol] 246 10*3/uL Normal 150-450 [facility] Comment on above: Performed By: #### L 500.4050, L100.0100, L501.9100, L501.2450 ####[facility] [address] [place], [address] RBC (Bld) [#/Vol] 4.90 10*6/uL Normal 4.6-6.2 [facility] Comment on above: Performed By: #### L 500.4050, L100.0100, L501.9100, L501.2450 ####[facility] [address] [place], [address] RDW SD 44.6 fl High 35.1-43.9 [facility] Comment on above: Performed By: #### L 500.4050, L100.0100, L501.9100, L501.2450 ####[facility] [address] [place], [address] WBC (Bld) [#/Vol] 9.6 10*3/uL Normal 4.4-11.0 [facility] Comment on above: Performed By: #### L 500.4050, L100.0100, L501.9100, L501.2450 ####[facility] [address] [place], [address] Comprehensive Metabolic Prof ilon 10-20-2024 Albumin [Mass/Vol] 3.6 g/dL Normal 3.2-5.0 [facility] Comment on above: Performed By: #### L 500.4050, L100.0100, L501.9100, L501.2450 ####[facility] [address] [place], [address] Albumin/Globulin [Mass ratio] 0.9 {ratio} Normal 0.9-2.4 [facility] Comment on above: Performed By: #### L 500.4050, L100.0100, L501.9100, L501.2450 ####[facility] [address] [place], [address] ALK P 101 U/L Normal 45-117 [facility] Comment on above: Performed By: #### L 500.4050, L100.0100, L501.9100, L501.2450 ####[facility] [address] [place], [address] ALT [Catalytic activity/Vol] 73 U/L High 16-61 [facility] Comment on above: Performed By: #### L 500.4050, L100.0100, L501.9100, L501.2450 ####[facility] [address] [place], [address] AST [Catalytic activity/Vol] 63 U/L High 15-37 [facility] Comment on above: Performed By: #### L 500.4050, L100.0100, L501.9100, L501.2450 ####[facility] [address] [place], [address] Bilirubin [Mass/Vol] 0.40 mg/dL Normal 0.20-1.00 [facility] Comment on above: Result Comment: For patients on eltrombopag therapy, use of Dimension [place] TBIL is not recommended. Performed By: #### L 500.4050, L100.0100, L501.9100, L501.2450 ####[facility] [address] [place], [address] BUN/CRE 12.0 RATIO Normal 10-20 [facility] Comment on above: Performed By: #### L 500.4050, L100.0100, L501.9100, L501.2450 ####[facility] [address] [place], [address] CA,Total 9.3 mg/dL Normal 8.5-10.1 [facility] Comment on above: Performed By: #### L 500.4050, L100.0100, L501.9100, L501.2450 ####[facility] [address] [place], [address] Chloride [Moles/Vol] 107 mmol/L Normal 98-107 [facility] Comment on above: Performed By: #### L 500.4050, L100.0100, L501.9100, L501.2450 ####[facility] [address] [place], [address] CO2 [Moles/Vol] 28.0 mmol/L Normal 21.0-32.0 [facility] Comment on above: Performed By: #### L 500.4050, L100.0100, L501.9100, L501.2450 ####[facility] [address] [place], [address] Creatinine [Mass/Vol] 0.92 mg/dL Normal 0.70-1.30 [facility] Comment on above: Result Comment: The validity of the calculated GFR GFRAA in patients over 70 years has not been determined. Clinical correlation is essential. Performed By: #### L 500.4050, L100.0100, L501.9100, L501.2450 ####[facility] [address] [place], [address] ECRCL 153.92 ml/min Normal [facility] Comment on above: Performed By: #### L 500.4050, L100.0100, L501.9100, L501.2450 ####[facility] [address] [place], [address] EST GFR - AA 114 mL/min Normal >60 [facility] Comment on above: Result Comment: Afri can Argentine GFR Calc Performed By: #### L 500.4050, L100.0100, L501.9100, L501.2450 ####[facility] [address] [place], [address] GAP 6 Normal 5-15 [facility] Comment on above: Performed By: #### L 500.4050, L100.0100, L501.9100, L501.2450 ####[facility] [address] [place], [address] GFR/1.73 sq M.predicted among non-blacks MDRD (S/P/Bld) [Vol rate/Area] 94 mL/min/{1.73_m2} Normal >[address] [facility] Comment on above: Result Comment: Non- GFR Calc Performed By: #### L 500.4050, L100.0100, L501.9100, L501.2450 ####[facility] [address] [place], [address] Globulin (S) [Mass/Vol] 4.2 g/dL Normal 2.2-4.2 [facility] Comment on above: Performed By: #### L 500.4050, L100.0100, L501.9100, L501.2450 ####[facility] [address] [place], [address] Glucose [Mass/Vol] 123 mg/dL High 74-106 [facility] Comment on above: Result Comment: Fast ing Glucose result from 100 to 125 mg/dL suggests IMPAIRED HOMEOSTASIS per A.D.A. criteria. Performed By: #### L 500.4050, L100.0100, L501.9100, L501.2450 ####[facility] [address] [place], [address] Potassium [Moles/Vol] 3.4 mmol/L Low 3.5-5.1 [facility] Comment on above: Performed By: #### L 500.4050, L100.0100, L501.9100, L501.2450 ####[facility] [address] [place], [address] Sodium [Moles/Vol] 141 mmol/L Normal 136-145 [facility] Comment on above: Performed By: #### L 500.4050, L100.0100, L501.9100, L501.2450 ####[facility] [address] [place], [address] T PROT 7.8 g/dL Normal 6.4-8.2 [facility] Comment on above: Performed By: #### L 500.4050, L100.0100, L501.9100, L501.2450 ####[facility] [address] [place], [address] Urea nitrogen [Mass/Vol] 11 mg/dL Normal 7-18 [facility] Comment on above: Performed By: #### L 500.4050, L100.0100, L501.9100, L501.2450 ####[facility] [address] [place], [address] Emergency Department Summary on 10-20-2024 Emergency Department Summary [facility] Medical Records Department [address] [place] [address] Emergency Department Summary 10/20/24 MR#: [id number] Acct: [id number] Name: ARON ESPINOZA Rep #: [id number] : 1975 49 From: Jesus Manuel Jenkins DO PCP: Dr. Mya Sánchez MD Status:ADM IN Location: [facility] [place] [facility] [id number] [facility] History of Present Illness Chief Complaint: Substance [...] Patient denies any suicidal or homicidal ideations. [facility] Medical History HTN (hypertension) GERD (gastroesophageal reflux [...] intact bilaterally and no sensory deficits noted Pipestem Coma Scale: document GCS findings Spontaneous Obeys [...] results narrative: (more content not included)... Normal [facility] Eosinophil percentageOrdered By: Jesus Manuel Jenkins on 10-20-2024 Eosinophils/100 WBC (Bld) 6.3 % High 0-5 [facility] H AND P Exam - Hospitaliston 10-20-2024 H&P Exam - Hospitalist [facility] Medical Records Department [address] [place] [address] H P Exam - Hospitalist 10/20/24 1618 MR#: [id number] Acct: [id number] Name: ARON ESPINOZA Rep #: [id number] : 1975 49 From: Que Arita DO PCP: Dr. Mya Sánchez MD Status:ADM IN Location: [facility] [place] [facility] [id number] HPI - General General Date of Admission: 10/20/24 Date of Service: 10/20/24 Chief Complaint: Alcohol detox HPI Narrative ARON ESPINOZA, is a 49 M who presented to [facility] ED on 10/20/2024 requesting alcohol detox. Patient [...] currently. Will be admitted for further management. [facility] Medical History (Updated 10/20/24 @ 19:59 by [...] GI adam (more content not included)... Normal [facility] Hemoglobin A1con 10-20-2024 HbA1c (Bld) [Mass fraction] 6.0 % High 3.8-5.6 [facility] Comment on above: Result Comment: Norm al < 5.7 % Prediabetic 5.7 - 6.4 % Diabetic >or= 6.5 % Please note range changes. Performed By: #### L 501.5200, L501.9985 ####[facility] [address] [place], [address] Hemoglobin A1c percentageOrd ered By: Que Arita on 10-20-2024 HbA1c (Bld) [Mass fraction] 6.0 % High 3.8-5.6 [facility] Comment on above: Normal < 5.7 % Predi abetic 5.7 - 6.4 % Diabetic >or= 6.5 % Please note range changes. Immature granulocytes/100 WB C Auto (Bld)Ordered By: Jesus Manuel Jenkins on 10-20-2024 Immature granulocytes/100 WBC (Bld) 0.400 % 0.0-0.9 [facility] Comment on above: IG% - Immature Granu locytes (promyelocytes, myelocytes and metamyelocytes) > 1% indicates that a LEFT SHIFT is Present. Laboratory - Chemistry and C hemistry - challengeOrdered By: Jesus Manuel Jenkins on 10-20-2024 AST [Catalytic activity/Vol] 63 U/L High 15-37 [facility] Lipaseon 10-20-2024 Lipase [Catalytic activity/Vol] 31 U/L Normal 13-75 [facility] Comment on above: Result Comment: Plea se note: LIPASE revised reference range effective 23. New Lipase methodology. Expected to produce lower values than the previous assay method. NEW Reference Range: 13 - 75 U/L Performed By: #### L 500.4050, L100.0100, L501.9100, L501.2450 ####[facility] [address] [place], [place], [address] Lipase measurementOrdered By : Jesus Manuel Jenkins on 10-20-2024 Lipase [Catalytic activity/Vol] 31 U/L 13-75 [facility] Comment on above: Please note:LIPASE r evised reference range effective 23. New Lipase methodology. Expected to produce lower values than the previous assay method. NEW Reference Range: 13 - 75 U/L Lymphocytes Auto (Unsp spec) [#/Vol]Ordered By: Jesus Manuel Jenkins on 10-20-2024 Lymphocytes (Bld) [#/Vol] 2.31 10*3/uL 0.83-4.5 1 [facility] Lymphocytes/100 WBC Auto (Un sp spec)Ordered By: Jesus Manuel Jenkins on 10-20-2024 Lymphocytes/100 WBC (Bld) 24.2 % 19-41 [facility] Magnesiumon 10-20-2024 Magnesium [Mass/Vol] 2.1 mg/dL Normal 1.6-2.6 [facility] Comment on above: Performed By: #### L 501.5200, L501.9985 ####[facility] [address] [place], [place], [address] Magnesium measurementOrdered By: Que Arita on 10-20-2024 Magnesium [Mass/Vol] 2.1 mg/dL 1.6-2.6 [facility] Methadone, urineOrdered By: Jesus Manuel Jenkins on 10-20-2024 Urine Methadone Screen Negative < 300 ng/mL [facility] Monocyte percentageOrdered B y: Jesus Manuel Jenkins on 10-20-2024 Monocytes/100 WBC (Bld) 5.5 % 0-10 [facility] Neutrophil percentageOrdered By: Jesus Manuel Jenkins on 10-20-2024 Neutrophils/100 WBC (Bld) 63.1 % 47-70 [facility] No Panel InformationOrdered By: Jesus Manuel Jenkins on 10-20-2024 Urine Drug Screen Comment [facility] Comment on above: CONFIRMATORY TESTING FOR ALL [...] RBC/100 WBC (Bld) [Ratio] 0 % 0-5 [facility] Quantitative urine opiates m easurementOrdered By: Jesus Manuel Jenkins on 10-20-2024 Opiates Ql (U) Negative < 300 ng/mL [facility] Serum ethanol measurementOrd ered By: Jesus Manuel Jenkins on 10-20-2024 Ethyl Alcohol Level 116.0 mg/dL [facility] Comment on above: The serum:whole bloo d ethanol ratio is approximately 1.14and varies slightly with hematocrit. Medical Alcohol reference interval and critical value innon-tolerant individuals; 50 - 100 Impairment 100 Intoxication 100 - 250 Severe Poisoning 250 - 400 Deep/possible fatal coma Serum globulin measurementOr dered By: Jesus Manuel Jenkins on 10-20-2024 Globulin (S) [Mass/Vol] 4.2 g/dL 2.2-4.2 [facility] Serum or plasma alanine armendariz otransferase (ALT) measurementOrdered By: Jesus Manuel Jenkins on 10-20-2024 ALT [Catalytic activity/Vol] 73 U/L High 16-61 [facility] Serum or plasma albumin melba urement (mass/volume)Ordered By: Jesus Manuel Jenkins on 10-20-2024 Albumin [Mass/Vol] 3.6 g/dL 3.2-5.0 [facility] Serum or plasma alkaline trevor sphatase measurementOrdered By: Jesus Manuel Jenkins on 10-20-2024 ALP [Catalytic activity/Vol] 101 U/L 45-117 [facility] Total proteinOrdered By: Yessica Jenkins on 10-20-2024 Protein [Mass/Vol] 7.8 g/dL 6.4-8.2 [facility] Urine Drug Screen (VISTA)on 10-20-2024 AMPHETAMINES Positive Abnormal <1000 ng/mL [facility] Comment on above: Performed By: #### L 505.5000 ####[facility] [address] [facility] [address] BARBITIURATES Negative Normal < 200 ng/mL [facility] Comment on above: Performed By: #### L 505.5000 ####[facility] [address] [facility] [address] BENZODIAZIPINE Negative Normal < 200 ng/mL [facility] Comment on above: Performed By: #### L 505.5000 ####[facility] [address] [facility] [address] COCAINE Positive Abnormal < 300 ng/mL [facility] Comment on above: Performed By: #### L 505.5000 ####[facility] [address] [facility] [address] ECSTACY Negative Normal < 500 ng/mL [facility] Comment on above: Performed By: #### L 505.5000 ####[facility] [facility] [address] [facility] [address] METHADONE Negative Normal < 300 ng/mL [facility] Comment on above: Performed By: #### L 505.5000 ####[facility] [address] [place] [id number] OPIATES Negative Normal < 300 ng/mL [facility] Comment on above: Performed By: #### L 505.5000 ####[facility] [address] [facility] [address] PCP Negative Normal < 25 ng/mL [facility] Comment on above: Performed By: #### L 505.5000 ####[facility] [address] [place], [place], [address] THC Positive Abnormal < 50 ng/mL [facility] Comment on above: Performed By: #### L 505.5000 ####[facility] [address] [place], [place], [address] VISTA UDS PH 5 Normal [facility] Comment on above: Performed By: #### L 505.5000 ####[facility] [address] [place], [place], [address] Urine amphetamine measuremen tOrdered By: Jesus Manuel Jenkins on 10-20-2024 Amphetamines Ql (U) Positive High <1000 ng/mL [facility] Urine barbiturates measureme ntOrdered By: Jesus Manuel Jenkins on 10-20-2024 Urine Barbiturates Screen Negative < 200 ng/mL [facility] Urine benzodiazepine levelOr dered By: Jesus Manuel Jenkins on 10-20-2024 Benzodiazepines Ql (U) Negative < 200 ng/mL [facility] Urine cocaine levelOrdered B y: Jesus Manuel Jenkins on 10-20-2024 Cocaine Ql (U) Positive High < 300 ng/mL [facility] Urine luheg-1-jvbeaqurbexyyh abinol (THC) measurementOrdered By: Jesus Manuel Jenkins on 10-20-2024 Cannabinoids Screen Ql (U) Positive High < 50 ng/m L [facility] Urine methylenedioxymethamph etamine (MDMA) measurementOrdered By: Jesus Manuel Jenkins on 10-20-2024 MDMA (Ecstasy) Screen Negative < 500 ng/mL [facility] Urine phencyclidine (PCP) de tectionOrdered By: Jesus Manuel Jenkins on 10-20-2024 Phencyclidine Ql (U) Negative < 25 ng/mL [facility] CNOVon 09-09-2024 CNOV Office Visit (UCWSTR ) ARON ESPINOZA ([id number]) 1975 M Date Time Provider Department 09/09/24 11:30 AM ALEXA GOVEA [facility] During your visit today, we recorded the [...] history is provided by the patient. No speech language assistant was used. URI He complains of cough [...] toxic-appearing or (more content not included)... Normal [facility] 07-02-2024 [facility] Telephone (UCTR) ARON ESPINOZA ([id number]) 1975 M Date Time Provider Department 07/02/24 LÓPEZ VILLATORO [facility] During your visit today, we recorded the following information about you: López Villatoro APRN.CNP 07/02/2024 7:27 AM Signed Please inform patient that COVID-19 test was negative. Follow-up with PCP if symptoms or not improving. López Villatoro APRN.Kimmie Jones LPN 07/02/2024 9:37 AM Signed Patient notified.Kimmie [...] Encounter Status:Closed by KIMMIE GONZALEZ on [facility]02[facility] (UCWSTR ) ARON ESPINOZA ([id number]) 1975 M Date Time Provider Department 07/01/24 2:30 PM STEVE MANJARREZ [facility] During your visit today, we recorded the following information about you: Temperature Pulse Respiration Blood pressure 97.5 degrees 73/minute 20/minute 169/105 Weight 164.8 kg Steve Manjarrez PA 07/01/2024 2:27 PM Signed This note was created using Manjrasoftriter. Subjective Aron Espinoza is a 48 year [...] medication, needs (more content not included)... Normal [facility] SARS-CoV-2 RNA Resp Ql YVONNE+p cyn 07-01-2024 SARS-CoV-2 (COVID-19) RNA YVONNE+probe Ql (Resp) COVID 19 RESULT: Not detected The method used is RT-PCR or an equivalent NAAT method. Reference Range (the expected result in uninfected individuals): Not detected Normal [facility] Comment on above: Performed By: #### 9 4500-6 #### [facility] CLIA [id number] [address] [place] [address] [place] STREP A MOLECULAR (POC)on Procedural Control Valid [facility] Strep A (POCT) Negative Negative [facility] Basic Metabolic Profile (BMP )on 03-25-2024 BUN/CRE 12.7 RATIO Normal 08-31 [facility] Comment on above: Order Comment: 'TROP ' Serial specimen #1, #2 or #3: 1 Performed By: #### L 501.4020, L500.2500, L100.0100 #### [facility] [address] [place], [address] CA,Total 8.5 mg/dL Normal 8.5-10.1 [facility] Comment on above: Order Comment: 'TROP ' Serial specimen #1, #2 or #3: 1 Performed By: #### L 501.4020, L500.2500, L100.0100 #### [facility] [address] [place], [address] Chloride [Moles/Vol] 109 mmol/L High 98-107 [facility] Comment on above: Order Comment: 'TROP ' Serial specimen #1, #2 or #3: 1 Performed By: #### L 501.4020, L500.2500, L100.0100 #### [facility] [address] [place], [address] CO2 [Moles/Vol] 27.0 mmol/L Normal 21.0-32.0 [facility] Comment on above: Order Comment: 'TROP ' Serial specimen #1, #2 or #3: 1 Performed By: #### L 501.4020, L500.2500, L100.0100 #### [facility] [address] [place], [address] Creatinine [Mass/Vol] 0.94 mg/dL Normal 0.70-1.30 [facility] Comment on above: Order Comment: 'TROP ' Serial specimen #1, #2 or #3: 1 Result Comment: The validity of the calculated GFR GFRAA in patients over 70 years has not been determined. Clinical correlation is essential. Performed By: #### L 501.4020, L500.2500, L100.0100 #### [facility] [address] [place], [address] ECRCL 155.85 ml/min Normal [facility] Comment on above: Order Comment: 'TROP ' Serial specimen #1, #2 or #3: 1 Performed By: #### L 501.4020, L500.2500, L100.0100 #### [facility] [address] [place], [address] EST GFR - AA 110 mL/min Normal >60 [facility] Comment on above: Order Comment: 'TROP ' Serial specimen #1, #2 or #3: 1 Result Comment: Afri can Argentine GFR Calc Performed By: #### L 501.4020, L500.2500, L100.0100 #### [facility] [address] [place], [address] GAP 3 Low 5-15 [facility] Comment on above: Order Comment: 'TROP ' Serial specimen #1, #2 or #3: 1 Performed By: #### L 501.4020, L500.2500, L100.0100 #### [facility] [address] [place], [address] GFR/1.73 sq M.predicted among non-blacks MDRD (S/P/Bld) [Vol rate/Area] 91 mL/min/{1.73_m2} Normal >[address] [facility] Comment on above: Order Comment: 'TROP ' Serial specimen #1, #2 or #3: 1 Result Comment: Non- GFR Calc Performed By: #### L 501.4020, L500.2500, L100.0100 #### [facility] [address] [place], [address] Glucose [Mass/Vol] 145 mg/dL High 74-106 [facility] Comment on above: Order Comment: 'TROP ' Serial specimen #1, #2 or #3: 1 Result Comment: Fast ing Glucose result greater than or equal to 126 mg/dL suggests DIABETES MELLITUS per A.D.A. criteria. Performed By: #### L 501.4020, L500.2500, L100.0100 #### [facility] [address] [place], [address] Potassium [Moles/Vol] 3.9 mmol/L Normal 3.5-5.1 [facility] Comment on above: Order Comment: 'TROP ' Serial specimen #1, #2 or #3: 1 Performed By: #### L 501.4020, L500.2500, L100.0100 #### [facility] [address] [place], [address] Sodium [Moles/Vol] 139 mmol/L Normal 136-145 [facility] Comment on above: Order Comment: 'TROP ' Serial specimen #1, #2 or #3: 1 Performed By: #### L 501.4020, L500.2500, L100.0100 #### [facility] [address] [place], [address] Urea nitrogen [Mass/Vol] 12 mg/dL Normal 7-18 [facility] Comment on above: Order Comment: 'TROP ' Serial specimen #1, #2 or #3: 1 Performed By: #### L 501.4020, L500.2500, L100.0100 #### [facility] [address] [place], [address] CBC W/Diff, Automatedon 05-1 Absolute Lymph 1.90 X10 3/uL Normal 0.83-4.51 [facility] Comment on above: Performed By: #### L 501.4020, L500.2500, L100.0100 #### [facility] [address] [place], [address] Absolute Neut 4.3 X10 3/uL Normal 2.0-7.7 [facility] Comment on above: Performed By: #### L 501.4020, L500.2500, L100.0100 #### [facility] [address] [place], [address] Basophils/100 WBC (Bld) 0.6 % Normal 0-1 [facility] Comment on above: Performed By: #### L 501.4020, L500.2500, L100.0100 #### [facility] [address] [place], [address] Eosinophils/100 WBC (Bld) 8.2 % High 0-5 [facility] Comment on above: Performed By: #### L 501.4020, L500.2500, L100.0100 #### [facility] [address] [place], [address] Erythrocyte distribution width (RBC) [Ratio] 17.2 % High 11.6-14.6 [facility] Comment on above: Performed By: #### L 501.4020, L500.2500, L100.0100 #### [facility] [address] [place], [address] Hematocrit (Bld) [Volume fraction] 35.9 % Low 40-54 [facility] Comment on above: Performed By: #### L 501.4020, L500.2500, L100.0100 #### [facility] [address] [place], [address] Hemoglobin (Bld) [Mass/Vol] 10.3 g/dL Low 13.0-16.5 [facility] Comment on above: Performed By: #### L 501.4020, L500.2500, L100.0100 #### [facility] [address] [place], [address] IG% 0.400 Normal 0.0-0.9 [facility] Comment on above: Result Comment: IG% - Immature Granulocytes (promyelocytes, myelocytes and metamyelocytes) > 1% indicates that a LEFT SHIFT is Present. Performed By: #### L 501.4020, L500.2500, L100.0100 #### [facility] [address] [place], [address] Lymphocytes/100 WBC (Bld) 26.5 % Normal 19-41 [facility] Comment on above: Performed By: #### L 501.4020, L500.2500, L100.0100 #### [facility] [address] [place], [address] MCH (RBC) [Entitic mass] 21.2 pg Low 27.0-32.0 [facility] Comment on above: Performed By: #### L 501.4020, L500.2500, L100.0100 #### [facility] [address] [place], [address] MCHC (RBC) [Mass/Vol] 28.7 g/dL Low 32-36 [facility] Comment on above: Performed By: #### L 501.4020, L500.2500, L100.0100 #### [facility] [address] [place], [address] MCV (RBC) [Entitic vol] 74.0 fL Low 80-94 [facility] Comment on above: Performed By: #### L 501.4020, L500.2500, L100.0100 #### [facility] [address] [place], [address] Monocytes/100 WBC (Bld) 4.6 % Normal 0-10 [facility] Comment on above: Performed By: #### L 501.4020, L500.2500, L100.0100 #### [facility] [address] [place], [address] Neutrophils/100 WBC (Bld) 59.7 % Normal 47-70 [facility] Comment on above: Performed By: #### L 501.4020, L500.2500, L100.0100 #### [facility] [address] [place], [address] Nucleated RBC (Bld) [#/Vol] 0 10*3/uL Normal 0-5 [facility] Comment on above: Performed By: #### L 501.4020, L500.2500, L100.0100 #### [facility] [address] [place], [address] Platelet mean volume (Bld) [Entitic vol] 9.7 fL Normal 6.2-12.0 [facility] Comment on above: Performed By: #### L 501.4020, L500.2500, L100.0100 #### [facility] [address] [place], [address] Platelets (Bld) [#/Vol] 258 10*3/uL Normal 150-450 [facility] Comment on above: Performed By: #### L 501.4020, L500.2500, L100.0100 #### [facility] [address] [place], [address] RBC (Bld) [#/Vol] 4.85 10*6/uL Normal 4.6-6.2 [facility] Comment on above: Performed By: #### L 501.4020, L500.2500, L100.0100 #### [facility] [address] [place], [address] RDW SD 45.5 fl High 35.1-43.9 [facility] Comment on above: Performed By: #### L 501.4020, L500.2500, L100.0100 #### [facility] [address] [place], [address] WBC (Bld) [#/Vol] 7.2 10*3/uL Normal 4.4-11.0 [facility] Comment on above: Performed By: #### L 501.4020, L500.2500, L100.0100 #### [facility] [address] [place], [address] Chest 1 View (Portable)on Chest 1 View (Portable) [facility] [address] [place] [address] Chest 1 View (Portable) MR#: [id number] Acct: [id number] Name: ARON ESPINOZA Rep #: [id number] : 1975 M 48 From: Alessandro Verdugo PCP: Dr. Mya Sánchez MD Status: PRE ER Study: Chest 1 View (Portable) Date of Exam: 03/25/24 Exam# [id number] Ordering Dr: Danie Cooper [id number] INDICATION: SOB EXAMINATION/TECHNIQUE: X-RAY - XR Chest [...] Dr. Mya Sánchez MD; ED PHYSICIAN PROVIDER [employer]mental [employer]aving Supervisor: Signed Normal [facility] L501.4020on 03-25-2024 TROPONIN-I HS 6 pg/mL Normal 3.0-78.0 [facility] Comment on above: Order Comment: 'TROP ' Serial specimen #1, #2 or #3: 1 Result Comment: Michael barclay Note: New Test Units and Gender Specific Reference Ranges. For more information see Policy Stat Procedure [place] High Sensitivity Troponin (TNIH) and attachments. Performed By: #### L 501.4020, L500.2500, L100.0100 #### [facility] [address] [place], [address] Basophil percentageOrdered B y: Mya Sánchez on 09-12-2023 Creatinine [Mass/Vol] 1.5 mg/dL 0.70-1.30 [facility] - Chemistry and C hemistry - challengeOrdered By: Mya Sánchez on 09-12-2023 GFR/1.73 sq M.predicted among non-blacks MDRD (S/P/Bld) [Vol rate/Area] 55.0000 mL/min/{1.73_m2} >60 [facility] EMERGENCY REPORTon 3 EMERGENCY REPORT [facility] EMERGENCY ROOM REPORT NAME ACCOUNT SEX AGE ADMIT DISCHARGE PT MED. RECORD# NUMBER DATE DATE TYPE ARON ESPINOZA [id number] M 47 02/07/23 2 S [id number] ROOM: 311MO DATE OF : 1975 DICTATING PHYSICIAN: Pierce Martinez CHIEF COMPLAINT: Chest pain. HISTORY OF [...] has them before. He was seen at [facility] about a week ago and had a [...] moderately anxious, at times nearly tearful. Skin: [place], warm, and dry. HEENT: All within normal [...] Pierce Martinez MD 02/07/23 20:17 JOB #: [id number] Transcribed By: huy 02/07/23 22:54 Electronically signed by: AICHA Martinez M.D. 02/14/23 07:03 Page 2 of 2 ARON ESPINOZA Emergency Room Report [facility] CORONAVIRUS PCR - [facility] 02-08-2023 SARS-CoV-2 (COVID-19) RNA YVONNE+probe Ql (Unsp spec) Negative Normal NORMAL: NEGATIVE [facility] Comment on above: Performed By: #### 2 56263 #### [facility],[address] [place] [address] SEND TO IC? NO [facility] Comment on above: Result Comment: RESU LTS FAXED TO INFECTION CONTROL. SARS-CoV-2 THIS TEST IS BEING USED UNDER THE FDA EUA PROCEDURE. THIS ASSAY HAS BEEN VALIDATED IN THE [facility] FOR USE WITH NASOPHARYNGEAL SPECIMENS IN [facility]. INTERPRETIVE DATA LABORATORY TEST RESULTS SHOULD ALWAYS [...] PUBLIC HEALTH AUTHORITIES. Performed By: #### 2 03799 #### [facility] [place] [id number] CV ECHO COMPLETE W/CONTRAST PER PROTOCOLon 02-08-2023 CV ECHO COMPLETE W/CONTRAST PER PROTOCOL [place] [id number] Patient: ARON ESPINOZA Phone#: : 1975 Age: 47 Gender: M Pt. Type: Out Account: [id number] Location: [facility] Ordering: DR. SHANT MUNOZ Exam Date: 02/08/2023/10:03 Family Phys: Charge Code: [id number] Physician: Nolan Order #: [id number] Dose#: PROCEDURE: ECHO COMPLETE WITH CONTRAST HISTORY: Patient is a 47-year-old male with presyncope INDICATIONS: Chest pain COMPARISON: None. TECHNIQUE: A 2-D ultrasound, color spectral Doppler and M-mode evaluation of the heart and great vessels. PATIENT MEASUREMENTS: Height (in.): 73 BSA: 2.7 Weight (lbs.): 330 BP: 138/79 [employer] Manager: ASHLEY Contrast study performed using Definity injected [...] 47 Gender: M Pt. Type: Out Account: [id number] Location: [facility] Ordering: DR. SHANT MUNOZ Exam Date: 02/08/2023/10:03 Family Phys: Charge Code: [id number] Physician: Nolan Order #: [id number] Dose#: AORTIC Ao V2 max: 1.39 m/s [...] 47 Gender: M Pt. Type: Out Account: [id number] Location: [facility] Ordering: DR. SHANT MUNOZ Exam Date: 02/08/2023/10:03 Family Phys: Charge Code: 971127 Physician: Nolan Order #: [id number] Dose#: 1. Study is limited but adequate [...] BAUER MD on 02/08/2023 at 12:11 [facility] LIPID PROFILEon 02-08-2023 Cholesterol [Mass/Vol] 213 mg/dL Normal 0 - 240 [facility] Comment on above: Performed By: #### 2 36255 #### [facility],[address] [place] [address] Cholesterol in HDL [Mass/Vol] 35 mg/dL Low 40 - 60 [facility] Comment on above: Performed By: #### 2 87243 #### [facility],[address] [place] [address] Cholesterol in LDL [Mass/Vol] 129 mg/dL Normal 0 - 129 [facility] Comment on above: Performed By: #### 2 18484 #### [facility],[address] [place] [address] Cholesterol.total/Choleste rol in HDL [Mass ratio] 6.1 {ratio} High 0.0 - 5.0 [facility] Comment on above: Performed By: #### 2 03083 #### [facility],[address] [place] [address] Lipid 1996 panel Normal [facility] Comment on above: Result Comment: LIPI D PROFILE Performed By: #### 2 22885 #### [facility],[address] [place] [address] Triglyceride [Mass/Vol] 243 mg/dL High 0 - 150 [facility] Comment on above: Performed By: #### 2 08519 #### [facility],[address] [place] [address] NM CARDIAC STRESS (SPECT) W/ [facility] 02-08-2023 NM CARDIAC STRESS (SPECT) W/[address] [address] Patient: ARON ESPINOZA Phone#: : 1975 Age: 47 Gender: M Pt. Type: Out Account: [id number] Location: [facility] Ordering: DR. SHANT MUNOZ Exam Date: 02/08/2023/6:45 Family Phys: Charge Code: [id number] Physician: Nolan Order #: [id number] Dose#: PROCEDURE: CARDIAC STRESS SPECT WITH LEXISCAN [...] 47 Gender: M Pt. Type: Out Account: [id number] Location: [facility] Ordering: DR. SHANT MUNOZ Exam Date: 02/08/2023/6:45 Family Phys: Charge Code: [id number] Physician: Nolan Order #: [id number] Dose#: Dictated by: MARIANGEL BAUER MD on 02/08/2023 at 9:46 Approved by: MARIANGEL BAUER MD on 02/08/2023 at 9:51 [facility] NM EXERCISE STRESS TEST (W/C ARDIAC STUDYon 02-08-2023 NM EXERCISE STRESS TEST (W/CARDIAC STUDY [place] [address] Patient: ARON ESPINOZA Phone#: : 1975 Age: 47 Gender: M Pt. Type: Out Account: [id number] Location: 010 Ordering: DR. SHANT MUNOZ Exam Date: 02/08/2023/7:39 Family Phys: Charge Code: 697290 Physician: Nolan Order #: [id number] Dose#: PROCEDURE: ELECTROCARDIOGRAM STRESS TEST HISTORY: Patient [...] 47 Gender: M Pt. Type: Out Account: [id number] Location: 010 Ordering: DR. SHANT MUNOZ Exam Date: 02/08/2023/7:39 Family Phys: Charge Code: 097123 Physician: Nolan Order #: [id number] Dose#: Dictated by: MARIANGEL BAUER MD on 02/08/2023 at 9:51 Approved by: MARIANGEL BAUER MD on 02/08/2023 at 9:53 [facility] TROPONIN I, HIGH SENSITIVITY on 02-08-2023 HS TROPONIN 6.4 pg/mL Normal 0.0 - 76.2 [facility] Comment on above: Performed By: #### 2 60857 #### [facility],[address] [place] [address] HS TROPONIN 6.8 pg/mL Normal 0.0 - 76.2 [facility] Comment on above: Performed By: #### 2 88471 #### [facility],[address] [place] [address] ALCOHOL-BLOOD MEDICALon 01-11 Ethanol [Mass/Vol] 136 mg/dL High 0 - 50 [facility] Comment on above: Performed By: #### 2 27290 #### [facility],[address] [place] [address] APTTon 02-07-2023 aPTT Coag (Bld) [Time] 25.8 s Normal 25.4 - 38.4 [facility] Comment on above: Performed By: #### 2 74479 #### [facility],[address] [place] [address] CBC + DIFFon 02-07-2023 Baso # 0.10 x10EE3/UL Normal 0.00 - 0.10 [facility] Comment on above: Performed By: #### 2 61819 #### [facility],[address] [place] [address] Basophils/100 WBC (Bld) 0.7 % Normal 0.0 - 2.0 [facility] Comment on above: Performed By: #### 2 29620 #### [facility],[address] [place] [address] CBC + DIFF [facility] Comment on above: Result Comment: CBC- COMPLETE BLOOD COUNT Performed By: #### 2 64573 #### [facility],[address] [place], [place] [id number] EO # 0.60 x10EE3/UL High 0.00 - 0.50 [facility] Comment on above: Performed By: #### 2 89271 #### [facility],[address] [place] [address] Eosinophils/100 WBC (Bld) 6.9 % Normal 0.0 - 7.0 [facility] Comment on above: Performed By: #### 2 14336 #### [facility],[address] [place] [address] Erythrocyte distribution width (RBC) [Ratio] 16.8 % High 12.0 - 15.6 [facility] Comment on above: Performed By: #### 2 33294 #### [facility],[address] [place] [address] Hematocrit (Bld) [Volume fraction] 40.6 % Normal 40.0 - 52.0 [facility] Comment on above: Performed By: #### 2 44971 #### [facility],[address] [place] [address] Hemoglobin (Bld) [Mass/Vol] 12.8 g/dL Low 13.0 - 17.5 [facility] Comment on above: Performed By: #### 2 05808 #### [facility],[address] [place] [address] Lymph # 2.60 x10EE3/UL Normal 0.80 - 2.80 [facility] Comment on above: Performed By: #### 2 13855 #### [facility],[address] [place] [address] Lymphocytes/100 WBC (Bld) 30.6 % Normal 20 .0 - 45.0 [facility] Comment on above: Performed By: #### 2 98309 #### [facility],[address] [place] [address] MANUAL DIFF N/A [facility] Comment on above: Performed By: #### 2 07732 #### [facility],[address] [place] [address] MCH (RBC) [Entitic mass] 23 pg Low 27 - 33 [facility] Comment on above: Performed By: #### 2 61068 #### [facility],[address] [place] [address] MCHC 32 X10 3 Normal 32 - 36 [facility] Comment on above: Performed By: #### 2 47843 #### [facility],[address] [place] [address] MCV (RBC) [Entitic vol] 74 fL Low 81 - 98 [facility] Comment on above: Performed By: #### 2 99727 #### [facility],[address] [place] [address] [place] # 0.50 x10EE3/UL Normal 0.20 - 1.00 [facility] Comment on above: Performed By: #### 2 03123 #### [facility],[address] [place] [address] MONOS % 6.1 % Normal 0.0 - 10.0 [facility] Comment on above: Performed By: #### 2 91273 #### [facility],[address] [place] [address] Morphology Marc (Bld) [Interp] N/A [facility] Comment on above: Performed By: #### 2 91855 #### [facility],[address] [place] [address] Neut # 4.70 x10EE3/UL Normal 1.50 - 7.10 [facility] Comment on above: Performed By: #### 2 86863 #### [facility],[address] [place] [address] Neutrophils/100 WBC (Bld) 55.7 % Normal 46 .0 - 76.0 [facility] Comment on above: Performed By: #### 2 22972 #### [facility],[address] [place] [address] PLATELET 239 x10EE3/UL Normal 150 - 450 [facility] Comment on above: Performed By: #### 2 84452 #### [facility],[address] [place] [address] Platelet mean volume (Bld) [Entitic vol] 8.4 fL Normal 6.4 - 10.5 [facility] Comment on above: Result Comment: AUTO MATED DIFFERENTIAL Performed By: #### 2 37376 #### [facility],[address] [place] [address] RBC 5.50 x 10EE6/UL Normal 4.50 - 6.00 [facility] Comment on above: Performed By: #### 2 43759 #### [facility],[address] [place] [address]408 WBC 8.5 x 10EE3/UL Normal 4.5 - 10.8 [facility] Comment on above: Performed By: #### 2 47853 #### [facility],[address] [place] [address]99 CHEST 1 VIEWon 02-07-2023 CHEST 1 VIEW [place] [address] Patient: ARON ESPINOZA Phone#: : 1975 Age: 47 Gender: M Pt. Type: ER Account: [id number] Location: 05 Ordering: PIERCE MARTINEZ Exam Date: 02/07/2023/16:39 Family Phys: Charge Code: [id number] Physician: Nolan Order #: [id number] Dose#: PROCEDURE: X-RAY CHEST 1 VIEW COMPARISON: [facility], XR, CHEST PA/LAT, 05/30/2016, 17:19. INDICATIONS: Chst [...] Phillips MD on 02/07/2023 at 16:57 Normal [facility] CMP with eGFRon 02-07-2023 AGE 47 years Normal [facility] Comment on above: Performed By: #### 2 15998 #### [address] [address] Albumin [Mass/Vol] 3.7 g/dL Normal 3.4 - 5.0 [facility] Comment on above: Performed By: #### 2 73737 #### [facility],[address] [place] [address]2850 Albumin/Globulin [Mass ratio] 0.9 {ratio} Normal 0.9 - 1.6 [facility] Comment on above: Performed By: #### 2 97777 #### [address] [address] ALK PHOS 86 U/L Normal 46 - 116 [facility] Comment on above: Performed By: #### 2 74342 #### [facility],[address] [place] [address] 36446 ALT [Catalytic activity/Vol] 65 U/L High 16 - 63 [facility] Comment on above: Performed By: #### 2 86915 #### [facility],[address] [place] [address] 74604 Anion gap [Moles/Vol] 15 mmol/L Normal 10 - 20 [facility] Comment on above: Performed By: #### 2 90103 #### [facility],[address] [place] [address] 12960 AST [Catalytic activity/Vol] 43 U/L High 15 - 37 [facility] Comment on above: Performed By: #### 2 73030 #### [facility],[address] [place] [address]90 B/C RATIO 15 ratio Normal 0 - 30 [facility] Comment on above: Performed By: #### 2 47106 #### [facility],[address] [place] [address] 35765 Bilirubin [Mass/Vol] 0.4 mg/dL Normal 0.2 - 1.0 [facility] Comment on above: Performed By: #### 2 82671 #### [facility],[address] [place] [address]879 Calcium [Mass/Vol] 8.8 mg/dL Normal 8.5 - 10.1 [facility] Comment on above: Performed By: #### 2 93648 #### [facility],[address] [place] [address]28 Chloride [Moles/Vol] 102 mmol/L Normal 98 - 107 [facility] Comment on above: Performed By: #### 2 00278 #### [facility],[address] [place] [address]84 CMP with eGFR Normal [facility] Comment on above: Result Comment: COMP REHENSIVE METABOLIC PANEL Performed By: #### 2 28944 #### [facility],[address] [place] [address]381 CO2 [Moles/Vol] 26.2 mmol/L Normal 21.0 - 32.0 [facility] Comment on above: Performed By: #### 2 58889 #### [facility],[address] [place] [address]26 Creatinine [Mass/Vol] 0.94 mg/dL Normal 0.70 - 1.30 [facility] Comment on above: Performed By: #### 2 56568 #### [facility],[address] [place] [address]1982 GFR/1.73 sq M.predicted among non-blacks MDRD (S/P/Bld) [Vol rate/Area] mL/min/{1.73_m2} Normal 60 - 999 [facility] Comment on above: Performed By: #### 2 87686 #### [facility],[address] [place], [place] [id number] Result Comment: ACCO RDING TO THE NATIONAL KIDNEY DISEASE EDUCATION PROGRAM(NKDE), A NORMAL eGFR IS A VALUE GREATER THAN OR EQUAL TO 60 ML/MIN/1.73 SQ METERS. CHRONIC KIDNEY DISEASE: <60mL/MIN/1.73 SQ METERS KIDNEY FAILURE: <15mL/MIN/1.73 SQ METERS THIS TEST SHOULD ONLY BE USED FOR PATIENTS 18 YEARS OF AGE AND OLDER. Globulin (S) [Mass/Vol] 3.9 g/dL High 1.5 - 3.8 [facility] Comment on above: Performed By: #### 2 83602 #### [address] [address] Glucose [Mass/Vol] 140 mg/dL High 74 - 106 [facility] Comment on above: Performed By: #### 2 44261 #### [address] [address] Potassium [Moles/Vol] 3.3 mmol/L Low 3.5 - 5.1 [facility] Comment on above: Performed By: #### 2 07707 #### [facility],[address] [place] [address]450 Protein [Mass/Vol] 7.6 g/dL Normal 6.4 - 8.2 [facility] Comment on above: Performed By: #### 2 31406 #### [address] [address] Sodium [Moles/Vol] 140 mmol/L Normal 136 - 145 [facility] Comment on above: Performed By: #### 2 05223 #### [place] [id number] Urea nitrogen [Mass/Vol] 14 mg/dL Normal 7 - 18 [facility] Comment on above: Performed By: #### 2 98662 #### [facility],[address] [place] [address] DRUG SCREEN URINE MEDICon AMPHETAMINES Negative Normal [facility] Comment on above: Performed By: #### 2 97176 #### [facility],[address] [place] [address]57 B-DIAZEPINES Negative Normal [facility] Comment on above: Performed By: #### 2 88532 #### [facility],[address] [place] [address] BARBITURATES Negative [facility] Comment on above: Performed By: #### 2 89911 #### [facility],[address] [place] [address] COCAINE Negative [facility] Comment on above: Performed By: #### 2 33243 #### [facility],[address] [place], [place] [id number] DRUG SCREEN URINE MEDIC Normal [facility] Comment on above: Result Comment: DRUG SCREEN - URINE Performed By: #### 2 49943 #### [facility],[address] [place] [address]472 METHADONE Negative [facility] Comment on above: Performed By: #### 2 92620 #### [facility],[address] [place] [address] 31054 OPIATES Negative [facility] Comment on above: Performed By: #### 2 99291 #### [facility],[address] [place] [address]006 PCP Negative [facility] Comment on above: Performed By: #### 2 10734 #### [facility],[address] [place] [address] 80896 THC Negative [facility] Comment on above: Result Comment: GABY ENTS RECEIVING PROTON PUMP INHIBITORS MAY DEMONSTRATE FALSE POSITIVE THC/CANNABINOID RESULTS. AN ALTERNATIVE CONFIRMATORY METHOD SHOULD BE CONSIDERED TO VERIFY POSITIVE RESULTS. Performed By: #### 2 40579 #### [facility],[address] [place], [place] [address] NT-proBNPon 02-07-2023 NT PRO-BNP <5 Normal 0 - 125 [facility] Comment on above: Performed By: #### 2 34074 #### [facility],[address] [place], [place] [address] PROTHROMBIN TIME AND INRon 0 02-07-2023 INR Coag (PPP) [Relative time] 1.1 {INR} Normal 0.8 - 1.2 [facility] Comment on above: Result Comment: T HE [...] MECHANICAL HEART VALVES Performed By: #### 2 62304 #### [facility],[address] [place] [address] PROTHROMBIN TIME AND INR Normal [facility] Comment on above: Result Comment: PROT HROMBIN TIME AND INR Performed By: #### 2 75224 #### [facility],[address] [place] [address] PT-COUMADIN 12.6 sec Normal 9.3 - 14.1 [facility] Comment on above: Performed By: #### 2 45009 #### [facility],[address] [place], [place] [id number] TROPONIN I, HIGH SENSITIVITY on 02-07-2023 HS TROPONIN 7.0 pg/mL Normal 0.0 - 76.2 [facility] Comment on above: Performed By: #### 2 90181 #### [facility],[address] [place], [place] [address] HS TROPONIN 8.7 pg/mL Normal 0.0 - 76.2 [facility] Comment on above: Performed By: #### 2 03030 #### [facility],[address] [place], [place] [phone] URINALYSISon 02-07-2023 Bilirubin Ql (U) Negative Normal NORMAL: NEGATIVE [facility] Comment on above: Performed By: #### 2 20690 #### [facility],[address] [place], [place] [phone] Clarity (U) clear Normal NORMAL: CLEAR [facility] Comment on above: Performed By: #### 2 58136 #### [facility],[address] [place] [address] Color (U) p.yel Normal NORMAL: YELLOW [facility] Comment on above: Performed By: #### 2 30122 #### [facility],[address] [place], [place] [address] Glucose Ql (U) NORM Normal NORMAL: NORMAL [facility] Comment on above: Performed By: #### 2 16933 #### [facility],[address] [place] [address]79 Hemoglobin Ql (U) Negative Normal NORMAL: NEGATIVE [facility] Comment on above: Performed By: #### 2 08942 #### [facility],[address] [place] [address]149 Ketone Negative Normal NORMAL: NEGATIVE [facility] Comment on above: Performed By: #### 2 58265 #### [facility],[address] [place] [address] Leukocytes Negative Normal NORMAL: NEGATIVE [facility] Comment on above: Performed By: #### 2 35811 #### [facility],[address] [place] [address]309 Nitrite Ql (U) Negative Normal NORMAL: NEGATIVE [facility] Comment on above: Performed By: #### 2 13677 #### [facility],[address] [place] [address] pH (U) 6.5 [pH] Normal NORMAL: 5.0-8.0 [facility] Comment on above: Performed By: #### 2 95892 #### [facility],[address] [place] [address] Protein Ql (U) Negative Normal NORMAL: NEGATIVE [facility] Comment on above: Performed By: #### 2 19856 #### [facility],[address] [place] [address] Sp [place] 1.010 Normal NORMAL: 1.010-1.03 0 [facility] Comment on above: Performed By: #### 2 81764 #### [facility],[address] [place] [address] Specimen Type UNSPECIFIED Normal [facility] Comment on above: Performed By: #### 2 77525 #### [facility],[address] [place] [address] Urinalysis dipstick W Reflex Microscopic panel (U) NOT INDICATED Normal [facility] Comment on above: Performed By: #### 2 57342 #### [facility],[address] [place] [address] Urobilinog NORM Normal NORMAL: NORMAL [facility] Comment on above: Performed By: #### 2 80142 #### [facility],[address] [place] [address] Laboratory - Chemistry and C hemistry - challengeOrdered By: Dr. Londono on 01-31-2023 Cobalamin (Vitamin B12) [Mass/Vol] 756 pg/mL 211-911 [facility] Natriuretic peptide B (Bld) [Mass/Vol] 8.2 pg/mL 0-100 [facility] No Panel InformationOrdered By: Dr. Londono on 01-31-2023 Thyroid Stimulating Hormone (TSH) 0.96 uIU/mL 0.358-3.74 [facility] Serum or plasma folate measu rement (mass/volume)Ordered By: Dr. Londono on 01-31-2023 Folate [Mass/Vol] 4.40 ng/mL 3.1-55.4 [facility] Comment on above: Slight Hemolysis, Re sult may be falsely increased. Whole blood hemoglobin A1c/t otal hemoglobin ratio (mass fraction)Ordered By: Dr. Londono on 01-31-2023 HbA1c (Bld) [Mass fraction] 6.2 % 3.8-5.6 [facility] Comment on above: Normal < 5.7 % Predi abetic 5.7 - 6.4 % Diabetic >or= 6.5 % Please note range changes. Absolute lymphocyte countOrd ered By: Dr. Lazcano on 01-30-2023 Lymphocytes Auto (Unsp spec) [#/Vol] 2.96 10*3/uL 0.83-4.51 [facility] Basophil percentageOrdered B y: Dr. Lazcano on 01-30-2023 Basophils/100 WBC (Bld) 0.5 % 0-1 [facility] Bilirubin [Mass/Vol] 0.40 mg/dL 0.20-1.00 [facility] Comment on above: For patients on eltr ombopag therapy, use of Dimension [place] TBIL is not recommended. Chloride [Moles/Vol] 106 mmol/L 98-107 [facility] Eosinophils/100 WBC (Bld) 5.7 % 0-5 [facility] Glucose [Mass/Vol] 139 mg/dL 74-106 [facility] Comment on above: Fasting Glucose resu lt greater than or equal to 126 mg/dL suggests DIABETES MELLITUS per A.D.A. criteria. Neutrophils (Bld) [#/Vol] 5.5 10*3/uL 2.0-7.7 [facility] Neutrophils/100 WBC (Bld) 57.0 % 47-70 [facility] Potassium [Moles/Vol] 4.2 mmol/L 3.5-5.1 [facility] Protein [Mass/Vol] 7.4 g/dL 6.4-8.2 [facility] Sodium [Moles/Vol] 140 mmol/L 136-145 [facility] WBC (Bld) [#/Vol] 9.7 10*3/uL 4.4-11.0 [facility] Blood erythrocytes count (nu mber/volume)Ordered By: Dr. Lazcano on 01-30-2023 RBC (Bld) [#/Vol] 5.24 10*6/uL 4.6-6.2 [facility] Blood hemoglobin measurement (mass/volume)Ordered By: Dr. Lazcano on 01-30-2023 Hemoglobin (Bld) [Mass/Vol] 12.1 g/dL 13.0-16.5 [facility] Blood lymphocytes/100 leukoc ytesOrdered By: Dr. Lazcano on 01-30-2023 Lymphocytes/100 WBC (Bld) 30.5 % 19-41 [facility] Blood monocytes/100 leukocyt esOrdered By: Dr. Lazcano on 01-30-2023 Monocytes/100 WBC (Bld) 6.0 % 0-10 [facility] Blood platelet mean volumeOr dered By: Dr. Lazcano on 01-30-2023 Platelet mean volume (Bld) [Entitic vol] 10.2 fL 6.2-12.0 [facility] Determination of erythrocyte mean corpuscular volume (MCV)Ordered By: Dr. Lazcano on 01-30-2023 MCV (RBC) [Entitic vol] 78.8 fL 80-94 [facility] Hematocrit Auto (Bld) [Volum e fraction]Ordered By: Dr. Lazcano on 01-30-2023 Hematocrit (Bld) [Volume fraction] 41.3 % 40-54 [facility] Laboratory - Chemistry and C hemistry - challengeOrdered By: Dr. Lazcano on 01-30-2023 ALP [Catalytic activity/Vol] 97 U/L 45-117 [facility] ALT [Catalytic activity/Vol] 47 U/L 16-61 [facility] CO2 [Moles/Vol] 29.0 mmol/L 21.0-32.0 [facility] Globulin (S) [Mass/Vol] 3.9 g/dL 2.2-4.2 [facility] Urea nitrogen/Creatinine [Mass ratio] 14.9 mg/mg 10-20 [facility] Laboratory - Hematology and Cell countsOrdered By: Dr. Lazcano on 01-30-2023 Erythrocyte distribution width (RBC) [Entitic vol] 45.7 fL 35.1-43.9 [facility] Erythrocyte distribution width (RBC) [Ratio] 16.0 % 11.6-14.6 [facility] Immature granulocytes/100 WBC (Bld) 0.300 % 0.0-0.9 [facility] Comment on above: IG% - Immature Granu locytes (promyelocytes, myelocytes and metamyelocytes) > 1% indicates that a LEFT SHIFT is Present. MCH (RBC) [Entitic mass] 23.1 pg 27.0-32.0 [facility] Nucleated RBC/100 WBC (Bld) [Ratio] 0 % 0-5 [facility] MCHC Auto (RBC) [Mass/Vol]Or dered By: Dr. Lazcano on 01-30-2023 MCHC (RBC) [Mass/Vol] 29.3 g/dL 32-36 [facility] No Panel InformationOrdered By: Dr. Lazcano on 01-30-2023 Estimated Creatinine Clearance Calc 112.15 ml/min [facility] Estimated GFR (MDRD) Amer 111 mL/min >60 [facility] Comment on above: GFR Calc Estimated GFR (MDRD) Non-Af Amer 92 mL/min >60 [facility] Comment on above: Non- GFR Calc Ethyl Alcohol Level 103.0 mg/dL [facility] Comment on above: The serum:whole bloo d ethanol ratio is approximately 1.14and varies slightly with hematocrit. Medical Alcohol reference interval and critical value innon-tolerant individuals; 50 - 100 Impairment 100 Intoxication 100 - 250 Severe Poisoning 250 - 400 Deep/possible fatal coma Troponin I High Sensitivity 5 pg/mL 3.0-78.0 [facility] Comment on above: Please Note: New Era t Units and Gender Specific Reference Ranges. For more information see Policy Stat Procedure [place] High Sensitivity Troponin (TNIH) and attachments. Platelets bldOrdered By: Dr. Lazcano on 01-30-2023 Platelets (Bld) [#/Vol] 296 10*3/uL 150-450 [facility] Serum or plasma albumin melba urement (mass/volume)Ordered By: Dr. Lazcano on 01-30-2023 Albumin [Mass/Vol] 3.5 g/dL 3.2-5.0 [facility] Serum or plasma albumin/glob ulin mass ratioOrdered By: Dr. Lazcano on 01-30-2023 Albumin/Globulin [Mass ratio] 0.9 {ratio} 0.9-2.4 [facility] Serum or plasma calcium melba urement (mass/volume)Ordered By: Dr. Lazcano on 01-30-2023 Calcium [Mass/Vol] 8.7 mg/dL 8.5-10.1 [facility] Serum or plasma creatinine m easurement (mass/volume)Ordered By: Dr. Lazcano on 01-30-2023 Creatinine [Mass/Vol] 0.94 mg/dL 0.70-1.30 [facility] Comment on above: The validity of the calculated GFR & GFRAA in patients over 70 years has not been determined. Clinical correlation is essential. Serum or plasma urea nitroge n measurement (mass/volume)Ordered By: Dr. Lazcano on 01-30-2023 Urea nitrogen [Mass/Vol] 14 mg/dL 7-18 [facility] Thin prep Papanicolaou smear with manual screeningOrdered By: Dr. Lazcano on 01-30-2023 Thin prep Papanicolaou smear with manual screening 31 U/L 15-37 [facility] Thin prep Papanicolaou smear with manual screening 5 5-15 [facility] XR FOOT GENERAL 3V AP/LAT/OB L RIGHTon 12-19-2022 [facility] C-REACTIVE PROTEINon 06-10- 021 CRP [Mass/Vol] 3.6 mg/L Normal <8.0 [facility] Comment on above: Performed By: #### 4 420, 1333, 809, 55180 #### [facility] [address], [address] [place] [id number] Cloth Reeler: Christophe Og MD CBC (INCLUDES DIFF/PLT)on Basophils (Bld) [#/Vol] 0.06 10*3/uL Normal 0-200 [facility] Comment on above: Performed By: #### 4 420, 6399, 809, 05945 #### [facility] [address], [address] [place] [address] Cloth Reeler: Christophe Og MD Basophils/100 WBC (Bld) 0.8 % Normal [facility] Comment on above: Performed By: #### 4 420, 6399, 809, 20257 #### [facility] of [place] [address] Cloth Reeler: Christophe Og MD Eosinophils (Bld) [#/Vol] 0.495 10*3/uL Normal 15-500 [facility] Comment on above: Performed By: #### 4 420, 6399, 809, 11193 #### [facility] of [address], [address] [place] [address] Cloth Reeler: Christophe Og MD Eosinophils/100 WBC (Bld) 6.6 % Normal [facility] Comment on above: Performed By: #### 4 420, 6399, 809, 37522 #### [facility] of [place] [address] Cloth Reeler: Christophe Og MD Erythrocyte distribution width (RBC) [Ratio] 18.8 % High 11.0-15.0 [facility] Comment on above: Performed By: #### 4 420, 6399, 809, 25439 #### [facility] of [place] [address] Cloth Reeler: Christophe Og MD Hematocrit (Bld) [Volume fraction] 38.2 % Low 38.5-50.0 [facility] Comment on above: Performed By: #### 4 420, 6399, 809, 23843 #### [facility] of [place] [address] Cloth Reeler: Christophe Og MD Hemoglobin (Bld) [Mass/Vol] 11.0 g/dL Low 13.2-17.1 [facility] Comment on above: Performed By: #### 4 420, 6399, 809, 81786 #### [facility] of [place] [address] Cloth Reeler: Christophe Og MD Lymphocytes (Bld) [#/Vol] 1.943 10*3/uL Normal 850-390 0 [facility] Comment on above: Performed By: #### 4 420, 6399, 809, 34994 #### [facility] of [place] [address] Cloth Reeler: Christophe Og MD Lymphocytes/100 WBC (Bld) 25.9 % Normal [facility] Comment on above: Performed By: #### 4 420, 6399, 809, 98454 #### [facility] of [place] [address] Cloth Reeler: Christophe Og MD MCH (RBC) [Entitic mass] 19.7 pg Low 27.0-33.0 [facility] Comment on above: Performed By: #### 4 420, 6399, 809, 07934 #### [facility] of [place] [address] Cloth Reeler: Christophe Og MD MCHC (RBC) [Mass/Vol] 28.8 g/dL Low 32.0-36.[address] [facility] Comment on above: Performed By: #### 4 420, 6399, 809, 04655 #### [facility] [place] [address] Cloth Reeler: Christophe Og MD MCV (RBC) [Entitic vol] 68.6 fL Low 80.0-100.0 [facility] Comment on above: Performed By: #### 4 420, 6399, 809, 78691 #### [facility] [place] [address] Cloth Reeler: Christophe Og MD Monocytes (Bld) [#/Vol] 0.51 10*3/uL Normal 200-950 [facility] Comment on above: Performed By: #### 4 420, 6399, 809, 66600 #### [facility] [place] [address] Cloth Reeler: Christophe Og MD Monocytes/100 WBC (Bld) 6.8 % Normal [facility] Comment on above: Performed By: #### 4 420, 6399, 809, 72586 #### [facility] [place] [address] Cloth Reeler: Christophe Og MD Neutrophils (Bld) [#/Vol] 4.493 10*3/uL Normal 1500-78 00 [facility] Comment on above: Performed By: #### 4 420, 6399, 809, 74259 #### [facility] [place] [address] Cloth Reeler: Christophe Og MD Neutrophils/100 WBC (Bld) 59.9 % Normal [facility] Comment on above: Performed By: #### 4 420, 6399, 809, 49791 #### [facility] [place] [address] Cloth Reeler: Christophe Og MD Platelet mean volume (Bld) [Entitic vol] 10.1 fL Normal 7.5-12.5 [facility] Comment on above: Performed By: #### 4 420, 6399, 809, 11372 #### [facility] [place] [address] Cloth Reeler: Christophe Og MD Platelets (Bld) [#/Vol] 304 10*3/uL Normal 140-400 [facility] Comment on above: Performed By: #### 4 420, 6399, 809, 71953 #### [facility] of [place] [address] Cloth Reeler: Christophe Og MD RBC (Bld) [#/Vol] 5.57 10*6/uL Normal 4.20-5.80 [facility] Comment on above: Performed By: #### 4 420, 6399, 809, 00560 #### [facility] of [place] [address] Cloth Reeler: Christophe Og MD WBC (Bld) [#/Vol] 7.5 10*3/uL Normal 3.8-10.8 [facility] Comment on above: Performed By: #### 4 420, 6399, 809, 43098 #### [facility] of [address], [address] [place] [address] Cloth Reeler: Christophe Og MD CBC MORPHOLOGYon 06-10-2021 CBC MORPHOLOGY Normal NORMAL [facility] Comment on above: Result Comment: Micr ocytosis 2 + Hypochromasia 1 + Performed By: #### 4 420, 6399, 809, 55088 #### [facility] of [address], [address] [place] [address] Cloth Reeler: Christophe Og MD COMPREHENSIVE METABOLIC PANE [facility] 06-10-2021 Albumin [Mass/Vol] 4.2 g/dL Normal 3.6-5.1 [facility] Comment on above: Performed By: #### 4 420, 6399, 809, 49796 #### [facility] of [address], [address] [place] [address] Cloth Reeler: Christophe Og MD Albumin/Globulin [Mass ratio] 1.4 {ratio} Normal 1.0-2.5 [facility] Comment on above: Performed By: #### 4 420, 6399, 809, 17305 #### [facility] of [place] [address] Cloth Reeler: Christophe Og MD ALP [Catalytic activity/Vol] 87 U/L Normal 36-130 [facility] Comment on above: Performed By: #### 4 420, 6399, 809, 20942 #### [facility] [place] [address] Cloth Reeler: Christophe Og MD ALT [Catalytic activity/Vol] 29 U/L Normal 9-46 [facility] Comment on above: Performed By: #### 4 420, 6399, 809, 27952 #### [facility] [place] [address] Cloth Reeler: Christophe Og MD AST [Catalytic activity/Vol] 19 U/L Normal 10-40 [facility] Comment on above: Performed By: #### 4 420, 6399, 809, 06020 #### [facility] of [place] [address] Cloth Reeler: Christophe Og MD Bilirubin [Mass/Vol] 0.4 mg/dL Normal 0.2-1.2 [facility] Comment on above: Performed By: #### 4 420, 6399, 809, 89733 #### [facility] [place] [address] Cloth Reeler: Christophe Og MD BUN/CREATININE RATIO NOT APPLICABLE Normal 6-22 [facility] Comment on above: Performed By: #### 4 420, 6399, 809, 26634 #### [facility] [place] [address] Cloth Reeler: Christophe Og MD Calcium [Mass/Vol] 9.2 mg/dL Normal 8.6-10.3 [facility] Comment on above: Performed By: #### 4 420, 6399, 809, 36673 #### [facility] [place] [address] Cloth Reeler: Christophe Og MD Chloride [Moles/Vol] 103 mmol/L Normal 98-110 [facility] Comment on above: Performed By: #### 4 420, 6399, 809, 50931 #### [facility] [place] [address] Cloth Reeler: Christophe Og MD CO2 [Moles/Vol] 31 mmol/L Normal 20-32 [facility] Comment on above: Performed By: #### 4 420, 6399, 809, 36120 #### [facility] [place] [address] Cloth Reeler: Christophe Og MD Creatinine [Mass/Vol] 0.97 mg/dL Normal 0.60-1.[address] [facility] Comment on above: Performed By: #### 4 420, 6399, 809, 43993 #### [facility] [place] [address] Cloth Reeler: Christophe Og MD eGFR NON-AFR. DOMINICAN 95 mL/min/1.73m2 Normal > OR = 60 [facility] Comment on above: Performed By: #### 4 420, 6399, 809, 11617 #### [facility] of [place] [address] Cloth Reeler: Christophe Og MD GFR/1.73 sq M.predicted among blacks MDRD (S/P/Bld) [Vol rate/Area] 110 mL/min/{1.73_m2} Normal > OR = 60 [facility] Comment on above: Performed By: #### 4 420, 6399, 809, 70205 #### [facility] [place] [address] Cloth Reeler: Christophe Og MD Globulin (S) [Mass/Vol] 3.1 g/dL Normal 1.9-3.7 [facility] Comment on above: Performed By: #### 4 420, 6399, 809, 43796 #### [facility] [place] [address] Cloth Reeler: Christophe Og MD Glucose [Mass/Vol] 94 mg/dL Normal 65-99 [facility] Comment on above: Result Comment: Fasting reference interval Performed By: #### 4 420, 6399, 809, 43989 #### [facility] [place] [address] Cloth Reeler: Christophe Og MD Potassium [Moles/Vol] 4.3 mmol/L Normal 3.5-5.[address] [facility] Comment on above: Performed By: #### 4 420, 6399, 809, [id number] #### [facility] [place] [address] Cloth Reeler: Christophe Og MD Protein [Mass/Vol] 7.3 g/dL Normal 6.1-8.1 [facility] Comment on above: Performed By: #### 4 420, 6399, 809, [id number] #### [facility] [place] [address] Cloth Reeler: Christophe Og MD Sodium [Moles/Vol] 139 mmol/L Normal 135-146 [facility] Comment on above: Performed By: #### 4 420, 6399, 809, [id number] #### [facility] [place] [address] Cloth Reeler: Christophe Og MD Urea nitrogen [Mass/Vol] 15 mg/dL Normal 7-25 [facility] Comment on above: Performed By: #### 4 420, 6399, 809, [id number] #### [facility] [place] [address] Cloth Reeler: Christophe Og MD SED RATE BY MODIFIED WESTERG RENon 06-10-2021 SED RATE BY MODIFIED WESTERGREN 11 mm/h Normal < OR = 15 [facility] Comment on above: Performed By: #### 4 420, 6399, 809, [id number] #### [facility] [place] [address] Cloth Reeler: Christophe Og MD Vital Signs Date Time Vital Sign Value Performing Clinician Facility 12-08-2024 14:24-0500 Body height 185.[address] Mya Sánchez MD Work Phone: [facility] 12-08-2024 14:24-0500 Body temperature 98.2 [degF] Dr. Mya Sánchez MD Work Phone: [facility] 12-08-2024 14:24-0500 Diastolic blood pressure 99 mm[Hg] Dr. Mya Sánchez MD Work Phone: [facility] 12-08-2024 14:24-0500 Heart rate 90 /min Dr. Mya Sánchez MD Work Phone: [facility] 12-08-2024 14:24-0500 Respiratory rate 16 /min Dr. Mya Sánchez MD Work Phone: [facility] 12-08-2024 14:24-0500 SaO2% (BldA) [Mass fraction] 99 % Dr. Mya Sánchez MD Work Phone: [facility] 12-08-2024 14:24-0500 Systolic blood pressure 129 mm[Hg] Dr. Mya Sánchez MD Work Phone: [facility] 11-24-2024 14:37-0500 Body mass index (BMI) [Ratio] 46.8 kg/m2 Dr. Mya Sánchez MD Work Phone: [facility] 11-24-2024 14:37-0500 Body weight 161.[address] Mya Sánchez MD Work Phone: [facility] 11-07-2024 08:44-0500 Body mass index (BMI) [Ratio] 46.8 kg/m2 Dr. Mya Sánchez MD Work Phone: [facility] 11-07-2024 08:44-0500 Body weight 161.[address] Mya Sánchez MD Work Phone: [facility] 11-07-2024 08:44-0500 Diastolic blood pressure 82 mm[Hg] Dr. Mya Sánchez MD Work Phone: [facility] 11-07-2024 08:44-0500 Respiratory rate 16 /min Dr. Mya Sánchez MD Work Phone: [facility] 11-07-2024 08:44-0500 Systolic blood pressure 130 mm[Hg] Dr. Mya Sánchez MD Work Phone: [facility] 10-23-2024 08:30-0500 Body temperature 98.5 [degF] Dr. Mya Sánchez MD Work Phone: [facility] 10-23-2024 08:30-0500 Diastolic blood pressure 93 mm[Hg] Dr. Mya Sánchez MD Work Phone: [facility] 10-23-2024 08:30-0500 Heart rate 97 /min Dr. Mya Sánchez MD Work Phone: [facility] 10-23-2024 08:30-0500 Respiratory rate 16 /min Dr. Mya Sánchez MD Work Phone: [facility] 10-23-2024 08:30-0500 SaO2% (BldA) [Mass fraction] 98 % Dr. Mya Sánchez MD Work Phone: [facility] 10-23-2024 08:30-0500 Systolic blood pressure 148 mm[Hg] Dr. Mya Sánchez MD Work Phone: [facility] 10-21-2024 14:10-0500 Body weight 165.[address] Mya Sánchez MD Work Phone: [facility] 10-21-2024 02:29-0500 Inhaled oxygen flow rate 2 L/min Dr. Mya Sánchez MD Work Phone: [facility] 10-20-2024 17:19-0500 Body mass index (BMI) [Ratio] 46.8 kg/m2 Dr. Mya Sánchez MD Work Phone: [facility] 09-09-2024 11:42-0400 Body temperature 97.59 [degF] Alexa Govea INGREDIENT MIXER.SOCIAL SECURITY BENEFITS INTERVIEWER Work Phone: [facility] 09-09-2024 11:42-0400 Body weight 167 kg Alexa Govea INGREDIENT MIXER.SOCIAL SECURITY BENEFITS INTERVIEWER Work Phone: [facility] 09-09-2024 11:42-0400 Diastolic blood pressure 94 mm[Hg] Alexa Govea INGREDIENT MIXER.SOCIAL SECURITY BENEFITS INTERVIEWER Work Phone: [facility] 09-09-2024 11:42-0400 Heart rate 96 /min Alexa Govea INGREDIENT MIXER.SOCIAL SECURITY BENEFITS INTERVIEWER Work Phone: [facility] 09-09-2024 11:42-0400 Respiratory rate 18 /min Alexa Govea INGREDIENT MIXER.SOCIAL SECURITY BENEFITS INTERVIEWER Work Phone: [facility] 09-09-2024 11:42-0400 SaO2% (BldA) [Mass fraction] 95 % Alexa Govea INGREDIENT MIXER.SOCIAL SECURITY BENEFITS INTERVIEWER Work Phone: [facility] 09-09-2024 11:42-0400 Systolic blood pressure 164 mm[Hg] Alexa Govea INGREDIENT MIXER.SOCIAL SECURITY BENEFITS INTERVIEWER Work Phone: [facility] 07-01-2024 14:08-0400 Body temperature 97.5 [degF] Krislyn Aberegg PA Work Phone: [facility] 07-01-2024 14:08-0400 Body weight 164.8 kg Krislyn Aberegg PA Work Phone: [facility] 07-01-2024 14:08-0400 Diastolic blood pressure 105 mm[Hg] Krislyn Aberegg PA Work Phone: [facility] 07-01-2024 14:08-0400 Heart rate 73 /min Krislyn Aberegg PA Work Phone: [facility] 07-01-2024 14:08-0400 Respiratory rate 20 /min Krislyn Aberegg PA Work Phone: [facility] 07-01-2024 14:08-0400 SaO2% (BldA) [Mass fraction] 95 % Krislyn Aberegg PA Work Phone: [facility] 07-01-2024 14:08-0400 Systolic blood pressure 169 mm[Hg] Krislyn Aberegg PA Work Phone: [facility] 07-03-2023 08:23-0400 Body height 185.42 cm [facility] 07-03-2023 08:23-0400 Body mass index (BMI) [Ratio] 45.9 kg/m2 [facility] 07-03-2023 08:23-0400 Body temperature 96.9 [degF] [facility] 07-03-2023 08:23-0400 Body weight 157.85 kg [facility] 07-03-2023 08:23-0400 Diastolic blood pressure 92 mm[Hg] [facility] 07-03-2023 08:23-0400 Heart rate 95 /min [facility] 07-03-2023 08:23-0400 Respiratory rate 18 /min [facility] 07-03-2023 08:23-0400 SaO2% (BldA) [Mass fraction] 96 % [facility] 07-03-2023 08:23-0400 Systolic blood pressure 186 mm[Hg] [facility] 01-30-2023 19:17-0400 Diastolic blood pressure 90 mm[Hg] [facility] 01-30-2023 19:17-0400 Respiratory rate 18 /min [facility] 01-30-2023 19:17-0400 Systolic blood pressure 142 mm[Hg] [facility] 01-30-2023 16:12-0400 Body height 185.42 cm [facility] 01-30-2023 16:12-0400 Body mass index (BMI) [Ratio] 44.1 kg/m2 [facility] 01-30-2023 16:12-0400 Body temperature 98.1 [degF] [facility] 01-30-2023 16:12-0400 Body weight 151.95 kg [facility] 01-30-2023 16:12-0400 Heart rate 97 /min [facility] 01-30-2023 16:12-0400 SaO2% (BldA) [Mass fraction] 98 % [facility] 01-23-2023 07:23-0400 Body temperature 97.81 [degF] Steve GAMEZ Work Phone: [facility] 01-23-2023 07:23-0400 Body weight 151.96 kg Steve GAMEZ Work Phone: [facility] 01-23-2023 07:23-0400 Diastolic blood pressure 98 mm[Hg] Krislyn Aberegg PA Work Phone: [facility] 01-23-2023 07:23-0400 Heart rate 98 /min Krislyn Aberegg PA Work Phone: [facility] 01-23-2023 07:23-0400 Respiratory rate 18 /min Krislyn Aberegg PA Work Phone: [facility] 01-23-2023 07:23-0400 SaO2% (BldA) [Mass fraction] 95 % Krislyn Aberegg PA Work Phone: [facility] 01-23-2023 07:23-0400 Systolic blood pressure 142 mm[Hg] Krislyn Aberegg PA Work Phone: [facility] Encounters Encounter Date Encounter Type Care Provider Facility Start: 01-14-2025 End: 01-14-[address] Mya Sánchez MD Work Phone: [facility] Work Phone: Start: 01-14-2025 End: 01-14-[address] [facility] Start: 01-14-2025 End: 01-14-2025 ambulatory Mya Sánchez Facility:[facility] Start: 12-17-2024 ambulatory Juan Moore Facility: [facility] Start: 12-08-2024 End: 12-08-2024 Patient encounter procedure Randy Morse [place] -[facility] Work Phone: Start: 12-08-2024 End: 12-08-2024 ambulatory Mya Sánchez Facility:[facility] Start: 12-08-2024 End: 12-08-2024 Emergency department patient visit Adam Cantrell Facility:[facility] Start: 11-24-2024 End: 11-24-[address] Ervin Domínguez DO -[facility] Work Phone: Start: 11-24-2024 End: 11-24-2024 ambulatory Mya Midanie Facility:[facility] Start: 11-15-2024 End: 11-15-2024 Patient encounter procedure Krissy Fernando [employer]ENC[employer] CUTTER MACHINE-C -Ultrasound, [facility] Work Phone: Start: 11-15-2024 End: 11-15-2024 ambulatory Krissy Fernando Facility:[facility] Start: 11-07-2024 End: 11-07-[address] Juan Moore MD -[facility] Work Phone: Start: 11-07-2024 End: 11-07-2024 ambulatory Juan Moore Facility:[facility] Start: 10-24-2024 End: 10-24-2024 Patient encounter procedure Krissy King [employer]ENCIL CUTTER MACHINE-C -Laboratory, [place] Work Phone: Start: 10-24-2024 End: 10-24-2024 ambulatory Krissy Fernando Facility:[facility] Start: 10-23-2024 Non-patient / Non-visit Dr. Ai Lee MD -[facility] Work Phone: Start: 10-22-2024 Non-patient / Non-visit Dr. Ai Lee MD -[facility] Work Phone: Start: 10-21-2024 Non-patient / Non-visit Dr. Ai Lee MD -[facility] Work Phone: Start: 10-20-2024 ambulatory Mya Mccann Facility: [facility] Start: 10-20-2024 End: 10-23-2024 [facility] Start: 09-09-2024 End: 09-09-2024 ambulatory [facility] Facility:[facility] Start: 09-09-2024 End: 09-09-2024 Patient encounter procedure Alexa Govea APRN.SOCIAL SECURITY BENEFITS INTERVIEWER Work Phone: [facility] Comment on above: Sinusitis, unspecifi ed chronicity, unspecified location (Primary Dx) Start: 07-02-2024 End: 07-02-2024 Telephone encounter López Villatoro APRN.SOCIAL SECURITY BENEFITS INTERVIEWER Work Phone: [facility] Comment on above: Results Start: 07-01-2024 End: 07-01-2024 Patient encounter procedure Steve Manjarrez PA Work Phone: [facility] Comment on above: Sore throat (Primary Dx); URI, acute; Hypertension, unspecified type Start: 07-01-2024 End: 07-01-2024 ambulatory [place] [facility] Facility:[facility] Start: 03-25-2024 End: 03-25-2024 Emergency department patient visit Ed Physician Provider Facility:[facility] Start: 03-12-2024 ambulatory MYA MIEDEL Facility: B Start: 03-10-2024 [facility] Start: 02-06-2024 ambulatory [facility] Facility: [facility] Start: 09-12-2023 End: 09-12-2023 ambulatory [facility] Work Phone: Start: 09-12-2023 End: 09-12-2023 Patient encounter procedure [facility] Work Phone: Start: 07-03-2023 End: 07-03-2023 Emergency department patient visit [facility]-Emergency Department Work Phone: Start: 07-02-2023 Telephone encounter Najma Raymond APRN.SOCIAL SECURITY BENEFITS INTERVIEWER Work Phone: [facility] Comment on above: Medication Request Start: 02-19-2023 End: 02-19-2023 ambulatory [facility] Work Phone: Start: 02-19-2023 End: 02-19-2023 Patient encounter procedure [facility] Start: 02-08-2023 End: 02-08-[address] [facility] Start: 02-07-2023 End: 02-08-2023 ambulatory [facility] Start: 01-31-2023 End: 01-31-2023 ambulatory [facility] Work Phone: Start: 01-31-2023 End: 01-31-2023 Patient encounter procedure [facility]-[place], Jaret Gandhi [facility] Start: 01-30-2023 End: 01-30-2023 Emergency department patient visit [facility]-Emergency Department Start: 01-23-2023 End: 01-23-2023 Patient encounter procedure Steve GAMEZ Work Phone: [facility] Comment on above: Sinobronchitis (Prim jaquelin Dx); Hypertension, unspecified type Start: 12-19-2022 End: 12-19-2022 Subsequent hospital visit by physician Xr [facility] Work Phone: Radiology Comment on above: Pain [...] Comment: URIN ALYSIS Performed By: #### 2 [id number] #### [facility] [facility] [address] Start: 01-30-2023 Plain chest X-ray Start: 01-30-2023 CT of head without contrast Start: 12-19-2022 Radex foot complete minimum 3 views Akira Magaña Work Phone: Plan of Treatment Date Care Activity Detail Author Start: 12-08-2024 [facility] Start: 11-24-2024 Patient referral [facility] Work Phone: Start: 10-23-2024 Patient discharge [facility] Start: 10-20-2024 Ambulation without limitation [facility] Start: 10-20-2024 Assessment of risk of venous thromboembolism [facility] Start: 10-20-2024 Insertion of catheter into peripheral vein [facility] Start: 10-20-2024 Oxygen therapy [facility] Start: 10-20-2024 Providing care according to standard [facility] Start: 10-20-2024 Referral to service [facility] Start: 10-20-2024 [facility] Start: 10-20-2024 Following clinical pathway protocol [facility] Start: 10-20-2024 Admission procedure [facility] Start: 10-20-2024 Hospital admission, emergency, from emergency room, medical nature [facility] Start: 10-20-2024 [facility] Start: 07-13-2024 Covid-19 Vaccine ( season) Covid-19 Vaccine ( season) [facility] Start: 07-13-2024 Influenza vaccination Influenza Vaccine (#1) [facility] Start: 07-13-2023 Covid-19 Vaccine ( season) Covid-19 Vaccine ( season) [facility] Start: 07-13-2023 Influenza vaccination [facility] Start: 11-12-2022 DEPRESSION ASSESSMENT DEPRESSION ASSESSMENT [facility] Start: 2022 COLOGUARD (FIT-DNA) COLOGUARD (FIT-DNA) [facility] Start: 2022 Colonoscopy COLONOSCOPY [facility] Start: 2022 COLORECTAL CANCER SCREENING COLORECTAL CANCER SCREENING [facility] Start: [address] COLONOGRAPHY [facility] Start: 2022 DIABETES SCREEN DIABETES SCREEN [facility] Start: 2022 Diabetes Screening Diabetes Screening [facility] Start: 2022 FECAL OCCULT BLOOD FECAL OCCULT BLOOD [facility] Start: 2022 Screening for malignant neoplasm of colon [facility] Start: 2022 SIGMOIDOSCOPY SIGMOIDOSCOPY [facility] Start: 07-13-2022 Influenza vaccination INFLUENZA (#1) [facility] Start: 2012 Lipid 1996 panel - Serum or Plasma Lipid Screening [facility] Start: 2012 Lipid panel Lipid Screening [facility] Start: 2012 LIPID SCREEN LIPID SCREEN [facility] Start: 1996 Hepatitis B Vaccine (1 of 3 - 19+ 3-dose series) Hepatitis B Vaccine (1 of 3 - 19+ 3-dose series) [facility] Start: 1996 Urine microalbumin profile [facility] Start: 1995 Annual PCP Team Chronic Disease Visit Annual PCP Team Chronic Disease Visit [facility] Start: 1995 Anxiety Screening Anxiety Screening [facility] Start: 1995 BP Controlled (<130/80) BP Controlled (<130/80) [facility] Start: 1995 Depression Screening Depression Screening [facility] Start: 1995 HEPATITIS C SCREENING HEPATITIS C SCREENING [facility] Start: 1995 Hepatitis C screening Hepatitis C Screening [facility] Start: 1995 HIV SCREENING HIV SCREENING [facility] Start: 1995 HIV screening HIV Screening [facility] Start: 04-02-1978 COVID-19 VACCINE (#1) COVID-19 VACCINE (#1) [facility] Start: 1977 HEPATITIS B (1 of 3 - 3-dose series) HEPATITIS B (1 of 3 - 3-dose series) [facility] Start: 1977 Hepatitis B Vaccine (1 of 3 - 3-dose series) Hepatitis B Vaccine (1 of 3 - 3-dose series) [facility] Patient Education [facility] Work Phone: Patient referral [facility] Work Phone: SARS-CoV-2 (COVID-19 ) RNA [Presence] in Respiratory specimen by YVONNE with probe detection COVID NAAT, UPPER RESPIRATORY, ROUTINE Microbiology Routine Sore throat URI, acute 07/01/2024 2:24 PM EDT [facility] Work Phone: Immunizations Immunization Date Immunization Notes Care Provider Artie driver 08-07-2009 influenza virus vaccine, unspecified formulation Steve GAMEZ Work Phone: [facility] Work Phone: Payers Date Payer Category Payer Self-pay [id number] 2024 Private Health Insurance [facility] [id number] 2023 Private Health Insurance [facility] [id number] 2023 Private Health Insurance [id number] 2022 Unknown [id number] 1977 Unknown [id number] 1977 Unknown [id number] [id number] 1977 Unknown [id number] [id number] Unknown [employer] [id number] Unknown [id number] Unknown [employer] TPA [id number] Unknown [place] [employer] [id number] Unknown [id number] Unknown [id number] Unknown [id number] [id number] Unknown [id number] [id number] Unknown [id number] [id number] Unknown [id number] [id number] Unknown [id number] [id number] Unknown [id number] [id number] Unknown [id number] [id number] Unknown [id number] [id number] Unknown [id number] [id number] Unknown [id number] [id number] Unknown [id number] [id number] Unknown [id number] [id number] Unknown [id number] [id number] Unknown [id number] Unknown [id number] Social History Date Type Detail Facility Start: 12-19-2022 End: 07-01-2024 Tobacco smoking status NHIS Ex-smoker [facility] Work Phone: Start: 11-12-2009 End: 11-12-2017 History of tobacco use Current smoker [facility] Work Phone: Start: 11-12-2009 End: 11-12-2017 History of tobacco use Cigarette Smoker [facility] Work Phone: Start: 12-19-2022 End: 07-01-2024 Tobacco use and exposure Former smokeless tobacco user [facility] Work Phone: End: 06-12-2018 History of tobacco use Snuff User [facility] Work Phone: Start: 01-23-2023 End: 07-01-2024 Alcohol intake Current drinker of alcohol (finding) [facility] Start: 01-23-2023 End: 04-11-2024 Alcohol intake [facility] Start: 12-19-2022 Alcohol Comment daily [facility] Start: 1975 Sex Assigned At Not on file [facility] Start: 01-30-2023 End: 07-03-2023 Tobacco smoking status NHIS Unknown if ever smoked [facility] Start: 1975 Sex Assigned At Male [facility] Start: 07-01-2023 End: 04-11-2024 Tobacco use panel [facility] National Score (1-100), lower number is lower risk 48 [facility] Start: 12-08-2024 Tobacco smoking stat us NHIS Current some day smoker [facility] Start: 01-26-2025 Sex Male (finding) [facility] Goals Date Patient Goal Desired Activity /State Functional Status Date Assessment Result Facility 10-23-2024 Functional status Ambulates;Up ad [facility] Work Phone: Mental Status Date Assessment Result Facility 10-22-2024 Cognitive function Voice/Name [facility] Work Phone: 01-30-2023 Cognitive function Awake;Alert;Appropriat e [facility] Work Phone: Clinical Notes 12-19-2022 to 10-23-2024 Note Date & Type Note Facility 10-23-2024 Note [facility] Medical Records Department [address] [place] [address] Discharge Summary 10/23/24 1414 MR#: [id number] Acct: [id number] Name: ARON ESPINOZA Rep #: [id number] : 1975 49 From: Keny Lee MD PCP: Dr. Mya Sánchez MD Status:DIS IN Location: WI3 DO401-0 Providers Date of Admission: 10/20/24 Primary Care [...] is a 49 M who presented to [facility] ED on 10/20/2024 requesting alcohol detox. Patient [...] apply): None appl (more content not included)... [facility] 10-20-2024 Evaluation note Diagnosis Onset Date Resolution Tachycardia acute October 20, 2024 4:31pm Desire for detoxification resolved October 20, 2024 4:31pm Alcohol dependence inactive [facility] 2023 4:31pm Alcohol withdrawal inactive [facility] 2023 4:31pm Bright red blood per rectum acute November 07, 2 024 8:19am History of ETOH abuse acute Dec emb2023 8:19am Pain with swallowing acute [facility] 2023 8:19am Upper abdominal pain acute [facility] 2023 8:19am History of hemorrhoids chronic De cem2023 8:19am Hx of gastroesophageal reflux (GERD) chronic November 07 024 8:19am Disc disease, degenerative, lumbar or lumbosacral acute November 24 2:14pm Lumbar spondylolysis acute 2024 2:14pm Obesity acute November 24, 2024 2:14pm [facility] Work Phone: [phone] 774-258210-29-2024 NoteHNO ID: [id number] Author: ALEXA GOVEA APRN.SOCIAL SECURITY BENEFITS INTERVIEWER Service: ? Author Type: Nurse Practitioner Type: Progress Notes Filed: 09/09/2024 12:01 Note Text: This note was created using NoteWriter. Subjective Aron Espionza is a 48 year old male. 48 year old male with no PMH presents for illness. Acute onset of symptoms was 4 days ago +cough +congestion +sinus pressure +head pressure +headache Denies CP Denies SOB Denies dyspnea The history is provided by the patient. No speech language assistant was used. URI He complains of cough [...] Pharynx: Oropharynx is clear. (more content not included)...[facility]10-29-2024 History of Present illness Narrative* Alexa Govea APRN.[facility] - 09/09/2024 11:53 AM EDT This note was created using Manjrasoftriter. Octavio Espinoza is a 48 year old male. 48 year old male with no PMH presents for illness. Acute onset of symptoms was 4 days ago +cough +congestion +sinus pressure +head pressure +headache Denies CP Denies SOB Denies dyspnea The history is provided by the patient. No speech language assistant was used. URI He complains of cough [...] patient Alexa Govea APRN.EVELYN [facility] Tele[facility] encounter Note * Telephone Encounter - Kimmie Gonzalez LPN - 07/02/2024 9:36 AM EDT Patient notified.Kimmie Gonzalez LPN [facility]08-21-2024 Miscellaneous Notes* Telephone Encounter - Kimmie Gonzalez LPN - 07/02/2024 9:36 AM EDT Patient notified.Kimmie Gonzalez LPN * Telephone Encounter - López Villatoro APRN.CNP - 07/02/2024 7:26 AM EDT Please inform patient that COVID-19 test was negative. Follow-up with PCP if symptoms or not improving. López Villatoro APRN.EVELYN documented in this encounter[facility] Telephone encounter Note * Telephone Encounter - López Villatoro APRN.CNP - 07/02/2024 7:26 AM EDT Please inform patient that COVID-19 test was negative. Follow-up with PCP if symptoms or not improving. López Villaotro APRN.EVELYN [facility] Work Phone: 1(751) 293-764108-20-2024 Instructions* Patient Instructions* Steve Manjarrez PA - [...] or concerning to you. documented in this encounterPrem[facility]08-20-2024 NoteHNO ID: [id number] Author: STEVE MANJARREZ PA Service: ? Author Type: Physician Funeral Director/Embalmer Type: Progress Notes Filed: 07/01/2024 14:27 Note Text: This note was created using Manjrasoftriter. Octavio Espinoza is a 48 year old [...] elevated, needs follow-up with (more content not included)...[facility]08-20-2024 History of Present illness Narrative* Steve Manjarrez PA - 07/01/2024 2:13 PM EDT This note was created using Poly Adaptive. Subjective Aron Espinoza is a 48 year [...] ER evaluation. VERA Pa documented in this encounterPrem[facility] Hospital Discharge instructions Additional Instructions Continue taking cephalexin as previously directed. Also continue ibuprofen. You may take [place] for breakthrough pain. Have your wound checked by your primary care physician in the next 2 to 3 days. Return with fever, increased drainage of pus from the wound, new or worsening symptoms.[facility] Work Phone: 1(669) 845-155208-21-2023 Miscellaneous Notes* Telephone Encounter - Najma Conde [...] . Jennie Varma LPN documented in this encounterPrem[facility]03-21-[address] Lazcano [facility] January 30, 2023 7:07pm Note Date/Time January 30, 2023 4:4 7pm [facility] Medical Records Department [address] [place] [address] Emergency Department Summary 01/30/23 MR#: [id number] Acct: [id number] Name: ARON ESPINOZA Rep #:[id number] : 1975 47 From: Christian Lazcano MD [...] heart disease. Patient also complains of having episodes. He states people talk to him and [...] been doing this for over 10 years. [facility] Medical History GERD (gastroesophageal reflux disease) HTN [...] % (Auto) 57.0 Lymph % (Auto) 30.5 [place] % (Auto) 6.0 Eos % (Auto) 5.7 [...] ectopy. No acute ST elevation or depression. MS interval, QRS duration and QTc are normal. [...] your Primary Care Provider. Call [facility] ([phone]) or report to the closest Emergency Room. Call 911 if necessary. 01/30/231906 <Electronically signed by Christian Lazcano MD> Cosigner Signature (if applicable): CC: Dr. Mya Sánchez MD ~ Signed [facility] Work Phone: 1(814) 172-977003-14-2023 History of Present illness Narrative* VERA Pa - 01/23/2023 7:31 AM EDT This note was created using Manjrasoftriter. Subjective Aron Espinoza is a 47 year [...] ER evaluation. VERA Pa documented in this encounterPrem[facility] History of Present illness Narrative* Socorro Shannon [...] 19, 2022 2:52 PM documented in this encounterPrem[facility] SouthDischarge summary Author Aaron Langston [facility] July 03, 2023 8:55am Note Date/Time July 03, 2023 8: 55am [facility] Medical Records Department [address] [place] [address] Emergency Department Summary 07/03/23 MR#: [id number] Acct: [id number] Name: ARON ESPINOZA Rep #:[id number] : 1975 47 From: Aaron Langston MD [...] few days to 10 to his wound. [facility] Medical History GERD (gastroesophageal reflux disease) HTN [...] will write him a prescription for 10 [place] tablets to take for breakthrough pain. Moreover, [...] directed. Also continue ibuprofen. You may take [place] for breakthrough pain. Have your wound checked [...] your Primary Care Provider. Call [facility] ([phone]) or report to the closest Emergency Room. Call 911 if necessary. 07/03/23 0855 <Electronically signed by Aaron Langston MD> Cosigner Signature (if applicable): CC: Dr. Mya Sánchez MD ~ Signed [facility] Work Phone: Evaluation note* Diagnosis Sinobronchitis- Primary Unspecified sinusitis (chronic) Hypertension, unspecified type documented in this encounter [facility]Evaluation noteNo assessment information availableWooster [facility] Work Phone: Evaluation note* Diagnosis Pain in right foot Pain in limb [facility]* Diagnosis Sore throat- Primary Acute pharyngitis URI, acute Acute upper respiratory infections of unspecified site Hypertension, unspecified type documented in [facility]* Diagnosis Sinusitis, unspecified chronicity, unspecified location- Primary documented in this encounter [facility] for referral (narrative)* Diagnostic Procedure Only (Routine) - Closed Specialty Diagnoses / Procedures Referred By Tylor wolfe Referred To Contact XR IMAGING Diagnoses Pain in right foot Procedures XR FOOT GENERAL 3V AP/LAT/OBL RIGHT RADEX FOOT COMPLETE MINIMUM 3 VIEWS [address] [place] [address] [place] [address] Referral ID Status Reason Start Date Expiration Date V isits Requested Visits Authorized [id number] Closed Auto-Generate d Referral 12/19/2022 11/11/2023 1 1 [facility] for visit Narrative* Diagnostic Procedure Only (Routine) - Closed Specialty Diagnoses / Procedures Referred By Tylor wolfe Referred To Contact XR IMAGING Diagnoses Pain in right foot Procedures XR FOOT GENERAL 3V AP/LAT/OBL RIGHT RADEX FOOT COMPLETE MINIMUM 3 VIEWS [address] [place] [address] [place] [address] Referral ID Status Reason Start Date Expiration Date V isits Requested Visits Authorized [id number] Closed Auto-Generate d Referral 12/19/2022 11/11/2023 1 1 [facility] Summary Purpose Family History Relationship Condition Age at Onset Recorded Date/T pérez daughter Asthma Unknown father Asthma Unknown Hypertension Unknown Coronary artery disease Unknown Ulcerative lesion Unknown mother Hypertension Unknown grandfather Cardiac disease Unknown grandmother Diabetes mellitus Unknown Advance Directives Advance Directive Response Recorded Date/ Time Living Will No January 30, 2023 4:46pm Power of Flight Agent No January 30 4:46pm Advance Directive Response Recorded Date/ Time Living Will No July 03 8:49am Power of Flight Agent No July 03, 2 023 8:49am Advance Directive Response Recorded Date/ Time Living Will No July 03 7:49am Power of Flight Agent No July 03 023 7:49am Advance Directive Response Recorded Date/ Time Living Will No October 20 6:19pm Power of Flight Agent No October 20, 2024 6:19pm Living Will No December 08 6:32pm Power of Flight Agent No December 08, 2024 6:32pm Chief Complaint [...] 07 8:19am Hx of gastroesophageal reflux (GERD) Dec emb2023 8:19am Disc disease, degenerative, lumbar or michaela [...] DATE CREATED AUTHOR AUTHOR'S ORGANIZ ATION 02/16/2023 [facility] DATE CREATED AUTHOR AUTHOR'S ORGANIZ ATION 03/12/2024 [facility] DATE CREATED AUTHOR AUTHOR'S ORGANIZ ATION 09/10/2024 [facility] DATE CREATED AUTHOR AUTHOR'S ORGANIZ ATION 01/29/2025 [facility] Source Comments (unrecognize d section and content) In the event this informatio n is protected by the Federal Confidentiality of Alcohol and Drug Abuse Patient Records regulations: The Federal rules restrict any use of the information to criminally investigate or prosecute any alcohol or drug abuse patient.[facility]In the event this information is protected by the Federal Confidentiality of Alcohol and Drug Abuse Patient Records regulations: The Federal rules restrict any use of the information to criminally investigate or prosecute any alcohol or drug abuse patient.[facility] SouthIn the event this information is protected by the Federal Confidentiality of Alcohol and Drug Abuse Patient Records regulations: The Federal rules restrict any use of the information to criminally investigate or prosecute any alcohol or drug abuse patient.[facility] SouthIn the event this information is protected by the Federal Confidentiality of Alcohol and Drug Abuse Patient Records regulations: The Federal rules restrict any use of the information to criminally investigate or prosecute any alcohol or drug abuse patient.[facility] SouthIn the event this information is protected by the Federal Confidentiality of Alcohol and Drug Abuse Patient Records regulations: The Federal rules restrict any use of the information to criminally investigate or prosecute any alcohol or drug abuse patient.[facility] SouthIn the event this information is protected by the Federal Confidentiality of Alcohol and Drug Abuse Patient Records regulations: The Federal rules restrict any use of the information to criminally investigate or prosecute any alcohol or drug abuse patient.[facility] Reason for Visit (unrecogniz ed section and content) Reason Comments Chest Congestion cough, sore throat f rom cough x 3 weeks Reason Comments Medication Request Reason Comments Sore Throat ALONZO, fatigue, bodyach es x this AM Reason Comments Results Reason Comments Head Congestion drainage, cough, hea dache x 4 days Care Teams (unrecognized sec tion and content) Claims Sorter Relationship Specialty Start Date End Date Mya Sánchez MD [address] [place], [place] [id number] PCP - General Family Medicine 01/23/23 Team [...] Laura Londono DO Attending Provider, Referring Rere cason Active Team Status: Inactive Member Role Status Dates Dr. Mya Sánchez MD Primary Care Provider Active Dr. Laura Londono DO Attending Provider Active Claims Sorter Relationship Specialty Start Date End Date Mya Sánchez MD [address] [place], [place] [id number] PCP - General Family Medicine 01/23/23 Team Status: Inactive Member Role Status Dates Dr. Mya Sánchez MD Primary Care Provider Active Aaron Langston MD Emergency Provider Active Claims Sorter Relationship Specialty Start Date End Date Lea Atkins CNP PCP - General GROUNDSKEEPING MAINTENANCE 06/02/16 01/22/23 Team Status: Inactive Member Role Status Dates Dr. Mya Sánchez MD Primary Care Provider, Attendin g Provider Active Team Status: Inactive Member Role Status Dates Dr. Mya Sánchez MD Primary Care Provider Active Aaron Langston MD Attending Provider, Emergency Provid er Active Claims Sorter Relationship Specialty Start Date End Date Mya Sánchez MD [address] [place] [address] PCP - General Family Medicine 01/23/23 Claims Sorter Relationship Specialty Start Date End Date Mya Sánchez MD [address] [place], [place] [address] PCP - General Family Medicine 01/23/23 Claims Sorter Relationship Specialty Start Date End Date Mya Sánchez MD [address] [place], [place] [address] PCP - General Family Medicine 01/23/23 Team Status: Active Member Role Status Dates Dr. Mya Sánchez MD Primary Care Provider Active Team Status: Inactive Member Role Status Dates Dr. Mya Sánchez MD Primary Care Provider Active Start: October 20, 2024 End: October 23, 2024 Dr. Jesus Manuel Jenkins DO Emergency Provider Active Start: October 20, 2024 End: October 23, 2024 Dr. Qeu Arita DO Admit Provider Active Start: October [...] October 24, 2024 End: October 24, 2024 Krissy King NP-C Attending Provider Active St art: October 24, 2024 End: October 24, 2024 Krissy King NP-C Referring Provider Active St art: October 24, [...] 2024 End: November 15, 2024 Krissy King NP-C Attending Provider Active St art: November 15, 2024 End: November 15, 2024 Krissy King NP-C Referring Provider Active St art: November 15, [...] BE BASED ON THE PRIMARY CLINICAL RECORDS. [facility]. provides no warranty or guarantee of the accuracy or completeness of information in this document.
== END | disposition home or self-care (01) ==
LOC: US 07:27
PROVIDERS: PCP Family Medicine; Referring Provider Family Medicine; Visit Provider Family Medicine
DX: K70.0 Alcoholic fatty liver (principal)
CPT/HCPCS: 76705; 76981